=== PATIENT | male | born 1960 | race Caucasian/White ===

== ENCOUNTER 2018-01-26 10:46 | Inpatient (IN) | payer OTHER, SELFPAY ==
[2018-01-26] VITALS (12 sets, daily range): BP systolic 96–111; BP diastolic 59–86; PULSE 78–106; RESP 16–26; TEMP 36.1–37.1; O2SAT 91–97; BMI 34.4; BMI 34.7
[2018-01-26] MEDS: Albuterol 2.5 MG/3 ML VIAL.NEB. INHALATION ×3 (11:22)
[2018-01-26] MEDS: Ipratropium/Albuterol Sulfate 3 ML AMPUL.NEB INHALATION ×3 (11:22→23:00)
[2018-01-26] MEDS: 0.9% Normal Saline 1,000 ML 1000 ML IV (11:26)
[2018-01-26 11:28] LABS: Absolute Lymphocyte Count 1.81 X10^3/ul (0.83-4.51); Absolute Neutrophil Count 15.7 X10^3/uL (2.0-7.7); Basophil# 0.04 X10^3/uL; Basophil% 0.2 % (0-1); Eosinophil# 0.18 X10^3/uL; Hemoglobin 15.2 g/dl (13.0-16.5); Lymphocyte # 1.81 X10^3/ul (4.0); Lymphocyte % 9.8 % (19-41); Mean Corpuscular Hgb 27.2 pg (27.0-32.0); Mean Corpuscular Volume 87.8 fL (80-94); Mean Platelet Vol. 11.6 fl (6.2-12.0); Monocyte# 0.71 X10^3/uL; Monocyte% 3.8 % (0-10); Neutrophil # 15.66 X10^3/uL (2.7-7.7); Neutrophil % 84.8 % (47-70); Platelet Count 298 K/mm3 (150-450); RBC Distribution Width CV 15.1 % (11.6-14.6); RBC Distribution Width SD 48.4 fl (35.1-43.9); Red Blood Count 5.58 M/mm3 (4.6-6.2); White Blood Count 18.5 K/mm3 (4.4-11.0)
--- NOTE | 2018-01-26 11:31 | ED.RN ---
DANIELA FROST [employer]OCI[employer] PRIMARY NURSE WITH [employer].
[2018-01-26 11:33] LABS: POSITIVE COUNT NO; POSITIVE DIFFERENTIAL NO; POSITIVE MORPHOLOGY NO
[2018-01-26 11:49] LABS: ALB/GLOB Ratio 0.8 RATIO (0.9-2.4); AST(SGOT) 19 U/L (15-37); Alanine Aminotransfer ALT/SGPT 32 U/L (16-61); Albumin, Serum 3.5 g/dL (3.2-5.0); Alkaline Phosphatase 57 U/L (45-117); Anion Gap 4 (5-15); BUN 51 mg/dL (7-18); BUN/Creat Ratio 19.2 RATIO (10-20); Calcium,Total 9.1 mg/dL (8.5-10.1); Chloride 107 mmol/L (98-107); Creatinine, Serum 2.65 mg/dL (0.70-1.30); EST Glomerular Filtration Rate 27 mL/min (>60); Est Glom Filt Rate - Afr Amer 32 mL/min (>60); Estimated Creatinine Clearance 28.75 ml/min; Globulin 4.2 g/dL (2.2-4.2); Glucose 265 mg/dL (74-106); Potassium 6.2 mmol/L (3.5-5.1); Protein, Total 7.7 g/dL (6.4-8.2); Sodium Level 138 mmol/L (136-145)
--- NOTE | 2018-01-26 11:50 | RAD_ITS ---
STUDY: X-RAY CHEST REASON FOR EXAM: Male, 57 years old. Cough, shortness of breath. TECHNIQUE: 2 views, PA and lateral projections. COMPARISON: None available. FINDINGS: EKG wires overlie chest and upper abdomen. The lungs are appear fairly well expanded and show bihilar/bibasal diffuse heterogeneous increased interstitial markings with PA view. In addition, tiny rounded scattered densities are seen throughout the lungs concerning for nodules, nonspecific. With lateral view, soft tissues of the arms partially obstructed upper lungs. There is no demonstrated pleural abnormality. No large gross pneumothorax identified. Mildly enlarged heart. Normal mediastinum and guru. Mildly enlarged pulmonary arteries with ill-defined margins seen with PA view. Normal visualized aortic arch and descending thoracic aorta. Nonacute visualized thoracic spine, ribs, clavicles and shoulders. There is no demonstrated abnormality of the visualized soft tissue structures of the upper abdomen. No subdiaphragmatic free air seen grossly. RAD/Chest PA and Lateral IMPRESSION: Bihilar/bibasal increased groundglass and interstitial markings with numerous variable sized nodular densities identified as described above, nonspecific but concerning for congestion of CHF/fluid overload and/or lower probability neoplasm/metastasis. Infectious etiologies such as rare tuberculosis not excluded. If clinically indicated, CT chest with IV contrast may be more helpful. Electronically Signed: Poncho Campa, at 12:48 EDT Tel , Service support ,
--- NOTE | 2018-01-26 11:56 | ED.RN ---
potassium 6.2 called from [address] lab. dr terrazas aware
[2018-01-26] MEDS: levoFLOXacin IV 750 MG/150 ML BAG 100 MG IV (12:43)
[2018-01-26] MEDS: Dextrose 50%-Water 25 GM/50 ML DISP.SYRIN IV (12:43)
--- NOTE | 2018-01-26 12:54 | ED.VISSUMM ---
- ER Visit Summary Date of Service: 01/26/18 Chief Complaint: [cough] History of Present Illness: The patient is a 57 M [the presents with cough and shortness of breath that began yesterday. He does describe some sputum production. He describes shortness of breath worse with coughing. He denies any chest pain. He denies any symptoms orthopnea. He is a history of diabetes, hypertension, and hypercholesterolemia. No history of CHF. No recent travel. He is a longtime smoker. No DVT or PE history or risk factors. He has no other complaints. Initial blood pressure 98/67, respiratory rate 26, 93% on room air.] Physical Examination: [General: The patient appears well and in no apparent distress. Patient is resting comfortably on cart. Skin: Warm, dry, no pallor noted. No rash. Head: Normocephalic, atraumatic Neck: Supple, nontender. No JVD. No meningismus. Eye: PERRLA, EOMI ENT: Moist mucus membranes, pharynx within normal limits. Cardiovascular: Regular Rate and Rhythm, no gallups or rubs Respiratory: Patient is in no distress, no accessory muscle use, lungs are diminished with rhonchi bilaterally Musculoskeletal: normal ROM, no deformity, no tenderness, no swelling. 2+ radial and DP pulses symmetric. GI: No tenderness to palpation, no masses appreciated. No rebound, guarding, or rigidity noted. Neurological: A&O, normal strength and sensation. GCS 15. Psychiatric: Cooperative] Test Results: [Blood cell count is elevated at 18.5. Potassium is is elevated at 6.2. He has no hyper K changes on his EKG consistent with peaked T waves or widening of the QRS. BUN was elevated at 51, creatinine 2.65. Troponin was normal. Blood cultures and lactate are pending. BNP is pending. Chest x-ray shows infiltrate versus edema bilaterally] Emergency Department Course and Treatment: [She was placed on 2 L nasal cannula oxygen. He was given IV fluid boluses. Chest x-ray is concerning for infection with cough and sputum production. He was started on IV antibiotics. He was given insulin and calcium gluconate for hyperkalemia. He was given IV fluids also for acute kidney injury. Cardiac enzymes are negative. Lactate, BMP, and blood cultures are pending. Patient was discussed with hospitalist, Dr. Gage who also ordered ordered additional testing to be started here in the emergency department. At this time patient will be admitted for further evaluation and treatment.] Treatment Plan: [see above] Disposition: [admission] Impression: [Dyspnea, Community-acquired pneumonia bilateral, hyperkalemia, leukocytosis, sepsis, acute kidney injury] This note was generated with [employer] dictation software. It may contain incorrect words, spelling, and punctuation that were not noted in review of the chart prior to signing ED Disposition - Plan for ED Patient: Chief Complaint: Cough Referrals: Erasmo Stoner DO [Primary Care Provider] -
--- NOTE | 2018-01-26 12:58 | ED.DCSUM_ITS ---
- ER Visit Summary Date of Service: 01/26/18 Chief Complaint: [cough] History of Present Illness: The patient is a 57 M [the presents with cough and shortness of breath that began yesterday. He does describe some sputum production. He describes shortness of breath worse with coughing. He denies any chest pain. He denies any symptoms orthopnea. He is a history of diabetes , hypertension, and hypercholesterolemia. No history of CHF. No recent travel. He is a longtime smoker. No DVT or PE history or risk factors. He has no other complaints. Initial blood pressure 98/67, respiratory rate 26, 93 % on room air.] Physical Examination: [General: The patient appears well and in no apparent distress. Patient is resting comfortably on cart. Skin: Warm, dry, no pallor noted. No rash. Head: Normocephalic, atraumatic Neck: Supple, nontender. No JVD. No meningismus. Eye: PERRLA, EOMI ENT: Moist mucus membranes, pharynx within normal limits. Cardiovascular: Regular Rate and Rhythm, no gallups or rubs Respiratory: Patient is in no distress, no accessory muscle use, lungs are diminished with rhonchi bilaterally Musculoskeletal: normal ROM, no deformity, no tenderness, no swelling. 2+ radial and DP pulses symmetric. GI: No tenderness to palpation, no masses appreciated. No rebound, guarding, or rigidity noted. Neurological: A&O, normal strength and sensation. GCS 15. Psychiatric: Cooperative] Test Results: [Blood cell count is elevated at 18.5. Potassium is is elevated at 6.2. He has no hyper K changes on his EKG consistent with peaked T waves or widening of the QRS. BUN was elevated at 51, creatinine 2.65. Troponin was normal. Blood cultures and lactate are pending. BNP is pending. Chest x-ray shows infiltrate versus edema bilaterally] Emergency Department Course and Treatment: [She was placed on 2 L nasal cannula oxygen. He was given IV fluid boluses. Chest x-ray is concerning for infection with cough and sputum production. He was started on IV antibiotics. He was given insulin and calcium gluconate for hyperkalemia. He was given IV fluids also for acute kidney injury. Cardiac enzymes are negative. Lactate, BMP, and blood cultures are pending. Patient was discussed with hospitalist, Dr. Gage who also ordered ordered additional testing to be started here in the emergency department. At this time patient will be admitted for further evaluation and treatment.] Treatment Plan: [see above] Disposition: [admission] Impression: [Dyspnea, Community-acquired pneumonia bilateral, hyperkalemia, leukocytosis, sepsis, acute kidney injury] This note was generated with [employer] dictation software. It may contain incorrect words, spelling, and punctuation that were not noted in review of the chart prior to signing ED Disposition - Plan for ED Patient: Chief Complaint: Cough Referrals: Erasmo Stoner DO [Primary Care Provider] -
[2018-01-26 13:04] LABS: Lactic Acid 1.8 mmol/L (0.4-2.0)
[2018-01-26 13:15] LABS: Allen Test POS; Base Excess -9 mmol/L (-2 to +2); Bicarbonate 18.2 mmol/L (22-26); Blood Gas Specimen Type ART; O2 Delivery Device Nasal Can; PO2 81 mmHG (75-100); SITE L Radial; SO2 94 % (95-99); Time Given 1255; Total Carbon Dioxide 19 mmol/L; pCO2 42.2 mmHg (35-45); pH 7.24 (7.35-7.45)
[2018-01-26 13:42] LABS: BNP,B-Type NATRIURETIC PEPTIDE 567.3 pg/mL (0-100)
[2018-01-26 13:43] LABS: Salicylate 2.8 mg/dL (2.8-20.0)
[2018-01-26] MEDS: 0.9% Normal Saline 1,000 ML 999 ML IV (14:26)
[2018-01-26] MEDS: 0.9% Normal Saline 1,000 ML 150 ML IV (14:27)
[2018-01-26] MEDS: Insulin Lispro 100 UNIT/ML INSULN.PEN SC ×2 (15:40→20:53)
[2018-01-26] MEDS: Sodium Polystyrene Sulfonate 15 GM/60 ML UDC 30 GM PO (15:40)
[2018-01-26 15:46] LABS: Bedside Glucose 237 mg/dL (70-110)
--- NOTE | 2018-01-26 17:26 | PCM.HP.STD ---
Problem List (1) Sepsis Status: Acute (2) Pneumonia Status: Acute (3) Diabetes mellitus Status: Chronic Qualifiers: Diabetes mellitus type: type 2 (4) HTN (hypertension) Status: Chronic (5) Hyperkalemia Status: Acute (6) DILLON (acute kidney injury) Status: Acute History of Present Illness Date of Admission: 01/26/18 Chief Complaint: SOB The patient is a 57 year old M with a hx of DMt2 and HTN who presented to the ER with increased SOB for 2 days. He has had a cough productive of clear sputum. He has been in the hospital visiting his . He denies CP, and has no swelling of his LE. He does not have fevers or chills, but does report episodic sweats at home especially this AM. He denies a hx of COPD and CHF. In the ER he is satting well without o2, however his ABG does demonstrate acidosis with a pH of 7.25, however LA is only 1.8. He does have a significant leukocytosis however prior labs have all shown elevated white counts, for unclear reasons. He reports poorly controlled DMt2 - last A1C 8.9. He does smoke about 1/2 ppd and has done so most of his life. [] Past Medical History Past Medical History (Chronic Problems): Chronic Problems (Last Updated 09/27/17 @ 15:22 by Neva Chiang) Diabetes mellitus (Chronic) HTN (hypertension) (Chronic) Medical History: Medical History (Last Updated 09/27/17 @ 15:22 by Neva Chiang) Diabetes E11.9 Diarrhea R19.7 Shoulder pain M25.519 Hypertension I10 Allergies No Known Allergies Allergy (Verified 01/26/18 10:48) Home Medications: Ambulatory Orders Medication Instructions Recorded fenofibrate 50 mg capsule 50 mg PO QDAY 09/27/17 glimepiride 1 mg tablet 1 mg PO QAM 09/27/17 metformin 1,000 mg tablet 1,000 mg PO BID 09/27/17 metoprolol tartrate 75 mg tablet 75 mg PO BID 09/27/17 ramipril 1.25 mg capsule 1.25 mg PO QDAY 09/27/17 Surgical History: tonsillectomy Psychiatric History: No pertinent psych hx Lives: Alone Smoking Status: Current every day smoker Tobacco Use: Non-smoker, Cigarettes Alcohol: None Drugs: None - *Family History Maternal History Items: No pertinent history Paternal History Items: No pertinent history Review of Systems Constitutional: Denies: Chills, Fever, Weight Change HEENT: Denies: Head Aches, Sinus Congestion, Sinus Drainage Cardiovascular: Denies: Chest Pain, Palpitations Respiratory: Reports: Cough, Shortness of Breath, Shortness of breath at rest, Shortness of breath upon exertion. Denies: Sputum production Gastrointestinal: Denies: Abdominal Pain, Nausea, Vomiting Genitourinary: Denies: Dysuria Musculoskeletal: Denies: Joint Pain, Joint Tenderness Skin: Denies: Rash, Wounds Neurological: Denies: Numbness, Tingling, Focal weakness Psychiatric: Denies: Anxiety, Depression, Homicidal Ideations, Suicidal Ideations Hematologic/ Lymphatic: Denies: Easy Bruising, Easy Bleeding VTE Information - Inpt Only VTE Present on Admission: No VTE Mechan Device Prophylaxis: None VTE Pharm Prophylaxis ordered?: Yes Patient Problems: Active and Suspected Problems (Last Updated 09/27/17 @ 15:22 by Neva Chiang) Pneumonia (Acute) Sepsis (Acute) Hyperkalemia (Acute) DILLON (acute kidney injury) (Acute) - Physical Exam Vital Signs Temp Pulse Resp BP Pulse Ox 98.7 F 85 20 H 96/59 L 95 01/26/18 14:50 01/26/18 14:50 01/26/18 14:50 01/26/18 14:50 01/26/18 14:50 Oxygen Delivery Method Room Air Weight: 221 lb 9.033 oz Body Mass Index (BMI) 34.7 POC Glucose 01/26/18 15:39 POC Glucose 237 H Assessment/Plan All Active Problems (Last Updated 09/27/17 @ 15:22 by Neva Chiang) Pneumonia (Acute) Sepsis (Acute) Hyperkalemia (Acute) DILLON (acute kidney injury) (Acute) Sinusitis, acute (Acute) 1. sepsis/Pneumonia vs CHF - CXR indeterminate etiologies. CT chest ordered. Chronic leukocytosis. hold abx. Afebrile. Hold fluids. pH 7.25 in ER. Now satting 97 on room air. ID consulted. Influenza screen negative. Blood cultures pending. Urine antigens pending. Respiratory panel pending. Echo ordered. BNP 567. Troponin negative. LA negative. 2. HTN - running low. hold antihtn agents. 3. DMt2 - hold orals. SSI. Last A1C 8.9. 4. DILLON vs CKD - renal US in AM. True baseline unknown. Hold nephrotoxins. 5. Hyperkalemia - kayex x 1, repeat BMP ordered. 6. HLD - hold fenofibrate 7. Nicotine abuse - patch if desired. DVT ppx: heparin This patient was seen by Nick Junior PA-C under the supervision of Doctor Gage.
--- NOTE | 2018-01-26 17:28 | ECHOD_ITS ---
Reason For Study: CHF Procedure This was a 2D Doppler, Color Flow transthoracic echocardiogram. The study was technically difficult. Exam performed portable in patient room. Left Ventricle Severely dilated left ventricle. The estimated ejection fraction is 30 %. There are regional wall motion abnormalities as specified. Anterio-Basal: Akinetic. Mid-Anterior : Mildly hypokinetic. Mid- Lateral : Severely Hypokinetic. Right Ventricle Mildly dilated right ventricle. Normal systolic function. Atria The left atrium is moderately enlarged. Normal right atrium. Normal atrial septum. Mitral Valve Mild diffuse mitral valve thickening. Mild (1+) mitral valve insufficiency. Tricuspid Valve Normal tricuspid valve. Mild (1+) tricuspid valve insufficiency. Right ventricular systolic pressure estimated to be 54 mmHg. Moderate pulmonary hypertension. Aortic Valve Trisinus/trileaflet aortic valve. Mild focal aortic valve thickening. Pulmonic Valve The pulmonic valve is not well visualized. Great Vessels Normal aortic root. Normal arch. The inferior vena cava is dilated. Inferior vena cava collapse with sniff. Pericardium/Pleural No pericardial effusion. MMode/2D Measurements & Calculations LVIDd: 6.2 cm IVSd: 1.1 cm Ao root diam: 3.4 cm LVIDs: 5.0 cm LVPWd: 1.2 cm LA dimension: 4.4 cm RVDd: 3.7 cm FS: 20.5 % LAV(MOD-bp): 87.6 ml LA A4 area: 23.0 cm2 RA A4 area: 17.1 cm2 LAV(MOD-bp) Indexed: 41.5 ml/m2 LAV(MOD-sp2): 84.1 ml LAV(MOD-sp4): 81.2 ml Doppler Measurements & Calculations MV E max mickey: 82.9 cm/sec Lat Peak E' Mickey: 9.2 cm/sec Med Peak E' Mickey: 3.4 cm/sec MV A max mickey: 49.4 cm/sec E/E' lat: 9.0 E/E' med: 24.7 MV E/A: 1.7 Ao V2 max: 98.4 cm/sec LV V1 max: 70.5 cm/sec PA V2 max: 55.5 cm/sec Ao max P.9 mmHg LV V1 max P.0 mmHg TR max mickey: 347.5 cm/sec TR max P.5 mmHg Interpretation Summary Severely dilated left ventricle. The estimated ejection fraction is 30 %. There are regional wall motion abnormalities as specified. Mildly dilated right ventricle. The left atrium is moderately enlarged. Mild (1+) mitral valve insufficiency. Mild (1+) tricuspid valve insufficiency. Right ventricular systolic pressure estimated to be 54 mmHg. There is no comparison study available. Ordering Physician: Nick Junior Referring Physician: Erasmo Stoner Performed By: Jeanna Valenzuela RDCS, RVT
--- NOTE | 2018-01-26 17:31 | CT_ITS ---
STUDY: CT CHEST WITHOUT CONTRAST REASON FOR EXAM: Male, 57 years old. Pneumonia. RADIATION DOSAGE (If Supplied By Facility): CTDIvol = ( 19.91 ) mGy, DLP = ( 731.39 ) mGycm TECHNIQUE: Transaxial imaging was performed without the administration of intravenous contrast material. Individualized dose optimization techniques were used for this CT. COMPARISON: None. FINDINGS: There are bilateral moderate-sized pleural effusions. There is interlobular septal thickening most pronounced within the upper lobes. There are calcifications of the coronary arteries. There is a small pleural effusion. There are multiple enlarged mediastinal lymph nodes that are likely reactive. Normal hilar regions. Normal unenhanced pulmonary arteries. Normal aorta arch and descending thoracic aorta. There are multi-level degenerative changes of the thoracic spine. There is no demonstrated abnormality of the visualized upper abdomen. CT/Chest without Contrast IMPRESSION: Bilateral pleural effusions. Small pericardial effusion. Bilateral interlobular septal thickening, most pronounced within the upper lobes, a nonspecific finding likely secondary to underlying edema. Atherosclerosis. Enlarged mediastinal lymph nodes, likely reactive. Electronically Signed: Madhavi Morris MD at 18:12 EDT Tel , Service support ,
--- NOTE | 2018-01-26 17:44 | US_ITS ---
STUDY: RENAL ULTRASOUND - COMPLETE REASON FOR EXAM: Male, 57 years old. Acute renal failure TECHNIQUE: Ultrasound evaluation of the kidneys was performed with real-time and static tan-scale imaging. COMPARISON: None. FINDINGS: RIGHT KIDNEY: Normal location of the right kidney, which is normal in size. The right kidney measures 10.4 x 5.2 x 6.0 cm. There is a normal cortex of the right kidney. The renal cortex measures 1.8 cm. There is no right renal mass or cyst. There are no right renal calculi. There is no right hydronephrosis. DISTAL RIGHT URETER: There is non-visualization of the distal right ureter. LEFT KIDNEY: Normal location of the left kidney, which is normal in size. The left kidney measures 11.6 x 5.7 x 5.4 cm. There is a normal cortex of the left kidney. The renal cortex measures 1.4 cm. There is no left renal mass or cyst. There are no left renal calculi. There is no left hydronephrosis. DISTAL LEFT URETER: There is non-visualization of the distal left ureter. BLADDER: The partially distended urinary bladder is unremarkable. US/Kidney and Bladder IMPRESSION: Normal ultrasound of the kidneys and urinary bladder. Electronically Signed: Salas Dillon DO at 20:09 EDT Tel [phone], Service support ,
[2018-01-26 17:59] LABS: Anion Gap 5 (5-15); BUN 51 mg/dL (7-18); BUN/Creat Ratio 20.9 RATIO (10-20); Calcium,Total 8.6 mg/dL (8.5-10.1); Chloride 112 mmol/L (98-107); Creatinine, Serum 2.44 mg/dL (0.70-1.30); EST Glomerular Filtration Rate 29 mL/min (>60); Est Glom Filt Rate - Afr Amer 35 mL/min (>60); Estimated Creatinine Clearance 31.23 ml/min; Glucose 205 mg/dL (74-106); Potassium 5.4 mmol/L (3.5-5.1); Sodium Level 142 mmol/L (136-145)
[2018-01-26 23:41] LABS: Bedside Glucose 175 mg/dL (70-110)
[2018-01-27] VITALS (28 sets, daily range): BP systolic 110–158; BP diastolic 61–104; PULSE 79–113; RESP 16–107; TEMP 36.7–37.2; O2SAT 89–98
[2018-01-27 03:23] LABS: Absolute Lymphocyte Count 2.75 X10^3/ul (0.83-4.51); Absolute Neutrophil Count 13.6 X10^3/uL (2.0-7.7); Basophil# 0.04 X10^3/uL; Basophil% 0.2 % (0-1); Eosinophil# 0.13 X10^3/uL; Eosinophils% 0.7 % (0-5); Hematocrit 42.4 % (40-54); Hemoglobin 13.7 g/dl (13.0-16.5); Lymphocyte # 2.75 X10^3/ul (4.0); Lymphocyte % 15.6 % (19-41); Mean Corp Hgb Conc 32.3 g/gl (32-36); Mean Corpuscular Hgb 27.6 pg (27.0-32.0); Mean Corpuscular Volume 85.3 fL (80-94); Mean Platelet Vol. 11.7 fl (6.2-12.0); Monocyte# 1.03 X10^3/uL; Monocyte% 5.8 % (0-10); Neutrophil # 13.64 X10^3/uL (2.7-7.7); Neutrophil % 77.2 % (47-70); Platelet Count 253 K/mm3 (150-450); RBC Distribution Width CV 15.2 % (11.6-14.6); RBC Distribution Width SD 46.7 fl (35.1-43.9); Red Blood Count 4.97 M/mm3 (4.6-6.2); White Blood Count 17.7 K/mm3 (4.4-11.0)
[2018-01-27 03:29] LABS: POSITIVE COUNT NO; POSITIVE DIFFERENTIAL NO; POSITIVE MORPHOLOGY NO
[2018-01-27 03:40] LABS: ALB/GLOB Ratio 0.9 RATIO (0.9-2.4); AST(SGOT) 12 U/L (15-37); Alanine Aminotransfer ALT/SGPT 28 U/L (16-61); Albumin, Serum 3.1 g/dL (3.2-5.0); Alkaline Phosphatase 44 U/L (45-117); Anion Gap 11 (5-15); BUN 54 mg/dL (7-18); BUN/Creat Ratio 20.9 RATIO (10-20); Calcium,Total 8.3 mg/dL (8.5-10.1); Chloride 112 mmol/L (98-107); Creatinine, Serum 2.58 mg/dL (0.70-1.30); EST Glomerular Filtration Rate 27 mL/min (>60); Est Glom Filt Rate - Afr Amer 33 mL/min (>60); Estimated Creatinine Clearance 29.53 ml/min; Globulin 3.4 g/dL (2.2-4.2); Glucose 195 mg/dL (74-106); Protein, Total 6.5 g/dL (6.4-8.2); Sodium Level 143 mmol/L (136-145)
--- NOTE | 2018-01-27 05:59 | RAD_ITS ---
STUDY: X-RAY CHEST REASON FOR EXAM: Male, 57 years old. Shortness of breath. Bilateral pneumonia. TECHNIQUE: 2 views with PA and lateral projections. COMPARISON: Chest 01/26/2018. FINDINGS: EKG wires overlie chest. Lungs appear well expanded and clear of active focal pulmonary consolidation with air bronchograms, pneumothorax or bronchiectasis identified. Right greater than left bibasal mild diffuse increased interstitial and likely groundglass opacities are seen, appears slightly decreased. Minimal opacification and blunted right CP angle suggests minimal pleural fluid and/or atelectasis/scarring. With lateral view, previously seen rounded scattered densities appear decrease in size and number most likely due to pulmonary vessels. Heart appears mildly enlarged for PA/lateral projections. Stable appearing mediastinum and guru. Moderate enlarged visualized pulmonary arteries. Normal visualized aortic arch and descending thoracic aorta. Stable appearing visualized thoracic spine, ribs, clavicles and shoulders. There is no demonstrated abnormality of the visualized soft tissue structures of the upper abdomen. No subdiaphragmatic free air seen grossly. RAD/Chest PA and Lateral IMPRESSION: Mild decrease CHF/fluid overload. Mild cardiomegaly, stable appearance. Mild decrease bibasal diffuse increased interstitial and likely groundglass opacities are seen, may represent congestive changes of CHF/fluid overload, pleural fluid, atelectasis/scarring, pneumonia or combination. Electronically Signed: Poncho Campa, at 8:24 EDT Tel , Service support ,
[2018-01-27 07:06] LABS: Bedside Glucose 171 mg/dL (70-110)
[2018-01-27] MEDS: Ipratropium/Albuterol Sulfate 3 ML AMPUL.NEB INHALATION ×5 (07:08→22:49)
[2018-01-27 09:26] LABS: Magnesium 1.9 mg/dL (1.6-2.6); Thyroid Stim Hormone (TSH) 5.94 uIU/mL (0.358-3.74)
--- NOTE | 2018-01-27 10:03 | PCM.CONS.C ---
Problem List (1) LV dysfunction Status: Acute (2) Dyspnea on exertion Status: Acute (3) HTN (hypertension) Status: Chronic Reason for Consult Date of Consultation: 01/27/18 Reason for Consultation: Dyspnea on exertion, shortness of breath, chronic renal insufficiency, abnormal echo, LV dysfunction, pulmonary edema History of Present Illness: The patient is a 57 year old M with diabetes, obesity, positive tobacco abuse, chronic renal insufficiency, who apparently had a catheterization many years ago at [facility] from an unknown physician after having an abnormal stress test. He denies any stents or bypass surgery. He does not follow-up with a management associate. Patient been in normal health up until the last 3-4 days when he has developed progressively worsening shortness of breath, dyspnea on exertion, mild lower extremity edema but no chest pain or angina. He reports decreased exercise capacity, and increasing and worsening dyspnea on exertion. Patient was admitted to the ER and his EKG showed normal sinus rhythm with poor R-wave progression across the precordium low voltage, and anterolateral T-wave inversion. He was found to have an elevated BNP and given a diagnosis of both pneumonia and congestive heart failure. Patient underwent a 2D echo with Doppler this morning which showed severe LV dysfunction with an EF around 30%, moderate pulmonary hypertension with an RVSP of 54 mmHg, mild tricuspid regurgitation and mild mitral regurgitation. Chest x-ray reviewed which demonstrated mild pulmonary vascular redistribution and groundglass appearance to the left lower lobe. No pleural effusions noted. [] Past Medical History Allergies/Adverse Reactions: Allergies No Known Allergies Allergy (Verified 01/26/18 10:48) Home Medications: Ambulatory Orders Medication Instructions Recorded fenofibrate 50 mg capsule 50 mg PO QDAY 09/27/17 glimepiride 1 mg tablet 1 mg PO QAM 09/27/17 metformin 1,000 mg tablet 1,000 mg PO BID 09/27/17 metoprolol tartrate 75 mg tablet 75 mg PO BID 09/27/17 ramipril 1.25 mg capsule 1.25 mg PO QDAY 09/27/17 Past Medical History (Chronic Problems): Chronic Problems (Last Updated 09/27/17 @ 15:22 by Neva Chiang) Diabetes mellitus (Chronic) HTN (hypertension) (Chronic) Surgical History: tonsillectomy Psychiatric History: No pertinent psych hx - *Family History Maternal History Items: No pertinent history Paternal History Items: No pertinent history Lives: Alone Smoking Status: Current every day smoker Tobacco Use: Non-smoker, Cigarettes Alcohol: None Drugs: None Review of Systems - Review of Systems General: Denies: Fever, Night Sweats, Fatigue Cardiovascular: Reports: Shortness of Breath, Shortness of Breath with Exertion. Denies: Chest Discomfort, Orthopnea, PND, Peripheral Edema, Palpitations, Lightheadedness, Dizziness, Near Syncope, Syncope Respiratory: Denies: Cough, Sputum Production, Hemoptysis Gastrointestinal: Denies: Hematemesis, Hematochezia, Melena Genitourinary: Denies: Dysuria, Hematuria Skin: Denies: Rash Subjectve: Patient sitting in a chair, no acute distress. Objective: Vital Signs Temp Pulse Resp BP Pulse Ox 98.2 F 100 18 110/84 H 98 01/27/18 05:24 01/27/18 07:14 01/27/18 07:08 01/27/18 05:24 01/27/18 07:08 Oxygen Flow Rate (L/min) 2 Oxygen Delivery Method Room Air Weight: 221 lb 9.033 oz Body Mass Index (BMI) 34.7 Intake and Output for Last 24 Hours 01/25/18 01/26/18 01/27/18 23:59 23:59 23:59 Intake Total 920 / 920 Balance 920 / 920 General: Awake, Alert, Oriented x 3 HEENT: PERRL, EOMI, Sclera Non Icteric Neck: Supple, Good ROM, No Lymph Node Enlargement Lungs: Diminished Richie Bases Cardiovascular: Regular Rhythm, Normal S1, Normal S2, No Murmurs, No Rubs, No Gallops 01/26/18 17:10: Sodium 142, Potassium 5.4 H, Chloride 112 H, Carbon Dioxide 25.0, Anion Gap 5, BUN 51 H, Creatinine 2.44 H, Est GFR (MDRD) Af Amer 35 L, Est GFR (MDRD) Non-Af 29 L, BUN/Creatinine Ratio 20.9 H, Glucose 205 H, Calcium 8.6 01/26/18 20:30: Troponin I 0.027 01/26/18 23:02: Troponin I 0.023 01/27/18 03:10: WBC 17.7 H, RBC 4.97, Hgb 13.7, Hct 42.4, MCV 85.3, MCH 27.6, MCHC 32.3, RDW 15.2 H, RDW Differential 46.7 H, Plt Count 253, MPV 11.7, Immature Gran % (Auto) 0.500, Neut % (Auto) 77.2 H, Lymph % (Auto) 15.6 L, [place] % (Auto) 5.8, Eos % (Auto) 0.7, Baso % (Auto) 0.2, Absolute Neuts (auto) 13.6 H, Total Counted Not Reportable 01/27/18 03:10: Sodium 143, Potassium 5.0, Chloride 112 H, Carbon Dioxide 20.0 L, Anion Gap 11, BUN 54 H, Creatinine 2.58 H, Est GFR (MDRD) Af Amer 33 L, Est GFR (MDRD) Non-Af 27 L, BUN/Creatinine Ratio 20.9 H, Glucose 195 H, Calcium 8.3 L, Total Bilirubin 0.10 L 01/27/18 03:10: Troponin I 0.025 01/27/18 03:10: Magnesium 1.9 Rhythm: EKG: As above ECHO: As above Stress Test: Cardiac Cath: Pending PCI: CT Surgery: Holter monitor: EPS: PPM: CXR: Chest CT Scan: Assessment/Plan 1. Dyspnea on exertion: Patient's echocardiogram demonstrates severe LV dysfunction with evidence of akinetic anterior and severely hypokinetic lateral rodriguez, LV dilatation, and at least moderate pulmonary hypertension by echocardiogram. Patient symptoms appear to be cardiac related with congestive heart failure as the presenting symptom. I recommended the patient undergo a left heart catheterization later this afternoon after being loaded with Plavix 3 mg ?1 now. Continue baby aspirin. In addition I recommend the patient be started on Lasix 40 mg IV daily to assist with diuresis. He will also require renal consultation given his chronic renal insufficiency. I would not recommend JAZZY inhibitor or ARB given his chronic renal insufficiency, but would recommend starting him on hydralazine 10 mg p.o. twice daily as afterload reducing agents until he is out of heart failure. Once his heart failure has been optimized, would recommend starting him on Coreg 3.125 mg p.o. twice daily for both beta-alee, heart rate control, and afterload reducing agent. Recommend a 1500 cc fluid restriction as well. If the patient is found to have a critical lesion which would require urgent intervention we can do that today, but if she he would benefit from a staged procedure given his chronic renal insufficiency that may also be a viable plan. We will know more once we do his left her catheterization later today. 2. Hyperlipidemia: Given his diabetes and LV dysfunction he requires aggressive LDL reduction. Recommend obtaining a fasting lipid profile and treating his cholesterol with aggressive statin based therapy. 3. Thank you very much for the opportunity to participate in the cardiac care of your patient. Consultation time took place between 7 AM and 7:30 AM. Code Visit Inpatient E&M: 29888 Init Hosp L2
--- NOTE | 2018-01-27 10:07 | CON.PCM_ITS ---
Problem List (1) LV dysfunction Status: Acute (2) Dyspnea on exertion Status: Acute (3) HTN (hypertension) Status: Chronic Reason for Consult Date of Consultation: 01/27/18 Reason for Consultation: Dyspnea on exertion, shortness of breath, chronic renal insufficiency, abnormal echo, LV dysfunction, pulmonary edema History of Present Illness: The patient is a 57 year old M with diabetes, obesity, positive tobacco abuse, chronic renal insufficiency, who apparently had a catheterization many years ago at [facility] from an unknown physician after having an abnormal stress test. He denies any stents or bypass surgery. He does not follow-up with a product/industry consultant. Patient been in normal health up until the last 3-4 days when he has developed progressively worsening shortness of breath, dyspnea on exertion, mild lower extremity edema but no chest pain or angina. He reports decreased exercise capacity, and increasing and worsening dyspnea on exertion. Patient was admitted to the ER and his EKG showed normal sinus rhythm with poor R-wave progression across the precordium low voltage, and anterolateral T-wave inversion. He was found to have an elevated BNP and given a diagnosis of both pneumonia and congestive heart failure. Patient underwent a 2D echo with Doppler this morning which showed severe LV dysfunction with an EF around 30%, moderate pulmonary hypertension with an RVSP of 54 mmHg, mild tricuspid regurgitation and mild mitral regurgitation. Chest x-ray reviewed which demonstrated mild pulmonary vascular redistribution and groundglass appearance to the left lower lobe. No pleural effusions noted. [] Past Medical History Allergies/Adverse Reactions: Allergies No Known Allergies Allergy (Verified 01/26/18 10:48) Home Medications: Ambulatory Orders Medication Instructions Recorded fenofibrate 50 mg capsule 50 mg PO QDAY 09/27/17 glimepiride 1 mg tablet 1 mg PO QAM 09/27/17 metformin 1,000 mg tablet 1,000 mg PO BID 09/27/17 metoprolol tartrate 75 mg tablet 75 mg PO BID 09/27/17 ramipril 1.25 mg capsule 1.25 mg PO QDAY 09/27/17 Past Medical History (Chronic Problems): Chronic Problems (Last Updated 09/27/17 @ 15:22 by Neva Chiang) Diabetes mellitus (Chronic) HTN (hypertension) (Chronic) Surgical History: tonsillectomy Psychiatric History: No pertinent psych hx - *Family History Maternal History Items: No pertinent history Paternal History Items: No pertinent history Lives: Alone Smoking Status: Current every day smoker Tobacco Use: Non-smoker, Cigarettes Alcohol: None Drugs: None Review of Systems - Review of Systems General: Denies: Fever, Night Sweats, Fatigue Cardiovascular: Reports: Shortness of Breath, Shortness of Breath with Exertion. Denies: Chest Discomfort, Orthopnea, PND, Peripheral Edema, Palpitations, Lightheadedness, Dizziness, Near Syncope, Syncope Respiratory: Denies: Cough, Sputum Production, Hemoptysis Gastrointestinal: Denies: Hematemesis, Hematochezia, Melena Genitourinary: Denies: Dysuria, Hematuria Skin: Denies: Rash Subjectve: Patient sitting in a chair, no acute distress. Objective: Vital Signs Temp Pulse Resp BP Pulse Ox 98.2 F 100 18 110/84 H 98 01/27/18 05:24 01/27/18 07:14 01/27/18 07:08 01/27/18 05:24 01/27/18 07:08 Oxygen Flow Rate (L/min) 2 Oxygen Delivery Method Room Air Weight: 221 lb 9.033 oz Body Mass Index (BMI) 34.7 Intake and Output for Last 24 Hours 01/25/18 01/26/18 01/27/18 23:59 23:59 23:59 Intake Total 920 / 920 Balance 920 / 920 General: Awake, Alert, Oriented x 3 HEENT: PERRL, EOMI, Sclera Non Icteric Neck: Supple, Good ROM, No Lymph Node Enlargement Lungs: Diminished Richie Bases Cardiovascular: Regular Rhythm, Normal S1, Normal S2, No Murmurs, No Rubs, No Gallops 01/26/18 17:10: Sodium 142, Potassium 5.4 H, Chloride 112 H, Carbon Dioxide 25.0 , Anion Gap 5, BUN 51 H, Creatinine 2.44 H, Est GFR (MDRD) Af Amer 35 L, Est GFR (MDRD) Non-Af 29 L, BUN/Creatinine Ratio 20.9 H, Glucose 205 H, Calcium 8.6 01/26/18 20:30: Troponin I 0.027 01/26/18 23:02: Troponin I 0.023 01/27/18 03:10: WBC 17.7 H, RBC 4.97, Hgb 13.7, Hct 42.4, MCV 85.3, MCH 27.6, MCHC 32.3, RDW 15.2 H, RDW Differential 46.7 H, Plt Count 253, MPV 11.7, Immature Gran % (Auto) 0.500, Neut % (Auto) 77.2 H, Lymph % (Auto) 15.6 L, [place] % (Auto) 5.8, Eos % (Auto) 0.7, Baso % (Auto) 0.2, Absolute Neuts (auto) 13.6 H , Total Counted Not Reportable 01/27/18 03:10: Sodium 143, Potassium 5.0, Chloride 112 H, Carbon Dioxide 20.0 L , Anion Gap 11, BUN 54 H, Creatinine 2.58 H, Est GFR (MDRD) Af Amer 33 L, Est GFR (MDRD) Non-Af 27 L, BUN/Creatinine Ratio 20.9 H, Glucose 195 H, Calcium 8.3 L, Total Bilirubin 0.10 L 01/27/18 03:10: Troponin I 0.025 01/27/18 03:10: Magnesium 1.9 Rhythm: EKG: As above ECHO: As above Stress Test: Cardiac Cath: Pending PCI: CT Surgery: Holter monitor: EPS: PPM: CXR: Chest CT Scan: Assessment/Plan 1. Dyspnea on exertion: Patient's echocardiogram demonstrates severe LV dysfunction with evidence of akinetic anterior and severely hypokinetic lateral rodriguez, LV dilatation, and at least moderate pulmonary hypertension by echocardiogram. Patient symptoms appear to be cardiac related with congestive heart failure as the presenting symptom. I recommended the patient undergo a left heart catheterization later this afternoon after being loaded with Plavix 3 mg ?1 now. Continue baby aspirin. In addition I recommend the patient be started on Lasix 40 mg IV daily to assist with diuresis. He will also require renal consultation given his chronic renal insufficiency. I would not recommend JAZZY inhibitor or ARB given his chronic renal insufficiency, but would recommend starting him on hydralazine 10 mg p.o. twice daily as afterload reducing agents until he is out of heart failure. Once his heart failure has been optimized, would recommend starting him on Coreg 3.125 mg p.o. twice daily for both beta-alee, heart rate control, and afterload reducing agent. Recommend a 1500 cc fluid restriction as well. If the patient is found to have a critical lesion which would require urgent intervention we can do that today, but if she he would benefit from a staged procedure given his chronic renal insufficiency that may also be a viable plan. We will know more once we do his left her catheterization later today. 2. Hyperlipidemia: Given his diabetes and LV dysfunction he requires aggressive LDL reduction. Recommend obtaining a fasting lipid profile and treating his cholesterol with aggressive statin based therapy. 3. Thank you very much for the opportunity to participate in the cardiac care of your patient. Consultation time took place between 7 AM and 7:30 AM. Code Visit Inpatient E&M: 98236 Init Hosp L2
--- NOTE | 2018-01-27 11:00 | CASEMGMT ---
SEE RN FATOUMATA ASSESS LINK: D/C PLAN: Home Intro role to [facility]. Pt resting in bed. Pt states lives with and is independent @ home. Pt denies DME needs and no needs identified. Pt wishes to discharge home and denies needs at this time. Pt states has no further needs or concerns at this time. CM to follow for discharge planning needs that may arise. Tim HAN [facility]
[2018-01-27] MEDS: Aspirin 325 MG Tablet PO (11:12)
[2018-01-27] MEDS: Clopidogrel Bisulfate 300 MG Tablet PO (11:12)
[2018-01-27 11:15] LABS: Cholesterol 161 mg/dL (200); High Density Lipoprotein 39 mg/dL; Triglycerides 272 mg/dL; Very Low Density Lipoprotein 54 mg/dL (5-40)
[2018-01-27 11:41] LABS: Bedside Glucose 174 mg/dL (70-110)
[2018-01-27] MEDS: DiphenhydrAMINE 25 MG Capsule 50 MG PO (12:58)
[2018-01-27] MEDS: 0.9% Normal Saline 1,000 ML 15 ML IV (12:58)
--- NOTE | 2018-01-27 13:06 | CASEMGMT ---
According to [facility] website, the following are in-network tertiary facilities: [facility], [facility], [facility], [facility], [facility], [place], [facility], and . Robbie NEWMAN CM
--- NOTE | 2018-01-27 14:31 | PCM.PROGNOTE ---
Patient Problems: Active and Suspected Problems (Last Updated 09/27/17 @ 15:22 by Neva Chiang) Pneumonia (Acute) Sepsis (Acute) Hyperkalemia (Acute) DILLON (acute kidney injury) (Acute) LV dysfunction (Acute) Dyspnea on exertion (Acute) Subjective: Patient has had mild dyspnea but has remained stable off oxygen. No chest pain, no palpitations, no dizziness or lightheadedness. He does not complain of any swelling of his lower extremities . he is agreeable to heart catheterization. - Physical Exam General: Alert, Oriented x3, Cooperative HEENT: Atraumatic, PERRLA, EOMI, Normocephalic Neck: Supple, No JVD, Negative Carotid Bruits Lungs: Clear to auscultation, Normal air movement Cardiovascular: Regular rate, No murmurs Abdomen: Bowel Sounds Present, Soft, Non Tender Extremities: No edema, Capillary Refill Less than 3 Seconds Skin: No rashes, No breakdown Musculoskeletal: No Tenderness to Palpation of Joints or Extremities Neurological: Cranial nerves II-XII grossly intact Psych/Mental Status: Normal Affect, Appropriate, Alert and oriented to time, place, person, mood and affect Vital Signs Temp Pulse Resp BP Pulse Ox 98.9 F 104 H 20 H 118/61 97 01/27/18 11:20 01/27/18 11:50 01/27/18 11:20 01/27/18 11:20 01/27/18 11:20 Oxygen Flow Rate (L/min) 2 Oxygen Delivery Method Room Air Weight: 221 lb 9.033 oz Body Mass Index (BMI) 34.7 Intake and Output for Last 24 Hours 01/25/18 01/26/18 01/27/18 23:59 23:59 23:59 Intake Total 920 / 920 50 / 50 Balance 920 / 920 50 / 50 Microbiology Past 72 Hours 01/26/18 23:15 Gram Stain - Final Sputum, Expectorated/Coughed 01/26/18 14:35 Respiratory Panel (PCR) - Final Mucosa - Nasopharyngeal 01/26/18 17:00 Streptococcus pneumoniae Antigen (M - Final Urine, Clean Catch 01/26/18 17:00 Legionella Antigen - Final Urine, Clean Catch Laboratory Tests Past 24 Hrs 01/26/18 01/26/18 01/26/18 17:10 20:30 23:02 WBC RBC Hgb Hct MCV MCH MCHC RDW RDW Differential Plt Count MPV Immature Gran % (Auto) Neut % (Auto) Lymph % (Auto) [place] % (Auto) Eos % (Auto) Baso % (Auto) Absolute Neuts (auto) Absolute Lymphs (auto) Total Counted Sodium 142 Potassium 5.4 H Chloride 112 H Carbon Dioxide 25.0 Anion Gap 5 BUN 51 H Creatinine 2.44 H Estim Creat Clear Calc 31.23 Est GFR (MDRD) Af Amer 35 L Est GFR (MDRD) Non-Af 29 L BUN/Creatinine Ratio 20.9 H Glucose 205 H Calcium 8.6 Magnesium Total Bilirubin AST ALT Alkaline Phosphatase Troponin I 0.027 0.023 Total Protein Albumin Globulin Albumin/Globulin Ratio Triglycerides Cholesterol LDL Cholesterol VLDL Cholesterol HDL Cholesterol TSH 01/27/18 01/27/18 01/27/18 03:10 03:10 03:10 WBC 17.7 H RBC 4.97 Hgb 13.7 Hct 42.4 MCV 85.3 MCH 27.6 MCHC 32.3 RDW 15.2 H RDW Differential 46.7 H Plt Count 253 MPV 11.7 Immature Gran % (Auto) 0.500 Neut % (Auto) 77.2 H Lymph % (Auto) 15.6 L [place] % (Auto) 5.8 Eos % (Auto) 0.7 Baso % (Auto) 0.2 Absolute Neuts (auto) 13.6 H Absolute Lymphs (auto) 2.75 Total Counted Not Reportable Sodium 143 Potassium 5.0 Chloride 112 H Carbon Dioxide 20.0 L Anion Gap 11 BUN 54 H Creatinine 2.58 H Estim Creat Clear Calc 29.53 Est GFR (MDRD) Af Amer 33 L Est GFR (MDRD) Non-Af 27 L BUN/Creatinine Ratio 20.9 H Glucose 195 H Calcium 8.3 L Magnesium Total Bilirubin 0.10 L AST 12 L ALT 28 Alkaline Phosphatase 44 L Troponin I 0.025 Total Protein 6.5 Albumin 3.1 L Globulin 3.4 Albumin/Globulin Ratio 0.9 Triglycerides Cholesterol LDL Cholesterol VLDL Cholesterol HDL Cholesterol TSH 01/27/18 01/27/18 03:10 03:10 WBC RBC Hgb Hct MCV MCH MCHC RDW RDW Differential Plt Count MPV Immature Gran % (Auto) Neut % (Auto) Lymph % (Auto) [place] % (Auto) Eos % (Auto) Baso % (Auto) Absolute Neuts (auto) Absolute Lymphs (auto) Total Counted Sodium Potassium Chloride Carbon Dioxide Anion Gap BUN Creatinine Estim Creat Clear Calc Est GFR (MDRD) Af Amer Est GFR (MDRD) Non-Af BUN/Creatinine Ratio Glucose Calcium Magnesium 1.9 Total Bilirubin AST ALT Alkaline Phosphatase Troponin I Total Protein Albumin Globulin Albumin/Globulin Ratio Triglycerides 272 H Cholesterol 161 LDL Cholesterol 68 VLDL Cholesterol 54 H HDL Cholesterol 39 L TSH 5.94 H POC Glucose 01/27/18 01/27/18 01/26/18 11:14 07:02 20:48 POC Glucose 174 H 171 H 175 H 01/26/18 15:39 POC Glucose 237 H Medical Necessity - Tobacco Use Smoking Status: Current every day smoker Tobacco Use: Non-smoker, Cigarettes Assessment/Plan All Active Problems (Last Updated 09/27/17 @ 15:22 by Neva Chiang) Pneumonia (Acute) Sepsis (Acute) Hyperkalemia (Acute) DILLON (acute kidney injury) (Acute) LV dysfunction (Acute) Dyspnea on exertion (Acute) Sinusitis, acute (Acute) 1. Acute systolic CHF -pneumonia ruled out. Remains stable off oxygen. EF was 30% on echo today. Dr. Dennis was consulted and plans to take him for heart cath. Despite his SOB he is stable off O2, has no peripheral edema, and lungs sound clear this AM. -CT of the chest demonstrated bilateral pleural effusions, small pericardial effusion, CHF. -BNP 567 -Trops neg. 2. HTN -stable 3. DMt2 - hold orals. SSI. Last A1C 8.9. 4. DILLON vs CKD - renal US performed this morning and was normal. True baseline unknown. Hold nephrotoxins. Would likely benefit from diuresis 5. Hyperkalemia - kayex x 1, now within normal limits 6. HLD - hold fenofibrate 7. Nicotine abuse - patch if desired. DVT ppx: heparin This patient was seen by Nick Junior PA-C under the supervision of Doctor Gage.
--- NOTE | 2018-01-27 14:35 | CL.I_ITS ---
Patient Name: TARIQ VARGAS Study Date: 01/27/2018 Performing: Alvin Dennis MD Ht: 66.92 inches 170 cm : 1960 Wt: 222.67 lbs 101 kg Age: 57 Gender: male BSA: 2.11 PROCEDURE(S) PERFORMED [id number]/COR [id number], CORONARY OR GRAFT, INITIAL VESSEL CLINICAL PROFILE AND CO-MORBIDITIES Indications: Suspected CAD, Cardiomyopathy, LV Dysfunction Heart Failure: NYHA Class: 3 Stress/Imaging Stress/Image Study Performed: No Angina Classification Anginal Classification w/in 2 Weeks: CCS III CAD Presentations: Unstable angina. 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 RECOMMENDATIONS Staged for FFR Highly recommend quitting all tobacco products Follow up with primary barrel polisher Risk factor modification ASA Indefinitley Plavix for at least 12 months Routine post interventional care Refer for Outpatient Cardiac Rehab Manual sheath removal per protocol d/c plavix, coreg once out of heart failure, renal consult. D/w Dr Gage. DESCRIPTION OF PROCEDURE The patient arrived to the procedure lab. The risks and benefits of the procedure as well as a full d escription of our services here and lack of surgical backup were fully explained to the patient and/o r their significant other prior to the catheterization. The Timeout was completed, verifying the julia ect patient and procedure. The patient's procedural site was prepped and draped in the usual fashion. Local anesthetic was given subcutaneously to right groin region with Lidocaine 2%. Using a modified Seldinger technique, arterial access was obtained via the right femoral artery, a 4Fr sheath was inse rted. Left Coronary Artery selective angiography was performed in multiple views using a 4 Fr. JL5 c atheter. Right Coronary Artery selective angiography was then performed in multiple views using a 4 F r. 3DRC catheter. Left Ventriculography was performed in TERRELL projection using a 4 Fr. Pigtail cathete r. LV to AO pullback pressures were then recordedThe images were reviewed and options discussed. A de cision was then made to proceed with an Intervention, IVUS or other adjunct procedure. Arterial sheath was exchanged for a 6 Fr Sheath. HS II Guide catheter was inserted and engaged into t he RCA. The FFR/iFR wire was inserted. Adenosine was then given per protocol. Pressures and FFR/iFR w ere then recorded. FFR Ratio Baseline: 0.96 FFR Ratio post Adenosine: 0.91 The FFR/iFR wire was then removed. The arterial sheath was sutured in place with heparinized normal saline under pressure. Th e arterial sheath was pulled and manual compression applied until hemostasis is achieved. CORONARY ANGIOGRAPHY DOMINANCE: Right Dominant LEFT HEART ASSESSMENT Left Ventricular Ejection Fraction: Not assessed Elevated Left Ventricular End Diastolic Pressure LVEDP: 20 mmHg LEFT MAIN: Angiographically normal LEFT ANTERIOR DECENDING ARTERY: Angiographically normal CIRCUMFLEX ARTERY: Angiographically normal RIGHT CORONARY ARTERY: DISTAL RCA: 50 % Stenosis INTERVENTION INFORMATION LESION SITE: RCA (Distal) Lesion Complexity: High/C, lesion at bifurcation: No, thrombus present: No, lesion length: 30 mm, cul prit lesion: No Pre Stenosis: 50-60 % Pre intervention HUAN flow: 3 PROCEDURE: FFR Post Stenosis: 50-60 % Post intervention HUAN flow: 3 Lesion Devices: Cenoplex 6 Fr HSII 100cm Guide Catheter IGT Devices ( Formerly Allclasses) Coronary FFR Wire COMPLICATIONS No Complications PROCEDURE MEDICATIONS Versed 1 mg IV Oxygen: 2 L/min via nasal cannula Adenosine drip for FFR 28.6 ml IV @ 01/27/2018 14:16:44 Heparin 6000 unit(s) IV 01/27/2018 14:02:41 Nitro 200 mcg IC 01/27/2018 14:05:12 Metoprolol 5 mg 01/27/2018 14:13:59 IV Bolus: .9 NaCl 400 ml total 01/27/2018 14:31:48 SUMMARY OF HEMODYNAMIC DATA Time AIR REST ECG 13:41:48 AO 118/81 (96) SA 13:54:16 LV 116/-4, 27 14:00:02 LV 124/-3, 20 14:00:08 LVp 110/-5, 20 14:00:14 AOp 119/72 (90) 14:00:19 Signed By Alvin Dennis MD On 01/27/2018 14:35:35 Alvin Dennis MD
[2018-01-27 15:50] LABS: Bedside Glucose 165 mg/dL (70-110)
[2018-01-27] MEDS: Furosemide 40 MG/4 ML Vial IV (16:16)
[2018-01-27] MEDS: Insulin Lispro 100 UNIT/ML INSULN.PEN SC ×2 (16:16→21:38)
[2018-01-27 16:25] LABS: ACT Activated Clotting Time 169 sec (74-137)
--- NOTE | 2018-01-27 19:41 | CPS ---
patient not weaned at time of visit due to patient stating that he gets short of breath at times.
[2018-01-27] MEDS: hydrALAZINE 10 MG Tablet PO (21:38)
[2018-01-27 22:01] LABS: Bedside Glucose 209 mg/dL (70-110)
--- NOTE | 2018-01-27 22:51 | CPS ---
PATIENT HAD OXYGEN OFF AT TIME OF VISIT. PATIENT PLACED BACK ON 2 LPM DUE TO SP02 OF 89%.
[2018-01-28] VITALS (12 sets, daily range): BP systolic 115–123; BP diastolic 70–88; PULSE 84–115; RESP 16–18; TEMP 36.5–36.6; O2SAT 92–100
[2018-01-28] MEDS: Ipratropium/Albuterol Sulfate 3 ML AMPUL.NEB INHALATION ×3 (02:39→11:03)
[2018-01-28 06:55] LABS: Bedside Glucose 185 mg/dL (70-110)
[2018-01-28 08:50] LABS: Absolute Lymphocyte Count 1.67 X10^3/ul (0.83-4.51); Absolute Neutrophil Count 8.9 X10^3/uL (2.0-7.7); Basophil# 0.03 X10^3/uL; Basophil% 0.3 % (0-1); Eosinophil# 0.14 X10^3/uL; Eosinophils% 1.2 % (0-5); Hematocrit 41.1 % (40-54); Lymphocyte # 1.67 X10^3/ul (4.0); Lymphocyte % 14.6 % (19-41); Mean Corp Hgb Conc 31.6 g/gl (32-36); Mean Corpuscular Volume 85.4 fL (80-94); Mean Platelet Vol. 11.6 fl (6.2-12.0); Monocyte% 6.1 % (0-10); Neutrophil # 8.85 X10^3/uL (2.7-7.7); Neutrophil % 77.5 % (47-70); Platelet Count 217 K/mm3 (150-450); RBC Distribution Width CV 15.4 % (11.6-14.6); Red Blood Count 4.81 M/mm3 (4.6-6.2); White Blood Count 11.4 K/mm3 (4.4-11.0)
[2018-01-28 08:52] LABS: POSITIVE COUNT NO; POSITIVE DIFFERENTIAL NO; POSITIVE MORPHOLOGY NO
[2018-01-28] MEDS: hydrALAZINE 10 MG Tablet PO (08:54)
[2018-01-28] MEDS: Carvedilol 6.25 MG Tablet PO (08:54)
[2018-01-28] MEDS: Insulin Lispro 100 UNIT/ML INSULN.PEN SC ×2 (08:55→12:08)
[2018-01-28] MEDS: Furosemide 40 MG/4 ML Vial IV (08:56)
[2018-01-28 09:06] LABS: Anion Gap 12 (5-15); BUN 51 mg/dL (7-18); BUN/Creat Ratio 20.5 RATIO (10-20); Calcium,Total 8.6 mg/dL (8.5-10.1); Chloride 109 mmol/L (98-107); Creatinine, Serum 2.49 mg/dL (0.70-1.30); EST Glomerular Filtration Rate 29 mL/min (>60); Est Glom Filt Rate - Afr Amer 35 mL/min (>60); Glucose 168 mg/dL (74-106); Potassium 4.1 mmol/L (3.5-5.1); Sodium Level 142 mmol/L (136-145)
--- NOTE | 2018-01-28 10:58 | DCINST_ITS ---
- Discharge Diagnoses Current Active Problems: Current Active and Chronic Problems (Last Updated 09/27/17 @ 15:22 by Neva Chiang) Pneumonia (Acute) Diabetes mellitus (Chronic) HTN (hypertension) (Chronic) Sepsis (Acute) Hyperkalemia (Acute) DILLON (acute kidney injury) (Acute) LV dysfunction (Acute) Dyspnea on exertion (Acute) You will use the following diet at home:: Calorie/Carbohydrate Controlled ( specify 1200, 1400, etc) - 1800 paulette/day, Cardiac - <2 g sodium daily Your food should be the consistency of: Regular Your liquids should be the consistency of: Regular/Thin Discharge Activity: - - Do not return to work until cleared by your primary care doctor. Allergies/Adverse Reactions: Allergies No Known Allergies Allergy (Verified 01/26/18 10:48) Medications to take at Discharge glimepiride 1 mg tablet 1 mg PO QAM 09/27/17 Aspirin [Aspirin, Baby] 81 mg PO DAILY@0800 tab.chew 01/28/18 Atorvastatin Calcium [Lipitor] 20 mg PO QHS #30 tab 01/28/18 Carvedilol [Coreg (Beta Brittany)] 6.25 mg PO BID #60 tab 01/28/18 Furosemide [Lasix] 40 mg PO DAILY #30 tab 01/28/18 Isosorbide Mononitrate [Imdur] 30 mg PO DAILY #30 tab 01/28/18 Potassium Chloride [K-Dur] 20 meq PO DAILY #30 tab 01/28/18 hydrALAZINE [Apresoline] 10 mg PO BID #60 tab 01/28/18 The following prescriptions were given: Atorvastatin Calcium [Lipitor] 20 mg PO QHS #30 tab Carvedilol [Coreg (Beta Brittany)] 6.25 mg PO BID #60 tab Furosemide [Lasix] 40 mg PO DAILY #30 tab Isosorbide Mononitrate [Imdur] 30 mg PO DAILY #30 tab Potassium Chloride [K-Dur] 20 meq PO DAILY #30 tab hydrALAZINE [Apresoline] 10 mg PO BID #60 tab Primary Care Physician: Erasmo Stoner DO [Primary Care Provider] - Please follow up with your Primary Care Physician in: 1 week Test Results: Test results from this visit will be discussed in further detail at your follow- up appointment, if applicable. Please Follow Up With: Alvin Dennis MD When: 2 weeks Proposed Discharge Date: 01/28/18
[2018-01-28 12:16] LABS: Bedside Glucose 197 mg/dL (70-110)
--- NOTE | 2018-01-28 13:24 | DS.PCM_ITS ---
Discharge Date and Diagnosis - Problem List Patient Problems: Active and Suspected Problems (Last Updated 09/27/17 @ 15:22 by Neva Chiang) Pneumonia (Acute) Sepsis (Acute) Hyperkalemia (Acute) DILLON (acute kidney injury) (Acute) LV dysfunction (Acute) Dyspnea on exertion (Acute) Date of Admission: 01/26/18 Date of Discharge: 01/28/18 - Primary Discharge Diagnosis Active and Suspected Problems (Last Updated 09/27/17 @ 15:22 by Neva Chiang) Acute systolic CHF Nonischemic cardiomyopathy Poorly controlled DMt2 Leukocytosis unclear etiology Pneumonia ruled out CKD stage III HLD Nicotine abuse - Secondary Discharge Diagnosis Chronic Problems (Last Updated 09/27/17 @ 15:22 by Neva Chiang) Diabetes mellitus (Chronic) HTN (hypertension) (Chronic) Hospital Course and Treatment Imaging Results: RAD/Chest PA and Lateral IMPRESSION: Bihilar/bibasal increased groundglass and interstitial markings with numerous variable sized nodular densities identified as described above, nonspecific but concerning for congestion of CHF/fluid overload and/or lower probability neoplasm/metastasis. Infectious etiologies such as rare tuberculosis not excluded. If clinically indicated, CT chest with IV contrast may be more helpful. Echo: Interpretation Summary Severely dilated left ventricle. The estimated ejection fraction is 30 %. There are regional wall motion abnormalities as specified. Mildly dilated right ventricle. The left atrium is moderately enlarged. Mild (1+) mitral valve insufficiency. Mild (1+) tricuspid valve insufficiency. Right ventricular systolic pressure estimated to be 54 mmHg. There is no comparison study available. US/Kidney and Bladder IMPRESSION: Normal ultrasound of the kidneys and urinary bladder. CT/Chest without Contrast IMPRESSION: Bilateral pleural effusions. Small pericardial effusion. Bilateral interlobular septal thickening, most pronounced within the upper lobes, a nonspecific finding likely secondary to underlying edema. Atherosclerosis. Enlarged mediastinal lymph nodes, likely reactive. RAD/Chest PA and Lateral IMPRESSION: Mild decrease CHF/fluid overload. Mild cardiomegaly, stable appearance. Mild decrease bibasal diffuse increased interstitial and likely groundglass opacities are seen, may represent congestive changes of CHF/fluid overload, pleural fluid, atelectasis/scarring, pneumonia or combination. Consultation: Dennis - Cardiology Operations: None Procedures: 2-D Echocardiogram, Cardiac catheterization Summary of Care Provided: Physical exam on day of discharge: General: Resting comfortably NAD Psych: A/Ox3 normal affect HEENT: PEARR[place] AT NC Neck: Supple NT CV: RRR no m/t/r/g/h Resp: CTA Abd: [id number] Soft NT no guarding or rigidity Ext: DP2+= no edema Skin: W/D normal turgor Lymph/Heme: No active bleeding or adenopathy Neuro: CN2-12 intact Hospital course: The patient is a 57 year old M who presented to the emergency room with shortness of breath and cough with clear sputum production. He had history of diabetes mellitus, hypertension, nicotine abuse, hyperlipidemia. In the ER he had a negative EKG, he had what appeared to be bilateral infiltrates on chest x- ray. He had no fever, but he did have an elevated white count-comparing to previous records it appears that he frequently has had elevated white blood cell counts. He did have elevated BUN and creatinine however his baseline is unknown. He was admitted to the PCU and started on antibiotics with concern for bilateral pneumonia, he was placed on telemetry. A BNP was checked and was markedly elevated. An echocardiogram was obtained the following morning which demonstrated an EF of 30%. A CT of the chest was obtained which demonstrated congestive heart failure. Renal ultrasound was done which was negative. The patient was felt to not have pneumonia but to have congestive heart failure. Cardiology was consulted. With his reduced EF it was felt that cardiac catheterization was indicated. Patient underwent this procedure and tolerated it well. He did demonstrate 50% stenosis of the distal RCA, he had no occlusions and no stents were indicated. After the procedure he had increased wheezing and he was started on IV Lasix. Throughout his stay he did not require any supplemental oxygenation. He responded well to the Lasix. His JAZZY inhibitor was discontinued with his questionable renal function may need to be restarted at a later date. Is placed on baby aspirin. He had his fenofibrate discontinued and he was started on atorvastatin instead. His metoprolol was switched to Coreg. He was started on hydralazine and Imdur. He is also advised to discontinue his Metformin at least temporarily as he just underwent heart catheterization. His last A1c was 8.9 so he likely needs to be started on additional diabetic medications. He was advised to continue his glimepiride and follow-up with his PCP for further recommendations. He was also discharged on 40 mg of Lasix daily with 20 mg of potassium daily. He was advised to have a BMP in 5 days and to follow-up with his PCP within a week. He will also need to follow-up with cardiology as directed. He was discharged home in stable condition. I did advise him to start monitoring his daily weights and to call his physician if he goes up by 5 or more pounds in 1 day, and to watch for swelling, and to limit his sodium intake to less than 2 g daily. This patient was seen by Nick Junior PA-C under the supervision of Doctor Merari. [] Discharge Diet: Low fat/ Low Cholesterol, 1800 Calorie Control Diet, 2000 mg Sodium Diet Discharge Activity: Return to Normal Activity, - - Do not return to work until cleared by your primary care doctor. Home Medications: Medications to take at Discharge glimepiride 1 mg tablet 1 mg PO QAM 09/27/17 Aspirin [Aspirin, Baby] 81 mg PO DAILY@0800 tab.chew 01/28/18 Atorvastatin Calcium [Lipitor] 20 mg PO QHS #30 tab 01/28/18 Carvedilol [Coreg (Beta Brittany)] 6.25 mg PO BID #60 tab 01/28/18 Furosemide [Lasix] 40 mg PO DAILY #30 tab 01/28/18 Isosorbide Mononitrate [Imdur] 30 mg PO DAILY #30 tab 01/28/18 Potassium Chloride [K-Dur] 20 meq PO DAILY #30 tab 01/28/18 hydrALAZINE [Apresoline] 10 mg PO BID #60 tab 01/28/18 Following Prescrptions Were Given to Patient: Atorvastatin Calcium [Lipitor] 20 mg PO QHS #30 tab Carvedilol [Coreg (Beta Brittany)] 6.25 mg PO BID #60 tab Furosemide [Lasix] 40 mg PO DAILY #30 tab Isosorbide Mononitrate [Imdur] 30 mg PO DAILY #30 tab Potassium Chloride [K-Dur] 20 meq PO DAILY #30 tab hydrALAZINE [Apresoline] 10 mg PO BID #60 tab Primary Care Physician: Erasmo Stoner DO [Primary Care Provider] - Please follow up with your Primary Care Physician in: 1 week Please Follow Up With: Alvin Dennis MD When: 2 weeks Disposition: Home Minutes spent on discharge:: 35 Patient Condition:: Stable Medical Necessity - Tobacco Use Smoking Status: Current every day smoker Tobacco Use: Non-smoker, Cigarettes Meaningful Use Info Meaningful Use Diagnoses (Choose all that apply): CHF - CHF JAZZY/ARB ordered at discharge?: No Reason JAZZY/ARB not ordered?: Worsening renal disease Documented LVEF (%): 30
== END 2018-01-28 14:22 | disposition home or self-care (01) | DRG 286 ==
LOC: ED 13:11 → PCU 13:39
PROVIDERS: Internal Medicine Cardiovascular Disease; Physician Assistant; Admitting Provider Internal Medicine; Emergency Provider Emergency Medicine; Family Provider Family Medicine; PCP Family Medicine; Visit Provider Internal Medicine
DX: I13.0 Hypertensive heart and chronic kidney disease with heart failure and stage 1 through stage 4 chronic kidney disease, or unspecified chronic kidney disease (principal); I50.21 Acute systolic (congestive) heart failure; N17.9 Acute kidney failure, unspecified; I42.9 Cardiomyopathy, unspecified; E78.5 Hyperlipidemia, unspecified; E87.5 Hyperkalemia; E11.22 Type 2 diabetes mellitus with diabetic chronic kidney disease; N18.3 Chronic kidney disease, stage 3 (moderate); Z79.84 Long term (current) use of oral hypoglycemic drugs; F17.210 Nicotine dependence, cigarettes, uncomplicated; I25.10 Atherosclerotic heart disease of native coronary artery without angina pectoris
CPT/HCPCS: 36415; 36600; 71046; 71250; 76770; 80048; 80053; 80061; 80329; 82803; 82962; 83605; 83735; 83880; 84443; 84484; 85025; 85347; 87040; 87070; 87205; 87449; 87633; 87804; 93005; 93306; 93454; 93571; 94640; 99152; 99153; 99285; J0153; J7030; Q9957; A4216; C1769; C1887; C1894; G0480; J0610; J1940; Q9967

== ENCOUNTER → 2018-02-02 12:39 | Outpatient (CLI) | payer OTHER, SELFPAY ==
[2018-02-02 13:51] LABS: Anion Gap 7 (5-15); BUN 54 mg/dL (7-18); BUN/Creat Ratio 23.4 RATIO (10-20); Calcium,Total 9.2 mg/dL (8.5-10.1); Chloride 106 mmol/L (98-107); Creatinine, Serum 2.31 mg/dL (0.70-1.30); EST Glomerular Filtration Rate 31 mL/min (>60); Est Glom Filt Rate - Afr Amer 38 mL/min (>60); Glucose 129 mg/dL (74-106); Potassium 5.3 mmol/L (3.5-5.1); Sodium Level 140 mmol/L (136-145)
== END ==
PROVIDERS: Family Provider Family Medicine; PCP Family Medicine; Visit Provider Physician Assistant
DX: I50.9 Heart failure, unspecified (principal)
CPT/HCPCS: 36415; 80048

== ENCOUNTER → 2018-02-24 12:53 | Outpatient (CLI) | payer OTHER, SELFPAY ==
--- NOTE | 2018-02-24 13:03 | PCM.CR.HP2 ---
CR - History & Physical - General Arrival date:: 02/24/18 Arrival time:: 13:03 Date of Referral:: 02/14/18 Date of CR Evaluation:: 02/24/18 Referring Physician: Dr. Alvin Dennis Primary Diagnosis: Non-ischemic cardiomyopathy, HF w/LVEF <35% - History of Present Cardiac Event Onset Date: Enter Onset Date of cardiac illnesses in Comment field below Heart Failure EF <35%:: Yes - 01/26/2018 30% per ECHO 01/27/2018 Type of Symptoms:: severe shortness of breath, wake up in the morning very short of breath to where he felt he couldn't breathe. Interventions with present event:: Echocardiogram, heart cath 01/27/2018 cleared coronary arteries. Were there any complications?: none - Medications Home Medications: Ambulatory Orders Medication Instructions Recorded glimepiride 1 mg tablet 1 mg PO QAM 09/27/17 aspirin 81 mg chewable tablet 81 mg PO DAILY@0800 #90 tab 02/14/18 atorvastatin 20 mg tablet 20 mg PO QHS #90 tab 02/14/18 carvedilol 6.25 mg tablet 6.25 mg PO BID #180 tab 02/14/18 dulaglutide 0.75 mg/0.5 mL 0.75 mg SC QWEEK 02/14/18 subcutaneous pen injector furosemide 40 mg tablet 40 mg PO DAILY #90 tab 02/14/18 hydralazine 10 mg tablet 10 mg PO BID #180 tab 02/14/18 isosorbide mononitrate ER 30 mg 30 mg PO DAILY #90 tab 02/14/18 tablet,extended release 24 hr potassium chloride ER 20 mEq 20 meq PO DAILY #90 tab 02/14/18 tablet,extended release(part/cryst) - Allergies Allergies/Adverse Reactions: Allergies No Known Allergies Allergy (Verified 02/14/18 11:43) - Sleep Disorder Evaluation Hx of Sleep Apnea: Yes Do you snore loudly (louder than talking or can be heard through closed doors)?: Yes - had test in 2002 unsure of results. Do you often feel tired/ fatigued/ sleepy during daytime?: Yes Has anyone observed you stop breathing during sleep?: No History of Hypertension (for STOP score): No STOP Results: Positive Advanced Directives - Advanced Directives Power of Market Development Analyst: No Living Will: No Advance Directives Information Provided: No - not interested at this time Advance Directives on File: No DNR Order?:: No - MOLST See MOLST form: No Past Medical History - Past Medical Illness Medical History: Past Medical History (Last Reviewed 02/14/18 @ 11:40 by Rosette Reddy) Cardiomyopathy (Chronic) I42.9 EF 30% per echo 01/27/18 with severely hypokinetic areas of left venticle Secondary pulmonary hypertension (Chronic) RVSP 54mmhg per echo 01/27/18 Nonrheumatic tricuspid (valve) insufficiency (Chronic) I36.1 mild (1+) per echo 01/27/2010 Nonrheumatic mitral (valve) insufficiency (Chronic) I34.0 mild (1+) per echo 01/27/18 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 Dennis @ [facility]: 0.91 FFR (50% stenosis) of RCA, manage medically: all other coronaries normal. Pericardial effusion (Acute) Onset Date: 01/26/18 I31.[address] Bilateral pleural effusion (Acute) Onset Date: 02/05/18 J90 Pneumonia (Acute) J18.9 Diabetes mellitus (Chronic) E11.9 HTN (hypertension) (Chronic) I10 Sepsis (Acute) A41.9 Hyperkalemia (Acute) E87.5 DILLON (acute kidney injury) (Acute) N17.9 LV dysfunction (Acute) I51.9 Severely dilated left ventricle, EF 30% per echo 01/27/18 Dyspnea on exertion (Acute) R06.09 Diabetes E11.9 Diarrhea R19.7 Shoulder pain M25.519 Hypertension I10 - Past Surgical History Surgical History: Past Surgical History (Last Reviewed 02/14/18 @ 11:40 by Rosette Reddy) History of left heart catheterization (Chronic) Onset Date: 01/27/18 Z98.890 History of tonsillectomy Z90.89 Surgical History: tonsillectomy - Family History Summary Family History: Family History (Last Reviewed 02/14/18 @ 11:40 by Rosette Reddy) Unknown No problems noted. Social History - Smoking History Smoking Status: Former smoker Years Smokin Packs Smoked per Day: 1 Hx Smoking Cessation Date: 01/27/2018 Hx Tobacco Use: Yes Hx Smoking Exposure: Yes - Alcohol Use Alcohol Usage: No - Substance Abuse Hx Substance Use: No - Occupation Occupation (List type of work in comments):: Employed Hours worked per day:: 8 Returned to work on:: 02/27/18 - Hobbies, Recreation, Social Activities Hobbies: Other - model building, Recreational Activities: I am able to engage in most, but not all activities Social Environment - Status Marital Status: - Current Living Arrangements Living Environment:: Spouse - Children How many children do you have?: 0 Do any of your children live nearby?: No - Safety Do you feel safe in your surroundings?: Yes - Assistance Do you need any assistance at home?: none Review of Systems - Review of Systems Hints: Right click = Denies (Slash). Left click = Reports ([place]) Review of Present Symptoms: Reports: Shortness of Breath at Rest - rarely, but a couple of mornings he has awakened with some shortness of breath., Shortness of Breath with Exertion, Dizziness/Lightheadedness - some lightheadedness when blood sugars are down., Fatigue, Appetite - Normal, Appetite - Special Diet - Low sodium, diabetic diet.. Denies: Heart Arrhythmia/Irregularities - Pain Is Patient Pain Free?: Yes Pain Location: none Pain Level: 0/10 Risk Factor Assessment - Chief Complaint Chief Complaint: Patient is a 57 yr old male of Dr. Alvin Dennis who presentst o cardiac rehab today following recent diagnosis of cardiomyopathy and HF. During recent diagnostic studies the LVEF is measured at 30% per ECHO. - Vital Signs Temperature: 98.7 F Respiratory Rate: 16 Pulse Ox: 94 Blood Pressure: 120/80 - office on 02/14/2018 Nailbeds:: pink - Pulse Pulse Rate: 94 Pulse Rhythm: Regular - Hypertension Blood Pressure Sitting - Left Arm: 132/84 - at rest today - Diabetes Diabetic History: Type II, Medication Dependent - Glimepiride and trulicity Nutrition Referral for Diabetes: Yes - Obesity Height: 5 ft 7 in Weight:: 218 lb Weight in Pounds: 218.0 lbs Weight Source: Standing Scale Body Mass Index (BMI): 34.1 Nutritional Referral for Obesity: Yes - DM Type II, Overweight, and LV dysfunction, HF, acute kidney injury - Physical Inactivity Physical Inactivity: None - Risk Stratification Risk Guidelines: Lowest Risk: Risk Factor for Dyslipidemia, Risk Factor for Depression, Moderate Risk: Risk Factor for Diabetes, Risk Factor for Hypertension, Highest Risk: Risk Factor for Smoking, Risk Factor for Obesity, Risk Factor for Sedentary Lifestyle - For Smoking Smoking Risk Guidelines: Smoking Low Risk: None or quit greater than 6 months ago. Smoking Moderate Risk: Smoker or quit 6 months or less ago. Smoking High Risk: Smoker - For Dyslipidemia Dyslipidemia Risk Guidelines: Low Risk: Moderate Risk: High Risk: 15-25% fat 25.1-29% fat >/= 30% fat. <7% sat fat 7-9% sat fat >9% sat fat. <150 mg chol 150-299 mg chol >/= 300 mg chol. LDL <100 LDL 100-129 LDL >/= 130. Chol/HDL ratio <5.0 Chol/HDL ratio 5.0-6.0 Chol/HDL ratio >6.0. Triglycerides <100 Triglycerides 100-149 Triglycerides >/= 150 - For Diabetes Mellitus Diabetes Risk Guidelines: Diabetes Low Risk: HgA1c <6.5% and/or FBG <120. Diabetes Moderate Risk: HgA1c 6.6-7.9% and/or FBG 120-180. Diabetes High Risk: HgA1c >/= 8% and/or FBG >180 - For Obesity/Overweight Obesity/Overweight Risk Guidelines: Obesity Low Risk: BMI <25.0. Obesity Moderate Risk: BMI 25-29.9. Obesity High Risk: BMI >/= 30.0 - For Hypertension Hypertension Risk Guidelines: Hypertension Low Risk: Systolic <120 and Diastolic <80. Hypertension Moderate Risk: Systolic 120-139 and Diastolic 80-89. Hypertension High Risk: Systolic >/= 140 and Diastolic >/= 90 - For Sedentary Lifestyle Sedentary Lifestyle Risk Guidelines: Sedentary Lifestyle Low Risk: >/= 1,500 kcal/week. Sedentary Lifestyle Moderate Risk: 700-1,499 kcal/week. Sedentary Lifestyle High Risk: < 700 kcal/week - For Depression Depression Risk Guidelines: Depression Low Risk: Not clinically depressed. Depression Moderate Risk: Mildly depressed. Depression High Risk: Clinically depressed - Family History Family History: Family History (Last Reviewed 02/14/18 @ 11:40 by Rosette Reddy) Unknown No problems noted. Motivation - Motivation to Participate On a scale of 1 to 10, how prepared are you to commit to attending program?: 10 What do you see as barriers to successfully being able to complete the program?: work schedule and program, general weakness What do you see as the benefits of succesfully completing the program? In other words, what do you hope to get out of participating in the program?: get my heart strengthened up, back to normal EF Are there issues you are dealing with that will interfere with completing the program?: none Do you have a spouse or signficant other, family or friends who will help support you to complete the program?: yes
--- NOTE | 2018-02-24 13:07 | CR.HP_ITS ---
CR - History & Physical - General Arrival date:: 02/24/18 Arrival time:: 13:03 Date of Referral:: 02/14/18 Date of CR Evaluation:: 02/24/18 Referring Physician: Dr. Alvin Dennis Primary Diagnosis: Non-ischemic cardiomyopathy, HF w/LVEF <35% - History of Present Cardiac Event Onset Date: Enter Onset Date of cardiac illnesses in Comment field below Heart Failure EF <35%:: Yes - 01/26/2018 30% per ECHO 01/27/2018 Type of Symptoms:: severe shortness of breath, wake up in the morning very short of breath to where he felt he couldn't breathe. Interventions with present event:: Echocardiogram, heart cath 01/27/2018 cleared coronary arteries. Were there any complications?: none - Medications Home Medications: Ambulatory Orders Medication Instructions Recorded glimepiride 1 mg tablet 1 mg PO QAM 09/27/17 aspirin 81 mg chewable tablet 81 mg PO DAILY@0800 #90 tab 02/14/18 atorvastatin 20 mg tablet 20 mg PO QHS #90 tab 02/14/18 carvedilol 6.25 mg tablet 6.25 mg PO BID #180 tab 02/14/18 dulaglutide 0.75 mg/0.5 mL 0.75 mg SC QWEEK 02/14/18 subcutaneous pen injector furosemide 40 mg tablet 40 mg PO DAILY #90 tab 02/14/18 hydralazine 10 mg tablet 10 mg PO BID #180 tab 02/14/18 isosorbide mononitrate ER 30 mg 30 mg PO DAILY #90 tab 02/14/18 tablet,extended release 24 hr potassium chloride ER 20 mEq 20 meq PO DAILY #90 tab 02/14/18 tablet,extended release(part/cryst) - Allergies Allergies/Adverse Reactions: Allergies No Known Allergies Allergy (Verified 02/14/18 11:43) - Sleep Disorder Evaluation Hx of Sleep Apnea: Yes Do you snore loudly (louder than talking or can be heard through closed doors)? : Yes - had test in 2002 unsure of results. Do you often feel tired/ fatigued/ sleepy during daytime?: Yes Has anyone observed you stop breathing during sleep?: No History of Hypertension (for STOP score): No STOP Results: Positive Advanced Directives - Advanced Directives Power of Email Designer: No Living Will: No Advance Directives Information Provided: No - not interested at this time Advance Directives on File: No DNR Order?:: No - MOLST See MOLST form: No Past Medical History - Past Medical Illness Medical History: Past Medical History (Last Reviewed 02/14/18 @ 11:40 by Rosette Reddy) Cardiomyopathy (Chronic) I42.9 EF 30% per echo 01/27/18 with severely hypokinetic areas of left venticle Secondary pulmonary hypertension (Chronic) RVSP 54mmhg per echo 01/27/18 Nonrheumatic tricuspid (valve) insufficiency (Chronic) I36.1 mild (1+) per echo 01/27/2010 Nonrheumatic mitral (valve) insufficiency (Chronic) I34.0 mild (1+) per echo 01/27/18 Atherosclerotic heart disease of [place] coronary artery without angina pectoris (Chronic) Onset Date: 01/27/18 I25.10 Per [facility] 01/27/18, Dr. Dennis @ [facility]: 0.91 FFR (50% stenosis) of RCA, manage medically: all other coronaries normal. Pericardial effusion (Acute) Onset Date: 01/26/18 I31.[address] Bilateral pleural effusion (Acute) Onset Date: 02/05/18 J90 Pneumonia (Acute) J18.9 Diabetes mellitus (Chronic) E11.9 HTN (hypertension) (Chronic) I10 Sepsis (Acute) A41.9 Hyperkalemia (Acute) E87.5 DILLON (acute kidney injury) (Acute) N17.9 LV dysfunction (Acute) I51.9 Severely dilated left ventricle, EF 30% per echo 01/27/18 Dyspnea on exertion (Acute) R06.09 Diabetes E11.9 Diarrhea R19.7 Shoulder pain M25.519 Hypertension I10 - Past Surgical History Surgical History: Past Surgical History (Last Reviewed 02/14/18 @ 11:40 by Rosette Reddy) History of left heart catheterization (Chronic) Onset Date: 01/27/18 Z98.890 History of tonsillectomy Z90.89 Surgical History: tonsillectomy - Family History Summary Family History: Family History (Last Reviewed 02/14/18 @ 11:40 by Rosette Reddy) Unknown No problems noted. Social History - Smoking History Smoking Status: Former smoker Years Smokin Packs Smoked per Day: 1 Hx Smoking Cessation Date: 01/27/2018 Hx Tobacco Use: Yes Hx Smoking Exposure: Yes - Alcohol Use Alcohol Usage: No - Substance Abuse Hx Substance Use: No - Occupation Occupation (List type of work in comments):: Employed Hours worked per day:: 8 Returned to work on:: 02/27/18 - Hobbies, Recreation, Social Activities Hobbies: Other - model building, Recreational Activities: I am able to engage in most, but not all activities Social Environment - Status Marital Status: - Current Living Arrangements Living Environment:: Spouse - Children How many children do you have?: 0 Do any of your children live nearby?: No - Safety Do you feel safe in your surroundings?: Yes - Assistance Do you need any assistance at home?: none Review of Systems - Review of Systems Hints: Right click = Denies ([place]ash). Left click = Reports ([place]) Review of Present Symptoms: Reports: Shortness of Breath at Rest - rarely, but a couple of mornings he has awakened with some shortness of breath., Shortness of Breath with Exertion, Dizziness/Lightheadedness - some lightheadedness when blood sugars are down., Fatigue, Appetite - Normal, Appetite - Special Diet - Low sodium, diabetic diet.. Denies: Heart Arrhythmia/Irregularities - Pain Is Patient Pain Free?: Yes Pain Location: none Pain Level: 0/10 Risk Factor Assessment - Chief Complaint Chief Complaint: Patient is a 57 yr old male of Dr. Alvin Dennis who presentst o cardiac rehab today following recent diagnosis of cardiomyopathy and HF. During recent diagnostic studies the LVEF is measured at 30% per ECHO. - Vital Signs Temperature: 98.7 F Respiratory Rate: 16 Pulse Ox: 94 Blood Pressure: 120/80 - office on 02/14/2018 Nailbeds:: pink - Pulse Pulse Rate: 94 Pulse Rhythm: Regular - Hypertension Blood Pressure Sitting - Left Arm: 132/84 - at rest today - Diabetes Diabetic History: Type II, Medication Dependent - Glimepiride and trulicity Nutrition Referral for Diabetes: Yes - Obesity Height: 5 ft 7 in Weight:: 218 lb Weight in Pounds: 218.0 lbs Weight Source: Standing Scale Body Mass Index (BMI): 34.1 Nutritional Referral for Obesity: Yes - DM Type II, Overweight, and LV dysfunction, HF, acute kidney injury - Physical Inactivity Physical Inactivity: None - Risk Stratification Risk Guidelines: Lowest Risk: Risk Factor for Dyslipidemia, Risk Factor for Depression, Moderate Risk: Risk Factor for Diabetes, Risk Factor for Hypertension, Highest Risk: Risk Factor for Smoking, Risk Factor for Obesity, Risk Factor for Sedentary Lifestyle - For Smoking Smoking Risk Guidelines: Smoking Low Risk: None or quit greater than 6 months ago. Smoking Moderate Risk: Smoker or quit 6 months or less ago. Smoking High Risk: Smoker - For Dyslipidemia Dyslipidemia Risk Guidelines: Low Risk: Moderate Risk: High Risk: 15-25% fat 25.1-29% fat >/= 30% fat. <7% sat fat 7-9% sat fat >9% sat fat. <150 mg chol 150-299 mg chol >/= 300 mg chol. LDL <100 LDL 100-129 LDL >/= 130. Chol/HDL ratio <5.0 Chol/HDL ratio 5.0-6.0 Chol/HDL ratio >6.0. Triglycerides <100 Triglycerides 100-149 Triglycerides >/= 150 - For Diabetes Mellitus Diabetes Risk Guidelines: Diabetes Low Risk: HgA1c <6.5% and/or FBG <120. Diabetes Moderate Risk: HgA1c 6.6-7.9% and/or FBG 120-180. Diabetes High Risk: HgA1c >/= 8% and/or FBG >180 - For Obesity/Overweight Obesity/Overweight Risk Guidelines: Obesity Low Risk: BMI <25.0. Obesity Moderate Risk: BMI 25-29.9. Obesity High Risk: BMI >/= 30.0 - For Hypertension Hypertension Risk Guidelines: Hypertension Low Risk: Systolic <120 and Diastolic <80. Hypertension Moderate Risk: Systolic 120-139 and Diastolic 80-89. Hypertension High Risk: Systolic >/= 140 and Diastolic >/= 90 - For Sedentary Lifestyle Sedentary Lifestyle Risk Guidelines: Sedentary Lifestyle Low Risk: >/= 1 ,500 kcal/week. Sedentary Lifestyle Moderate Risk: 700-1,499 kcal/week. Sedentary Lifestyle High Risk: < 700 kcal/week - For Depression Depression Risk Guidelines: Depression Low Risk: Not clinically depressed. Depression Moderate Risk: Mildly depressed. Depression High Risk: Clinically depressed - Family History Family History: Family History (Last Reviewed 02/14/18 @ 11:40 by Rosette Reddy) Unknown No problems noted. Motivation - Motivation to Participate On a scale of 1 to 10, how prepared are you to commit to attending program?: 10 What do you see as barriers to successfully being able to complete the program? : work schedule and program, general weakness What do you see as the benefits of succesfully completing the program? In other words, what do you hope to get out of participating in the program?: get my heart strengthened up, back to normal EF Are there issues you are dealing with that will interfere with completing the program?: none Do you have a spouse or signficant other, family or friends who will help support you to complete the program?: yes
--- NOTE | 2018-02-24 13:13 | CR.ITP_ITS ---
General Information - General Information Admitting Diagnosis: NOn-ischemic cardiomyopathy with HF LVEF 30% - Education/Goals Barriers to Learning: None Individual Counseling: Initial Assessment: Nicotine/Smoking, Abnormal Cholesterol Levels, Overweight/Obesity, Sedentary Lifestyle Cardiac Rehabilitation Goals: 1. Maintain the individual as the primary focus of care. 2. To improve the patient's quality of life. 3. Identification of cardiac risk factors and provide cardiac risk factor management. 4. Enhance the psychosocial status of the patient. 5. Reconditioning enough to allow the patient to resume customary activities. 6. Control symptoms of cardiac disease Scale for measuring improvement of personal goals: Enter appropriate number in Comments. 2 = Unchanged. 3 = Slightly Better. 4 = Moderate Improvement. 5 = Met my Goal Personal Goals: Initial Assessment: Quit smoking (participate in smoking cessation, Improve energy level, Get back to work, or to resume activities faster, Improve knowledge of cardiac disease, Improve muscle strength and endurance, Improve diet and eating habits (eat healthier), Control risk factors (learn risk factor modification), Other goal: - Diabetes; Weight control Exercise - Initial Assessment - Visit Date of Eval: 02/24/18 - established baseline ITP start 02/27/18 - Stages of Change Stages of Change:: Action - Exercise Prescription Mode:: Treadmill, Rower, [place] Angina with exercise?: No Target Heart Rate:: 114-122 - Hypertension Do any of the following apply?: Yes, Medication Resting Blood Pressure:: 132/84 - Intervention Home Exercise/Activity Goal:: Moderate Exercise 30 min/day x 5 days/wk - Education Goals:: Warm-up, RPE TOVA Scale, S/S, Safe Exercise, Self-Monitoring - Exercise Program Goals Exercise Program Goals: Aerobic Activity >30 min Nutrition - Initial Assessment - Program Goals Nutrition Program Goals: LDL <70. Total Cholesterol <200. HDL >45. Triglycerides <150. HgbA1C <7%. BMI <25 - Visit Date of Assessment:: 02/24/18 - Stages of Change Stages of Change:: Action - Diabetes Diabetes:: Yes Insulin: No Non-Insulin Dependent?: Yes - Glimiperide and Trulicity Do you monitor your blood sugar at home?: Yes - Weight Management Height: 5 ft 7 in Weight:: 218 lb Body Fat %:: 34.1 - Intervention Referral to dietitian:: Yes Referral to Diabetic Clinic:: Yes Will attend diet classes:: Yes - Education Gave educational materials for:: Signs & symptoms of hypoglycemia, Signs & symptoms of hyperglycemia, Relate diabetes to coronary artery disease, Healthy eating Tobacco - Initial Assessment - Program Goals Tobacco Program Goals: Complete smoking cessation. Attend education classes. Improve Knowledge Test score - Stage of Change Stages of Change:: Action - Learning Barriers Learning Barriers: Ready to Learn - Family Support Do you have family support?: Yes - Tobacco Use Tobacco Use: Cigarettes - quit 01/26/2018; still has cravings. Lights up but reportedly does not inhale. How long ago did you quit using tobacco products?: Less than 6 months ago How many cigarettes do you smoke per day?: 20 - 1/2 pack Years Smokin - plus years Do you use smokeless tobacco?: No - Intervention Smoking Cessation Referral:: Yes - Patient is struggling [facility] smoking cessation since 01/26/2018 Individual Education/Counseling:: Yes - Smoking Cessation Counseling to see patient Education Schedule Given:: Yes - Education Gave educational material for:: Tobacco triggers, Coronary artery disease, Risk factors, Sexuality, Medical compliance, Cardiac A&P, Angina signs & symptoms Psychosocial - Initial Assess - Target Goals Target Goals: Assess presence or absence of depression. Using a valid screening tool, maximizes coping skills. Positive support system - Stages of Change Stages of Change:: Action - Psychosocial Test Tool Used:: HANDS Depression Questionnaire - Intervention PS - Interventions: Yes Attend Stress Management Classes, No Referral to Mental Health, No Referral to [facility] Case Management, No Referral to Physician, No Uses Stress Management Skills - Education Gave educational materials for:: Coping techniques, Signs & symptoms of depression, Stress management, Relaxation techniques - Patient/Program Goal Preventative Medication(s):: Aspirin, JAZZY inhibitor, Statin/lipid - Assistive Devices Assistive Devices:: None Fall Risk Assessed:: Yes Patient Health Questionnaire Initial Assessment 1. Little interest or pleasure in doing things: Several days 2. Feeling down, depressed, or hopeless: Not at all 3. Trouble falling or staying asleep, or sleeping too much: Several days 4. Feeling tired or having little energy: Several days 5. Poor appetite or overeating: Not at all 6. Feeling bad about yourself -- or that you are a failure or have let yourself or your family down: Not at all 7. Trouble concentrating on things, such as reading the newspaper or watching television: Several days 8. Moving or speaking so slowly that other people could have noticed. Or the opposite - being so fidgety or restless that you have been moving around a lot more than usual: Not at all 9. Thoughts that you would be better off , or of hurting yourself in some way: Not at all How difficult have these problems made it for you to do your work, take care of things at home, or get along with other people?: Not difficult at all Total Score: 4 SHRUTHI-Q SV Test - Statements CAD is a disease of the arteries in the heart: False Examples of risk factors for heart disease: True Angina is chest pain or discomfort: True The benefits of resistance training include: True Eating more meat and dairy products: False Anti-platelet medications such as aspirin are important: I Don't Know The only effective way to manage stress: False An exercise warm-up slowly increases heart rate: True Prepared, processed foods usually have high sodium: True Depression is common after a heart attack: True The statin medications lower cholesterol: True To control blood pressure, lower the amount of sodium: True If someone gets chest discomfort during walking: False Transfats are partially hydrogenated vegetable oils: True Sleep apnea that is not treated increases the risk: False To control cholesterol, one should become a vegetarian: False Someone knows if he/she is exercising at the right level: I Don't Know Diabetes cannot be prevented with exercise & health eating: False Stress is a large risk for heart attack: True A diet that can help lower blood pressure is rich in: True - Total Score Total Correct Responses: 18 Self-Efficacy Initial Assessment We would like to know how confident you are in doing certain activities. Please select your confidence level for:: Select your confidence level for the following using the scale 1-10 where 1 is not at all confident and 10 is totally confident. Your score is the average of all 6 responses. Fatigue: How confident are you that you can keep the fatigue caused by your disease from interfering with the things you want to do? Select Number: 8 Physical Discomfort or Pain: How confident are you that you can keep the physical discomfort or pain of your disease from interfering with the things you want to do? Select Number: 8 Emotional Distress: How confident are you that you can keep the emotional distress caused by your disease from interfering with the things you want to do? Select Number: 9 Other Symptoms or Health Problems: How confident are you that you can keep other symptoms or health problems from interfering with the things you want to do? Select Number: 9 Different Tasks and Activities: How confident are you that you can do the different tasks and activities needed to manage your health condition so as to reduce your need to see a doctor? Select Number: 10 Medication: How confident are you that you can do things other than just taking medication to reduce how much your illness affects your everyday life? Select Number: 10 Total Score:: 9 Nutrition Survey - Nutrition Survey Instructions Scoring Instructions: Scoring is as follows: Yes = 1 points. No = 0 point. Patient score that is >/=12 is considered to be at potential nutritional risk and could benefit from a referral to a registered dietitian. - Nutrition Survey Initial Have you lost >10 lbs over the past 2 months without trying?: No Are you following a special diet at home for diabetes, low fat, or low salt?: No Are you interested in meeting with a dietitian for help understanding your diet? : No Do you eat less than 3 meals a day?: Yes Do you eat fatty meats (collado, sausage, ribs, etc), fried foods, desserts, large amounts of salad dressings, margarine, butter, or cheese most days?: Yes Do you have food allergies? [Enter types in comment field]: No Do you eat in restaurants more than 3 times a week?: No Do you season food with salt, seasoning salt, or garlic salt?: Yes Do you used canned, boxed, frozen meals, or soups, seasoning packets?: Yes - Acute Kidney Injury, DM Type II, LV Dysfunction, HF EF<30%, BMI > 30.0-34.9%. Total Score:: 4
[2018-02-24 13:25] VITALS: BP 120/80; BP 132/84; PULSE 94; RESP 16; TEMP 37.1; O2SAT 94; BMI 34.1
[2018-02-24 14:16] VITALS: BP 132/84
== END ==
PROVIDERS: Family Provider Family Medicine; PCP Family Medicine; Visit Provider Internal Medicine Cardiovascular Disease
DX: I42.8 Other cardiomyopathies (principal); I36.1 Nonrheumatic tricuspid (valve) insufficiency; I34.0 Nonrheumatic mitral (valve) insufficiency; I31.3 Pericardial effusion (noninflammatory); E11.9 Type 2 diabetes mellitus without complications; I10 Essential (primary) hypertension; N17.9 Acute kidney failure, unspecified; I51.9 Heart disease, unspecified; Z87.01 Personal history of pneumonia (recurrent); Z86.19 Personal history of other infectious and parasitic diseases; Z79.82 Long term (current) use of aspirin; Z79.84 Long term (current) use of oral hypoglycemic drugs; Z79.899 Other long term (current) drug therapy; Z87.891 Personal history of nicotine dependence

== ENCOUNTER 2018-03-15 11:30 | Outpatient (RCR) | payer OTHER, SELFPAY | END 2018-03-19 23:59 | LOC: CR 11:30 | PROVIDERS: Family Provider Family Medicine; PCP Family Medicine; Visit Provider Internal Medicine Cardiovascular Disease | DX: I42.9 Cardiomyopathy, unspecified (principal) | CPT/HCPCS: 93798 ==

== ENCOUNTER 2018-03-16 08:56 | Outpatient (RCR) | payer OTHER, SELFPAY | END 2018-03-19 23:59 | LOC: DC 08:56 | PROVIDERS: Family Provider Family Medicine; PCP Family Medicine; Visit Provider Internal Medicine Cardiovascular Disease | DX: N17.9 Acute kidney failure, unspecified (principal); E11.9 Type 2 diabetes mellitus without complications; I27.9 Pulmonary heart disease, unspecified; I42.9 Cardiomyopathy, unspecified; I51.9 Heart disease, unspecified | CPT/HCPCS: G0108 ==

== ENCOUNTER → 2018-03-17 11:24 | Outpatient (CLI) | payer OTHER, SELFPAY ==
[2018-03-17 12:41] LABS: AST(SGOT) 15 U/L (15-37); Alanine Aminotransfer ALT/SGPT 20 U/L (16-61); Albumin, Serum 3.6 g/dL (3.2-5.0); Alkaline Phosphatase 62 U/L (45-117); Bilirubin, Direct 0.14 mg/dL (0.00-0.30); Cholesterol 97 mg/dL (200); Globulin 3.5 g/dL (2.2-4.2); High Density Lipoprotein 39 mg/dL; Protein, Total 7.1 g/dL (6.4-8.2); Triglycerides 138 mg/dL; Very Low Density Lipoprotein 28 mg/dL (5-40)
== END ==
PROVIDERS: Family Provider Family Medicine; PCP Family Medicine; Referring Provider Internal Medicine Cardiovascular Disease; Visit Provider Internal Medicine Cardiovascular Disease
DX: I25.10 Atherosclerotic heart disease of native coronary artery without angina pectoris (principal); E11.9 Type 2 diabetes mellitus without complications
CPT/HCPCS: 36415; 80061; 80076

== ENCOUNTER 2018-03-28 08:23 | Outpatient (RCR) | payer OTHER, SELFPAY | END 2018-04-19 23:59 | LOC: DC 08:23 | PROVIDERS: Family Provider Family Medicine; PCP Family Medicine; Visit Provider Internal Medicine Cardiovascular Disease | DX: E11.9 Type 2 diabetes mellitus without complications (principal); N17.9 Acute kidney failure, unspecified; I27.9 Pulmonary heart disease, unspecified; I42.9 Cardiomyopathy, unspecified; I50.1 Left ventricular failure, unspecified; E66.9 Obesity, unspecified; Z71.3 Dietary counseling and surveillance | CPT/HCPCS: 97802 ==

== ENCOUNTER 2018-04-19 11:30 | Outpatient (RCR) | payer OTHER, SELFPAY ==
--- NOTE | 2018-03-27 08:40 | CR.ITP_ITS ---
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 Maintain the individual as the primary focus of care. 2. To improve the patient's quality of life. 3. Identification of cardiac risk factors and provide cardiac risk factor management. 4. Enhance the psychosocial status of the patient. 5. Reconditioning enough to allow the patient to resume customary activities. 6. Control symptoms of cardiac disease Scale for measuring improvement of personal goals: Enter appropriate number in Comments. 2 = Unchanged. 3 = Slightly Better. 4 = Moderate Improvement. 5 = Met my Goal Exercise - 30-day Assessment - Visit Date of Eval: 03/27/18 Session #:: 11 - Stages of Change Stages of Change:: Action - Exercise Prescription Mode:: Treadmill, Rower, Airdyne Frequency (x/week): 3 Duration:: 30 METs - Progression: 0.5-1 MET as tolerated: 3.5 Target Heart Rate:: 114-122 Max HR 121 - Hypertension Resting Blood Pressure:: 108/72 Peak Exercise Blood Pressure:: 140/80 - Intervention Home Exercise/Activity Goal:: Sitting Time <3 hrs/day - Education Goals:: Warm-up, RPE TOVA Scale, S/S, Safe Exercise, Self-Monitoring - Exercise Program Goals Exercise Program Goals: Aerobic Activity >30 min, B/P <130/80 Nutrition - Initial Assessment - Program Goals Nutrition Program Goals: LDL <70. Total Cholesterol <200. HDL >45. Triglycerides <150. HgbA1C <7%. BMI <25 - Diabetes Do you monitor your blood sugar at home?: Yes Nutrition - 30-Day Assessment - Program Goals Nutrition Program Goals: LDL <70. Total Cholesterol <200. HDL >45. Triglycerides <150. HgbA1C <7%. BMI <25 - Visit Date of Eval: 03/27/18 - Stages of Change Stages of Change:: Action - Lipids Has the patient seen the dietitian?: No - pt has referral - Diabetes Diabetes:: Yes - Intervention Referral to dietitian:: Yes Referral to Diabetic Clinic:: Yes Will attend diet classes:: Yes - Education Attended class for:: Signs & symptoms of hypoglycemia, Signs & symptoms of hyperglycemia, Relate diabetes to coronary artery disease, Healthy eating Tobacco - Initial Assessment - Program Goals Tobacco Program Goals: Complete smoking cessation. Attend education classes. Improve Knowledge Test score - Learning Barriers Learning Barriers: Ready to Learn Tobacco - 30-Day Assessment - Program Goals Tobacco Program Goals: Complete smoking cessation. Attend education classes. Improve Knowledge Test score - Stage of Change Stages of Change:: Action - Learning Barriers Learning Barriers: Participates in education, Declined education, Change in behavior - Family Support Do you have family support?: Yes - Tobacco Use Tobacco Use: Non-smoker Do you use smokeless tobacco?: No - Intervention Smoking Cessation Referral:: No Individual Education/Counseling:: No Education Schedule Given:: Yes - Education Attended class for:: Tobacco triggers, Coronary artery disease, Risk factors, Sexuality, Medical compliance, Cardiac A&P, Angina signs & symptoms Psychosocial - Initial Assess - Target Goals Target Goals: Assess presence or absence of depression. Using a valid screening tool, maximizes coping skills. Positive support system - Psychosocial Test Tool Used:: HANDS Depression Questionnaire - Assistive Devices Fall Risk Assessed:: Yes Psychosocial - 30-Day Assess - Target Goals Target Goals: Assess presence or absence of depression. Using a valid screening tool, maximizes coping skills. Positive support system - Stages of Change Stages of Change:: Action - Psychosocial Test Tool Used:: HANDS Depression Questionnaire - Intervention PS - Interventions: Yes Attend Stress Management Classes, Yes Uses Stress Management Skills, No Referral to Mental Health, No Referral to [facility] Case Management, No Referral to Physician - Education Attended classes for:: Coping techniques, Signs & symptoms of depression, Stress management, Relaxation techniques - Assistive Devices Assistive Devices:: None Fall Risk Assessed:: Yes Patient Health Questionnaire 30-Day Re-eval Assessment 1. Little interest or pleasure in doing things: Several days 2. Feeling down, depressed, or hopeless: Not at all 3. Trouble falling or staying asleep, or sleeping too much: Several days 4. Feeling tired or having little energy: Several days 5. Poor appetite or overeating: Not at all 6. Feeling bad about yourself -- or that you are a failure or have let yourself or your family down: Not at all 7. Trouble concentrating on things, such as reading the newspaper or watching television: Several days 8. Moving or speaking so slowly that other people could have noticed. Or the opposite - being so fidgety or restless that you have been moving around a lot more than usual: Not at all 9. Thoughts that you would be better off , or of hurting yourself in some way: Not at all How difficult have these problems made it for you to do your work, take care of things at home, or get along with other people?: Not difficult at all Total Score: 4 Self-Efficacy 30-Day Re-eval Assessment We would like to know how confident you are in doing certain activities. Please select your confidence level for:: Select your confidence level for the following using the scale 1-10 where 1 is not at all confident and 10 is totally confident. Your score is the average of all 6 responses. Fatigue: How confident are you that you can keep the fatigue caused by your disease from interfering with the things you want to do? Select Number: 8 Physical Discomfort or Pain: How confident are you that you can keep the physical discomfort or pain of your disease from interfering with the things you want to do? Select Number: 8 Emotional Distress: How confident are you that you can keep the emotional distress caused by your disease from interfering with the things you want to do? Select Number: 9 Other Symptoms or Health Problems: How confident are you that you can keep other symptoms or health problems from interfering with the things you want to do? Select Number: 9 Different Tasks and Activities: How confident are you that you can do the different tasks and activities needed to manage your health condition so as to reduce your need to see a doctor? Select Number: 10 Medication: How confident are you that you can do things other than just taking medication to reduce how much your illness affects your everyday life? Select Number: 10 Total Score:: 9
[2018-03-27 08:41] VITALS: BP 108/72; BP 140/80
== END 2018-04-19 23:59 ==
LOC: CR 11:30
PROVIDERS: Family Provider Family Medicine; PCP Family Medicine; Referring Provider Internal Medicine Cardiovascular Disease; Visit Provider Internal Medicine Cardiovascular Disease
DX: I42.9 Cardiomyopathy, unspecified (principal)
CPT/HCPCS: 93798

== ENCOUNTER 2018-04-25 11:31 | Outpatient (RCR) | payer OTHER, SELFPAY | END 2018-05-19 23:59 | LOC: DC 11:31 | PROVIDERS: Family Provider Family Medicine; PCP Family Medicine; Visit Provider Internal Medicine Cardiovascular Disease | DX: E11.9 Type 2 diabetes mellitus without complications (principal); N17.9 Acute kidney failure, unspecified; I27.9 Pulmonary heart disease, unspecified; I42.9 Cardiomyopathy, unspecified; I50.1 Left ventricular failure, unspecified; E66.9 Obesity, unspecified; Z71.3 Dietary counseling and surveillance | CPT/HCPCS: 97803 ==

== ENCOUNTER 2018-05-19 11:30 | Outpatient (RCR) | payer OTHER, SELFPAY ==
[2018-04-20 01:31] VITALS: BP 108/72; BP 140/80
--- NOTE | 2018-04-24 08:15 | PCM.CR.ITP ---
Exercise - 60-Day Assessment - Visit Date of Eval: 04/24/18 Session #:: 24 - Stages of Change Stages of Change:: Action - Exercise Prescription Mode:: Treadmill, Rower, Airdyne, NuStep Frequency (x/week): 3 Duration:: 30-35 METs: 5 Target Heart Rate:: 114-122 - Hypertension Resting Blood Pressure:: 102/64 Peak Exercise Blood Pressure:: 136/80 Medication Changes:: No - Intervention Home Exercise/Activity Goal:: Moderate Exercise 30 min/day x 5 days/wk - Education Goals:: Warm-up, RPE TOVA Scale, S/S, Safe Exercise, Self-Monitoring - Exercise Program Goals Exercise Program Goals: Aerobic Activity >30 min Nutrition - Initial Assessment - Program Goals Nutrition Program Goals: LDL <70. Total Cholesterol <200. HDL >45. Triglycerides <150. HgbA1C <7%. BMI <25 - Diabetes Do you monitor your blood sugar at home?: Yes Nutrition - 60-Day Assessment - Program Goals Nutrition Program Goals: LDL <70. Total Cholesterol <200. HDL >45. Triglycerides <150. HgbA1C <7%. BMI <25 - Visit Date of Eval: 04/24/18 - Stages of Change Stages of Change:: Action - Lipids Has the patient seen the dietitian?: Yes - Diabetes Diabetes:: Yes Insulin: Yes Non-Insulin Dependent?: Yes Random Blood Glucose:: 91 - 50-219 - Weight Management Weight:: 214 lb 8 oz - Intervention Referral to dietitian:: No Referral to Diabetic Clinic:: No Will attend diet classes:: Yes - Education Attended class for:: Signs & symptoms of hypoglycemia, Signs & symptoms of hyperglycemia, Relate diabetes to coronary artery disease, Healthy eating Tobacco - Initial Assessment - Program Goals Tobacco Program Goals: Complete smoking cessation. Attend education classes. Improve Knowledge Test score - Learning Barriers Learning Barriers: Ready to Learn Tobacco - 60-Day Assessment - Program Goals Tobacco Program Goals: Complete smoking cessation. Attend education classes. Improve Knowledge Test score - Stage of Change Stages of Change:: Action - Learning Barriers Learning Barriers: Participates in education - Family Support Do you have family support?: Yes - Tobacco Use Tobacco Use: Non-smoker Do you use smokeless tobacco?: No - Intervention Smoking Cessation Referral:: No Individual Education/Counseling:: No Education Schedule Given:: Yes - Education Attended class for:: Coronary artery disease, Risk factors, Sexuality, Medical compliance, Cardiac A&P, Angina signs & symptoms Psychosocial - Initial Assess - Target Goals Target Goals: Assess presence or absence of depression. Using a valid screening tool, maximizes coping skills. Positive support system - Psychosocial Test Tool Used:: HANDS Depression Questionnaire - Assistive Devices Fall Risk Assessed:: Yes Psychosocial - 60-Day Assess - Target Goals Target Goals: Assess presence or absence of depression. Using a valid screening tool, maximizes coping skills. Positive support system - Stages of Change Stages of Change:: Action - Psychosocial Test Tool Used:: HANDS Depression Questionnaire - Intervention PS - Interventions: Yes Attend Stress Management Classes, Yes Uses Stress Management Skills, No Referral to Mental Health, No Referral to [facility] Case Management, No Referral to Physician - Education Attended classes for:: Coping techniques, Signs & symptoms of depression, Stress management, Relaxation techniques - Patient/Program Goal Preventative Medication(s):: Aspirin, Clopidogrel, Beta alee, Statin/lipid - Assistive Devices Assistive Devices:: None Fall Risk Assessed:: Yes Patient Health Questionnaire 60-Day Re-eval Assessment 1. Little interest or pleasure in doing things: Not at all 2. Feeling down, depressed, or hopeless: Not at all 3. Trouble falling or staying asleep, or sleeping too much: Several days 4. Feeling tired or having little energy: Several days 5. Poor appetite or overeating: Not at all 6. Feeling bad about yourself -- or that you are a failure or have let yourself or your family down: Not at all 7. Trouble concentrating on things, such as reading the newspaper or watching television: Several days 8. Moving or speaking so slowly that other people could have noticed. Or the opposite - being so fidgety or restless that you have been moving around a lot more than usual: Not at all 9. Thoughts that you would be better off , or of hurting yourself in some way: Not at all How difficult have these problems made it for you to do your work, take care of things at home, or get along with other people?: Not difficult at all Total Score: 3 Self-Efficacy 60-Day Re-eval Assessment We would like to know how confident you are in doing certain activities. Please select your confidence level for:: Select your confidence level for the following using the scale 1-10 where 1 is not at all confident and 10 is totally confident. Your score is the average of all 6 responses. Fatigue: How confident are you that you can keep the fatigue caused by your disease from interfering with the things you want to do? Select Number: 8 Physical Discomfort or Pain: How confident are you that you can keep the physical discomfort or pain of your disease from interfering with the things you want to do? Select Number: 8 Emotional Distress: How confident are you that you can keep the emotional distress caused by your disease from interfering with the things you want to do? Select Number: 9 Other Symptoms or Health Problems: How confident are you that you can keep other symptoms or health problems from interfering with the things you want to do? Select Number: 9 Different Tasks and Activities: How confident are you that you can do the different tasks and activities needed to manage your health condition so as to reduce your need to see a doctor? Select Number: 10 Medication: How confident are you that you can do things other than just taking medication to reduce how much your illness affects your everyday life? Select Number: 10 Total Score:: 9
[2018-04-24 08:20] VITALS: BP 102/64; BP 136/80
== END 2018-05-19 23:59 ==
LOC: CR 11:30
PROVIDERS: Family Provider Family Medicine; PCP Family Medicine; Referring Provider Internal Medicine Cardiovascular Disease; Visit Provider Internal Medicine Cardiovascular Disease
DX: I42.9 Cardiomyopathy, unspecified (principal)
CPT/HCPCS: 93798

== ENCOUNTER 2018-05-22 15:25 | Outpatient (RCR) | payer OTHER, SELFPAY ==
[2018-05-20 01:16] VITALS: BP 102/64; BP 136/80
== END 2018-06-19 23:59 | disposition home or self-care (01) ==
LOC: CR 15:25
PROVIDERS: Family Provider Family Medicine; PCP Family Medicine; Referring Provider Internal Medicine Cardiovascular Disease; Visit Provider Internal Medicine Cardiovascular Disease
DX: I42.9 Cardiomyopathy, unspecified (principal)
CPT/HCPCS: 93798

== ENCOUNTER → 2018-05-23 10:05 | Outpatient (CLI) | payer OTHER, SELFPAY ==
--- NOTE | 2018-05-23 10:07 | ECHOD_ITS ---
Reason For Study: CHF Procedure This was a 2D Doppler, Color Flow transthoracic echocardiogram. Exam performed in department. Left Ventricle Severely dilated left ventricle. The estimated ejection fraction is 25 %. There is severe global hypokinesis of the left ventricle. Right Ventricle Normal size and thickness. Normal systolic function. Atria The left atrium is mildly enlarged. Normal right atrium. Normal atrial septum. Mitral Valve Mild focal mitral valve thickening. Moderately severe (3+) posteriorly directed mitral valve insufficiency. Tricuspid Valve Normal tricuspid valve. Moderately severe (3+) eccentric tricuspid valve insufficiency. Right ventricular systolic pressure estimated to be 49 mmHg. Moderate pulmonary hypertension. Aortic Valve Normal aortic valve. Trisinus/trileaflet aortic valve. Pulmonic Valve Normal pulmonic valve. Trivial pulmonic valve insufficiency. Great Vessels Normal aortic root. Normal arch. Normal inferior vena cava. Inferior vena cava collapse with sniff. Pericardium/Pleural Trivial pericardial effusion. There are no echocardiographic indications of cardiac tamponade. MMode/2D Measurements & Calculations LVIDd: 5.8 cm IVSd: 1.2 cm Ao root diam: 3.6 cm LVIDs: 4.8 cm LVPWd: 1.3 cm RVDd: 3.5 cm FS: 17.3 % LAV(MOD-bp): 93.8 ml LA A4 area: 23.4 cm2 LA dimension(2D): 4.6 cm LAV(MOD-bp) Indexed: 44.5 ml/m2 LAV(MOD-sp2): 89.3 ml LAV(MOD-sp4): 86.1 ml Time Measurements MV dec time: 0.14 sec Doppler Measurements & Calculations MV E max mickey: 106.9 cm/sec Lat Peak E' Mickey: 8.4 cm/sec Med Peak E' Mickey: 3.7 cm/sec MV A max mickey: 38.9 cm/sec E/E' lat: 12.7 E/E' med: 29.1 MV E/A: 2.7 Ao V2 max: 111.7 cm/sec LV V1 max: 82.3 cm/sec PA V2 max: 79.6 cm/sec Ao max P.0 mmHg LV V1 max P.7 mmHg TR max mickey: 316.3 cm/sec TR max P.1 mmHg Interpretation Summary The estimated ejection fraction is 25 %. There is severe global hypokinesis of the left ventricle. The left atrium is mildly enlarged. Moderately severe (3+) posteriorly directed mitral valve insufficiency. Moderately severe (3+) eccentric tricuspid valve insufficiency. Trivial pericardial effusion. There are no echocardiographic indications of cardiac tamponade. Right ventricular systolic pressure estimated to be 49 mmHg. Moderate pulmonary hypertension. Compared to echo report dated 01/27/2018, LV function has remained the same, but pt now appears to have moderate to severe eccentric TR and MR. Consider ANGELITA to better evaluated for MV and TV repair vs AICD. Ordering Physician: Alvin Dennis Referring Physician: Erasmo Stoner Performed By: Jeanna Valenzuela, ELEANOR, RVT
== END ==
PROVIDERS: Family Provider Family Medicine; PCP Family Medicine; Referring Provider Internal Medicine Cardiovascular Disease; Visit Provider Internal Medicine Cardiovascular Disease
DX: I42.9 Cardiomyopathy, unspecified (principal); I36.1 Nonrheumatic tricuspid (valve) insufficiency; I34.0 Nonrheumatic mitral (valve) insufficiency; I31.3 Pericardial effusion (noninflammatory); J90 Pleural effusion, not elsewhere classified; J18.9 Pneumonia, unspecified organism; A41.9 Sepsis, unspecified organism; R06.09 Other forms of dyspnea; I10 Essential (primary) hypertension; I25.10 Atherosclerotic heart disease of native coronary artery without angina pectoris
CPT/HCPCS: 93306

== ENCOUNTER → 2018-05-25 11:31 | Outpatient (CLI) | payer OTHER, SELFPAY ==
[2018-05-25 16:00] LABS: Anion Gap 7 (5-15); BUN 58 mg/dL (7-18); BUN/Creat Ratio 23.3 RATIO (10-20); Calcium,Total 8.9 mg/dL (8.5-10.1); Chloride 107 mmol/L (98-107); Creatinine, Serum 2.49 mg/dL (0.70-1.30); EST Glomerular Filtration Rate 29 mL/min (>60); Est Glom Filt Rate - Afr Amer 35 mL/min (>60); Glucose 150 mg/dL (74-106); Phosphorus 5.4 mg/dL (2.5-4.9); Potassium 5.3 mmol/L (3.5-5.1); Sodium Level 143 mmol/L (136-145); T4 Free Direct 0.92 ng/dL (0.76-1.46)
[2018-05-25 16:01] LABS: PTHIN 131.9 pg/mL (18.4-80.1); Vitamin D,25 Hydroxy 22.6 ng/mL (29.95-100.01)
== END ==
PROVIDERS: Family Provider Family Medicine; PCP Family Medicine; Visit Provider Family Medicine
DX: E11.29 Type 2 diabetes mellitus with other diabetic kidney complication (principal); R80.9 Proteinuria, unspecified; I42.8 Other cardiomyopathies; N18.3 Chronic kidney disease, stage 3 (moderate); D72.829 Elevated white blood cell count, unspecified; R79.89 Other specified abnormal findings of blood chemistry; E66.01 Morbid (severe) obesity due to excess calories
CPT/HCPCS: 36415; 80048; 82043; 82306; 82570; 83970; 84100; 84439; 84443

== ENCOUNTER 2018-05-30 12:52 | Outpatient (RCR) | payer OTHER, SELFPAY | END 2018-06-19 23:59 | LOC: DC 12:52 | PROVIDERS: Family Provider Family Medicine; PCP Family Medicine; Visit Provider Internal Medicine Cardiovascular Disease | DX: E11.9 Type 2 diabetes mellitus without complications (principal); N17.9 Acute kidney failure, unspecified; I27.9 Pulmonary heart disease, unspecified; I42.9 Cardiomyopathy, unspecified; Z71.3 Dietary counseling and surveillance | CPT/HCPCS: 97803 ==

== ENCOUNTER → 2018-06-07 10:02 | Outpatient (CLI) | payer OTHER, SELFPAY ==
--- NOTE | 2018-06-07 10:06 | ECHOTEE_ITS ---
Reason For Study: VALVE REPL EVAL Medication ANGELITA probe passed without difficulty. No complications were noted. [id number] gargled and swallowed. Cetacaine [employer] given X2 orally. Versed 2 mg given slow IVP. Fentanyl 50 mcg given slow IVP. Performed a rapid injection of agitated mix of 9 cc saline and 1cc air to assess for atrial septal defect. Left Ventricle Severely dilated left ventricle. The estimated ejection fraction is 20-25 %. There is severe global hypokinesis of the left ventricle. Right Ventricle Moderately dilated right ventricle. Moderate global right ventricular systolic dysfunction. Atria Normal atrial septum. Bubble contrast study negative for right to left interatrial shunt. The left atrium is severely enlarged. There is mild sponatenous contrast in the left atrium. The right atrium is mildly enlarged. Mitral Valve The mitral valve is structurally normal. No prolapse or stenosis seen. Moderately severe (3+) eccentric mitral valve insufficiency. Tricuspid Valve Normal tricuspid valve. Mild to moderate (1-2+) tricuspid valve insufficiency. Right ventricular systolic pressure estimated to be 43 mmHg. Mild pulmonary hypertension. Aortic Valve Normal aortic valve. Trisinus/trileaflet aortic valve. Pulmonic Valve Normal pulmonic valve. Vessels Normal aortic root. Normal arch. The pulmonary artery is normal size. Pulmonary venous flow attenuated diastolic component. Doppler Measurements & Calculations TR max mike: 344.8 cm/sec Interpretation Summary Severely dilated left ventricle. The estimated ejection fraction is 20-25 %. There is severe global hypokinesis of the left ventricle. Moderately dilated right ventricle. Moderate global right ventricular systolic dysfunction. Bubble contrast study negative for right to left interatrial shunt. The left atrium is severely enlarged. The right atrium is mildly enlarged. Moderately severe (3+) eccentric mitral valve insufficiency. Mild to moderate (1-2+) tricuspid valve insufficiency. Right ventricular systolic pressure estimated to be 43 mmHg. Mild pulmonary hypertension. Pulmonary venous flow attenuated diastolic component. Ordering Physician: Alvin Dennis Referring Physician: ALVINO QUARLES Performed By: Callie Rocha, FRANSICOCS, RVT
--- OUTSIDE RECORDS SUMMARY | 2018-09-08 13:12 | XMS RPT_ITS ---
:1960 Author Organization [place] Support Name Relationship Address Phone [employer] Unavailable [address] + [address] [place] [address] LASHELL VARGAS Unavailable [address] + [place] [id number] [employer] Unavailable [address] + [address] [place] [address] LASHELL VARGAS Unavailable [address] + [place] [address] [employer] Unavailable [address] + [address] [place] [address] LASHELL VARGAS Unavailable [address] + [place] [address] [employer] Unavailable [address] + [address] [place] [address] LASHELL VARGAS Unavailable [address] + [place] [id number] [employer] Unavailable [address] + [address] [place] [address] LASHELL VARGAS Unavailable [address] + [place] [address] [employer] Unavailable [address] + [address] [place] [address] LASHELL VARGAS Unavailable [address] + [place] [id number] [employer] Unavailable [address] + [address] [place] [address] LASHELL VARGAS Unavailable [address] + [place] [address] [employer] Unavailable [address] + [address] [place] [address] LASHELL VARGAS Unavailable [address] + [place] [address] [employer] Unavailable [address] + [address] [place] [address] LASHELL VARGAS Unavailable [address] + [place] [id number] [employer] Unavailable [address] + [address] [place] [address] LASHELL VARGAS Unavailable [address] + [place] [id number] [employer] Unavailable [address] + [address] [place] [address] LASHELL VARGAS Unavailable [address] + [place] [id number] [employer] Unavailable [address] + [address] [place] [address] LASHELL VARGAS Unavailable [address] + [place] [id number] [employer] Unavailable [address] + [address] [place] [address] LASHELL VARGAS Unavailable [address] + [place] [id number] [employer] Unavailable [address] + [address] [place] [address] LASHELL VARGAS Unavailable [address] + [place] [id number] [employer] Unavailable [address] + [address] [place] [address] LASHELL VARGAS Unavailable [address] + [place] [id number] [employer] Unavailable [address] + [address] [place] [address] LASHELL VARGAS Unavailable [address] + [place] [address] [employer] Unavailable [address] + [address] [place] [address] LASHELL VARGAS Unavailable [address] + [place] [address] [employer] Unavailable [address] + [address] [place] [address] LASHELL VARGAS Unavailable [address] + [place] [address] [employer] Unavailable [address] + [address] [place] [address] LASHELL VARGAS Unavailable [address] + [place] [id number] [employer] Unavailable [address] + [address] [place] [address] LASHELL VARGAS Un[address] [address] + [place] [id number] [employer] Unavailable [address] + [address] [place] [address] LASHELL VARGAS Unavailable [address] + [place] [id number] [employer] Unavailable [address] + [address] [place] [address] LASHELL VARGAS Unavailable [address] [facility] [facility] [address] + [place] [id number] [employer] Unavailable [address] + [address] [place] [address] LASHELL VARGAS Unavailable [address] + [place] [id number] [employer] Unavailable [address] + [address] [place] [address] LASHELL VARGAS Unavailable [address] + [place] [phone] [employer] Unavailable [address] + [address] [place] [address] LASHELL VARGAS Un[address] [address] + [place] [id number] Care Team Providers Name Role Phone Alvin Aguirre Attending Unavailable Alvin Aguirre Referring Unavailable Herbie, Alvino Primary Care Unavailable Alvin Aguirre Attending Unavailable Alvin Aguirre Referring Unavailable Herbie, Alvino Primary Care Unavailable Alvin Aguirre Consulting Unavailable Alvin Aguirre Attending Unavailable Alvin Aguirre Referring Unavailable Herbie, Alvino Primary Care Unavailable Alvin Aguirre Attending Unavailable Herbie, Alvino Primary Care Unavailable Naga Rabago Attending Unavailable Herbie, Alvino Referring Unavailable Herbie, Alvino Primary Care Unavailable Herbie, Alvino Primary Care Unavailable Tereletsky, Alvino Admitting Unavailable Tereletsky, Alvino Attending Unavailable Alvin Aguirre Consulting Unavailable Tereletsky, Alvino Admitting Unavailable Herbie, Alvino Primary Care Unavailable Poncho Magaña Consulting Unavailable Tereletsky, Alvino Attending Unavailable Tereletsky, Alvino Consulting Unavailable Tereletsky, Alvino Admitting Unavailable Alvin Aguirre Attending Unavailable Herbie, Alvino Primary Care Unavailable Archana, Poncho Consulting Unavailable Tereletsky, Alvino Consulting Unavailable Tereletsky, Alvino Admitting Unavailable Nick Junior Attending Unavailable Herbie, Alvino Primary Care Unavailable Alvin Aguirre Consulting Unavailable Tereletsky, Alvino Consulting Unavailable Tereletsky, Alvino Admitting Unavailable Nick Junior Attending Unavailable Herbie, Alvino Primary Care Unavailable Alvin Aguirre Consulting Unavailable Tereletsky, Alvino Consulting Unavailable Nick Junior Attending Unavailable Nick Junior Referring Unavailable Herbie, Alvino Primary Care Unavailable Alvin Aguirre Attending Unavailable Herbie, Alvino Referring Unavailable Herbie, Alvino Primary Care Unavailable Alvin Aguirre Attending Unavailable Alvin Aguirre Referring Unavailable Herbie, Alvino Primary Care Unavailable Alvin Aguirre Attending Unavailable Alvin Aguirre Referring Unavailable Herbie, Alvino Primary Care Unavailable Alvin Aguirre Attending Unavailable Herbie, Alvino Primary Care Unavailable Alvin Aguirre Attending Unavailable Alvin Aguirre Referring Unavailable Herbie, Alvino Primary Care Unavailable Alvin Aguirre Attending Unavailable Alvin Aguirre Referring Unavailable Herbie, Alvino Primary Care Unavailable Alvin Aguirre Attending Unavailable Herbie, Alvino Primary Care Unavailable Alvin Aguirre Attending Unavailable Alvin Aguirre Referring Unavailable Herbie, Alvino Primary Care Unavailable Alvin Aguirre Attending Unavailable Herbie, Alvino Primary Care Unavailable Alvin Aguirre Attending Unavailable Alvin Aguirre Referring Unavailable Herbie, Alvino Primary Care Unavailable Alvin Aguirre Attending Unavailable Alvin Aguirre Referring Unavailable Herbie, Alvino Primary Care Unavailable Alvin Aguirre Attending Unavailable Alvino Stoner Primary Care Unavailable Alvin Aguirre Attending Unavailable Alvin Aguirre Referring Unavailable HerbieAlvino vickers Primary Care Unavailable Alvin Aguirre Consulting Unavailable Alvino Stoner Attending Unavailable HerbieAlvino vickers Primary Care Unavailable JERRY MARTIN Colette Attending Unavailable ALVINO STONER Referring Unavailable LAHOJERRY BROWN Colette Attending Unavailable [facility] Referring Unavailable [facility] Primary Care Unavailable PROBLEMS PROBLEMS DATE TYPE CONDITION / CODE ATTENDING STATUS SOURCE 07/05/2018 Active Obesity, unspecified [place], Active [place] / E66.9(ICD-10) [facility] Other [place] Repository 07/05/2018 Active Nicotine dependence, [place], Active [place] unspecified, [facility] Other uncomplicated / [place] F17.200(ICD-10) Repository 07/05/2018 Admitting Unknown / [place], Active [place] [facility] diagnosis UNK(Unknown) [facility] Repository 06/20/2018 Unknown E11.9 - Type 2 Alvin [facility]irre Active [facility] without complications Hospital / E11.9(ICD-10) Repository 06/07/2018 Unknown I10 - Essential Alvin Aguirre Active [facility] (primary) [facility] hypertension / Hospital I10(ICD-10) Repository 06/07/2018 Unknown I25.10 - Alvin Aguirre Active [place] Atherosclerotic heart Community disease of [facility] coronary artery Repository without angina pectoris / I25.10(ICD-10) 06/07/2018 Unknown I34.0 - Nonrheumatic Alvin Aguirre Active [facility] mitral (valve) Community insufficiency / Hospital I34.0(ICD-10) Repository 06/07/2018 Unknown I36.1 - Nonrheumatic Alvin Aguirre Active [facility] tricuspid (valve) Community insufficiency / Hospital I36.1(ICD-10) Repository 06/07/2018 Unknown I51.9 - Heart Alvin Aguirre Active [facility] disease, unspecified Community / I51.9(ICD-10) Hospital Repository 05/25/2018 Unknown E11.29 - Type 2 Alvino Stoner Active [facility] diabetes mellitus Community with other diabetic Hospital kidney complication / Repository E11.29(ICD-10) 05/25/2018 Unknown R80.9 - Proteinuria, Alvino Stoner Active [facility] unspecified / Community R80.9(ICD-10) Hospital Repository 05/25/2018 Unknown I42.8 - Other Alvino Stoner Active [facility] cardiomyopathies / Community I42.8(ICD-10) Hospital Repository 05/25/2018 Unknown N18.3 - Chronic Alvino Stoner Active [place] kidney disease, stage Community 3 (moderate) / Hospital N18.3(ICD-10) Repository 05/25/2018 Unknown D72.829 - Elevated Alvino Stoner Active [place] white blood cell Community count, unspecified / Hospital D72.829(ICD-10) Repository 05/25/2018 Unknown R79.89 - Other Alvino Stoner Active [facility] specified abnormal Community findings of blood Hospital chemistry / Repository R79.89(ICD-10) 05/25/2018 Unknown E66.01 - Morbid Alvino Stoner [place] (severe) obesity due Community to excess calories / Hospital E66.01(ICD-10) Repository 05/24/2018 Unknown I31.3 - Pericardial SonnyAlvin Active [facility] effusion Community (noninflammatory) / Hospital I31.3(ICD-10) Repository 05/24/2018 Unknown J90 - Pleural Aguirre Alvin Active [place] effusion, not Community elsewhere classified Hospital / J90(ICD-10) Repository 05/24/2018 Unknown J18.9 - Pneumonia, Alvin Aguirre Active [place] unspecified organism Community / J18.9(ICD-10) Hospital Repository 05/24/2018 Unknown A41.9 - Sepsis, Alvin Aguirre Active [place] unspecified organism Community / A41.9(ICD-10) Hospital Repository 05/24/2018 Unknown R06.09 - Other forms Alvin Aguirre Active [place] of dyspnea / Community R06.09(ICD-10) Hospital Repository 07/12/2018 Unknown I42.9 - [place] Aguirreel Active [facility] Cardiomyopathy, Community unspecified / Hospital I42.9(ICD-10) Repository PROCEDURES PROCEDURES No Procedure Records FoundRESULTS RESULTS HISTORY PHYSICAL Observed: 07/05/2018 Status: COMPLETED Source: [place] 4:13 PM CLINIC OTHER CAMPUS REPOSITORY HNO ID: [id number] Author: Jerry Martin Service: (none) Author Type: Physician Type: HANDP Filed: 07/05/2018 4:24 PM Note Text: Tariq Vargas is a 57-year-old man referred for evaluation of mitral regurgitation, tricuspid regurgitation, and chronic systolic heart failure. In January he is admitted with acute systolic heart failure. Echo at that time showed severe LV dysfunction with EF of 30%; moderate pulmonary hypertension with RVSP 54 mmHg; mild TR, and mild MR. Diagnostic left heart catheter revealed only mild disease in the distal RCA. A diagnosis of nonischemic cardiomyopathy with secondary pulmonary hypertension was made and medical therapy with aspirin, Coreg, Lasix, hydralazine, Imdur were and statin initiated. JAZZY or ARB were not added due to chronic renal insufficiency. He had significant improvement in symptoms on medical therapy. He was seen in follow-up by Dr. Royce Aguirre later in the month at which time he was well compensated. He was referred for cardiac rehabilitation. In May repeat 2-D echo and ANGELITA showed severely dilated left ventricle with ejection fraction of 20-25%; mobile left ventricular hypokinesia; moderately dilated right ventricle; moderate global right ventricular systolic dysfunction; structurally normal mitral valve with 3+ eccentric posteriorly directed mitral insufficiency; 2-3+ tricuspid insufficiency; RVSP 43 mmHg. He has no previous cardiac history. He denies previous infarction or heart failure. He's had no viral illnesses. He denies significant alcohol intake. Since beginning medical management of his heart failure, he is been able to return to work. He has no exertional dyspnea, orthopnea, chest pressure or pain, or edema. He has mild fatigue. This is a setting of diabetes mellitus; stage III or 4 chronic kidney insufficiency (followed by renal service, no dialysis plan at this time) and previous tobacco use. PAST MEDICAL HISTORY Diagnosis Date - DILLON (acute kidney injury) ([facility]) - CAD (coronary artery disease) - Cardiomyopathy (HCC) - CHF (congestive heart failure) (HCC) - Chronic renal insufficiency - Diabetes (HCC) - Diarrhea - Dyspnea on exertion - Edema - Ground glass opacity present on imaging of lung - HTN (hypertension) - Hyperkalemia - LV dysfunction - Mitral regurgitation - Mitral valve insufficiency - Obesity - Pleural effusion - Pneumonia - Pulmonary hypertension (HCC) - Sepsis (HCC) - Shoulder pain - SOB (shortness of breath) - Tobacco abuse - Tricuspid regurgitation PAST SURGICAL HISTORY Procedure Laterality Date - CARDIAC CATH 01/27/2018 [facility] - ANGELITA 06/07/2018 [facility] - TONSILLECTOMY HX Current Outpatient Prescriptions on File Prior to Visit: glimepiride (AMARYL) 1 mg tablet Take 4 mg by mouth daily with breakfast. atorvastatin (LIPITOR) 20 mg tablet Take 20 mg by mouth once daily. carvedilol (COREG) 6.25 mg tablet Take 6.25 mg by mouth twice daily with meals. dulaglutide (TRULICITY) 0.75 mg / 0.5 ml subcutaneous pen injector Inject 0.75 mg subcutaneously once each week. furosemide (LASIX) 40 mg tablet Take 40 mg by mouth twice daily. hydrALAZINE (APRESOLINE) 10 mg tablet Take 10 mg by mouth twice daily. isosorbide mononitrate ER (IMDUR) 30 mg 24 hr tablet Take 30 mg by mouth once daily. aspirin, enteric coated (ASPIRIN, ENTERIC COATED) 81 mg EC tablet Take 81 mg by mouth once daily. potassium chloride 20 mEq TbER Take 20 mEq by mouth. No current facility-administered medications on file prior to visit. REVIEW OF SYSTEMS: GENERAL: Fever - No Chills - No Night sweats - No Changes in weight - No NEUROLOGICAL: Headaches - No Seizures - No Passing out - No History of stroke or mini-stroke - No Head injury or trauma - No Numbness, tingling or sensation of pins and needles - No HEAD, EYES, EARS, NOSE, AND THROAT: Changes in hearing - No Changes in vision - No Nose bleeds - No CARDIOVASCULAR: Chest pain or pressure - No Palpitations - No Valvular heart disease - Yes High blood pressure - Yes Irregular heart rate - No Heart attack - No Heart failure - Yes High Cholesterol - No History of rheumatic fever - No History of Scarlet fever - No History of atrial fibrillation - No RESPIRATORY: Cough - No Wheezing - No Shortness of breath - No Shortness of breath with exertion - No Coughing up blood - No Asthma - No Bronchitis - No Blood clot in your lung - No GASTROINTESTINAL: Abdominal discomfort - No Nausea - No Vomiting - No Diarrhea - No Constipation - No Difficulty swallowing - No Pain with swallowing - No Stomach pain after eating - No Passing blood with bowel movement - No Black tarry stool - No History of stomach ulcers - No Acid reflux or heartburn - No GENITOURINARY: GENITOURINARY: EXTREMITY: Edema (swelling) - No Intermittent claudication (pain with walking) - No MUSCULOSKELETAL: Joint pain - No Joint swelling - No Back pain - No Muscle pain or ache - No Skin: Rash - No Lesions - No Sores - No Ulcers - No Tenderness - No Skin cancer - No HEMATOLOGY: Bleeding disorder - No Easy bruising - No Anemia - No Cancer - No Blood transfusions - No Blood clots - No ENDOCRINE: Diabetes - No Thyroid disorder - No PSYCHOLOGICAL: Depression - No Anxiety - No OTHER: On examination, he appears well and is breathing comfortably. Vitals signs are BP 120/80 (BP Site: Left Arm) Pulse 80 Resp 20 Ht 5' 7 (1.702 m) Wt 214 lb (97.1 kg) SpO2 97% BMI 33.52 kg/m? . There is no JVD. No cervical or supraclavicular adenopathy is palpated. The chest is symmetrical without deformity. Breath sounds are clear bilaterally. The cardiac rhythm is regular. There are no rubs, gallops, or murmurs. The carotid, subclavian, and radial pulses are 2+ and equal bilaterally. The abdomen is soft and non-tender. There are no abdominal masses. There is no hepatojugular reflux. There is no pretibial edema. There is no clubbing or cyanosis. In summary,Tariq Vargas is a 57-year-old man who recent suffered acute systolic heart failure who was found to have a nonischemic cardio myopathy with secondary moderately severe mitral regurgitation, secondary pulmonary hypertension, and secondary moderate tricuspid regurgitation with no significant coronary lesions. At this time, he does not have indications for mitral valve or tricuspid valve surgery. Parotid very well to medical management. I do think review by our valve committee and consideration for CRRT, which has been shown to reduce severity of MR in patients with nonischemic cardio myopathy should be done. 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 Review your case at our heart team at the next meeting ? 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 No open heart surgery at this time ? Continue medical therapy SMOKING CESSATION Stopping smoking is the most important thing you can do to protect your current and future health, as well as that of your family. It is the most potent risk factor for the future development of coronary artery disease and heart attacks. Smoking is both an addiction and a learned behavior. The nicotine withdrawal takes anywhere from 2-4 weeks and results in symptoms such as irritability, fatigue, insomnia, coughing, dizziness, poor concentration, hunger and cigarette cravings. After the nicotine withdrawal period, the learned linkage between certain acts or situations and cigarette use remain. Strategies to deal with these must be developed along with new behaviors to ensure successful smoking cessation. STRATEGIES TOWARD SMOKING CESSATION - Make a list of the reasons why you want to quit, plus the benefits to be gained, and compare them to the reasons why you should continue to smoke. - Pick a specific quit date. - If you are interested in using nicotine patches or gum to assist with the nicotine withdrawal, let the staff know. - Inform friends, family, and co-workers that you are quitting and when your quit date is. Ask for their understanding and support. - Prepare your environment by removing all cigarettes prior to your quit date. - Prior to your quit date, avoid smoking in places where you spend a lot of time (such as the house, work, car). - From previous quit attempts, identify what helped you to stop smoking. - From previous quit attempts, identify what triggered relapse. How can you avoid that again? - What things (situations, emotions) do you anticipate will be most challenging, especially in the first few weeks, to your quitting effort? - What can you do to address these challenges? - Avoid (or limit) alcohol consumption during the quitting process. - If your spouse or close coworker currently smoke, consider quitting together or at the very least, develop specific plans to maintain your cigarette abstinence while in the home or at work. - Take each day, each hour, each craving, one at a time. Every step or action you take toward smoking cessation is a success. The only failure is the failure to try. - The health of you and your family, is worth the effort. STOP SMOKING CHECK LIST Preparing to Quit: ___ Make a personal pact with yourself to quit. ___ Pick a date for quitting completely. (My date to quit is ____.) ___ Write down on a card the three most important reasons for quitting. Carry the card with you from now on. Look at it several times a day. ___ Prior to quitting, eliminate smoking completely in 2 or 3 of your high risk situations. ___ Reduce consumption to one pack per day or less. ___ Change to a less desirable brand of cigarettes. 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 Use matches. Carry your cigarettes in a different place. ___ Spend a little time each day picturing in your mind stressful events occurring in the future and you not smoking. Actual Quitting: The First Two Weeks ___ Get rid of all cigarettes. Put away all smoking related objects such as ashtrays. Ask the people you live with not to smoke in your presence for the first two weeks. ___ Spend as much time as possible with non-smoking people. ___ Keep busy, especially on evenings and weekends. ___ Avoid high risk situations (large parties, bars, etc.). ___ Spend lots of time in places that prohibit or discourage smoking (e.g., theaters, libraries.) ___ Drink plenty of fluids. ___ Don't substitute food or sugar based products for cigarettes. Use approved substitutions. (... ice water, high bulk/low calorie foods, sugarless gum, mouthwash, brushing teeth.) ___ Begin or increase regular exercise program. ___ When experiencing withdrawal effects: 1. Remind yourself why you are quitting (from your card). 2. Remind yourself that whatever discomfort you are experiencing is only a tiny fraction of the probable discomfort associated with continued smoking. 3. Practice deep breathing or other relaxation techniques - tapes. ___ Remind yourself that you can free yourself from this unhealthy, expensive, messy habit and become a non-smoker. Maintenance of Quitting: After two weeks ___ Remind yourself that the desire to smoke is linked to a great many situations, people and emotional stress. ___ When you do have a desire to smoke, remember that it only lasts a few seconds: distract yourself and leave the situation if necessary. ___ After each desire to smoke has passed, pat yourself on the back, you have just made progress in breaking the habit forever. ___ Save the money on wasted on cigarettes in a special fund and buy yourself something nice. Maintenance of Quitting: After Two Months ___ Be particularly vigilant when unusual life events occur. (.. weddings, holidays, vacations.) ___ Be particularly vigilant when stressful life events occur (e.g., relationship problems, financial or work problems.) ___ Remind yourself regularly that not smoking is completely within your personal control. ___ Never lull yourself into thinking you are out of danger and you can safely have a cigarette or two. -- you cannot!!!!! ___ If, by chance, you do slip and have one or more cigarettes, do not conclude that all is lost. Return to complete abstinence immediately and learn from your experience. ___ If you have gained significant weight since quitting, now is the time to do something about it. ___ Each time you see a cigarettes advertisement, remind yourself of why you quit. Also remember that a [employer] industry spends billions of dollars each year trying to get people like yourself re-hooked. Yesy Tripp LPN 07/05/2018 3:24 PM Signed CARDIAC REHAB 5 METER WALK TEST SERVICE DATE: 07/05/2018 SERVICE TIME: 1515 ASSESSMENT: SIGNATURE: Yesy Tripp LPN PATIENT NAME: Tariq Vargas DATE: July 05, 2018 TIME: 3:22 PM PAGER/CONTACT #: [id number] 1. 5.9 sec 2. 5.8 sec 3. 6.2 sec KARL Armas MD 07/05/2018 4:24 PM Signed Tariq Vargas is a 57-year-old man referred for evaluation of mitral regurgitation, tricuspid regurgitation, and chronic systolic heart failure. In January he is admitted with acute systolic heart failure. Echo at that time showed severe LV dysfunction with EF of 30%; moderate pulmonary hypertension with RVSP 54 mmHg; mild TR, and mild MR. Diagnostic left heart catheter revealed only mild disease in the distal RCA. A diagnosis of nonischemic cardiomyopathy with secondary pulmonary hypertension was made and medical therapy with aspirin, Coreg, Lasix, hydralazine, Imdur were and statin initiated. AJZZY or ARB were not added due to chronic renal insufficiency. He had significant improvement in symptoms on medical therapy. He was seen in follow-up by Dr. Royce Aguirre later in the month at which time he was well compensated. He was referred for cardiac rehabilitation. In May repeat 2-D echo and ANGELITA showed severely dilated left ventricle with ejection fraction of 20-25%; mobile left ventricular hypokinesia; moderately dilated right ventricle; moderate global right ventricular systolic dysfunction; structurally normal mitral valve with 3+ eccentric posteriorly directed mitral insufficiency; 2-3+ tricuspid insufficiency; RVSP 43 mmHg. He has no previous cardiac history. He denies previous infarction or heart failure. He's had no viral illnesses. He denies significant alcohol intake. Since beginning medical management of his heart failure, he is been able to return to work. He has no exertional dyspnea, orthopnea, chest pressure or pain, or edema. He has mild fatigue. This is a setting of diabetes mellitus; stage III or 4 chronic kidney insufficiency (followed by renal service, no dialysis plan at this time) and previous tobacco use. PAST MEDICAL HISTORY Diagnosis Date - DILLON (acute kidney injury) (HCC) - CAD (coronary artery disease) - Cardiomyopathy (HCC) - CHF (congestive heart failure) (HCC) - Chronic renal insufficiency - Diabetes (HCC) - Diarrhea - Dyspnea on exertion - Edema - Ground glass opacity present on imaging of lung - HTN (hypertension) - Hyperkalemia - LV dysfunction - Mitral regurgitation - Mitral valve insufficiency - Obesity - Pleural effusion - Pneumonia - Pulmonary hypertension (HCC) - Sepsis (HCC) - Shoulder pain - SOB (shortness of breath) - Tobacco abuse - Tricuspid regurgitation PAST SURGICAL HISTORY Procedure Laterality Date - CARDIAC CATH 01/27/2018 [facility] - ANGELITA 06/07/2018 [facility] - TONSILLECTOMY HX Current Outpatient Prescriptions on File Prior to Visit: glimepiride (AMARYL) 1 mg tablet Take 4 mg by mouth daily with breakfast. atorvastatin (LIPITOR) 20 mg tablet Take 20 mg by mouth once daily. carvedilol (COREG) 6.25 mg tablet Take 6.25 mg by mouth twice daily with meals. dulaglutide (TRULICITY) 0.75 mg / 0.5 ml subcutaneous pen injector Inject 0.75 mg subcutaneously once each week. furosemide (LASIX) 40 mg tablet Take 40 mg by mouth twice daily. hydrALAZINE (APRESOLINE) 10 mg tablet Take 10 mg by mouth twice daily. isosorbide mononitrate ER (IMDUR) 30 mg 24 hr tablet Take 30 mg by mouth once daily. aspirin, enteric coated (ASPIRIN, ENTERIC COATED) 81 mg EC tablet Take 81 mg by mouth once daily. potassium chloride 20 mEq TbER Take 20 mEq by mouth. No current facility-administered medications on file prior to visit. REVIEW OF SYSTEMS: GENERAL: Fever - No Chills - No Night sweats - No Changes in weight - No NEUROLOGICAL: Headaches - No Seizures - No Passing out - No History of stroke or mini-stroke - No Head injury or trauma - No Numbness, tingling or sensation of pins and needles - No HEAD, EYES, EARS, NOSE, AND THROAT: Changes in hearing - No Changes in vision - No Nose bleeds - No CARDIOVASCULAR: Chest pain or pressure - No Palpitations - No Valvular heart disease - Yes High blood pressure - Yes Irregular heart rate - No Heart attack - No Heart failure - Yes High Cholesterol - No History of rheumatic fever - No History of Scarlet fever - No History of atrial fibrillation - No RESPIRATORY: Cough - No Wheezing - No Shortness of breath - No Shortness of breath with exertion - No Coughing up blood - No Asthma - No Bronchitis - No Blood clot in your lung - No GASTROINTESTINAL: Abdominal discomfort - No Nausea - No Vomiting - No Diarrhea - No Constipation - No Difficulty swallowing - No Pain with swallowing - No Stomach pain after eating - No Passing blood with bowel movement - No Black tarry stool - No History of stomach ulcers - No Acid reflux or heartburn - No GENITOURINARY: GENITOURINARY: EXTREMITY: Edema (swelling) - No Intermittent claudication (pain with walking) - No MUSCULOSKELETAL: Joint pain - No Joint swelling - No Back pain - No Muscle pain or ache - No Skin: Rash - No Lesions - No Sores - No Ulcers - No Tenderness - No Skin cancer - No HEMATOLOGY: Bleeding disorder - No Easy bruising - No Anemia - No Cancer - No Blood transfusions - No Blood clots - No ENDOCRINE: Diabetes - No Thyroid disorder - No PSYCHOLOGICAL: Depression - No Anxiety - No OTHER: On examination, he appears well and is breathing comfortably. Vitals signs are BP 120/80 (BP Site: Left Arm) Pulse 80 Resp 20 Ht 5' 7 (1.702 m) Wt 214 lb (97.1 kg) SpO2 97% BMI 33.52 kg/m? . There is no JVD. No cervical or supraclavicular adenopathy is palpated. The chest is symmetrical without deformity. Breath sounds are clear bilaterally. The cardiac rhythm is regular. There are no rubs, gallops, or murmurs. The carotid, subclavian, and radial pulses are 2+ and equal bilaterally. The abdomen is soft and non-tender. There are no abdominal masses. There is no hepatojugular reflux. There is no pretibial edema. There is no clubbing or cyanosis. In summary,Tariq Vargas is a 57-year-old man who recent suffered acute systolic heart failure who was found to have a nonischemic cardio myopathy with secondary moderately severe mitral regurgitation, secondary pulmonary hypertension, and secondary moderate tricuspid regurgitation with no significant coronary lesions. At this time, he does not have indications for mitral valve or tricuspid valve surgery. Parotid very well to medical management. I do think review by our valve committee and consideration for CRRT, which has been shown to reduce severity of MR in patients with nonischemic cardio myopathy should be done. Jerry Martin MD Referring Provider: ALVINO STONER [[id number]] Allergies As of Date: 07/05/2018 (No Known Allergies) Date Reviewed: 07/05/2018 Reviewed by: Jerry Martin - Fully Assessed Reason for Visit: New Patient Evaluation [154] Cmt: CAD, cardiomyopothy, mitral valve insuff, ref by Dr. Aguirre Primary Visit Diagnosis:Tobacco use disorder [F17.200] Other Visit Diagnoses:Obesity, Class I, BMI 30-34.9 [E66.9] Cardiomyopathy, nonischemic (HCC) [I42.8] Non-rheumatic mitral regurgitation [I34.0] Non-rheumatic tricuspid valve insufficiency [I36.1] Chronic systolic CHF (congestive heart failure) (HCC) [I50.22] Prescriptions as of 07/05/2018 Sig: GLIMEPIRIDE 1 MG TABLET Take 4 mg by mouth daily with* ATORVASTATIN 20 MG TABLET Take 20 mg by mouth once yu* CARVEDILOL 6.25 MG TABLET Take 6.25 mg by mouth twice d* DULAGLUTIDE 0.75 MG/0.5 ML VILLA* Inject 0.75 mg subcutaneously* FUROSEMIDE 40 MG TABLET Take 40 mg by mouth twice elena* HYDRALAZINE 10 MG TABLET Take 10 mg by mouth twice elena* ISOSORBIDE MONONITRATE ER 30 * Take 30 mg by mouth once yu* ASPIRIN 81 MG TABLET,DELAYED * Take 81 mg by mouth once yu* POTASSIUM CHLORIDE ER 20 MEQ * Take 20 mEq by mouth. 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 Review your case at our heart team at the next meeting ? 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 No open heart surgery at this time ? Continue medical therapy SMOKING CESSATION Stopping smoking is the most important thing you can do to protect your current and future health, as well as that of your family. It is the most potent risk factor for the future development of coronary artery disease and heart attacks. Smoking is both an addiction and a learned behavior. The nicotine withdrawal takes anywhere from 2-4 weeks and results in symptoms such as irritability, fatigue, insomnia, coughing, dizziness, poor concentration, hunger and cigarette cravings. After the nicotine withdrawal period, the learned linkage between certain acts or situations and cigarette use remain. Strategies to deal with these must be developed along with new behaviors to ensure successful smoking cessation. STRATEGIES TOWARD SMOKING CESSATION - Make a list of the reasons why you want to quit, plus the benefits to be gained, and compare them to the reasons why you should continue to smoke. - Pick a specific quit date. - If you are interested in using nicotine patches or gum to assist with the nicotine withdrawal, let the staff know. - Inform friends, family, and co-workers that you are quitting and when your quit date is. Ask for their understanding and support. - Prepare your environment by removing all cigarettes prior to your quit date. - Prior to your quit date, avoid smoking in places where you spend a lot of time (such as the house, work, car). - From previous quit attempts, identify what helped you to stop smoking. - From previous quit attempts, identify what triggered relapse. How can you avoid that again? - What things (situations, emotions) do you anticipate will be most challenging, especially in the first few weeks, to your quitting effort? - What can you do to address these challenges? - Avoid (or limit) alcohol consumption during the quitting process. - If your spouse or close coworker currently smoke, consider quitting together or at the very least, develop specific plans to maintain your cigarette abstinence while in the home or at work. - Take each day, each hour, each craving, one at a time. Every step or action you take toward smoking cessation is a success. The only failure is the failure to try. - The health of you and your family, is worth the effort. STOP SMOKING CHECK LIST Preparing to Quit: ___ Make a personal pact with yourself to quit. ___ Pick a date for quitting completely. (My date to quit is ____.) ___ Write down on a card the three most important reasons for quitting. Carry the card with you from now on. Look at it several times a day. ___ Prior to quitting, eliminate smoking completely in 2 or 3 of your high risk situations. ___ Reduce consumption to one pack per day or less. ___ Change to a less desirable brand of cigarettes. 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 Use matches. Carry your cigarettes in a different place. ___ Spend a little time each day picturing in your mind stressful events occurring in the future and you not smoking. Actual Quitting: The First Two Weeks ___ Get rid of all cigarettes. Put away all smoking related objects such as ashtrays. Ask the people you live with not to smoke in your presence for the first two weeks. ___ Spend as much time as possible with non-smoking people. ___ Keep busy, especially on evenings and weekends. ___ Avoid high risk situations (large parties, bars, etc.). ___ Spend lots of time in places that prohibit or discourage smoking (e.g., theaters, libraries.) ___ Drink plenty of fluids. ___ Don't substitute food or sugar based products for cigarettes. Use approved substitutions. (... ice water, high bulk/low calorie foods, sugarless gum, mouthwash, brushing teeth.) ___ Begin or increase regular exercise program. ___ When experiencing withdrawal effects: 1. Remind yourself why you are quitting (from your card). 2. Remind yourself that whatever discomfort you are experiencing is only a tiny fraction of the probable discomfort associated with continued smoking. 3. Practice deep breathing or other relaxation techniques - tapes. ___ Remind yourself that you can free yourself from this unhealthy, expensive, messy habit and become a non-smoker. Maintenance of Quitting: After two weeks ___ Remind yourself that the desire to smoke is linked to a great many situations, people and emotional stress. ___ When you do have a desire to smoke, remember that it only lasts a few seconds: distract yourself and leave the situation if necessary. ___ After each desire to smoke has passed, pat yourself on the back, you have just made progress in breaking the habit forever. ___ Save the money on wasted on cigarettes in a special fund and buy yourself something nice. Maintenance of Quitting: After Two Months ___ Be particularly vigilant when unusual life events occur. (.. weddings, holidays, vacations.) ___ Be particularly vigilant when stressful life events occur (e.g., relationship problems, financial or work problems.) ___ Remind yourself regularly that not smoking is completely within your personal control. ___ Never lull yourself into thinking you are out of danger and you can safely have a cigarette or two. -- you cannot!!!!! ___ If, by chance, you do slip and have one or more cigarettes, do not conclude that all is lost. Return to complete abstinence immediately and learn from your experience. ___ If you have gained significant weight since quitting, now is the time to do something about it. ___ Each time you see a cigarettes advertisement, remind yourself of why you quit. Also remember that a powerful industry spends billions of dollars each year trying to get people like yourself re-hooked. Visit Notes: >> Yesy (Trudy Tripp Wed Jul 05, 2018 3:22 PM Status: Signed CARDIAC REHAB 5 METER WALK TEST SERVICE DATE: 07/05/2018 SERVICE TIME: 1515 ASSESSMENT: SIGNATURE: Yesy Tripp LPN PATIENT NAME: Tariq Vargas DATE: July 05, 2018 TIME: 3:22 PM PAGER/CONTACT #: [id number] 1. 5.9 sec 2. 5.8 sec 3. 6.2 sec Yesy Tripp LPN Level of Service: NEW PATIENT VISIT LEVEL 4 [85509] Letter Text Encounter Status:Closed by JERRY MARTIN MD on 07/05/18 ECHO TRANSESOPHAGEAL (ANGELITA) Observed: 06/07/2018 Status: F Source: [place] 1:06 PM [facility] REPOSITORY [facility] Cardiovascular Services [address] [place] [id number] Echo Transesophageal (ANGELITA) 06/07/18 1034 MR#: [id number] Acct: [id number] Name: TARIQ VARGAS Rep #: [id number] : 1960 57 From: Alvin Aguirre MD Attending Dr: Alvin Aguirre MD Status: REG CLI Ordering Dr: Alvin Aguirre MD Date: 06/07/18 Location: [facility] Sex: M C Admitted: Reason For Study: VALVE REPL EVAL Medication ANGELITA probe passed without difficulty. No complications were noted. [id number] gargled and swallowed. Cetacaine Topical Bryan given X2 orally. Versed 2 mg given slow IVP. Fentanyl 50 mcg given slow IVP. Performed a rapid injection of agitated mix of 9 cc saline and 1cc air to assess for atrial septal defect. Left Ventricle Severely dilated left ventricle. The estimated ejection fraction is 20-25 %. There is severe global hypokinesis of the left ventricle. Right Ventricle Moderately dilated right ventricle. Moderate global right ventricular systolic dysfunction. Atria Normal atrial septum. Bubble contrast study negative for right to left interatrial shunt. The left atrium is severely enlarged. There is mild sponatenous contrast in the left atrium. The right atrium is mildly enlarged. Mitral Valve The mitral valve is structurally normal. No prolapse or stenosis seen. Moderately severe (3+) eccentric mitral valve insufficiency. Tricuspid Valve Normal tricuspid valve. Mild to moderate (1-2+) tricuspid valve insufficiency. Right ventricular systolic pressure estimated to be 43 mmHg. Mild pulmonary hypertension. Aortic Valve Normal aortic valve. Trisinus/trileaflet aortic valve. Pulmonic Valve Normal pulmonic valve. Vessels Normal aortic root. Normal arch. The pulmonary artery is normal size. Pulmonary venous flow attenuated diastolic component. Doppler Measurements AND Calculations TR max mickey: 344.8 cm/sec Interpretation Summary Severely dilated left ventricle. The estimated ejection fraction is 20-25 %. There is severe global hypokinesis of the left ventricle. Moderately dilated right ventricle. Moderate global right ventricular systolic dysfunction. Bubble contrast study negative for right to left interatrial shunt. The left atrium is severely enlarged. The right atrium is mildly enlarged. Moderately severe (3+) eccentric mitral valve insufficiency. Mild to moderate (1-2+) tricuspid valve insufficiency. Right ventricular systolic pressure estimated to be 43 mmHg. Mild pulmonary hypertension. Pulmonary venous flow attenuated diastolic component. Ordering Physician: Alvin Aguirre Referring Physician: ALVINO STONER Performed By: Callie Rocha, ELEANOR, RVT 06/07/18 1305 Date Alvin Aguirre MD CC: Alvin Aguirre MD; Alvino Stoner DO Date Dictated: 06/07/18 1034 Date Transcribed: 06/07/18 1305 Programming Internship: Signed BASIC METABOLIC Collected: 05/25/2018 Status: F Source: [place] PROFILE (BMP) 11:33 AM [facility] REPOSITORY TYPE CODE TESTS RESULT OUT OF RANGE REFERENCE UNITS LAB L501.0100 74-106 mg/dL High GLU 150 Result Comment: Fasting Glucose result greater than or equal to 126 mg/dL suggests DIABETES MELLITUS per A.D.A. criteria. Please note revised GLUCOSE reference range effective 2017. LAB L501.1000 7-18 mg/dL High BUN 58 LAB L501.1100 0.70-1.30 mg/dL High CREAT,SERUM 2.49 Result Comment: The validity of the calculated GFR AND GFRAA in patients over 70 years has not been determined. Clinical correlation is essential. LAB L501.1110 >60 mL/min Low EST GFR 29 Result Comment: Non- GFR Calc LAB L501.1115 >60 mL/min Low EST GFR - AA 35 Result Comment: GFR Calc LAB L501.1300 10-20 RATIO High BUN/CRE 23.3 LAB L501.2200 8.5-10.1 mg/dL CA Normal 8.9 LAB L501.5300 136-145 mmol/L NA Normal 143 LAB L501.5600 3.5-5.1 mmol/L High K 5.3 LAB L501.5900 98-107 mmol/L CL Normal 107 LAB L501.6100 21.0-32.0 mmol/L Normal CO2 29.0 LAB L501.6200 5-15 Normal GAP 7 Performed By: #### L500.2500, L501.2300, L501.9520, L506.0400 #### [facility] [address] [place], [place], [address] PHOSPHORUS Collected: 05/25/2018 Status: F Source: [place] 11:33 AM [facility] REPOSITORY TYPE CODE TESTS RESULT OUT OF RANGE REFERENCE UNITS LAB L501.2300 2.5-4.9 mg/dL High PHOS 5.4 Performed By: #### L500.2500, L501.2300, L501.9520, L506.0400 #### [facility] [address] [place], [address] THYROID STIM HORMONE Collected: 05/25/2018 Status: F Source: [place] (TSH) 11:33 AM [facility] REPOSITORY TYPE CODE TESTS RESULT OUT OF RANGE REFERENCE UNITS LAB L501.9520 0.358-3.74 uIU/mL High TSH 4.20 Performed By: #### L500.2500, L501.2300, L501.9520, L506.0400 #### [facility] [address] [place], [address] T4 FREE DIRECT Collected: 05/25/2018 Status: F Source: [place] 11:33 AM [facility] REPOSITORY TYPE CODE TESTS RESULT OUT OF RANGE REFERENCE UNITS LAB L506.0400 0.76-1.46 ng/dL Normal T4 FREE 0.92 DIRECT Performed By: #### L500.2500, L501.2300, L501.9520, L506.0400 #### [facility] [address] [place], [address] PTHIN Collected: 05/25/2018 Status: F Source: [place] 11:33 AM [facility] REPOSITORY TYPE CODE TESTS RESULT OUT OF RANGE REFERENCE UNITS LAB L509.1000 18.4-80.1 pg/mL High PTHIN 131.9 Performed By: #### L509.1000 #### [facility] [address] [place], [address] VITAMIN D,25 HYDROXY Collected: 05/25/2018 Status: F Source: [place] 11:33 AM [facility] REPOSITORY TYPE CODE TESTS RESULT OUT OF REFERENCE UNITS RANGE LAB L506.1000 29.95-100.01 ng/mL Low Vitamin D 22.6 25-OH Result Comment: Vitamin D 25(OH) Status Range Deficiency <20 ng/mL (50nmol/L) Insuffciency 20 - 30 ng/mL (50 - 75 nmol/L) Sufficiency 30 - 100 ng/mL (75 - 250 nmol/L) Toxicity >100 ng/mL (>250 nmol/L) Performed By: #### L506.1000 #### [facility] [address] [place], [address] MICROALB:CREAT Collected: 05/25/2018 Status: F Source: [place] RATIO,RANDOM UR 11:33 AM [facility] REPOSITORY TYPE CODE TESTS RESULT OUT OF RANGE REFERENCE UNITS LAB L501.1200 NO RANGE EST. mg/dL Normal UR CREAT 67.10 LAB L502.0500 NO RANGE EST. mg/L Normal 2870.0 MICROALBUMIN ,UR LAB L502.0600 <30 mg/g CRE mg/g CRE High 4277.2 MALB:CREAT Performed By: #### L502.0250 #### [facility] [address] [place], [address] ECHOCARDIOGRAM COMPLETE Observed: 05/24/2018 Status: F Source: [place] 4:29 PM [facility] REPOSITORY [facility] Cardiovascular Services [address] [facility] [place] [address] Echo Complete 05/23/18 1016 MR#: [id number] Acct: [id number] Name: TARIQ VARGAS Rep #: [id number] : 1960 57 From: Alvin Aguirre MD Attending Dr: Alvin Aguirre MD Status: REG CLI Ordering Dr: Alvin Aguirre MD Date: 05/23/18 Location: [facility] Sex: M C Admitted: Reason For Study: CHF Procedure This was a 2D Doppler, Color Flow transthoracic echocardiogram. Exam performed in department. Left Ventricle Severely dilated left ventricle. The estimated ejection fraction is 25 %. There is severe global hypokinesis of the left ventricle. Right Ventricle Normal size and thickness. Normal systolic function. Atria The left atrium is mildly enlarged. Normal right atrium. Normal atrial septum. Mitral Valve Mild focal mitral valve thickening. Moderately severe (3+) posteriorly directed mitral valve insufficiency. Tricuspid Valve Normal tricuspid valve. Moderately severe (3+) eccentric tricuspid valve insufficiency. Right ventricular systolic pressure estimated to be 49 mmHg. Moderate pulmonary hypertension. Aortic Valve Normal aortic valve. Trisinus/trileaflet aortic valve. Pulmonic Valve Normal pulmonic valve. Trivial pulmonic valve insufficiency. Great Vessels Normal aortic root. Normal arch. Normal inferior vena cava. Inferior vena cava collapse with sniff. Pericardium/Pleural Trivial pericardial effusion. There are no echocardiographic indications of cardiac tamponade. MMode/2D Measurements AND Calculations LVIDd: 5.8 cm IVSd: 1.2 cm Ao root diam: 3.6 cm LVIDs: 4.8 cm LVPWd: 1.3 cm RVDd: 3.5 cm FS: 17.3 % LAV(MOD-bp): 93.8 ml LA A4 area: 23.4 cm2 LA dimension(2D): 4.6 cm LAV(MOD-bp) Indexed: 44.5 ml/m2 LAV(MOD-sp2): 89.3 ml LAV(MOD-sp4): 86.1 ml Time Measurements MV dec time: 0.14 sec Doppler Measurements AND Calculations MV E max mickey: 106.9 cm/sec Lat Peak E' Mickey: 8.4 cm/sec Med Peak E' Mickey: 3.7 cm/sec MV A max mickey: 38.9 cm/sec E/E' lat: 12.7 E/E' med: 29.1 MV E/A: 2.7 Ao V2 max: 111.7 cm/sec LV V1 max: 82.3 cm/sec PA V2 max: 79.6 cm/sec Ao max P.0 mmHg LV V1 max P.7 mmHg TR max mickey: 316.3 cm/sec TR max P.1 mmHg Interpretation Summary The estimated ejection fraction is 25 %. There is severe global hypokinesis of the left ventricle. The left atrium is mildly enlarged. Moderately severe (3+) posteriorly directed mitral valve insufficiency. Moderately severe (3+) eccentric tricuspid valve insufficiency. Trivial pericardial effusion. There are no echocardiographic indications of cardiac tamponade. Right ventricular systolic pressure estimated to be 49 mmHg. Moderate pulmonary hypertension. Compared to echo report dated 01/27/2018, LV function has remained the same, but pt now appears to have moderate to severe eccentric TR and MR. Consider ANGELITA to better evaluated for MV and TV repair vs AICD. Ordering Physician: Alvin Aguirre Referring Physician: Alvino Stoner Performed By: Jeanna Valenzuela RDCS, RVT 05/24/18 1629 Date Alvin Aguirre MD CC: Alvin Aguirre MD; Alvino Stoner DO Date Dictated: 05/23/18 1016 Date Transcribed: 05/24/181628 Programming Internship: Signed LIVER PROFILE Collected: 03/17/2018 Status: F Source: [place] 11:27 AM [facility] REPOSITORY TYPE CODE TESTS RESULT OUT OF RANGE REFERENCE UNITS LAB L501.1500 6.4-8.2 g/dL Normal T PROT 7.1 LAB L501.1800 3.2-5.0 g/dL Normal ALB 3.6 LAB L501.1950 2.2-4.2 g/dL Normal GLOB 3.5 LAB L501.4100 15-37 U/L Normal AST 15 LAB L501.4305 45-117 U/L Normal ALK P 62 LAB L501.4405 16-61 U/L Normal ALT 20 LAB L501.4600 0.20-1.00 mg/dL Normal T BILI 0.60 LAB L501.4700 0.00-0.30 mg/dL Normal D BILI 0.14 Performed By: #### L500.3400, L500.4100 #### [facility] [address], [address] LIPID PROFILE Collected: 03/17/2018 Status: F Source: [place] 11:27 AM [facility] REPOSITORY TYPE CODE TESTS RESULT OUT OF RANGE REFERENCE UNITS LAB L501.4900 200 mg/dL Normal CHOL 97 Result Comment: <200 mg/dL Desirable 200-240 mg/dL Borderline >240 mg/dL High Risk LAB L501.5000 mg/dL Normal TRIG 138 Result Comment: The drugs N-Acetylcysteine and Metamizole may falsely depress this assay. Serum Triglycerides Reference Interval Normal <150 mg/dL Borderline high 150 - 199 mg/dL High 200 - 499 mg/dL Very High > or = 500 mg/dL LAB L501.6400 mg/dL Low HDL 39 Result Comment: The drugs N-Acetylcysteine and Metamizole may falsely depress this assay. Reference Range HDL <40 mg/dL Low HDL Cholesterol HDL >or= 60 mg/dL High HDL Cholesterol LAB L501.6500 0-130 mg/dL Normal LDL 30 LAB L501.6600 5-40 mg/dL Normal VLDL 28 Performed By: #### L500.3400, L500.4100 #### [facility] [address] [place], [place], [address] CR - HISTORY AND Observed: 02/25/2018 Status: F Source: [place] PHYSICAL 7:27 AM [facility] REPOSITORY [facility] Cardiac Rehab [address] [place] [address] CR - History AND Physical MR#: [id number] Acct: [id number] Name: TARIQ VARGAS Rep #: [id number] : 1960 57 From: Elijah Oliveira LIBRARY CIRCULATION DEPARTMENT CHIEF, PENOLOGY PROFESSOR, BS PCP: Alvino Stoner DO DOS: 02/24/18 CR - History AND Physical - General Arrival date:: 02/24/18 Arrival time:: 13:03 Date of Referral:: 02/14/18 Date of CR Evaluation:: 02/24/18 Referring Physician: Dr. Alvin Aguirre Primary Diagnosis: Non-ischemic cardiomyopathy, HF w/LVEF <35% - History of Present Cardiac Event Onset Date: Enter Onset Date of cardiac illnesses in Comment field below Heart Failure EF <35%:: Yes - 01/26/2018 30% per ECHO 01/27/2018 Type of Symptoms:: severe shortness of breath, wake up in the morning very short of breath to where he felt he couldn't breathe. Interventions with present event:: Echocardiogram, heart cath 01/27/2018 cleared coronary arteries. Were there any complications?: none - Medications Home Medications: Ambulatory Orders Medication Instructions Recorded glimepiride 1 mg tablet 1 mg PO QAM 09/27/17 - Allergies Allergies/Adverse Reactions: Allergies No Known Allergies Allergy (Verified 02/14/18 11:43) - Sleep Disorder Evaluation Hx of Sleep Apnea: Yes Do you snore loudly (louder than talking or can be heard through closed doors)?: Yes - had test in 2002 unsure of results. Do you often feel tired/ fatigued/ sleepy during daytime?: Yes Has anyone observed you stop breathing during sleep?: No History of Hypertension (for STOP score): No STOP Results: Positive Advanced Directives - Advanced Directives Power of Associate Brand Manager: No Living Will: No Advance Directives Information Provided: No - not interested at this time Advance Directives on File: No DNR Order?:: No - MOLST See MOLST form: No Past Medical History - Past Medical Illness Medical History: Past Medical History (Last Reviewed 02/14/18 @ 11:40 by Rosette Reddy) Cardiomyopathy (Chronic) I42.9 EF 30% per echo 01/27/18 with severely hypokinetic areas of left venticle Secondary pulmonary hypertension (Chronic) RVSP 54mmhg per echo 01/27/18 Nonrheumatic tricuspid (valve) insufficiency (Chronic) I36.1 mild (1+) per echo 01/27/2010 Nonrheumatic mitral (valve) insufficiency (Chronic) I34.0 mild (1+) per echo 01/27/18 Atherosclerotic heart disease of [place] coronary artery without angina pectoris (Chronic) Onset Date: 01/27/18 I25.10 Per [facility] 01/27/18, Dr. Aguirre @ [facility]: 0.91 FFR (50% stenosis) of RCA, manage medically: all other coronaries normal. Pericardial effusion (Acute) Onset Date: 01/26/18 I31[address] Bilateral pleural effusion (Acute) Onset Date: 02/05/18 J90 Pneumonia (Acute) J18.9 Diabetes mellitus (Chronic) E11.9 HTN (hypertension) (Chronic) I10 Sepsis (Acute) A41.9 Hyperkalemia (Acute) E87.5 DILLON (acute kidney injury) (Acute) N17.9 LV dysfunction (Acute) I51.9 Severely dilated left ventricle, EF 30% per echo 01/27/18 Dyspnea on exertion (Acute) R06.09 Diabetes E11.9 Diarrhea R19.7 Shoulder pain M25.519 Hypertension I10 - Past Surgical History Surgical History: Past Surgical History (Last Reviewed 02/14/18 @ 11:40 by Rosette Reddy) History of left heart catheterization (Chronic) Onset Date: 01/27/18 Z98.890 History of tonsillectomy Z90.89 Surgical History: tonsillectomy - Family History Summary Family History: Family History (Last Reviewed 02/14/18 @ 11:40 by Rosette Reddy) Unknown No problems noted. Social History - Smoking History Smoking Status: Former smoker Years Smokin Packs Smoked per Day: 1 Hx Smoking Cessation Date: 01/27/2018 Hx Tobacco Use: Yes Hx Smoking Exposure: Yes - Alcohol Use Alcohol Usage: No - Substance Abuse Hx Substance Use: No - Occupation Occupation (List type of work in comments):: Employed Hours worked per day:: 8 Returned to work on:: 02/27/18 - Hobbies, Recreation, Social Activities Hobbies: Other - model building, Recreational Activities: I am able to engage in most, but not all activities Social Environment - Status Marital Status: - Current Living Arrangements Living Environment:: Spouse - Children How many children do you have?: 0 Do any of your children live nearby?: No - Safety Do you feel safe in your surroundings?: Yes - Assistance Do you need any assistance at home?: none Review of Systems - Review of Systems Hints: Right click = Denies (Slash). Left click = Reports (Mcintyre) Review of Present Symptoms: Reports: Shortness of Breath at Rest - rarely, but a couple of mornings he has awakened with some shortness of breath., Shortness of Breath with Exertion, Dizziness/Lightheadedness - some lightheadedness when blood sugars are down., Fatigue, Appetite - Normal, Appetite - Special Diet - Low sodium, diabetic diet.. Denies: Heart Arrhythmia/Irregularities - Pain Is Patient Pain Free?: Yes Pain Location: none Pain Level: 0/10 Risk Factor Assessment - Chief Complaint Chief Complaint: Patient is a 57 yr old male of Dr. Alvin Aguirre who presentst o cardiac rehab today following recent diagnosis of cardiomyopathy and HF. During recent diagnostic studies the LVEF is measured at 30% per ECHO. - Vital Signs Temperature: 98.7 F Respiratory Rate: 16 Pulse Ox: 94 Blood Pressure: 120/80 - office on 02/14/2018 Nailbeds:: pink - Pulse Pulse Rate: 94 Pulse Rhythm: Regular - Hypertension Blood Pressure Sitting - Left Arm: 132/84 - at rest today - Diabetes Diabetic History: Type II, Medication Dependent - Glimepiride and trulicity Nutrition Referral for Diabetes: Yes - Obesity Height: 5 ft 7 in Weight:: 218 lb Weight in Pounds: 218.0 lbs Weight Source: Standing Scale Body Mass Index (BMI): 34.1 Nutritional Referral for Obesity: Yes - DM Type II, Overweight, and LV dysfunction, HF, acute kidney injury - Physical Inactivity Physical Inactivity: None - Risk Stratification Risk Guidelines: Lowest Risk: Risk Factor for Dyslipidemia, Risk Factor for Depression, Moderate Risk: Risk Factor for Diabetes, Risk Factor for Hypertension, Highest Risk: Risk Factor for Smoking, Risk Factor for Obesity, Risk Factor for Sedentary Lifestyle - For Smoking Smoking Risk Guidelines: Smoking Low Risk: None or quit greater than 6 months ago. Smoking Moderate Risk: Smoker or quit 6 months or less ago. Smoking High Risk: Smoker - For Dyslipidemia Dyslipidemia Risk Guidelines: Low Risk: Moderate Risk: High Risk: 15-25% fat 25.1-29% fat >/= 30% fat. <7% sat fat 7-9% sat fat >9% sat fat. <150 mg chol 150-299 mg chol >/= 300 mg chol. LDL <100 LDL 100-129 LDL >/= 130. Chol/HDL ratio <5.0 Chol/HDL ratio 5.0-6.0 Chol/HDL ratio >6.0. Triglycerides <100 Triglycerides 100-149 Triglycerides >/= 150 - For Diabetes Mellitus Diabetes Risk Guidelines: Diabetes Low Risk: HgA1c <6.5% and/or FBG <120. Diabetes Moderate Risk: HgA1c 6.6-7.9% and/or FBG 120- 180. Diabetes High Risk: HgA1c >/= 8% and/or FBG >180 - For Obesity/Overweight Obesity/Overweight Risk Guidelines: Obesity Low Risk: BMI <25.0. Obesity Moderate Risk: BMI 25-29.9. Obesity High Risk: BMI >/= 30.0 - For Hypertension Hypertension Risk Guidelines: Hypertension Low Risk: Systolic <120 and Diastolic <80. Hypertension Moderate Risk: Systolic 120-139 and Diastolic 80-89. Hypertension High Risk: Systolic >/= 140 and Diastolic >/= 90 - For Sedentary Lifestyle Sedentary Lifestyle Risk Guidelines: Sedentary Lifestyle Low Risk: >/= 1,500 kcal/week. Sedentary Lifestyle Moderate Risk: 700-1,499 kcal/week. Sedentary Lifestyle High Risk: < 700 kcal/week - For Depression Depression Risk Guidelines: Depression Low Risk: Not clinically depressed. Depression Moderate Risk: Mildly depressed. Depression High Risk: Clinically depressed - Family History Family History: Family History (Last Reviewed 02/14/18 @ 11:40 by Rosette Reddy) Unknown No problems noted. Motivation - Motivation to Participate On a scale of 1 to 10, how prepared are you to commit to attending program?: 10 What do you see as barriers to successfully being able to complete the program?: work schedule and program, general weakness What do you see as the benefits of succesfully completing the program? In other words, what do you hope to get out of participating in the program?: get my heart strengthened up, back to normal EF Are there issues you are dealing with that will interfere with completing the program?: none Do you have a spouse or signficant other, family or friends who will help support you to complete the program?: yes 02/24/18 1326 <Electronically signed by Elijah Oliveira LIBRARY CIRCULATION DEPARTMENT CHIEF, PENOLOGY PROFESSOR, BS> Date Elijah Oliveira LIBRARY CIRCULATION DEPARTMENT CHIEF, PENOLOGY PROFESSOR, LELAND Outcome assessment reviewed. Exercise plan approved as documented. Treatment plan and goals support patient needs/abilities. Continue with current plan. I certify the patient demonstrates improvement and remains willing and capable of participation. the patient continues to benefit from cardiac rehab services/training. The patient may continue at current intensity, endurance and modality and progress per protocol. 02/25/18726 <Electronically signed by Alvin Aguirre MD> Cosigner Signature: Date Alvin Aguirre MD CC: Signed CARDIOLOGY VISIT Observed: 02/14/2018 Status: F Source: [place] REPORT 11:57 AM [facility] REPOSITORY [facility] [address] [place] [address] OFFICE VISIT Date of Service: 02/14/18 MR#: [id number] Acct: [id number] Name: TARIQ VARGAS Rep #: [id number] : 1960 Provider: Alvin Aguirre MD Age/Sex: 57/M Location: [facility] [place] Status: Signed HPI HPI Chief Complaint: Routine follow Details: The patient is a 57 year old M with diabetes, obesity, positive tobacco abuse, chronic renal insufficiency, who apparently had a catheterization many years ago at [facility] from an unknown physician after having an abnormal stress test. He denies any stents or bypass surgery. 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 Patient had been in normal health up until around mid January 2018 when he has developed progressively worsening shortness of breath, dyspnea on exertion, mild lower extremity edema but no chest pain or angina. He reports decreased exercise capacity, and increasing and worsening dyspnea on exertion. Patient was admitted to the ER and his EKG showed normal sinus rhythm with poor R-wave progression across the precordium low voltage, and anterolateral T-wave inversion. He was found to have an elevated BNP and given a diagnosis of both pneumonia and congestive heart failure. Patient underwent a 2D echo with Doppler this morning which showed severe LV dysfunction with an EF around 30%, moderate pulmonary hypertension with an RVSP of 54 mmHg, mild tricuspid regurgitation and mild mitral regurgitation. Chest x-ray reviewed which demonstrated mild pulmonary vascular redistribution and ground glass appearance to the left lower lobe. No pleural effusions noted. On 01/27/18 he underwent diagnostic coronary angiogram which demonstrated minimal nonobstructive disease of his LAD and left circumflex, and a questionable 50% stenosis of his distal RCA. Patient underwent FFR evaluation at the same setting, which was found to be 0.91. Any intervention was deferred. Patient was treated with baby aspirin, Coreg, Lasix, hydralazine and Imdur in place of JAZZY inhibitors or ARB's for his chronic renal insufficiency as well as Lipitor for his coronary artery disease. He is now here in follow-up. Since discharge, the patient is doing extremely well, has essentially quit smoking although occasionally lights up cigarettes just to have them in his hand. He is taking and tolerating his medicines well. He denies any chest pain, angina, fevers, chills, shortness of breath or dyspnea on exertion. In our office today's blood pressure is 120/80, pulse is 96 and regular. Physical exam is as below. Lipids as of 01/27/18 showed HDL 39 and LDL of 68. EKG dated 01/26/18 shows normal sinus rhythm, normal axis, poor R-wave progression across the precordium, and lateral T-wave inversion. [] Intake Vital Signs02/14/18 Height 5 ft 7 in 02/14/18 Weight: 218 lb 02/14/18 Body Mass Index (BMI) 34.1 02/14/18 Blood Pressure 120/80 Intake Visit Reasons: 2 WK S/P [facility] 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: No Is patient in pain?: No Allergies No Known Allergies Allergy (Verified 02/14/18 11:43) Medications glimepiride 1 mg tablet 1 mg PO QAM 09/27/17 [History Confirmed 02/13/18] aspirin 81 mg chewable tablet 81 mg PO DAILY@0800 #90 tab 02/14/18 [Rx Confirmed 02/14/18] atorvastatin 20 mg tablet 20 mg PO QHS #90 tab 02/14/18 [Rx Confirmed 02/14/18] carvedilol 6.25 mg tablet 6.25 mg PO BID #180 tab 02/14/18 [Rx Confirmed 02/14/18] dulaglutide 0.75 mg/0.5 mL subcutaneous pen injector 0.75 mg SC QWEEK 02/14/18 [History Confirmed 02/14/18] furosemide 40 mg tablet 40 mg PO DAILY #90 tab 02/14/18 [Rx Confirmed 02/14/18] hydralazine 10 mg tablet 10 mg PO BID #180 tab 02/14/18 [Rx Confirmed 02/14/18] isosorbide mononitrate ER 30 mg tablet,extended release 24 hr 30 mg PO DAILY #90 tab 02/14/18 [Rx Confirmed 02/14/18] potassium chloride ER 20 mEq tablet,extended release(part/cryst) 20 meq PO DAILY #90 tab 02/14/18 [Rx Confirmed 02/14/18] [facility] Medical History Cardiomyopathy (Chronic) Secondary pulmonary hypertension (Chronic) Nonrheumatic tricuspid (valve) insufficiency (Chronic) Nonrheumatic mitral (valve) insufficiency (Chronic) Atherosclerotic heart disease of [place] coronary artery without angina pectoris (Chronic 01/27/18) Pericardial effusion (Acute 01/26/18) Bilateral pleural effusion (Acute 02/05/18) Pneumonia (Acute) Diabetes mellitus (Chronic) HTN (hypertension) (Chronic) Sepsis (Acute) Hyperkalemia (Acute) DILLON (acute kidney injury) (Acute) LV dysfunction (Acute) Dyspnea on exertion (Acute) Diabetes (Acute) Diarrhea (Acute) Shoulder pain (Acute) Hypertension (Chronic) Surgical History History of left heart catheterization (Chronic 01/27/18) History of tonsillectomy (Chronic) Family History Unknown No problems noted. Social History Smoking Status: Former smoker quit date: 01/26/18 alcohol intake: never ROS Const Const: Positive for other (Was in PCU with pneumonia, sepsis, pleural and pericardial effusions); negative for weakness, body ache, fever(s), chills, frequent falls, night sweats, daytime sleepiness, difficulty sleeping, weight gain, weight loss, increased appetite, poor appetite, anorexia, fatigue, excessive sweating or headache(s) Eyes Eyes: Negative for blind spots, loss of peripheral vision, transient loss of vision, blurry vision, change in vision, double vision, floaters, tunnel vision or other ENT ENT: Negative for headache(s), dizziness, hearing loss, tinnitus, Nosebleed/epistaxis, post nasal drip, lip swelling, tongue swelling, bleeding gums, hoarseness, neck pain, dry mouth, other or balance problems Cardio Chest Pain: No Palpitations: Yes (occasional fluttering) Edema: None Muscle aches with walking: None Resp Respiratory: Positive for SOB with activity (It has improved greatly) and Cough (Occasional productive); negative for SOB at rest, SOB orthopnea\SOB lying down, Coughing up blood/hemoptysis, chest congestion, pain on inspiration, snoring, stridor, wheezing, crackles, paroxysmal nocturnal dyspnea or other GI GI: Negative nausea, vomiting, heartburn, constipation, belching, bloating, cramping, vomiting blood/hematemesis, bright, red blood in stools, black,tarry stools, loose stools, Difficulty Swallowing or other : Negative for hematuria, frequent nighttime urination/ nocturia, erectile dysfunction or abnormal vaginal bleeding Musc Musc: Negative for balance problems, muscle aches/ myalgia, muscle weakness or joint pain Skin Skin: Negative redness, non-healing lesions, rash, unusual bruising, skin ulcer, wounds, jaundice or other Neuro Neuro: Negative for lightheadedness, near syncope, syncope, orthostatic symptoms, confusion, memory loss, restless legs, vertigo, seizures, lack of coordination, other, weakness, frequent falls, blurry vision, double vision, headache(s) or dizziness [place] Hematologic/Lymphatic: Negative for easy bleeding, easy bruising, enlarged lymph nodes or other Endo Endo: Negative for fatigue, excessive sweating, cold intolerance, heat intolerance, flushing, increased thirst/drinking, increased hunger, hair loss, hair growth or other Psych Psych: Negative for anxiety, depression, thoughts of harming anyone, thoughts of harming yourself, visual hallucinations, panic attacks or audible hallucinations Allergy Allergy/Immunology: Negative for throat swelling, Negative for hives, Negative for lip swelling, Negative for tongue swelling, Negative for rash Cardiology Exam Const Appearance: cooperative, healthy appearing and no acute distress Nutritional Appearance: well nourished Orientation: alert, oriented x3 and oriented to person Head Head: normal to inspection, atraumatic and normocephalic Nose: external nose normal Face and Sinus: face symmetric Mouth: oral mucosae normal Eyes General: appearance normal, both eyes and all related structures Eyelids: eyelids normal Conjunctivae: conjunctivae normal Pupils: PERRL and normal by confrontation EOM: EOM intact bilaterally Neck Neck: normal visual inspection and full ROM Carotids: normal carotid upstroke Chest Chest inspection: normal inspection of the chest Auscultation: Bilateral: Clear to Auscultation Cardio Palpation: normal PMI Rate: regular rate Rhythm: regular rhythm Heart sounds: S1 normal and S2 normal GI GI: normal to inspection, no hepatosplenomegaly and bowel sounds present Neuro General: alert, oriented x3, awake, CN's II-XI intact bilaterally and moves all extremities Skin Skin: no rashes or lesions noted Extremities Pulses: Normal: Right Femoral Pulse, Left Femoral Pulse, Right Dorsalis Pedis Pulse, Left Dorsalis Pedis Pulse, Right Posterior Tibial Pulse, Left Posterior Tibial Pulse, Right Radial Pulse, Left Radial Pulse Lower Extremity Edema: None: Bilateral Psych Psychological: normal affect Assessment AND Plan 1. Cardiomyopathy I42.9 EF 30% per echo 01/27/18 with severely hypokinetic areas of left venticle Plan 1. Cardiomyopathy: The patient presented with acute sepsis picture, superimposed upon newly diagnosed cardiomyopathy, nonobstructive coronary disease as proven by FFR evaluation of his distal RCA. Patient has been treated medically with baby aspirin, Coreg, Lasix, hydralazine and Imdur with respect to his chronic renal insufficiency. The patient is feeling much better now with medical therapy. I recommended the patient initiate cardiac rehab for the next 12 weeks followed by repeat echocardiogram at the end of cardiac rehab to determine if his LV function is normalized with resolution of his original admitting picture. If his LV function has not improved, he may require prophylactic AICD therapy. Orders Orders: Referrals: 2. Secondary pulmonary hypertension RVSP 54mmhg per echo 01/27/18 Plan 2. Pulmonary hypertension: The patient has successfully quit smoking, and again we will repeat his echocardiogram at the conclusion to cardiac rehab to determine if his pulmonary pressures have improved. His PA pressures as of his echocardiogram as of 01/26/18 were 54, and his EF was 30%. Patient may require a sleep study to evaluate for obstructive sleep apnea if his PA pressures do not improve 3. Atherosclerotic heart disease of [place] coronary artery without angina pectoris I25.10 Per [facility] 01/27/18, Dr. Aguirre @ [facility]: 0.91 FFR (50% stenosis) of RCA, manage medically: all other coronaries normal. Plan 3. Coronary artery disease: No exertional anginal symptoms at this time. No indication for any additional interventions. Should the patient have recurrent anginal symptoms I have a low threshold for repeat catheterization and possible intervention of his distal RCA. Continue baby aspirin. 4. Return office in 6 months. This note was generated using a voice recognition system and there may be incorrect words, spelling or punctuation that were not noted when reviewing the office note prior to saving. Orders Orders: Plan Detail Other Orders Orders: Other Medications New: Refilled: Follow Up +6M (Sonny) Coding Level of Care Code Off vis,est,level 3 Diagnoses Cardiomyopathy I42.9 Secondary pulmonary hypertension Atherosclerotic heart disease of [place] coronary artery without angina pectoris I25.10 Coding Level of Care Code Off vis,est,level 3 Diagnoses Cardiomyopathy I42.9 Secondary pulmonary hypertension Atherosclerotic heart disease of [place] coronary artery without angina pectoris I25.10 02/14/18 1157 <Electronically signed by Alvin Aguirre MD> Date Alvin Aguirre MD Cosigner Signature: Date (if applicable) CC: Alvino Stoner DO BASIC METABOLIC Collected: 02/02/2018 Status: F Source: [place] PROFILE (BMP) 12:49 PM [facility] REPOSITORY Order Comment: Send Results To: PCP Reason for Laboratory Test CHF, lasix TYPE CODE TESTS RESULT OUT OF RANGE REFERENCE UNITS LAB L501.0100 74-106 mg/dL High GLU 129 Result Comment: Fasting Glucose result greater than or equal to 126 mg/dL suggests DIABETES MELLITUS per A.D.A. criteria. Please note revised GLUCOSE reference range effective 2017. LAB L501.1000 7-18 mg/dL High BUN 54 LAB L501.1100 0.70-1.30 mg/dL High CREAT,SERUM 2.31 Result Comment: The validity of the calculated GFR AND GFRAA in patients over 70 years has not been determined. Clinical correlation is essential. LAB L501.1110 >60 mL/min Low EST GFR 31 Result Comment: Non- GFR Calc LAB L501.1115 >60 mL/min Low EST GFR - AA 38 Result Comment: GFR Calc LAB L501.1300 10-20 RATIO High BUN/CRE 23.4 LAB L501.2200 8.5-10.1 mg/dL CA Normal 9.2 LAB L501.5300 136-145 mmol/L NA Normal 140 LAB L501.5600 3.5-5.1 mmol/L High K 5.3 LAB L501.5900 98-107 mmol/L CL Normal 106 LAB L501.6100 21.0-32.0 mmol/L Normal CO2 27.0 LAB L501.6200 5-15 Normal GAP 7 Performed By: #### L500.2500 #### [facility] [address] [place], [address] 12 LEAD ELECTROCARDIOGRAM Observed: 01/30/2018 Status: F Source: [place] 3:06 PM [facility] REPOSITORY [facility] Cardiovascular Services [address] [place] [address] 12 Lead EKG 01/26/18 1119 MR#: [id number] Acct: [id number] Name: TARIQ VARGAS Rep #: [id number] : 1960 57 From: William Hughes MD Attending Dr: Alvino Gage DO Status: DIS IN Ordering Dr: Talib Loving MD Date: 01/26/18 Location: [facility] Sex: M C Admitted: 01/26/18 Test Reason : COUGH Blood Pressure : / mmHG Vent. Rate : 080 BPM Atrial Rate : 080 BPM P-R Int : 150 ms QRS Dur : 094 ms QT Int : 406 ms P-R-T Axes : 023 025 126 degrees QTc Int : 468 ms Normal sinus rhythm T wave abnormality, consider lateral ischemia Prolonged QT Abnormal ECG Confirmed by WILLIAM HUGHES MD ([id number]), state editor NATALY VARGAS ([id number]) on 01/30/2018 3:05:57 PM Referred By: CF Confirmed By:WILLIAM HUGHES MD 01/30/18 1506 Date William Hughes MD CC: Stef Loving MD; Alvino Stoner DO; Alvino Gage DO Signed DISCHARGE SUMMARY Observed: 01/28/2018 Status: F Source: [place] 7:01 PM [facility] REPOSITORY [facility] Medical Records Department [address] [place] [address] Discharge Summary 01/28/18 1314 MR#: [id number] Acct: [id number] Name: TARIQ VARGAS Rep #: [id number] : 1960 57 From: Nick GREER PCP: Alvino Stoner DO Status: DIS IN Y [id number] ADDENDUM by Alvino Gage DO on 01/28/18 at 1901 Code Visit Inpatient E AND M: [id number] Disch Hosp 01/28/18 1901 <Electronically signed by Alvino Gage DO> Date Alvino Gage DO cc: PERCY Junior; Alvino Stoner DO; Alvino Gage DO * Signed Discharge Date and Diagnosis - Problem List Patient Problems: Active and Suspected Problems (Last Updated 09/27/17 @ 15:22 by Neva Chiang) Pneumonia (Acute) Sepsis (Acute) Hyperkalemia (Acute) DILLON (acute kidney injury) (Acute) LV dysfunction (Acute) Dyspnea on exertion (Acute) Date of Admission: 01/26/18 Date of Discharge: 01/28/18 - Primary Discharge Diagnosis Active and Suspected Problems (Last Updated 09/27/17 @ 15:22 by Neva Chiang) Acute systolic CHF Nonischemic cardiomyopathy Poorly controlled DMt2 Leukocytosis unclear etiology Pneumonia ruled out CKD stage III HLD Nicotine abuse - Secondary Discharge Diagnosis Chronic Problems (Last Updated 09/27/17 @ 15:22 by Neva Chiang) Diabetes mellitus (Chronic) HTN (hypertension) (Chronic) Hospital Course and Treatment Imaging Results: RAD/Chest PA and Lateral IMPRESSION: Bihilar/bibasal increased groundglass and interstitial markings with numerous variable sized nodular densities identified as described above, nonspecific but concerning for congestion of CHF/fluid overload and/or lower probability neoplasm/metastasis. Infectious etiologies such as rare tuberculosis not excluded. If clinically indicated, CT chest with IV contrast may be more helpful. Echo: Interpretation Summary Severely dilated left ventricle. The estimated ejection fraction is 30 %. There are regional wall motion abnormalities as specified. Mildly dilated right ventricle. The left atrium is moderately enlarged. Mild (1+) mitral valve insufficiency. Mild (1+) tricuspid valve insufficiency. Right ventricular systolic pressure estimated to be 54 mmHg. There is no comparison study available. US/Kidney and Bladder IMPRESSION: Normal ultrasound of the kidneys and urinary bladder. CT/Chest without Contrast IMPRESSION: Bilateral pleural effusions. Small pericardial effusion. Bilateral interlobular septal thickening, most pronounced within the upper lobes, a nonspecific finding likely secondary to underlying edema. Atherosclerosis. Enlarged mediastinal lymph nodes, likely reactive. RAD/Chest PA and Lateral IMPRESSION: Mild decrease CHF/fluid overload. Mild cardiomegaly, stable appearance. Mild decrease bibasal diffuse increased interstitial and likely groundglass opacities are seen, may represent congestive changes of CHF/fluid overload, pleural fluid, atelectasis/scarring, pneumonia or combination. Consultation: Aguirre - Cardiology Operations: None Procedures: 2-D Echocardiogram, Cardiac catheterization Summary of Care Provided: Physical exam on day of discharge: General: Resting comfortably NAD Psych: A/Ox3 normal affect HEENT: PEARRLA AT NC Neck: Supple NT CV: RRR no m/t/r/g/h Resp: CTA Abd: [id number] Soft NT no guarding or rigidity Ext: DP2+= no edema Skin: W/D normal turgor Lymph/Heme: No active bleeding or adenopathy Neuro: CN2-12 intact Hospital course: The patient is a 57 year old M who presented to the emergency room with shortness of breath and cough with clear sputum production. He had history of diabetes mellitus, hypertension, nicotine abuse, hyperlipidemia. In the ER he had a negative EKG, he had what appeared to be bilateral infiltrates on chest x-ray. He had no fever, but he did have an elevated white count-comparing to previous records it appears that he frequently has had elevated white blood cell counts. He did have elevated BUN and creatinine however his baseline is unknown. He was admitted to the PCU and started on antibiotics with concern for bilateral pneumonia, he was placed on telemetry. A BNP was checked and was markedly elevated. An echocardiogram was obtained the following morning which demonstrated an EF of 30%. A CT of the chest was obtained which demonstrated congestive heart failure. Renal ultrasound was done which was negative. The patient was felt to not have pneumonia but to have congestive heart failure. Cardiology was consulted. With his reduced EF it was felt that cardiac catheterization was indicated. Patient underwent this procedure and tolerated it well. He did demonstrate 50% stenosis of the distal RCA, he had no occlusions and no stents were indicated. After the procedure he had increased wheezing and he was started on IV Lasix. Throughout his stay he did not require any supplemental oxygenation. He responded well to the Lasix. His JAZZY inhibitor was discontinued with his questionable renal function may need to be restarted at a later date. Is placed on baby aspirin. He had his fenofibrate discontinued and he was started on atorvastatin instead. His metoprolol was switched to Coreg. He was started on hydralazine and Imdur. He is also advised to discontinue his Metformin at least temporarily as he just underwent heart catheterization. His last A1c was 8.9 so he likely needs to be started on additional diabetic medications. He was advised to continue his glimepiride and follow-up with his PCP for further recommendations. He was also discharged on 40 mg of Lasix daily with 20 mg of potassium daily. He was advised to have a BMP in 5 days and to follow-up with his PCP within a week. He will also need to follow-up with cardiology as directed. He was discharged home in stable condition. I did advise him to start monitoring his daily weights and to call his physician if he goes up by 5 or more pounds in 1 day, and to watch for swelling, and to limit his sodium intake to less than 2 g daily. This patient was seen by Nick Junior PA-C under the supervision of Doctor Merari. [] Discharge Diet: Low fat/ Low Cholesterol, 1800 Calorie Control Diet, 2000 mg Sodium Diet Discharge Activity: Return to Normal Activity, - - Do not return to work until cleared by your primary care doctor. Home Medications: Medications to take at Discharge glimepiride 1 mg tablet 1 mg PO QAM 09/27/17 Aspirin [Aspirin, Baby] 81 mg PO DAILY@0800 tab.chew 01/28/18 Atorvastatin Calcium [Lipitor] 20 mg PO QHS #30 tab 01/28/18 Carvedilol [Coreg (Beta Brittany)] 6.25 mg PO BID #60 tab 01/28/18 Furosemide [Lasix] 40 mg PO DAILY #30 tab 01/28/18 Isosorbide Mononitrate [Imdur] 30 mg PO DAILY #30 tab 01/28/18 Potassium Chloride [K-Dur] 20 meq PO DAILY #30 tab 01/28/18 hydrALAZINE [Apresoline] 10 mg PO BID #60 tab 01/28/18 Following Prescrptions Were Given to Patient: Atorvastatin Calcium [Lipitor] 20 mg PO QHS #30 tab Carvedilol [Coreg (Beta Brittany)] 6.25 mg PO BID #60 tab Furosemide [Lasix] 40 mg PO DAILY #30 tab Isosorbide Mononitrate [Imdur] 30 mg PO DAILY #30 tab Potassium Chloride [K-Dur] 20 meq PO DAILY #30 tab hydrALAZINE [Apresoline] 10 mg PO BID #60 tab Primary Care Physician: Alvino Stoner DO [Primary Care Provider] - Please follow up with your Primary Care Physician in: 1 week Please Follow Up With: Alvin Aguirre MD When: 2 weeks Disposition: Home Minutes spent on discharge:: 35 Patient Condition:: Stable Medical Necessity - Tobacco Use Smoking Status: Current every day smoker Tobacco Use: Non-smoker, Cigarettes Meaningful Use Info Meaningful Use Diagnoses (Choose all that apply): CHF - CHF JAZZY/ARB ordered at discharge?: No Reason JAZZY/ARB not ordered?: Worsening renal disease Documented LVEF (%): 01/28/18 1332 <Electronically signed by Nick GREER> Date Nick GREER 01/28/18 1617<Electronically signed by Alvino Gage DO> Cosigner Signature (if applicable): Date Alvino Gage DO CC: PERCY Junior; Alvino Stoner DO; Alvino Gage DO Signed BEDSIDE GLUCOSE Collected: 01/28/2018 Status: F Source: [place] 12:05 PM [facility] REPOSITORY TYPE CODE TESTS RESULT OUT OF REFERENCE UNITS RANGE LAB L501.080 70-110 mg/dL High BEDSIDE GLU 197 Result Comment: MANAGEMENT OF PATIENT CARE PER NURSING PROTOCOL Performed By: #### L501.080 #### [facility] Point of Care [address] [place] [address] DISCHARGE INSTRUCTION Observed: 01/28/2018 Status: F Source: [place] 10:58 AM [facility] REPOSITORY [facility] Medical Records Department [address] [place] [address] Instructions for Home/Discharge Instructions 01/28/18 1057 MR#: [id number] Acct: [id number] Name: TARIQ VARGAS Rep #: [id number] : 1960 57 From: Nick GREER PCP: Alvino Stoner DO Status: ADM IN - Discharge Diagnoses Current Active Problems: Current Active and Chronic Problems (Last Updated 09/27/17 @ 15:22 by Neva Chiang) Pneumonia (Acute) Diabetes mellitus (Chronic) HTN (hypertension) (Chronic) Sepsis (Acute) Hyperkalemia (Acute) DILLON (acute kidney injury) (Acute) LV dysfunction (Acute) Dyspnea on exertion (Acute) You will use the following diet at home:: Calorie/Carbohydrate Controlled (specify 1200, 1400, etc) - 1800 paulette/day, Cardiac - <2 g sodium daily Your food should be the consistency of: Regular Your liquids should be the consistency of: Regular/Thin Discharge Activity: - - Do not return to work until cleared by your primary care doctor. Allergies/Adverse Reactions: Allergies No Known Allergies Allergy (Verified 01/26/18 10:48) Medications to take at Discharge glimepiride 1 mg tablet 1 mg PO QAM 09/27/17 Aspirin [Aspirin, Baby] 81 mg PO DAILY@0800 tab.chew 01/28/18 Atorvastatin Calcium [Lipitor] 20 mg PO QHS #30 tab 01/28/18 Carvedilol [Coreg (Beta Brittany)] 6.25 mg PO BID #60 tab 01/28/18 Furosemide [Lasix] 40 mg PO DAILY #30 tab 01/28/18 Isosorbide Mononitrate [Imdur] 30 mg PO DAILY #30 tab 01/28/18 Potassium Chloride [K-Dur] 20 meq PO DAILY #30 tab 01/28/18 hydrALAZINE [Apresoline] 10 mg PO BID #60 tab 01/28/18 The following prescriptions were given: Atorvastatin Calcium [Lipitor] 20 mg PO QHS #30 tab Carvedilol [Coreg (Beta Brittany)] 6.25 mg PO BID #60 tab Furosemide [Lasix] 40 mg PO DAILY #30 tab Isosorbide Mononitrate [Imdur] 30 mg PO DAILY #30 tab Potassium Chloride [K-Dur] 20 meq PO DAILY #30 tab hydrALAZINE [Apresoline] 10 mg PO BID #60 tab Primary Care Physician: Alvino Stoner DO [Primary Care Provider] - Please follow up with your Primary Care Physician in: 1 week Test Results: Test results from this visit will be discussed in further detail at your follow-up appointment, if applicable. Please Follow Up With: Alvin Aguirre MD When: 2 weeks Proposed Discharge Date: 01/28/18 01/28/18 1058 <Electronically signed by Nick GREER> Date Nick GREER CC: Alvin Aguirre MD; Alvino Stoner DO CBC W/DIFF, AUTOMATED Collected: 01/28/2018 Status: F Source: [place] 8:05 AM [facility] REPOSITORY TYPE CODE TESTS RESULT OUT OF RANGE REFERENCE UNITS LAB L100.1000 4.4-11.0 K/mm3 High WBC 11.4 LAB L100.1200 4.6-6.2 M/mm3 Normal RBC 4.81 LAB L100.1300 13.0-16.5 g/dl Normal HGB 13.0 LAB L100.1400 40-54 % Normal HCT 41.1 LAB L100.1500 80-94 fL Normal MCV 85.4 LAB L100.1600 27.0-32.0 pg Normal MCH 27.0 LAB L100.1700 32-36 g/gl Low MCHC 31.6 LAB L100.1810 11.6-14.6 % High RDW CV 15.4 LAB L100.1820 35.1-43.9 fl High RDW SD 47.0 LAB L100.1900 150-450 K/mm3 Normal PLT 217 LAB L100.2000 6.2-12.0 fl Normal MPV 11.6 LAB L100.2100 47-70 % High NEUT% 77.5 LAB L100.2200 19-41 % Low LY% 14.6 LAB L100.2300 0-10 % Normal MONO% 6.1 LAB L100.2400 0-5 % Normal EO% 1.2 LAB L100.2500 0-1 % Normal BASO% 0.3 LAB L100.2550 0.0-0.9 % Normal IM GRAN % 0.300 Result Comment: IG% - Immature Granulocytes (promyelocytes, myelocytes and metamyelocytes) > 1% indicates that a LEFT SHIFT is Present. LAB L100.2620 2.0-7.7 X10 3/uL High Absolute Neut 8.9 LAB L100.2720 0.83-4.51 X10 3/ul Normal Absolute Lymph 1.67 Performed By: #### L100.0100 #### [facility] [address] [place], [place], [id number] BASIC METABOLIC Collected: 01/28/2018 Status: F Source: [place] PROFILE ([facility]) 8:05 AM [facility] REPOSITORY TYPE CODE TESTS RESULT OUT OF RANGE REFERENCE UNITS LAB L501.0100 74-106 mg/dL High GLU 168 Result Comment: Fasting Glucose result greater than or equal to 126 mg/dL suggests DIABETES MELLITUS per A.D.A. criteria. Please note revised GLUCOSE reference range effective 2017. LAB L501.1000 7-18 mg/dL High BUN 51 LAB L501.1100 0.70-1.30 mg/dL High CREAT,SERUM 2.49 Result Comment: The validity of the calculated GFR AND GFRAA in patients over 70 years has not been determined. Clinical correlation is essential. LAB L501.1110 >60 mL/min Low EST GFR 29 Result Comment: Non- GFR Calc LAB L501.1115 >60 mL/min Low EST GFR - AA 35 Result Comment: GFR Calc LAB L501.1255 ml/min Normal Estimated CRCL 30.60 LAB L501.1300 10-20 RATIO High BUN/CRE 20.5 LAB L501.2200 8.5-10 mg/dL Normal .1 CA 8.6 LAB L501.5300 136-14 mmol/L Normal 5 NA 142 LAB L501.5600 3.5-5. mmol/L Normal 1 K 4.1 LAB L501.5900 98-107 mmol/L High CL 109 LAB L501.6100 21.0-3 mmol/L Normal 2.0 CO2 21.0 LAB L501.6200 5-15 Normal GAP 12 Performed By: #### L500.2500 #### [facility] [address] [facility] [place], [address] BEDSIDE GLUCOSE Collected: 01/28/2018 Status: F Source: [place] 6:42 AM [facility] REPOSITORY TYPE CODE TESTS RESULT OUT OF REFERENCE UNITS RANGE LAB L501.080 70-110 mg/dL High BEDSIDE GLU 185 Result Comment: MANAGEMENT OF PATIENT CARE PER NURSING PROTOCOL Performed By: #### L501.080 #### [facility] Point of Care [address] [place] [address] BEDSIDE GLUCOSE Collected: 01/27/2018 Status: F Source: [place] 9:37 PM [facility] REPOSITORY TYPE CODE TESTS RESULT OUT OF REFERENCE UNITS RANGE LAB L501.080 70-110 mg/dL High BEDSIDE GLU 209 Result Comment: MANAGEMENT OF PATIENT CARE PER NURSING PROTOCOL Performed By: #### L501.080 #### [facility] Point of Care [address] [facility] [place] [address] BEDSIDE GLUCOSE Collected: 01/27/2018 Status: F Source: [place] 3:43 PM [facility] REPOSITORY TYPE CODE TESTS RESULT OUT OF REFERENCE UNITS RANGE LAB L501.080 70-110 mg/dL High BEDSIDE GLU 165 Result Comment: MANAGEMENT OF PATIENT CARE PER NURSING PROTOCOL Performed By: #### L501.080 #### [facility] Point of Care [address] [place] [address] ACT ACTIVATED CLOTTING Collected: 01/27/2018 Status: F Source: [place] TIME 2:19 PM [facility] REPOSITORY TYPE CODE TESTS RESULT OUT OF RANGE REFERENCE UNITS LAB L9100.0100 74-137 sec High ACTk CLOT 169 TIME Performed By: #### L9100.0100 #### [facility] Point of Care [address] [place] [address] BEDSIDE GLUCOSE Collected: 01/27/2018 Status: F Source: [place] 11:14 AM [facility] REPOSITORY TYPE CODE TESTS RESULT OUT OF REFERENCE UNITS RANGE LAB L501.080 70-110 mg/dL High BEDSIDE GLU 174 Result Comment: MANAGEMENT OF PATIENT CARE PER NURSING PROTOCOL Performed By: #### L501.080 #### [facility] Point of Care [address] [place] [address] CONSULTATION Observed: 01/27/2018 Status: F Source: [place] 10:13 AM [facility] REPOSITORY [facility] Medical Records Department [address] [place] [address] Consultation 01/27/18 1003 MR#: [id number] Acct: [id number] Name: TARIQ VARGAS Rep #: [id number] : 1960 57 From: Alvin Aguirre MD PCP: Alvino Stoner DO Status: ADM IN Location: [place] [id number] Problem List (1) LV dysfunction Status: Acute (2) Dyspnea on exertion Status: Acute (3) HTN (hypertension) Status: Chronic Reason for Consult Date of Consultation: 01/27/18 Reason for Consultation: Dyspnea on exertion, shortness of breath, chronic renal insufficiency, abnormal echo, LV dysfunction, pulmonary edema History of Present Illness: The patient is a 57 year old M with diabetes, obesity, positive tobacco abuse, chronic renal insufficiency, who apparently had a catheterization many years ago at [facility] from an unknown physician after having an abnormal stress test. He denies any stents or bypass surgery. 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 Patient been in normal health up until the last 3-4 days when he has developed progressively worsening shortness of breath, dyspnea on exertion, mild lower extremity edema but no chest pain or angina. He reports decreased exercise capacity, and increasing and worsening dyspnea on exertion. Patient was admitted to the ER and his EKG showed normal sinus rhythm with poor R-wave progression across the precordium low voltage, and anterolateral T-wave inversion. He was found to have an elevated BNP and given a diagnosis of both pneumonia and congestive heart failure. Patient underwent a 2D echo with Doppler this morning which showed severe LV dysfunction with an EF around 30%, moderate pulmonary hypertension with an RVSP of 54 mmHg, mild tricuspid regurgitation and mild mitral regurgitation. Chest x-ray reviewed which demonstrated mild pulmonary vascular redistribution and groundglass appearance to the left lower lobe. No pleural effusions noted. [] Past Medical History Allergies/Adverse Reactions: Allergies No Known Allergies Allergy (Verified 01/26/18 10:48) Home Medications: Ambulatory Orders Medication Instructions Recorded fenofibrate 50 mg capsule 50 mg PO QDAY 09/27/17 glimepiride 1 mg tablet 1 mg PO QAM 09/27/17 Past Medical History (Chronic Problems): Chronic Problems (Last Updated 09/27/17 @ 15:22 by Neva Chiang) Diabetes mellitus (Chronic) HTN (hypertension) (Chronic) Surgical History: tonsillectomy Psychiatric History: No pertinent psych hx - *Family History Maternal History Items: No pertinent history Paternal History Items: No pertinent history Lives: Alone Smoking Status: Current every day smoker Tobacco Use: Non-smoker, Cigarettes Alcohol: None Drugs: None Review of Systems - Review of Systems General: Denies: Fever, Night Sweats, Fatigue Cardiovascular: Reports: Shortness of Breath, Shortness of Breath with Exertion. Denies: Chest Discomfort, Orthopnea, PND, Peripheral Edema, Palpitations, Lightheadedness, Dizziness, Near Syncope, Syncope Respiratory: Denies: Cough, Sputum Production, Hemoptysis Gastrointestinal: Denies: Hematemesis, Hematochezia, Melena Genitourinary: Denies: Dysuria, Hematuria Skin: Denies: Rash Subjectve: Patient sitting in a chair, no acute distress. Objective: Vital Signs Temp Pulse Resp BP Pulse Ox 98.2 F 100 18 110/84 H 98 01/27/18 05:24 01/27/18 07:14 01/27/18 07:08 01/27/18 05:24 01/27/18 07:08 Oxygen Flow Rate (L/min) 2 Oxygen Delivery Method Room Air Weight: 221 lb 9.033 oz Body Mass Index (BMI) 34.7 Intake and Output for Last 24 Hours Intake Total 920 / 920 Balance 920 / 920 General: Awake, Alert, Oriented x 3 HEENT: PERRL, EOMI, Sclera Non Icteric Neck: Supple, Good ROM, No Lymph Node Enlargement Lungs: Diminished Richie Bases Cardiovascular: Regular Rhythm, Normal S1, Normal S2, No Murmurs, No Rubs, No Gallops 01/26/18 17:10: Sodium 142, Potassium 5.4 H, Chloride 112 H, Carbon Dioxide 25.0, Anion Gap 5, BUN 51 H, Creatinine 2.44 H, Est GFR (MDRD) Af Amer 35 L, Est GFR (MDRD) Non-Af 29 L, BUN/Creatinine Ratio 20.9 H, Glucose 205 H, Calcium 8.6 01/26/18 20:30: Troponin I 0.027 01/26/18 23:02: Troponin I 0.023 01/27/18 03:10: WBC 17.7 H, RBC 4.97, Hgb 13.7, Hct 42.4, MCV 85.3, MCH 27.6, MCHC 32.3, RDW 15.2 H, RDW Differential 46.7 H, Plt Count 253, MPV 11.7, Immature Gran % (Auto) 0.500, Neut % (Auto) 77.2 H, Lymph % (Auto) 15.6 L, [place] % (Auto) 5.8, Eos % (Auto) 0.7, Baso % (Auto) 0.2, Absolute Neuts (auto) 13.6 H, Total Counted Not Reportable 01/27/18 03:10: Sodium 143, Potassium 5.0, Chloride 112 H, Carbon Dioxide 20.0 L, Anion Gap 11, BUN 54 H, Creatinine 2.58 H, Est GFR (MDRD) Af Amer 33 L, Est GFR (MDRD) Non-Af 27 L, BUN/Creatinine Ratio 20.9 H, Glucose 195 H, Calcium 8.3 L, Total Bilirubin 0.10 L 01/27/18 03:10: Troponin I 0.025 01/27/18 03:10: Magnesium 1.9 Rhythm: EKG: As above ECHO: As above Stress Test: Cardiac Cath: Pending PCI: CT Surgery: Holter monitor: EPS: PPM: CXR: Chest CT Scan: Assessment/Plan 1. Dyspnea on exertion: Patient's echocardiogram demonstrates severe LV dysfunction with evidence of akinetic anterior and severely hypokinetic lateral rodriguez, LV dilatation, and at least moderate pulmonary hypertension by echocardiogram. Patient symptoms appear to be cardiac related with congestive heart failure as the presenting symptom. I recommended the patient undergo a left heart catheterization later this afternoon after being loaded with Plavix 3 mg 1 now. Continue baby aspirin. In addition I recommend the patient be started on Lasix 40 mg IV daily to assist with diuresis. He will also require renal consultation given his chronic renal insufficiency. I would not recommend JAZZY inhibitor or ARB given his chronic renal insufficiency, but would recommend starting him on hydralazine 10 mg p.o. twice daily as afterload reducing agents until he is out of heart failure. Once his heart failure has been optimized, would recommend starting him on Coreg 3.125 mg p.o. twice daily for both beta-brittany, heart rate control, and afterload reducing agent. Recommend a 1500 cc fluid restriction as well. If the patient is found to have a critical lesion which would require urgent intervention we can do that today, but if she he would benefit from a staged procedure given his chronic renal insufficiency that may also be a viable plan. We will know more once we do his left her catheterization later today. 2. Hyperlipidemia: Given his diabetes and LV dysfunction he requires aggressive LDL reduction. Recommend obtaining a fasting lipid profile and treating his cholesterol with aggressive statin based therapy. 3. Thank you very much for the opportunity to participate in the cardiac care of your patient. Consultation time took place between 7 AM and 7:30 AM. Code Visit Inpatient E AND M: [id number] Init Hosp L2 01/27/18 1013 <Electronically signed by Alvin Aguirre MD> Date [facility]if applicable[facility] Date CC: Alvino Stoner DO; Poncho Magaña MD Signed ECHOCARDIOGRAM COMPLETE Observed: 01/27/2018 Status: F Source: [place] 9:57 AM [facility] REPOSITORY [facility] Cardiovascular Services [address] [place] [address] Echo Complete 01/27/18 0810 MR#: [id number] Acct: [id number] Name: TARIQ VARGAS Rep #: [id number] : 1960 57 From: Alvin Aguirre MD Attending Dr: Alvino Gage DO Status: ADM IN Ordering Dr: Nick Junior Date: 01/26/18 Location: [facility] Sex: M C Admitted: 01/26/18 Reason For Study: CHF Procedure This was a 2D Doppler, Color Flow transthoracic echocardiogram. The study was technically difficult. Exam performed portable in patient room. Left Ventricle Severely dilated left ventricle. The estimated ejection fraction is 30 %. There are regional wall motion abnormalities as specified. Anterio-Basal: Akinetic. Mid-Anterior : Mildly hypokinetic. Mid- Lateral : Severely Hypokinetic. Right Ventricle Mildly dilated right ventricle. Normal systolic function. Atria The left atrium is moderately enlarged. Normal right atrium. Normal atrial septum. Mitral Valve Mild diffuse mitral valve thickening. Mild (1+) mitral valve insufficiency. Tricuspid Valve Normal tricuspid valve. Mild (1+) tricuspid valve insufficiency. Right ventricular systolic pressure estimated to be 54 mmHg. Moderate pulmonary hypertension. Aortic Valve Trisinus/trileaflet aortic valve. Mild focal aortic valve thickening. Pulmonic Valve The pulmonic valve is not well visualized. Great Vessels Normal aortic root. Normal arch. The inferior vena cava is dilated. Inferior vena cava collapse with sniff. Pericardium/Pleural No pericardial effusion. MMode/2D Measurements AND Calculations LVIDd: 6.2 cm IVSd: 1.1 cm Ao root diam: 3.4 cm LVIDs: 5.0 cm LVPWd: 1.2 cm LA dimension: 4.4 cm RVDd: 3.7 cm FS: 20.5 % LAV(MOD-bp): 87.6 ml LA A4 area: 23.0 cm2 RA A4 area: 17.1 cm2 LAV(MOD-bp) Indexed: 41.5 ml/m2 LAV(MOD-sp2): 84.1 ml LAV(MOD-sp4): 81.2 ml Doppler Measurements AND Calculations MV E max mickey: 82.9 cm/sec Lat Peak E' Mickey: 9.2 cm/sec Med Peak E' Mickey: 3.4 cm/sec MV A max mickey: 49.4 cm/sec E/E' lat: 9.0 E/E' med: 24.7 MV E/A: 1.7 Ao V2 max: 98.4 cm/sec LV V1 max: 70.5 cm/sec PA V2 max: 55.5 cm/sec Ao max P.9 mmHg LV V1 max P.0 mmHg TR max mickey: 347.5 cm/sec TR max P.5 mmHg Interpretation Summary Severely dilated left ventricle. The estimated ejection fraction is 30 %. There are regional wall motion abnormalities as specified. Mildly dilated right ventricle. The left atrium is moderately enlarged. Mild (1+) mitral valve insufficiency. Mild (1+) tricuspid valve insufficiency. Right ventricular systolic pressure estimated to be 54 mmHg. There is no comparison study available. Ordering Physician: Nick Junior Referring Physician: Alvino Stoner Performed By: Jeanna Valenzuela RDCS, RVT 01/27/1857 Date Alvin Aguirre MD CC: PERCY Junior; Alvino Stoner DO; Alvino Gage DO Date Dictated: 01/27/18809 Date Transcribed: 01/27/18956 Programming Internship: Signed BEDSIDE GLUCOSE Collected: 01/27/2018 Status: F Source: [place] 7:02 AM [facility] REPOSITORY TYPE CODE TESTS RESULT OUT OF REFERENCE UNITS RANGE LAB L501.080 70-110 mg/dL High BEDSIDE GLU 171 Result Comment: MANAGEMENT OF PATIENT CARE PER NURSING PROTOCOL Performed By: #### L501.080 #### [facility] Point of Care [address] [place], [place] [address] CBC W/DIFF, AUTOMATED Collected: 01/27/2018 Status: F Source: [place] 3:10 AM [facility] REPOSITORY TYPE CODE TESTS RESULT OUT OF RANGE REFERENCE UNITS LAB L100.1000 4.4-11.0 K/mm3 High WBC 17.7 LAB L100.1200 4.6-6.2 M/mm3 Normal RBC 4.97 LAB L100.1300 13.0-16.5 g/dl Normal HGB 13.7 LAB L100.1400 40-54 % Normal HCT 42.4 LAB L100.1500 80-94 fL Normal MCV 85.3 LAB L100.1600 27.0-32.0 pg Normal MCH 27.6 LAB L100.1700 32-36 g/gl Normal MCHC 32.3 LAB L100.1810 11.6-14.6 % High RDW CV 15.2 LAB L100.1820 35.1-43.9 fl High RDW SD 46.7 LAB L100.1900 150-450 K/mm3 Normal PLT 253 LAB L100.2000 6.2-12.0 fl Normal MPV 11.7 LAB L100.2100 47-70 % High NEUT% 77.2 LAB L100.2200 19-41 % Low LY% 15.6 LAB L100.2300 0-10 % Normal MONO% 5.8 LAB L100.2400 0-5 % Normal EO% 0.7 LAB L100.2500 0-1 % Normal BASO% 0.2 LAB L100.2550 0.0-0.9 % Normal IM GRAN % 0.500 Result Comment: IG% - Immature Granulocytes (promyelocytes, myelocytes and metamyelocytes) > 1% indicates that a LEFT SHIFT is Present. LAB L100.2620 2.0-7.7 X10 3/uL High Absolute Neut 13.6 LAB L100.2720 0.83-4.51 X10 3/ul Normal Absolute Lymph 2.75 Performed By: #### L100.0100 #### [facility] [address] [place], [address] COMPREHENSIVE METABOLIC Collected: 01/27/2018 Status: F Source: [facility] 3:10 AM [facility] REPOSITORY TYPE CODE TESTS RESULT OUT OF RANGE REFERENCE UNITS LAB L501.0100 74-106 mg/dL High GLU 195 Result Comment: Fasting Glucose result greater than or equal to 126 mg/dL suggests DIABETES MELLITUS per A.D.A. criteria. Please note revised GLUCOSE reference range effective 2017. LAB L501.1000 7-18 mg/dL High BUN 54 LAB L501.1100 0.70-1.30 mg/dL High CREAT,SERUM 2.58 Result Comment: The validity of the calculated GFR AND GFRAA in patients over 70 years has not been determined. Clinical correlation is essential. LAB L501.1110 >60 mL/min Low EST GFR 27 Result Comment: Non- GFR Calc LAB L501.1115 >60 mL/min Low EST GFR - AA 33 Result Comment: GFR Calc LAB L501.1255 ml/min Normal Estimated CRCL 29.53 LAB L501.1300 10-20 RATIO High BUN/CRE 20.9 LAB L501.1500 6.4-8. g/dL Normal 2 T PROT 6.5 LAB L501.1800 3.2-5. g/dL Low 0 ALB 3.1 LAB L501.1950 2.2-4. g/dL Normal 2 GLOB 3.4 LAB L501.2000 0.9-2. RATIO Normal 4 A/G 0.9 LAB L501.2200 8.5-10 mg/dL Low .1 CA 8.3 LAB L501.4100 15-37 U/L Low AST 12 LAB L501.4305 45-117 U/L Low ALK P 44 LAB L501.4405 16-61 U/L Normal ALT 28 LAB L501.4600 0.20-1 mg/dL Low .00 T BILI 0.10 LAB L501.5300 136-14 mmol/L Normal 5 NA 143 LAB L501.5600 3.5-5. mmol/L Normal 1 K 5.0 LAB L501.5900 98-107 mmol/L High CL 112 LAB L501.6100 21.0-3 mmol/L Low 2.0 CO2 20.0 LAB L501.6200 5-15 Normal GAP 11 Performed By: #### L500.4050 #### [facility] [address] [place], [place], [address] TROPONIN-I Collected: 01/27/2018 Status: F Source: [place] 3:10 AM [facility] REPOSITORY Order Comment: 'TROP' Serial specimen #1, #2 or #3: 3 TYPE CODE TESTS RESULT OUT OF RANGE REFERENCE UNITS LAB L501.4010 <0.045 ng/mL Normal 0.025 TROPONIN-I Result Comment: TROPONIN-I EXPECTED VALUES <0.045 Negative 0.045 - 0.590 Consistent with Cardiac Damage > OR = 0.600 Critical Value Not every elevated troponin is indicative of SD. These values should be used with clinical judgement in examining the patient's clinical picture for diagnosis. To establish a diagnosis of SD versus myocardial injury, there must be a demonstrated rise and/or fall in the troponin values, in addition to ischemic symptoms, EKG changes, new regional wall motion abnormality, and/or angiographical evidence. PLEASE NOTE: REFERENCE RANGES EDITED 17 Performed By: #### L501.4010 #### [facility] [address] [facility] [place], [address] MAGNESIUM Collected: 01/27/2018 Status: F Source: [place] 3:10 AM [facility] REPOSITORY Order Comment: Comments: ok to add on Comments: ok to add on TYPE CODE TESTS RESULT OUT OF RANGE REFERENCE UNITS LAB L501.5200 1.6-2.6 mg/dL Normal MG 1.9 Performed By: #### L501.5200, L501.9520 #### [facility] [address] [place], [address] THYROID STIM HORMONE Collected: 01/27/2018 Status: F Source: [place] ([facility]) 3:10 AM [facility] REPOSITORY Order Comment: Comments: ok to add on Comments: ok to add on TYPE CODE TESTS RESULT OUT OF RANGE REFERENCE UNITS LAB L501.9520 0.358-3.74 uIU/mL High TSH 5.94 Performed By: #### L501.5200, L501.9520 #### [facility] [address] [place], [address] LIPID PROFILE Collected: 01/27/2018 Status: F Source: [place] 3:10 AM [facility] REPOSITORY Order Comment: ADD ON TYPE CODE TESTS RESULT OUT OF RANGE REFERENCE UNITS LAB L501.4900 200 mg/dL Normal CHOL 161 Result Comment: <200 mg/dL Desirable 200-240 mg/dL Borderline >240 mg/dL High Risk LAB L501.5000 mg/dL High TRIG 272 Result Comment: The drugs N-Acetylcysteine and Metamizole may falsely depress this assay. Serum Triglycerides Reference Interval Normal <150 mg/dL Borderline high 150 - 199 mg/dL High 200 - 499 mg/dL Very High > or = 500 mg/dL LAB L501.6400 mg/dL Low HDL 39 Result Comment: The drugs N-Acetylcysteine and Metamizole may falsely depress this assay. Reference Range HDL <40 mg/dL Low HDL Cholesterol HDL >or= 60 mg/dL High HDL Cholesterol LAB L501.6500 0-130 mg/dL Normal LDL 68 LAB L501.6600 5-40 mg/dL High VLDL 54 Performed By: #### L500.4100 #### [facility] [address] [place], [address] CHEST PA AND LATERAL Observed: 01/27/2018 Status: F Source: [place] 12:00 AM [facility] REPOSITORY [facility] Imaging Services [address] [facility] [place] [address] Chest PA and Lateral MR#: [id number] Acct: [id number] Name: TARIQ VARGAS Rep #: [id number] : 1960 M 57 From: Poncho Campa MD PCP: Alvino Stoner DO Status: ADM IN Study: Chest PA and Lateral Date of Exam: 01/27/18 Exam# [id number] Ordering Dr: Alvino Gage DO STUDY: X-RAY CHEST REASON FOR EXAM: Male, 57 years old. Shortness of breath. Bilateral pneumonia. TECHNIQUE: 2 views with PA and lateral projections. COMPARISON: Chest 01/26/2018. FINDINGS: EKG wires overlie chest. Lungs appear well expanded and clear of active focal pulmonary consolidation with air bronchograms, pneumothorax or bronchiectasis identified. Right greater than left bibasal mild diffuse increased interstitial and likely groundglass opacities are seen, appears slightly decreased. Minimal opacification and blunted right CP angle suggests minimal pleural fluid and/or atelectasis/scarring. With lateral view, previously seen rounded scattered densities appear decrease in size and number most likely due to pulmonary vessels. Heart appears mildly enlarged for PA/lateral projections. Stable appearing mediastinum and guru. Moderate enlarged visualized pulmonary arteries. Normal visualized aortic arch and descending thoracic aorta. Stable appearing visualized thoracic spine, ribs, clavicles and shoulders. There is no demonstrated abnormality of the visualized soft tissue structures of the upper abdomen. No subdiaphragmatic free air seen grossly. RAD/Chest PA and Lateral IMPRESSION: Mild decrease CHF/fluid overload. Mild cardiomegaly, stable appearance. Mild decrease bibasal diffuse increased interstitial and likely groundglass opacities are seen, may represent congestive changes of CHF/fluid overload, pleural fluid, atelectasis/scarring, pneumonia or combination. Electronically Signed: Poncho Campa, at 8:24 EDT Tel , Service support , CC: Alvino Stoner DO; Alvino Gage DO Programming Internship: Signed Observed: 01/26/2018 Status: F Source: [place] CULTURE, SPUTUM 11:15 PM [facility] REPOSITORY Gram Stain Acceptable Specimen? Yes (<25 Epithelial cells per/lpf) Gram Stain 2+ Gram positive cocci 1+ Gram positive rods 1+ White Blood Cells Very Rare Epithelial cells Resp. Culture Mixed normal respiratory sadiq. No Haemophilus, Streptococcus pneumoniae, beta-hemolytic Streptococcus or Staphylococcus aureus isolated. Performed By: #### M100.0800 #### [facility] [place] [address], [address] TROPONIN-I Collected: 01/26/2018 Status: F Source: [place] 11:02 PM [facility] REPOSITORY Order Comment: 'TROP' Serial specimen #1, #2 or #3: 2 TYPE CODE TESTS RESULT OUT OF RANGE REFERENCE UNITS LAB L501.4010 <0.045 ng/mL Normal 0.023 TROPONIN-I Result Comment: TROPONIN-I EXPECTED VALUES <0.045 Negative 0.045 - 0.590 Consistent with Cardiac Damage > OR = 0.600 Critical Value Not every elevated troponin is indicative of SD. These values should be used with clinical judgement in examining the patient's clinical picture for diagnosis. To establish a diagnosis of SD versus myocardial injury, there must be a demonstrated rise and/or fall in the troponin values, in addition to ischemic symptoms, EKG changes, new regional wall motion abnormality, and/or angiographical evidence. PLEASE NOTE: REFERENCE RANGES EDITED 17 Performed By: #### L501.4010 #### [facility] [address] [place], [address] BEDSIDE GLUCOSE Collected: 01/26/2018 Status: F Source: [place] 8:48 PM [facility] REPOSITORY TYPE CODE TESTS RESULT OUT OF REFERENCE UNITS RANGE LAB L501.080 70-110 mg/dL High BEDSIDE GLU 175 Result Comment: MANAGEMENT OF PATIENT CARE PER NURSING PROTOCOL Performed By: #### L501.080 #### [facility] Point of Care [address] [place], [place] [address] TROPONIN-I Collected: 01/26/2018 Status: F Source: [place] 8:30 PM [facility] REPOSITORY Order Comment: 'TROP' Serial specimen #1, #2 or #3: 1 TYPE CODE TESTS RESULT OUT OF RANGE REFERENCE UNITS LAB L501.4010 <0.045 ng/mL Normal 0.027 TROPONIN-I Result Comment: TROPONIN-I EXPECTED VALUES <0.045 Negative 0.045 - 0.590 Consistent with Cardiac Damage > OR = 0.600 Critical Value Not every elevated troponin is indicative of SD. These values should be used with clinical judgement in examining the patient's clinical picture for diagnosis. To establish a diagnosis of SD versus myocardial injury, there must be a demonstrated rise and/or fall in the troponin values, in addition to ischemic symptoms, EKG changes, new regional wall motion abnormality, and/or angiographical evidence. PLEASE NOTE: REFERENCE RANGES EDITED 17 Performed By: #### L501.4010 #### [facility] [address] [place], [address] HISTORY AND PHYSICAL Observed: 01/26/2018 Status: F Source: [place] EXAM 8:11 PM [facility] REPOSITORY [facility] Medical Records Department [address] [place] [address] History and Physical 01/26/18 1726 MR#: [id number] Acct: [id number] Name: TARIQ VARGAS Rep #: [id number] : 1960 57 From: Nick GREER PCP: Alvino Stoner DO Status: ADM IN Y Location: [place] [id number] ADDENDUM by Alvino Merari PASTOR on 01/26/18 at 2011 Code Visit Patient was seen and examined in the emergency room at [facility] today with complaints of increased shortness of breath of the last 2 days. Patient denies any fevers or chills, he did state that he has been coughing up clear sputum over the past couple days. Patient denies any chest pain. He denies any swelling in his lower extremities or any redness of his lower extremities or pain. Workup in the emergency room showed his white count to be elevated, his BUN and creatinine were also elevated-patient's last creatinine last year in the medical record here was 1.69. Patient is a poorly controlled diabetic, he does smoke approximately 1/2-1 pack of cigarettes a day. Patient's chest x-ray showed bilateral infiltrates suggestive of either vascular congestion bilaterally or bilateral pneumonia. Patient's lactic acid was normal at 1.8, blood glucose was elevated at 265. Patient's EKG showed a normal sinus rhythm with Q waves in V1 and V2 and T wave inversions in V5 and V6. Limb leads show small complexes. On examination, patient's breath sounds were distant bilaterally, with occasional expiratory rhonchi noted. Heart rate and rhythm is regular without ectopy. Patient has no lower extremity edema. Patient was given IV Levaquin in the emergency room, he was admitted to PCU for community-acquired bilateral pneumonia, renal failure, hyperkalemia, and sepsis. After the patient was admitted to PCU, it was noted that the patient's beta natruretic peptide was elevated at 567.3, at that point, I decided to stop the patient's fluid administration and order a CT of the chest which showed evidence of bilateral pleural effusions, small pericardial effusion, enlarged mediastinal lymph nodes, and underlying edema in the lungs. Patient will have an echocardiogram performed tomorrow. I talked briefly with cardiology about this case because I am concerned the patient may have an underlying cardiomyopathy, it was recommended to me that the patient should be n.p.o. after midnight and based on the results of the patient's echocardiogram tomorrow, he may need to undergo a cardiac catheterization. I have reviewed Nick Junior's history and physical and with the above additions, I endorse his history and physical and plan of care. Inpatient E AND M: [id number] Init Hosp L3 01/26/182010 <Electronically signed by Alvino Gage DO> Date Alvino Gage DO cc: PERCY Junior; Alvino Stoner DO; Alvino Gage DO * Signed Problem List (1) Sepsis Status: Acute (2) Pneumonia Status: Acute (3) Diabetes mellitus Status: Chronic Qualifiers: Diabetes mellitus type: type 2 (4) HTN (hypertension) Status: Chronic (5) Hyperkalemia Status: Acute (6) DILLON (acute kidney injury) Status: Acute History of Present Illness Date of Admission: 01/26/18 Chief Complaint: SOB The patient is a 57 year old M with a hx of DMt2 and HTN who presented to the ER with increased SOB for 2 days. He has had a cough productive of clear sputum. He has been in the hospital visiting his . He denies CP, and has no swelling of his LE. He does not have fevers or chills, but does report episodic sweats at home especially this AM. He denies a hx of COPD and CHF. In the ER he is satting well without o2, however his ABG does demonstrate acidosis with a pH of 7.25, however LA is only 1.8. He does have a significant leukocytosis however prior labs have all shown elevated white counts, for unclear reasons. He reports poorly controlled DMt2 - last A1C 8.9. He does smoke about 1/2 ppd and has done so most of his life. [] Past Medical History Past Medical History (Chronic Problems): Chronic Problems (Last Updated 09/27/17 @ 15:22 by Neva Chiang) Diabetes mellitus (Chronic) HTN (hypertension) (Chronic) Medical History: Medical History (Last Updated 09/27/17 @ 15:22 by Neva Chiang) Diabetes E11.9 Diarrhea R19.7 Shoulder pain M25.519 Hypertension I10 Allergies No Known Allergies Allergy (Verified 01/26/18 10:48) Home Medications: Ambulatory Orders Medication Instructions Recorded fenofibrate 50 mg capsule 50 mg PO QDAY 09/27/17 glimepiride 1 mg tablet 1 mg PO QAM 09/27/17 Surgical History: tonsillectomy Psychiatric History: No pertinent psych hx Lives: Alone Smoking Status: Current every day smoker Tobacco Use: Non-smoker, Cigarettes Alcohol: None Drugs: None - *Family History Maternal History Items: No pertinent history Paternal History Items: No pertinent history Review of Systems Constitutional: Denies: Chills, Fever, Weight Change HEENT: Denies: Head Aches, Sinus Congestion, Sinus Drainage Cardiovascular: Denies: Chest Pain, Palpitations Respiratory: Reports: Cough, Shortness of Breath, Shortness of breath at rest, Shortness of breath upon exertion. Denies: Sputum production Gastrointestinal: Denies: Abdominal Pain, Nausea, Vomiting Genitourinary: Denies: Dysuria Musculoskeletal: Denies: Joint Pain, Joint Tenderness Skin: Denies: Rash, Wounds Neurological: Denies: Numbness, Tingling, Focal weakness Psychiatric: Denies: Anxiety, Depression, Homicidal Ideations, Suicidal Ideations Hematologic/ Lymphatic: Denies: Easy Bruising, Easy Bleeding VTE Information - Inpt Only VTE Present on Admission: No VTE Mechan Device Prophylaxis: None VTE Pharm Prophylaxis ordered?: Yes Patient Problems: Active and Suspected Problems (Last Updated 09/27/17 @ 15:22 by Neva Chiang) Pneumonia (Acute) Sepsis (Acute) Hyperkalemia (Acute) DILLON (acute kidney injury) (Acute) - Physical Exam Vital Signs Temp Pulse Resp BP Pulse Ox 98.7 F 85 20 H 96/59 L 95 01/26/18 14:50 01/26/18 14:50 01/26/18 14:50 01/26/18 14:50 01/26/18 14:50 Oxygen Delivery Method Room Air Weight: 221 lb 9.033 oz Body Mass Index (BMI) 34.7 POC Glucose POC Glucose 237 H Assessment/Plan All Active Problems (Last Updated 09/27/17 @ 15:22 by Neva Chiang) Pneumonia (Acute) Sepsis (Acute) Hyperkalemia (Acute) DILLON (acute kidney injury) (Acute) Sinusitis, acute (Acute) 1. sepsis/Pneumonia vs CHF - CXR indeterminate etiologies. CT chest ordered. Chronic leukocytosis. hold abx. Afebrile. Hold fluids. pH 7.25 in ER. Now satting 97 on room air. ID consulted. Influenza screen negative. Blood cultures pending. Urine antigens pending. Respiratory panel pending. Echo ordered. BNP 567. Troponin negative. LA negative. 2. HTN - running low. hold antihtn agents. 3. DMt2 - hold orals. SSI. Last A1C 8.9. 4. DILLON vs CKD - renal US in AM. True baseline unknown. Hold nephrotoxins. 5. Hyperkalemia - kayex x 1, repeat BMP ordered. 6. HLD - hold fenofibrate 7. Nicotine abuse - patch if desired. DVT ppx: heparin This patient was seen by Nick Junior PA-C under the supervision of Doctor Merari. 01/26/181752 <Electronically signed by Nick GREER> Date Nick GREER 01/26/181955<Electronically signed by Alvino Gage DO> Cosigner Signature: Date (if applicable) Alvino Gage DO CC: PERCY Junior; Alvino Stoner DO; Alvino Gage DO Signed KIDNEY AND BLADDER Observed: 01/26/2018 Status: F Source: [place] 5:44 PM [facility] REPOSITORY [facility] Imaging Services [address] [place] [address] Kidney and Bladder MR#: [id number] Acct: [id number] Name: TARIQ VARGAS Rep #: [id number] : 1960 M 57 From: Salas Dillon DO PCP: Alvino Stoner DO Status: ADM IN Study: Kidney and Bladder Date of Exam: 01/26/18 Exam# [id number] Ordering Dr: Nick Junior STUDY: RENAL ULTRASOUND - COMPLETE REASON FOR EXAM: Male, 57 years old. Acute renal failure TECHNIQUE: Ultrasound evaluation of the kidneys was performed with real-time and static atn-scale imaging. COMPARISON: None. FINDINGS: RIGHT KIDNEY: Normal location of the right kidney, which is normal in size. The right kidney measures 10.4 x 5.2 x 6.0 cm. There is a normal cortex of the right kidney. The renal cortex measures 1.8 cm. There is no right renal mass or cyst. There are no right renal calculi. There is no right hydronephrosis. DISTAL RIGHT URETER: There is non-visualization of the distal right ureter. LEFT KIDNEY: Normal location of the left kidney, which is normal in size. The left kidney measures 11.6 x 5.7 x 5.4 cm. There is a normal cortex of the left kidney. The renal cortex measures 1.4 cm. There is no left renal mass or cyst. There are no left renal calculi. There is no left hydronephrosis. DISTAL LEFT URETER: There is non-visualization of the distal left ureter. BLADDER: The partially distended urinary bladder is unremarkable. US/Kidney and Bladder IMPRESSION: Normal ultrasound of the kidneys and urinary bladder. Electronically Signed: Salas Dillon DO at 20:09 EDT Tel [phone], Service support , CC: PERCY Junior; Alvino Stoner DO Programming Internship: Signed CHEST WITHOUT Observed: 01/26/2018 Status: F Source: [place] CONTRAST 5:31 PM [facility] REPOSITORY [facility] Imaging Services [address] [place] [address] Chest without Contrast MR#: [id number] Acct: [id number] Name: TARIQ VARGAS Rep #: [id number] : 1960 M 57 From: Madhavi Morris MD PCP: Alvino Stoner DO Status: ADM IN Study: Chest without Contrast Date of Exam: 01/26/18 Exam# [id number] Ordering Dr: Nick Juniro STUDY: CT CHEST WITHOUT CONTRAST REASON FOR EXAM: Male, 57 years old. Pneumonia. RADIATION DOSAGE (If Supplied By Facility): CTDIvol = ( 19.91 ) mGy, DLP = ( 731.39 ) mGycm TECHNIQUE: Transaxial imaging was performed without the administration of intravenous contrast material. Individualized dose optimization techniques were used for this CT. COMPARISON: None. FINDINGS: There are bilateral moderate-sized pleural effusions. There is interlobular septal thickening most pronounced within the upper lobes. There are calcifications of the coronary arteries. There is a small pleural effusion. There are multiple enlarged mediastinal lymph nodes that are likely reactive. Normal hilar regions. Normal unenhanced pulmonary arteries. Normal aorta arch and descending thoracic aorta. There are multi-level degenerative changes of the thoracic spine. There is no demonstrated abnormality of the visualized upper abdomen. CT/Chest without Contrast IMPRESSION: Bilateral pleural effusions. Small pericardial effusion. Bilateral interlobular septal thickening, most pronounced within the upper lobes, a nonspecific finding likely secondary to underlying edema. Atherosclerosis. Enlarged mediastinal lymph nodes, likely reactive. Electronically Signed: Madhavi Morris MD at 18:12 EDT Tel , Service support , CC: PERCY Junior; Alvino Stoner DO Programming Internship: Signed BASIC METABOLIC Collected: 01/26/2018 Status: F Source: [place] PROFILE (BMP) 5:10 PM [facility] REPOSITORY TYPE CODE TESTS RESULT OUT OF RANGE REFERENCE UNITS LAB L501.0100 74-106 mg/dL High GLU 205 Result Comment: Glucose result greater than or equal to 200 mg/dL suggests DIABETES MELLITUS per A.D.A. criteria. Please note revised GLUCOSE reference range effective 2017. LAB L501.1000 7-18 mg/dL High BUN 51 LAB L501.1100 0.70-1.30 mg/dL High CREAT,SERUM 2.44 Result Comment: The validity of the calculated GFR AND GFRAA in patients over 70 years has not been determined. Clinical correlation is essential. LAB L501.1110 >60 mL/min Low EST GFR 29 Result Comment: Non- GFR Calc LAB L501.1115 >60 mL/min Low EST GFR - AA 35 Result Comment: GFR Calc LAB L501.1255 ml/min Normal Estimated CRCL 31.23 LAB L501.1300 10-20 RATIO High BUN/CRE 20.9 LAB L501.2200 8.5-10 mg/dL Normal .1 CA 8.6 LAB L501.5300 136-14 mmol/L Normal 5 NA 142 LAB L501.5600 3.5-5. mmol/L High 1 K 5.4 LAB L501.5900 98-107 mmol/L High CL 112 LAB L501.6100 21.0-3 mmol/L Normal 2.0 CO2 25.0 LAB L501.6200 5-15 Normal GAP 5 Performed By: #### L500.2500 #### [facility] [address] [place], [place], [address] Observed: 01/26/2018 Status: F Source: [place] LEGIONELLA ANTIGEN 5:00 PM [facility] URINE REPOSITORY Legionella, UR Legionella Antigen result interpretation: Negative Presumptive negative for Legionella pneumophila serogroup 1 antigen in urine, suggesting no recent or current infection. Legionella Ag, Urine Negative (See interpretation below) Performed By: #### M300.4500 #### [facility] [address] [place], [address] STREP Observed: 01/26/2018 Status: F Source: [place] PNEUMONIAE ANTIG(UR,CSF) 5:00 PM [facility] REPOSITORY S pneumo Ag [] Negative Urine Presumptive negative for pneumococcal pneumonia, suggesting no current or recent pneumococcal infection. Infection due to S pneumoniae cannot be ruled out since the antigen present in the sample may be below the detection limit of the test. Strep pneumo Test Negative URINE (See interpretation below) Performed By: #### M300.4600 #### [facility] [address] [place], [address] BEDSIDE GLUCOSE Collected: 01/26/2018 Status: F Source: [place] 3:39 PM [facility] REPOSITORY TYPE CODE TESTS RESULT OUT OF REFERENCE UNITS RANGE LAB L501.080 70-110 mg/dL High BEDSIDE GLU 237 Result Comment: MANAGEMENT OF PATIENT CARE PER NURSING PROTOCOL Performed By: #### L501.080 #### [facility] Point of Care [address] [place] [address] Observed: 01/26/2018 Status: F Source: [place] RESPIRATORY PANEL 2:35 PM [facility] MOLECULAR REPOSITORY RP PANEL ADENOVIRUS Not Detected HUMAN METAPHNEUMO Not Detected INFLUENZA A Not Detected INFLUENZA A (SUBTYPE H1) Not Detected INFLUENZA A (SUBTYPE H3) Not Detected INFLUENZA B Not Detected PARAINFLUENZA 1 Not Detected PARAINFLUENZA 2 Not Detected PARAINFLUENZA 3 Not Detected PARAINFLUENZA 4 Not Detected RHINOVIRUS Not Detected RSV A Not Detected RSV B Not Detected NAAT METHOD Testing was performed using nucleic acid amplification Performed By: #### M100.638 #### [facility] [address] [place], [address] BLOOD GASES BY CPS Collected: 01/26/2018 Status: F Source: [place] 1:10 PM [facility] REPOSITORY TYPE CODE TESTS RESULT OUT OF RANGE REFERENCE UNITS LAB L9000.9990 Normal BLD GAS TYPE ART LAB L9001.1000 Normal SITE L Radial LAB L9001.1010 Normal NURIS TEST POS LAB L9001.1050 O2 Normal Delivery Dev Nasal Can LAB L9001.1055 /min Normal LPM 2.0 LAB L9001.1104 Normal Results To ED LAB L9001.1105 Normal Time Given 1255 LAB L9001.1110 7.35-7.45 Low pH - I-STAT 7.24 LAB L9001.1210 35-45 mmHg Normal pCO2 - ISTAT 42.2 LAB L9001.1310 75-100 mmHG Normal PO2 I-STAT 81 LAB L9001.2300 22-26 mmol/L Low HCO3 ISTAT 18.2 LAB L9001.2400 -2 to +2 mmol/L Low BE ISTAT -9 LAB L9001.2415 mmol/L Normal TOTAL CO2 19 ISTAT LAB L9001.2425 95-99 % Low SO2 ISTAT 94 Performed By: #### L9000.0800 #### [facility] Point of Care [address] [place] [address] EMERGENCY DEPARTMENT Observed: 01/26/2018 Status: F Source: [place] SUMMARY 12:58 PM [facility] REPOSITORY [facility] Medical Records Department [address] [place] [address] Emergency Department Summary 01/26/18 1254 MR#: [id number] Acct: [id number] Name: TARIQ VARGAS Rep #: [id number] : 1960 57 From: Talib Loving MD PCP: Alvino Stoner DO Status: REG ER - ER Visit Summary Date of Service: 01/26/18 Chief Complaint: [cough] History of Present Illness: The patient is a 57 M [the presents with cough and shortness of breath that began yesterday. He does describe some sputum production. He describes shortness of breath worse with coughing. He denies any chest pain. He denies any symptoms orthopnea. He is a history of diabetes, hypertension, and hypercholesterolemia. No history of CHF. No recent travel. He is a longtime smoker. No DVT or PE history or risk factors. He has no other complaints. Initial blood pressure 98/67, respiratory rate 26, 93% on room air.] Physical Examination: [General: The patient appears well and in no apparent distress. Patient is resting comfortably on cart. Skin: Warm, dry, no pallor noted. No rash. Head: Normocephalic, atraumatic Neck: Supple, nontender. No JVD. No meningismus. Eye: PERRLA, EOMI ENT: Moist mucus membranes, pharynx within normal limits. Cardiovascular: Regular Rate and Rhythm, no gallups or rubs Respiratory: Patient is in no distress, no accessory muscle use, lungs are diminished with rhonchi bilaterally Musculoskeletal: normal ROM, no deformity, no tenderness, no swelling. 2+ radial and DP pulses symmetric. GI: No tenderness to palpation, no masses appreciated. No rebound, guarding, or rigidity noted. Neurological: A AND O, normal strength and sensation. GCS 15. Psychiatric: Cooperative] Test Results: [Blood cell count is elevated at 18.5. Potassium is is elevated at 6.2. He has no hyper K changes on his EKG consistent with peaked T waves or widening of the QRS. BUN was elevated at 51, creatinine 2.65. Troponin was normal. Blood cultures and lactate are pending. BNP is pending. Chest x-ray shows infiltrate versus edema bilaterally] Emergency Department Course and Treatment: [She was placed on 2 L nasal cannula oxygen. He was given IV fluid boluses. Chest x-ray is concerning for infection with cough and sputum production. He was started on IV antibiotics. He was given insulin and calcium gluconate for hyperkalemia. He was given IV fluids also for acute kidney injury. Cardiac enzymes are negative. Lactate, BMP, and blood cultures are pending. Patient was discussed with hospitalist, Dr. Gage who also ordered ordered additional testing to be started here in the emergency department. At this time patient will be admitted for further evaluation and treatment.] Treatment Plan: [see above] Disposition: [admission] Impression: [Dyspnea, Community-acquired pneumonia bilateral, hyperkalemia, leukocytosis, sepsis, acute kidney injury] This note was generated with [employer]oparts[employer] dictation software. It may contain incorrect words, spelling, and punctuation that were not noted in review of the chart prior to signing ED Disposition - Plan for ED Patient: Chief Complaint: Cough Referrals: Alvino Stoner, DO [Primary Care Provider] - What to do if you have Problems For any increased pain, shortness of breath, bleeding, nausea or vomiting, chest pain, or any unexpected problems, contact your Primary Care Provider. Call [employer] [facility] ([phone]) or report to the closest Emergency Room. Call 911 if necessary. 01/26/18 1258 <Electronically signed by Talib Loving MD> Date Talib Loving MD Cosigner Signature (If Indicated): Date CC: Alvino Stoner DO Observed: 01/26/2018 Status: F Source: [place] INFLUENZA A+B (RAPID 12:52 PM [facility] SAMUEL) REPOSITORY Order Date: 01/26/18 FLU A/B Rapid Negative test results should be confirmed by culture. Order Rapid Viral Culture for Influenzae A+B (250065) if clinically indicated. Influenza Ag, Direct Presumptive NEGATIVE for Influenza A/B Antigen (See Note) Performed By: #### M101.0101 #### [facility] [address] [place], [address] LACTIC ACID Collected: 01/26/2018 Status: F Source: [place] 12:30 PM [facility] REPOSITORY Order Comment: Yes/No query for Sepsis Lactate Rule Y TYPE CODE TESTS RESULT OUT OF RANGE REFERENCE UNITS LAB L503.6005 0.4-2.0 mmol/L Normal LACTIC ACID 1.8 Performed By: #### L503.6005 #### [facility] [place], [address] Observed: 01/26/2018 Status: F Source: [place] CULTURE, BLOOD (WB) 12:30 PM [facility] REPOSITORY BC No growth in 5 days. Performed By: #### M200.1000 #### [facility] [address] [place], [address] Observed: 01/26/2018 Status: F Source: [place] CULTURE, BLOOD (WB) 12:30 PM [facility] REPOSITORY BC No growth in 5 days. Performed By: #### M200.1000 #### [facility] [address] [place], [address] CBC W/DIFF, AUTOMATED Collected: 01/26/2018 Status: F Source: [place] 11:15 AM [facility] REPOSITORY TYPE CODE TESTS RESULT OUT OF RANGE REFERENCE UNITS LAB L100.1000 4.4-11.0 K/mm3 High WBC 18.5 LAB L100.1200 4.6-6.2 M/mm3 Normal RBC 5.58 LAB L100.1300 13.0-16.5 g/dl Normal HGB 15.2 LAB L100.1400 40-54 % Normal HCT 49.0 LAB L100.1500 80-94 fL Normal MCV 87.8 LAB L100.1600 27.0-32.0 pg Normal MCH 27.2 LAB L100.1700 32-36 g/gl Low MCHC 31.0 LAB L100.1810 11.6-14.6 % High RDW CV 15.1 LAB L100.1820 35.1-43.9 fl High RDW SD 48.4 LAB L100.1900 150-450 K/mm3 Normal PLT 298 LAB L100.2000 6.2-12.0 fl Normal MPV 11.6 LAB L100.2100 47-70 % High NEUT% 84.8 LAB L100.2200 19-41 % Low LY% 9.8 LAB L100.2300 0-10 % Normal MONO% 3.8 LAB L100.2400 0-5 % Normal EO% 1.0 LAB L100.2500 0-1 % Normal BASO% 0.2 LAB L100.2550 0.0-0.9 % Normal IM GRAN % 0.400 Result Comment: IG% - Immature Granulocytes (promyelocytes, myelocytes and metamyelocytes) > 1% indicates that a LEFT SHIFT is Present. LAB L100.2620 2.0-7.7 X10 3/uL High Absolute Neut 15.7 LAB L100.2720 0.83-4.51 X10 3/ul Normal Absolute Lymph 1.81 Performed By: #### L100.0100 #### [facility] [address] [place] [address]. [place], [address] COMPREHENSIVE METABOLIC Collected: 01/26/2018 Status: F Source: [facility] 11:15 AM [facility] REPOSITORY TYPE CODE TESTS RESULT OUT OF RANGE REFERENCE UNITS LAB L501.0100 74-106 mg/dL High GLU 265 Result Comment: Glucose result greater than or equal to 200 mg/dL suggests DIABETES MELLITUS per A.D.A. criteria. Please note revised GLUCOSE reference range effective 2017. LAB L501.1000 7-18 mg/dL High BUN 51 LAB L501.1100 0.70-1.30 mg/dL High CREAT,SERUM 2.65 Result Comment: The validity of the calculated GFR AND GFRAA in patients over 70 years has not been determined. Clinical correlation is essential. LAB L501.1110 >60 mL/min Low EST GFR 27 Result Comment: Non- GFR Calc LAB L501.1115 >60 mL/min Low EST GFR - AA 32 Result Comment: GFR Calc LAB L501.1255 ml/min Normal Estimated CRCL 28.75 LAB L501.1300 10-20 RATIO Normal BUN/CRE 19.2 LAB L501.1500 6.4-8. g/dL Normal 2 T PROT 7.7 LAB L501.1800 3.2-5. g/dL Normal 0 ALB 3.5 LAB L501.1950 2.2-4. g/dL Normal 2 GLOB 4.2 LAB L501.2000 0.9-2. RATIO Low 4 A/G 0.8 LAB L501.2200 8.5-10 mg/dL Normal .1 CA 9.1 LAB L501.4100 15-37 U/L Normal AST 19 LAB L501.4305 45-117 U/L Normal ALK P 57 LAB L501.4405 16-61 U/L Normal ALT 32 LAB L501.4600 0.20-1 mg/dL Normal .00 T BILI 0.40 LAB L501.5300 136-14 mmol/L Normal 5 NA 138 LAB L501.5600 3.5-5. mmol/L High 1 K alert 6.2 Result Comment: Critical Result(s) Called at: 11:48:04 01/26/2018 by: Taya Meneses LAB L501.5900 98-107 mmol/L Normal CL 107 LAB L501.6100 21.0-32.0 mmol/L Normal CO2 27.0 LAB L501.6200 5-15 Low 4 GAP Performed By: #### L500.4050, L501.4010 #### [facility] [address] [place], [place], [address] TROPONIN-I Collected: 01/26/2018 Status: F Source: [place] 11:15 AM [facility] REPOSITORY TYPE CODE TESTS RESULT OUT OF RANGE REFERENCE UNITS LAB L501.4010 <0.045 ng/mL Normal 0.033 TROPONIN-I Result Comment: TROPONIN-I EXPECTED VALUES <0.045 Negative 0.045 - 0.590 Consistent with Cardiac Damage > OR = 0.600 Critical Value Not every elevated troponin is indicative of SD. These values should be used with clinical judgement in examining the patient's clinical picture for diagnosis. To establish a diagnosis of SD versus myocardial injury, there must be a demonstrated rise and/or fall in the troponin values, in addition to ischemic symptoms, EKG changes, new regional wall motion abnormality, and/or angiographical evidence. PLEASE NOTE: REFERENCE RANGES EDITED 17 Performed By: #### L500.4050, L501.4010 #### [facility] [address] [place], [address] BNP,B-TYPE NATRIURETIC Collected: 01/26/2018 Status: F Source: [place] PEPTIDE 11:15 AM [facility] REPOSITORY TYPE CODE TESTS RESULT OUT OF RANGE REFERENCE UNITS LAB L503.6620 0-100 pg/mL High B-TYPE 567.3 HARRISON PEP Performed By: #### L503.6620 #### [facility] [address] [place], [address] SALICYLATE Collected: 01/26/2018 Status: F Source: [place] 11:15 AM [facility] REPOSITORY TYPE CODE TESTS RESULT OUT OF RANGE REFERENCE UNITS LAB L501.8300 2.8-20.0 mg/dL Normal SALICYLATE 2.8 Performed By: #### L501.8300 #### [facility] [address] [place], [address] CHEST PA AND LATERAL Observed: 01/26/2018 Status: F Source: [place] 11:08 AM [facility] REPOSITORY [facility] Imaging Services [address] [place] [address] Chest PA and Lateral MR#: [id number] Acct: [id number] Name: TARIQ VARGAS Rep #: [id number] : 1960 M 57 From: Poncho Campa MD PCP: Alvino Stonre DO Status: REG ER Study: Chest PA and Lateral Date of Exam: 01/26/18 Exam# [id number] Ordering Dr: Talib Loving MD STUDY: X-RAY CHEST REASON FOR EXAM: Male, 57 years old. Cough, shortness of breath. TECHNIQUE: 2 views, PA and lateral projections. COMPARISON: None available. FINDINGS: EKG wires overlie chest and upper abdomen. The lungs are appear fairly well expanded and show bihilar/bibasal diffuse heterogeneous increased interstitial markings with PA view. In addition, tiny rounded scattered densities are seen throughout the lungs concerning for nodules, nonspecific. With lateral view, soft tissues of the arms partially obstructed upper lungs. There is no demonstrated pleural abnormality. No large gross pneumothorax identified. Mildly enlarged heart. Normal mediastinum and guru. Mildly enlarged pulmonary arteries with ill-defined margins seen with PA view. Normal visualized aortic arch and descending thoracic aorta. Nonacute visualized thoracic spine, ribs, clavicles and shoulders. There is no demonstrated abnormality of the visualized soft tissue structures of the upper abdomen. No subdiaphragmatic free air seen grossly. RAD/Chest PA and Lateral IMPRESSION: Bihilar/bibasal increased groundglass and interstitial markings with numerous variable sized nodular densities identified as described above, nonspecific but concerning for congestion of CHF/fluid overload and/or lower probability neoplasm/metastasis. Infectious etiologies such as rare tuberculosis not excluded. If clinically indicated, CT chest with IV contrast may be more helpful. Electronically Signed: Poncho Campa, at 12:48 EDT Tel , Service support , CC: Stef Loving MD; Alvino Stoner DO Programming Internship: Signed URGENT CARE VISIT Observed: 09/30/2017 Status: F Source: [place] REPORT 5:47 PM [facility] REPOSITORY Now [address] [place] [address] OFFICE VISIT Date of Service: 09/27/17 MR#: [id number] Acct: [id number] Name: TARIQ VARGAS Rep #: [id number] : 1960 Provider: Naga GREER Age/Sex: 56/M Location: [facility] Status: Signed Intake Vital Signs09/27/17 Height 5 ft 10 in 09/27/17 Weight: 210 lb 09/27/17 Body Mass Index (BMI) 30.1 09/27/17 Blood Pressure 124/80 Intake Visit Reasons: BRONCHITIS 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: No Is patient in pain?: No Allergies No Known Allergies Allergy (Unverified 09/27/17 15:18) Medications amoxicillin 875 mg-potassium clavulanate 125 mg tablet 1 tab PO Q12H 10 Days #20 tab 09/27/17 [Rx Confirmed 09/27/17] fenofibrate 50 mg capsule 50 mg PO QDAY 09/27/17 [History Confirmed 09/27/17] glimepiride 1 mg tablet 1 mg PO QAM 09/27/17 [History Confirmed 09/27/17] metformin 1,000 mg tablet 1,000 mg PO BID 09/27/17 [History Confirmed 09/27/17] metoprolol tartrate 75 mg tablet 75 mg PO BID 09/27/17 [History Confirmed 09/27/17] ramipril 1.25 mg capsule 1.25 mg PO QDAY 09/27/17 [History Confirmed 09/27/17] PFSH Medical History Diabetes (Acute) Diarrhea (Acute) Shoulder pain (Acute) Hypertension (Chronic) Social History Smoking Status: Current every day smoker alcohol intake: never HPI HPI Details: TARIQ VARGAS, is a 56 M who presents to the office today for sinus pressure and pain as well as cough and congestion for the past 10 days. Patient states that he has had sinus pressure and pain with drainage for the past 10 days which then has led to cough and chest congestion with a slightly sore throat. He describes his cough is dry nonproductive and denies hemoptysis, shortness of breath or difficulty breathing. He has had no fever, chills, sweats. No nausea, vomiting, diarrhea. No other associated symptoms or alleviating/aggravating factors. ROS Const Constitutional: Positive for headache(s); no fever(s), chills, night sweats or abnormal sleep pattern ENT ENT: Positive for headache(s), nasal congestion, sinus pressure, sinus pain and nasal discharge; no ear pain Resp Respiratory: No cough or shortness of breath Cardio Cardiology: No shortness of breath, irregular heart rhythm or fast heart rate Neuro Neurology: Positive for headache(s); no confusion Psych Psychiatric: No abnormal sleep pattern, No confusion Exam Const General: cooperative, healthy appearing HENAK Head: normal to inspection Ears: hearing grossly normal bilaterally, TM's normal bilaterally, EAC's normal Nose: nasal discharge purulent Face and sinus: sinus tenderness frontal and maxillary Mouth: oral mucosae normal Throat: abnormal tonsil bilaterally, postnasal drainage Resp Effort AND Inspection: normal respiratory effort Auscultation: Bilateral: Clear to Auscultation Cardio Palpation: normal PMI Rate: regular rate Rhythm: regular rhythm Neuro General: alert, CN's II-XI intact bilaterally Psych Appearance: grossly normal Mental Status: mental status grossly normal Assessment AND Plan Problems 1. Acute non-recurrent maxillary sinusitis J01.00 Status Acute Plan Augmentin as prescribed today. Encouraged to get plenty of rest, drink lots of clear liquids, and use Tylenol or Ibuprofen (unless contraindicated) for fever and comfort. Patient also educated on other symptomatic management techniques. To be seen in 7-10 days if no improvement; sooner if worsening of symptoms. Patient advised of potential red flags and appropriate report to the ED. Patient verbalized understanding of all the above. This note was generated with Autoparts24 dictation software. It may contain incorrect words, spelling, and punctuation that were not noted in checking the note before signing. Medications New: Coding Level of Care Code Off vis,new,level 3 Diagnoses Acute non-recurrent maxillary sinusitis J01.00 Recurrence: non-recurrent Sinusitis location: maxillary 09/30/17 9495 <Electronically signed by Naga GREER> Date Naga GREER Cosigner Signature: Date (if applicable) CC: ALLERGIES ALLERGIES DATE TYPE / CODE NAME / CODE REACTION SEVERITY SOURCE 02/14/2018 Drug No Known Unknown [place] [facility] Allergy/416 Allergies/B42949 Hospital 427805(SNOM 0388(RXNORM) Repository ED CT) Drug NO KNOWN [facility] Class/23319 ALLERGIES Other [place] 1003(SNOMED Repository CT) NG/[id number] NO KNOWN [facility] 6(SNOMED [facility] CT) Repository ENCOUNTERS ENCOUNTERS ADMIT/DISCHARGE ACCOUNT NUMBER ADMITTING ENCOUNTER LOCATION SOURCE CLASS 07/05/2018/07/05/19 [id number] Ambulatory [place] [facility] Other [place] Repository 07/05/2018/07/05/19 [id number] Ambulatory [place] [facility] 19 [facility] MEDICAL Repository CENTERBuildi ng:AGVASACC 06/30/2018 [id number] Ambulatory [facility] ding:DC Repository 06/30/2018 [id number] Ambulatory [facility] ding:CR Repository 06/07/2018 [id number] Ambulatory BMSBuilding: [place] BMS.CF.[facility] Repository 06/07/2018 [id number] Ambulatory [facility] ding:[facility] Repository 05/30/2018/06/19/20 [id number] Ambulatory [place] J[place] [address] ding:DC Repository 05/25/2018 [id number] Ambulatory [facility] ding:BFHLAB Repository 05/23/2018 [id number] Ambulatory BMSBuilding: [place] BMS.CF.[facility] Repository 05/23/2018 [id number] Ambulatory [facility] ding:[facility]S Repository 05/22/2018/06/19/20 [id number] Ambulatory [place] [address] [place] [address] ding:CR Repository 05/19/2018/05/19/20 [id number] Ambulatory [place] Javier [address] ding:CR Repository 04/25/2018/05/19/20 [id number] Ambulatory [place] [address] ding:DC Repository 04/19/2018/04/19/20 [id number] Ambulatory [place] ding:CR Repository 03/28/2018/04/19/20 [id number] Ambulatory [place] Javier Francisco Javier 18 [facility] ding:DC Repository 03/17/2018 [id number] Ambulatory [facility] ding:LAB Repository 03/16/2018/03/19/20 [id number] Ambulatory [place] [address] [place] [address] ding:DC Repository 03/15/2018/03/19/20 [id number] Ambulatory [place] [address] ding:CR Repository 02/24/2018 [id number] Ambulatory [facility] ding:CR Repository 02/14/2018/02/15/20 [id number] Ambulatory BMSBuilding: [place] Javier 18 BMS.[facility] Repository 02/02/2018 [id number] Ambulatory [facility] ding:LAB Repository 01/26/2018/01/29/20 [id number] [place], Inpatient [place] Javier Francisco Javier 18 [place] ding:PCURoom Repository : [id number]: 1 01/26/2018 [id number] [place], Ambulatory BMSBuilding: [place] Alvino BMS.[facility] Repository 01/26/2018 [id number] [place], Ambulatory BMSBuilding: [place] Javier [place] BMS.CF.[facility] Repository 01/26/2018 [id number] [place], Ambulatory BMSBuilding: [place] Alvino BMS.[facility] Repository 01/26/2018 [id number] [place]oe[place]sky, Ambulatory BMSBuilding: [place] Alvino BMS.[facility] Repository 09/27/2017/09/28/19 [id number] Ambulatory BMSBuilding: [place] Javier 18 BMS.[facility] Repository PAYERS PAYERS ENCOUNTER GUARANTOR PAYER SUBSCRIBER SOURCE 07/05/2018 TARIQ Christine Primary Insurance:URBANO CARLSON: LINDAellis hospitaly Number: BRUNYANSKYDOB: [facility] [id number] Repository TR Date: [address] [place] [id number]: () 06/30/2018 TARIQ S Primary Insurance:[facility] LASHELL [id number] [facility] CENTER: [facility] [id number], Number: [place]ository [place] [address]Apt: [id number] Date:1619-57-66VL BOX () [address]IEVMGWAPF, [place] [address]PK: CHECK WEBSITE 06/30/2018 Secondary NOT GIVENUNK [place] Insurance:SELF PAY [facility] Number: Effective Repository Date:2018-06-20 06/30/2018 TARIQ S Primary Insurance:[facility] Mcintyre [id number] [facility]: [facility] [id number], Number: [place]ository [place] [address]Uje: [id number] Date:3231-03-30CC [address]OX () [address]JDJLUDBEA, [place] [address]GB: CHECK WEBSITE 06/30/2018 Secondary NOT GIVENUNK Francisco Javier Insurance:SELF PAY [facility] Number: Effective Repository Date:2018-06-20 06/07/2018 TARIQ S Primary Insurance:[facility] Mcintyre [id number] [facility]: [facility] [id number], Number: [place]ository [place] [id number]: [id number] Date:6483-11-20GC [address]OX () [address]SQXLBXXWG, [place] [address]XQ: CHECK WEBSITE 06/07/2018 Secondary NOT GIVENUNK [place] Insurance:SELF PAY [facility] Number: Effective Repository Date:2018-06-07 06/07/2018 TARIQ S Primary Insurance:[facility] [id number] [facility]: [facility] [id number], Number: [place]ository [place] [address]Smw: [id number] Date:9284-39-78EV BOX () [address]QISNEOICJ, [place] [address]QW: CHECK WEBSITE 06/07/2018 Secondary NOT GIVENUNK [place] Insurance:SELF PAY [facility] Number: Effective Repository Date:2018-05-25 05/30/2018 TARIQ S Primary Insurance:[facility] Mcintyre [id number] [facility] [id number], Number: [place]ository [place] [id number]: [id number] Date:6526-17-25HY BOX () [address]FHCIYQHJX, [place] [address]IH: CHECK WEBSITE 05/30/2018 Secondary NOT GIVENUNK Francisco Javier Insurance:SELF PAY [facility] Number: Effective Repository Date:2018-05-20 05/25/2018 TARIQ S Primary Insurance:[facility] Persaud Francisco Javier [id number] [facility]: [facility] [id number], Number: [place]ository [place] [id number]: [id number] Date:7008-37-75RO [address]OX () [address]OFCXZPUPR, [place] [address]CU: CHECK WEBSITE 05/25/2018 Secondary NOT GIVENUNK Francisco Javier Insurance:SELF PAY [facility] Number: Effective Repository Date:2018-05-25 05/23/2018 TARIQ S Primary Insurance:[facility] Persaud Francisco Javier [id number] [facility]: [facility] [id number], Number: [place]ository [place] [id number]: [id number] Date:2207-50-16DD BOX () 288[address]GXOHSDDJL, [place] [address]EJ: CHECK WEBSITE 05/23/2018 Secondary NOT GIVENUNK [place] Insurance:SELF PAY [facility] Number: Effective Repository Date:2018-05-23 05/23/2018 TARIQ S Primary Insurance:[facility] Persaud Francisco Javier [id number] [facility]: [facility] [id number], Number: Repository [place] [id number]: [id number] Date:6365-95-75MK BOX () 74843WKXSYDHLT, [place] [address]KK: CHECK WEBSITE 05/23/2018 Secondary NOT GIVENUNK [place] Insurance:SELF PAY [facility] Number: Effective Repository Date:2018-02-14 05/22/2018 TARIQ S Primary Insurance:[facility] Mcintyre [id number] [facility] [id number], Number: [place]ository [place] [address]Izb: [id number] Date:2475-16-46FD BOX () 38157JMXLIWWKV, [place] [address]PY: CHECK WEBSITE 05/22/2018 Secondary NOT GIVENUNK [place] Insurance:SELF PAY [facility] Number: Effective Repository Date:2018-05-20 05/19/2018 TARIQ S [facility] [id number] [facility] [id number], Number: [place]ository [place] [id number]: [id number] Date:0710-22-37ZD BOX () [address]HSHDSLRJY, [place] [address]AZ: CHECK WEBSITE 05/19/2018 Secondary NOT GIVENUNK [place] Insurance:SELF PAY [facility] Number: Effective Repository Date:2018-04-20 04/25/2018 TARIQ S Primary [facility] [id number] [facility] [id number], Number: [place]ository [place] [id number]: [id number] Date:7710-06-39HN BOX () [address]ESCKPVNMF, [place] [address]BN: CHECK WEBSITE 04/25/2018 Secondary NOT GIVENUNK [place] Insurance:SELF PAY [facility] Number: Effective Repository Date:2018-04-20 04/19/2018 TARIQ S Primary Insurance:[facility] Mcintyre [id number] [facility]: [facility] [id number], Number: [place]ository [place] [address]Ztw: [id number] Date:2808-71-33DI BOX () 41867JJGXFEZZV, [place] [address]AV: CHECK WEBSITE 04/19/2018 Secondary NOT GIVENUNK [place] Javier Insurance:SELF PAY [facility] Number: Effective Repository Date:2018-03-20 03/28/2018 TARIQ S Primary Insurance:[facility] Mcintyre [id number] [facility]: [facility] [id number], Number: [place]ository [place] [id number]: [id number] Date:4792-82-28ZF BOX () 03174UHFCSZCIR, [place] [address]OZ: CHECK WEBSITE 03/28/2018 Secondary NOT GIVENUNK [place] Javier Insurance:SELF PAY [facility] Number: Effective Repository Date:2018-03-20 03/17/2018 TARIQ S Primary Insurance:[facility] Mcintyre [id number] [facility]: [facility] [id number], Number: [place]ository [place] [id number]: [id number] Date:4836-56-37PR BOX () 99917WGARAFZOI, [place] [address]WZ: CHECK WEBSITE 03/17/2018 Secondary NOT GIVENUNK [place] Javier Insurance:SELF PAY [facility] Number: Effective Repository Date:2018-03-17 03/16/2018 TARIQ S Primary Insurance:[facility] Mcintyre [id number] [facility]: [facility] [id number], Number: [place]ository [place] [address]Ufv: [id number] Date:3974-99-36FJ [address]OX () 26600ZAHSWOOSH, [place] [address]PA: CHECK WEBSITE 03/16/2018 Secondary NOT GIVENUNK Francisco Javier Insurance:SELF PAY [facility] Number: Effective Repository Date:2018-03-15 03/15/2018 TARIQ S Primary Insurance:[facility] Cori [id number] [facility]: [facility] [id number], Number: Repository [place] [id number]: [id number] Date:5890-08-37KC BOX () 02842RCNFFJHNZ, [place] [address]HD: CHECK WEBSITE 03/15/2018 Secondary NOT GIVENUNK [place] Insurance:SELF PAY [facility] Number: Effective Repository Date:2018-02-24 02/24/2018 TARIQ S Primary Insurance:[facility] [id number] [facility]: [facility] [id number], Number: Repository [place] [id number]: [id number] Date:3154-47-61DU BOX () 52535LRIVFEWCG, [place] [address]YJ: CHECK WEBSITE 02/24/2018 Secondary NOT GIVENUNK Francisco Javier Insurance:SELF PAY [facility] Number: Effective Repository Date:2018-02-15 02/14/2018 TARIQ S Primary Insurance:[facility] Cori [id number] [facility]: [facility] [id number], Number: Repository [place] [address]Lbf: [id number] Date:4741-59-54JD BOX () 32907ULRZWUFIG, [place] [address]UZ: CHECK WEBSITE 02/14/2018 Secondary NOT GIVENUNK Francisco Javier Insurance:SELF PAY [facility] Number: Effective Repository Date:2018-02-14 02/02/2018 TARIQ S Primary Insurance:[facility] Cori [id number] [facility] [id number], Number: [place]ository [place] [id number]: [id number] Date:9598-64-38ET BOX () 40311WJTKGSZYD, [place] [address]GA: CHECK WEBSITE 02/02/2018 Secondary NOT GIVENUNK [place] Javier Insurance:SELF PAY [facility] Number: Effective Repository Date:2018-02-02 01/26/2018 TARIQ S Primary Insurance:[facility] Mcintyre [id number] [facility] [id number], Number: [place]ository [place] [address]Cjx: [id number] Date:5894-37-80IY BOX () 66684SEYWREINZ, [place] [address]KG: CHECK WEBSITE 01/26/2018 Secondary NOT GIVENUNK Francisco Javier Insurance:SELF PAY [facility] Number: Effective Repository Date:2018-01-26 01/26/2018 TARIQ S Primary Insurance:[facility] Mcintyre [id number] [facility]: [facility] [id number], Number: Repository [place] [address]Wcq: [id number] Date:1884-92-18NT BOX () 73939KZXTUYYGO, [place] [address]XH: CHECK WEBSITE 01/26/2018 Secondary NOT GIVENUNK Francisco Javier Insurance:SELF PAY [facility] Number: Effective Repository Date:2018-01-26 01/26/2018 TARIQ S Primary Insurance:[facility] Mcintyre [id number] [facility]: [facility] [id number], Number: [place]ository [place] [address]Zgq: [id number] Date:1940-40-53PD [address]OX () 114[address]IHFSGETBK, [place] [address]CT: CHECK WEBSITE 01/26/2018 Secondary NOT GIVENUNK Francisco Javier Insurance:SELF PAY [facility] Number: Effective Repository Date:2018-01-26 01/26/2018 TARIQ S Primary Insurance:[facility] Mcintyre [id number] [facility]: [facility] [id number], Number: [place]ository [place] [address]Hes: [id number] Date:5194-82-01OX BOX () 63761LRKSWHOXC, [place] [address]KK: CHECK WEBSITE 01/26/2018 Secondary NOT GIVENUNK Francisco Javier Insurance:SELF PAY [facility] Number: Effective Repository Date:2018-01-26 01/26/2018 TARIQ S Primary Insurance:[facility] Mcintyre [id number] [facility]: [facility] [id number], Number: Repository [place] [address]Kcb: [id number] Date:3787-91-22IO BOX () 569[address]JSCLANUAP, [place] [address]XL: CHECK WEBSITE 01/26/2018 Secondary NOT GIVENUNK [place] Insurance:SELF PAY [facility] Number: Effective Repository Date:2018-01-26 09/27/2017 TARIQ Primary Insurance:[facility]LL Mcintyre [id number] [facility]: [facility] [id number], Number: [place]ository [place] [address]Aqp: [id number] Date:8964-55-33DK BOX () 62521VCLVAGFSG, [place] [address]ZR: CHECK WEBSITE 09/27/2017 Secondary NOT GIVENUNK Francisco Javier Insurance:SELF PAY [facility] Number: Effective Repository Date:2017-09-27
== END ==
PROVIDERS: Family Provider Family Medicine; PCP Family Medicine; Referring Provider Internal Medicine Cardiovascular Disease; Visit Provider Internal Medicine Cardiovascular Disease
DX: I11.9 Hypertensive heart disease without heart failure (principal); I25.10 Atherosclerotic heart disease of native coronary artery without angina pectoris; I34.0 Nonrheumatic mitral (valve) insufficiency; I36.1 Nonrheumatic tricuspid (valve) insufficiency; I42.9 Cardiomyopathy, unspecified
CPT/HCPCS: 93312; 93320; 93325; J7040; A4216

== ENCOUNTER → 2018-08-18 11:48 | Outpatient (CLI) | payer OTHER, SELFPAY ==
[2018-08-18 11:13] VITALS: BMI 33.0
[2018-08-18 12:31] LABS: Anion Gap 4 (5-15); BUN 59 mg/dL (7-18); BUN/Creat Ratio 27.1 RATIO (10-20); Calcium,Total 8.6 mg/dL (8.5-10.1); Chloride 111 mmol/L (98-107); Creatinine, Serum 2.18 mg/dL (0.70-1.30); EST Glomerular Filtration Rate 33 mL/min (>60); Est Glom Filt Rate - Afr Amer 40 mL/min (>60); Glucose 141 mg/dL (74-106); Potassium 4.9 mmol/L (3.5-5.1); Sodium Level 141 mmol/L (136-145)
[2018-08-18 12:34] LABS: AST(SGOT) 10 U/L (15-37); Alanine Aminotransfer ALT/SGPT 20 U/L (16-61); Albumin, Serum 3.2 g/dL (3.2-5.0); Alkaline Phosphatase 66 U/L (45-117); Bilirubin, Direct 0.11 mg/dL (0.00-0.30); Cholesterol 120 mg/dL (200); Globulin 3.5 g/dL (2.2-4.2); High Density Lipoprotein 48 mg/dL; Protein, Total 6.7 g/dL (6.4-8.2); Triglycerides 129 mg/dL; Very Low Density Lipoprotein 26 mg/dL (5-40)
[2018-08-18 13:54] LABS: Protein, Urine (Random) 243.1 mg/dL (<11.9); Protein:Creat Ratio 5830 mg/g CRE (0-200)
[2018-08-21 17:10] LABS: PROEL- A/G Ratio 1.2 (0.7-1.7); PROEL- Albumin 3.3 g/dL (2.9-4.4); PROEL- Alpha-1 Globulin 0.3 g/dL (0.0-0.4); PROEL- Alpha-2 Globulin 0.8 g/dL (0.4-1.0); PROEL- Beta Globulin 0.9 g/dL (0.7-1.3); PROEL- Gamma Globulin 0.8 g/dL (0.4-1.8); PROEL- Globulin, Total 2.7 g/dL (2.2-3.9)
== END ==
PROVIDERS: Internal Medicine Cardiovascular Disease; Family Provider Family Medicine; PCP Family Medicine; Referring Provider Internal Medicine Nephrology; Visit Provider Internal Medicine Nephrology
DX: N18.4 Chronic kidney disease, stage 4 (severe) (principal); I25.10 Atherosclerotic heart disease of native coronary artery without angina pectoris; E11.9 Type 2 diabetes mellitus without complications
CPT/HCPCS: 36415; 80048; 80061; 80076; 82570; 84156; 84165

== ENCOUNTER → 2018-10-18 10:56 | Outpatient (CLI) | payer OTHER, SELFPAY ==
[2018-08-18 11:13] VITALS: BMI 33.0
--- NOTE | 2018-10-18 10:57 | ECHOD_ITS ---
Reason For Study: JOHNNY MICKEY REPLACEMENT EVAL Procedure This was a 2D Doppler, Color Flow transthoracic echocardiogram. Exam performed in department. Left Ventricle Moderately dilated left ventricle. The estimated ejection fraction is 25 %. Stage 2 diastolic dysfunction. There is severe global hypokinesis of the left ventricle. Right Ventricle Moderately dilated right ventricle. Normal systolic function. Atria The left atrium is moderately enlarged. The right atrium is mildly enlarged. Normal atrial septum. Mitral Valve The mitral valve is structurally normal. No prolapse or stenosis seen. Moderate (2+) posteriorly directed mitral valve insufficiency. Tricuspid Valve Normal tricuspid valve. Mild (1+) tricuspid valve insufficiency. Right ventricular systolic pressure estimated to be 52 mmHg. Moderate pulmonary hypertension. Aortic Valve Normal aortic valve. Trisinus/trileaflet aortic valve. Pulmonic Valve Normal pulmonic valve. Great Vessels Normal aortic root. Normal arch. Normal inferior vena cava. Inferior vena cava collapse with sniff. Pericardium/Pleural Trivial pericardial effusion. There are no echocardiographic indications of cardiac tamponade. MMode/2D Measurements & Calculations LVIDd: 5.6 cm IVSd: 1.1 cm Ao root diam: 3.3 cm LVIDs: 5.0 cm LVPWd: 1.1 cm RVDd: 4.1 cm FS: 10.7 % LAV(MOD-bp): 87.6 ml LVAd ap4: 51.0 cm2 SV(MOD-sp4): 60.1 ml LAV(MOD-bp) Indexed: 42.4 ml/m2 EDV(MOD-sp4): 220.6 ml LAV(MOD-sp2): 88.9 ml EDV(sp4-el): 225.2 ml LAV(MOD-sp4): 82.9 ml LVAs ap4: 42.2 cm2 ESV(MOD-sp4): 160.6 ml ESV(sp4-el): 163.9 ml EF(MOD-sp4): 27.2 % EF(sp4-el): 27.2 % SV(sp4-el): 61.3 ml LA A4 area: 24.8 cm2 LA dimension(2D): 4.4 cm RA A4 area: 21.9 cm2 Time Measurements MV dec time: 0.16 sec Doppler Measurements & Calculations MV E max mickey: 114.0 cm/sec Lat Peak E' Mickey: 7.8 cm/sec Med Peak E' Mickey: 4.2 cm/sec MV A max mickey: 46.2 cm/sec E/E' lat: 14.7 E/E' med: 27.1 MV E/A: 2.5 Ao V2 max: 127.9 cm/sec LV V1 max: 73.7 cm/sec PA V2 max: 91.1 cm/sec Ao max P.5 mmHg LV V1 max P.2 mmHg PI end-d mickey: 127.6 cm/sec TR max mickey: 344.1 cm/sec TR max P.4 mmHg Interpretation Summary Moderately dilated left ventricle. The estimated ejection fraction is 25 %. Stage 2 diastolic dysfunction. There is severe global hypokinesis of the left ventricle. Moderately dilated right ventricle. The left atrium is moderately enlarged. The right atrium is mildly enlarged. Moderate (2+) posteriorly directed mitral valve insufficiency. Mild (1+) tricuspid valve insufficiency. Right ventricular systolic pressure estimated to be 52 mmHg. Moderate pulmonary hypertension. Trivial pericardial effusion. There are no echocardiographic indications of cardiac tamponade. Compared to echo report dated 05/23/2018 no appreciable changes noted. Ordering Physician: Alvin Dennis Referring Physician: ALVINO QUARLES Performed By: Erin Kaur RDCS
== END ==
PROVIDERS: Family Provider Family Medicine; PCP Family Medicine; Referring Provider Internal Medicine Cardiovascular Disease; Visit Provider Internal Medicine Cardiovascular Disease
DX: I25.10 Atherosclerotic heart disease of native coronary artery without angina pectoris (principal); I34.0 Nonrheumatic mitral (valve) insufficiency; I42.9 Cardiomyopathy, unspecified
CPT/HCPCS: 93306

== ENCOUNTER → 2018-11-20 | Outpatient (CLI) | payer OTHER, SELFPAY ==
[2018-08-18 11:13] VITALS: BMI 33.0
[2018-11-20 12:32] LABS: Hematocrit 45.5 % (40-54); Hemoglobin 14.6 g/dl (13.0-16.5); Mean Corp Hgb Conc 32.1 g/gl (32-36); Mean Corpuscular Hgb 26.7 pg (27.0-32.0); Mean Corpuscular Volume 83.2 fL (80-94); Mean Platelet Vol. 11.9 fl (6.2-12.0); Platelet Count 186 K/mm3 (150-450); RBC Distribution Width CV 15.6 % (11.6-14.6); RBC Distribution Width SD 47.2 fl (35.1-43.9); Red Blood Count 5.47 M/mm3 (4.6-6.2); White Blood Count 13.7 K/mm3 (4.4-11.0)
[2018-11-20 12:47] LABS: Scan Indicated on CBC? Y/N NO
[2018-11-20 12:55] LABS: Albumin, Serum 3.2 g/dL (3.2-5.0); BUN 53 mg/dL (7-18); BUN/Creat Ratio 18.9 RATIO (10-20); Calcium,Total 8.8 mg/dL (8.5-10.1); Chloride 106 mmol/L (98-107); Creatinine, Serum 2.81 mg/dL (0.70-1.30); EST Glomerular Filtration Rate 25 mL/min (>60); Est Glom Filt Rate - Afr Amer 30 mL/min (>60); Glucose 160 mg/dL (74-106); Phosphorus 3.6 mg/dL (2.5-4.9); Potassium 5.1 mmol/L (3.5-5.1); Sodium Level 139 mmol/L (136-145)
[2018-11-20 12:58] LABS: PTHIN 138.3 pg/mL (18.4-80.1); Vitamin D,25 Hydroxy 26.9 ng/mL (29.95-100.01)
[2018-11-20 14:43] LABS: Protein:Creat Ratio 6604 mg/g CRE (0-200)
== END | disposition home or self-care (01) ==
LOC: LAB.FUTURE 11:42
PROVIDERS: Family Provider Family Medicine; PCP Family Medicine; Referring Provider Internal Medicine Nephrology; Visit Provider Internal Medicine Nephrology
DX: N18.3 Chronic kidney disease, stage 3 (moderate) (principal); E55.9 Vitamin D deficiency, unspecified
CPT/HCPCS: 36415; 80069; 82306; 82570; 83970; 84156; 85027

== ENCOUNTER → 2018-12-22 12:35 | Outpatient (CLI) | payer OTHER, SELFPAY ==
[2018-12-22 11:51] VITALS: BMI 32.5
[2018-12-22 12:49] LABS: Bacteria 0 SEEN /hpf (None Seen); Mucous, Urine 0 SEEN /hpf (<or=2+); Red Blood Cells-Urine 0 SEEN /hpf (0-5); Squamous Epithelial Cells - UA 0 SEEN /hpf (0-5); White Blood Cells 0 SEEN /hpf (0-5)
[2018-12-22 14:18] LABS: International Normalized Ratio 1.1; Prothrombin Time (Protime)PT. 13.7 SECONDS (11.7-14.9)
[2018-12-22 14:25] LABS: Hematocrit 46.5 % (40-54); Hemoglobin 14.5 g/dl (13.0-16.5); Mean Corp Hgb Conc 31.2 g/gl (32-36); Mean Corpuscular Hgb 26.7 pg (27.0-32.0); Mean Corpuscular Volume 85.6 fL (80-94); Mean Platelet Vol. 12.1 fl (6.2-12.0); Platelet Count 163 K/mm3 (150-450); RBC Distribution Width CV 15.7 % (11.6-14.6); RBC Distribution Width SD 49.4 fl (35.1-43.9); Red Blood Count 5.43 M/mm3 (4.6-6.2); White Blood Count 11.1 K/mm3 (4.4-11.0)
[2018-12-22 14:28] LABS: Color, Urine Yellow (Yellow); Glucose, Dipstick 50 mg/dl (Normal); Ketone-Dipstick Negative (Negative); Leukocyte Esterase-Dipstick Negative /ul (Negative); Nitrite-Dipstick Negative (Negative); Occult Blood-Urine 25 /ul (Negative); Protein-Dipstick 500 mg/dl (Negative); Specific Gravity, Urine 1.015 (1.002-1.030); Urine Bilirubin Dipstick Negative (Negative); Urine Clarity Clear (Clear); Urine Urobilinogen Normal (Normal)
[2018-12-22 14:29] LABS: Scan Indicated on CBC? Y/N NO
[2018-12-22 14:33] LABS: Anion Gap 7 (5-15); BUN 62 mg/dL (7-18); BUN/Creat Ratio 22.1 RATIO (10-20); Calcium,Total 8.6 mg/dL (8.5-10.1); Chloride 110 mmol/L (98-107); Creatinine, Serum 2.81 mg/dL (0.70-1.30); EST Glomerular Filtration Rate 25 mL/min (>60); Est Glom Filt Rate - Afr Amer 30 mL/min (>60); Glucose 135 mg/dL (74-106); Potassium 4.9 mmol/L (3.5-5.1); Sodium Level 144 mmol/L (136-145)
== END ==
PROVIDERS: Family Provider Family Medicine; PCP Family Medicine; Referring Provider Internal Medicine Cardiovascular Disease; Visit Provider Internal Medicine Cardiovascular Disease
DX: I42.9 Cardiomyopathy, unspecified (principal); I25.10 Atherosclerotic heart disease of native coronary artery without angina pectoris
CPT/HCPCS: 36415; 80048; 81001; 85027; 85610

== ENCOUNTER 2018-12-28 08:22 | Day surgery (SDC) | payer OTHER, SELFPAY ==
[2018-11-24 11:11] VITALS: BMI 32.5
[2018-12-22 11:51] VITALS: BMI 32.5
--- NOTE | 2018-12-22 12:30 | RAD_ITS ---
STUDY: X-RAY CHEST REASON FOR EXAM: Male, 58 years old. Pre-op ICD. TECHNIQUE: Frontal and lateral views of the chest. COMPARISON: 01/27/2018 FINDINGS: There is hyperinflation of the lungs consistent with chronic obstructive lung disease (COPD). No infiltrates or effusions. There is no demonstrated pleural abnormality. Normal size heart. Normal mediastinum and guru. Normal visualized pulmonary arteries. Normal visualized aortic arch and descending thoracic aorta. Normal visualized thoracic spine. Normal visualized ribs, clavicles, and shoulders. There is no demonstrated abnormality of the visualized soft tissue structures of the upper abdomen. RAD/Chest PA and Lateral IMPRESSION: There are findings consistent with COPD. There is no evidence of acute chest disease. Electronically Signed: Chris Noland MD at 17:58 EDT , Service support ,
[2018-12-26 10:44] VITALS: BMI 33.2
[2018-12-28] VITALS (14 sets, daily range): BP systolic 100–133; BP diastolic 64–89; PULSE 84–97; RESP 18; TEMP 36.3–36.9; O2SAT 92–97; BMI 33.2
--- NOTE | 2018-12-28 08:45 | PCM.HP.BLA ---
Problem List (1) Cardiomyopathy Status: Chronic Qualifiers: Comment: EF 30% per echo 01/27/18 with severely hypokinetic areas of left venticle History and Physical Date of Admission: 12/28/18 History of Present Illness Details: This is a 58-year-old gentleman that presents here today for an updated history and physical to have an ICD implant done. He does have a history of coronary artery disease, cardiomyopathy with an ejection fraction of 30%, hypertension. He does occasionally have palpitations. These do not last long. He does not have any chest discomfort/heaviness/tightness. He does not have any worsening symptoms of shortness of breath. He denies any PND. He does not have any orthopnea. He does not have any symptoms of congestive heart failure. He does not have any lightheadedness or dizziness. He does not have any near-syncope or syncope. He does not have any lower extremity edema. He does not have any symptoms of claudication. 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 Intake Vital Signs see chart Intake Visit Reasons: UPDATE H&P ICD / ASIM 11:00 Finance Administrator Required: No Is patient in pain?: No Allergies No Known Allergies Allergy (Verified 12/22/18 11:50) Medications glimepiride 1 mg tablet 1 mg PO QAM 09/27/17 [History Confirmed 12/22/18] aspirin 81 mg chewable tablet 81 mg PO DAILY@0800 #90 tab 02/14/18 [Rx Confirmed 12/22/18] atorvastatin 20 mg tablet 20 mg PO QHS #90 tab 02/14/18 [Rx Confirmed 12/22/18] carvedilol 6.25 mg tablet 6.25 mg PO BID #180 tab 02/14/18 [Rx Confirmed 12/22/18] furosemide 40 mg tablet 40 mg PO DAILY #90 tab 02/14/18 [Rx Confirmed 12/22/18] hydralazine 10 mg tablet 10 mg PO BID #180 tab 02/14/18 [Rx Confirmed 12/22/18] isosorbide mononitrate ER 30 mg tablet,extended release 24 hr 30 mg PO DAILY #90 tab 02/14/18 [Rx Confirmed 12/22/18] dulaglutide 1.5 mg/0.5 mL subcutaneous pen injector 1.5 mg SC QWEEK 11/24/18 [History Confirmed 12/22/18] PFS Medical History Cardiomyopathy (Chronic) Secondary pulmonary hypertension (Chronic) Nonrheumatic tricuspid (valve) insufficiency (Chronic) Nonrheumatic mitral (valve) insufficiency (Chronic) Atherosclerotic heart disease of [place] coronary artery without angina pectoris (Chronic 01/27/18) Pericardial effusion (Acute 01/26/18) Bilateral pleural effusion (Acute 02/05/18) Pneumonia (Acute) Diabetes mellitus (Chronic) HTN (hypertension) (Chronic) Sepsis (Acute) Hyperkalemia (Acute) DILLON (acute kidney injury) (Acute) LV dysfunction (Acute) Dyspnea on exertion (Acute) Diabetes (Acute) Diarrhea (Acute) Shoulder pain (Acute) Hypertension (Chronic) Surgical History History of left heart catheterization (Chronic 01/27/18) History of tonsillectomy (Chronic) Family History Unknown No problems noted. Social History (Updated 12/22/18 @ 13:05 by PERCY Cunha) Smoking Status: Former smoker quit date: 01/26/18 alcohol intake: never ROS Const Const: Negative for fatigue, weakness, fever(s) or headache(s) Eyes Eyes: Negative for blind spots, loss of peripheral vision or transient loss of vision ENT ENT: Negative for headache(s), dizziness, tinnitus or Nosebleed/epistaxis Cardio Chest Pain: No Palpitations: Yes Edema: None Muscle aches with walking: None Resp Respiratory: Negative for SOB with activity, SOB at rest, SOB orthopnea\SOB lying down or Cough GI GI: Negative nausea, vomiting, heartburn or vomiting blood/hematemesis : Negative for hematuria Musc Musc: Positive for muscle aches/ myalgia and joint pain Neuro Neuro: Negative for dizziness, lightheadedness, near syncope, syncope, orthostatic symptoms, headache(s) or weakness Duane Hematologic/Lymphatic: Negative for easy bleeding Endo Endo: Negative for fatigue Cardiology Exam Const Appearance: cooperative, no acute distress and well developed Orientation: alert, awake and oriented x3 Head Head: normocephalic and atraumatic Mouth: moist mucous membranes Eyes General: appearance normal, both eyes and all related structures Conjunctivae: conjunctivae normal Pupils: PERRL EOM: EOM intact bilaterally Neck Neck: normal visual inspection, no lymphadenopathy and no JVD Carotids: Negative bruit Neck Mass: Negative Neck mass Chest Chest inspection: normal inspection of the chest and symmetric chest movement Auscultation: Bilateral: Clear to Auscultation, Left: Inspiratory Wheezes (does not clear with cough), Expiratory Wheezes Cardio Palpation: normal PMI Rate: regular rate Rhythm: regular rhythm Heart sounds: S1 normal and S2 normal; negative rub, gallop or murmur GI GI: normal to inspection, soft, no hepatosplenomegaly and bowel sounds present; negative tender Neuro General: alert, awake, oriented x3, CN's II-XI intact bilaterally and moves all extremities Extremities Pulses: Normal: Right Posterior Tibial Pulse, Left Posterior Tibial Pulse, Right Radial Pulse, Left Radial Pulse Lower Extremity Edema: None: Bilateral Psych Psychological: normal affect Assessment & Plan 1. Atherosclerosis of [place] coronary artery of [place] heart without angina pectoris I25.10 Per [facility] 01/27/18, Dr. Dennis @ [facility]: 0.91 FFR (50% stenosis) of RCA, manage medically: all other coronaries normal. Plan Stable, from a cardiac standpoint patient does not have any symptoms of angina. We recommend that they continue with current aggressive medical management and risk factor modification. 2. Dilated cardiomyopathy I42.0 EF 30% per echo 01/27/18 with severely hypokinetic areas of left venticle Plan Patient does not have any symptoms of congestive heart failure. He will continue with current medical management. He is agreeable to proceed with an ICD placement for prophylactic purposes. A SDM interaction occurred at this visit using an SDM tool prior to initial implant of ICD. 3. Essential hypertension I10 Plan Blood pressure is well controlled on current medications, we do not recommend any changes at this time.
--- NOTE | 2018-12-28 11:06 | PCM.OPRPT ---
Report of Operation Date of Procedure: 12/28/18 Description of Procedure: Preoperative diagnosis implantation of PRIMARY PREVENTION ICD FOR IRREVERSIBLE ISCHEMIC CM; NYHA CLASS II; EF 30% Postoperative diagnosis same as above After informed consent and IV antibiotics the patient was brought to the [facility] catheterization laboratory. The LEFT side of the chest was prepped and draped in the usual sterile manner. The patient was sedated with intermittent boluses of IV Versed fentanyl and propofol as well as subcutaneous 1% lidocaine. An incision was made inferior to the clavicle to accommodate the size of the hardware device. The pocket was created using blunt and Bovie dissection. Hemostasis was obtained. Using the Seldinger technique the axillary vein was cannulated once and a guidewire was advanced under fluoroscopic guidance. Over the guidewire a sheath was advanced. Through this sheath, the electrode was positioned under fluoroscopic guidance into the right ventricle and was actively fixated. Once actively fixated, the lead was tested to check for proper sensing, capture threshold, impedance and to exclude diaphragmatic stimulation. Once the lead was implanted and all electrical parameters were confirmed to be functioning normally with appropriate values, the lead was then sutured to the pectoralis muscle with 2-0 silk on the Silastic collar ?2. The sponge and needle count were correct. Hemostasis was obtained. Antibiotic solution was used to flush the pocket. The new device was brought to the field. The lead was placed in the appropriate position of the header of the device and were secured by the setscrews and confirmed by the tug test. The device and the leads were then placed in the pocket. Pocket was closed with a deep layer of running 2-0 Vicryl, superficial layer of running 4-0 Vicryl and skin with Steri-Strips that were covered with a rolled 4 x 4's and Tegaderm. The patient left the lab with the device programmed to chronic parameters. There were no complications. Lead and device serial and model numbers are available in the chart documents provided by the device company manufacturers service representative procedure summary.
--- NOTE | 2018-12-28 12:03 | RAD_ITS ---
STUDY: X-RAY CHEST REASON FOR EXAM: Male, 58 years old. ICD placement. TECHNIQUE: Single AP portable view of the chest. COMPARISON: Comparison is made with prior study dated December 22, 2018. FINDINGS: EKG electrodes are seen. The lungs are clear and expanded. There is no demonstrated pleural abnormality. There is mild cardiac enlargement. A left-sided ICD is seen. Normal mediastinum and guru. Normal visualized pulmonary arteries. Normal visualized aortic arch and descending thoracic aorta. Normal visualized thoracic spine. Normal visualized ribs, clavicles, and shoulders. There is no demonstrated abnormality of the visualized soft tissue structures of the upper abdomen. RAD/Chest 1 View (Portable) IMPRESSION: Status post left ICD placement. There's good position. Electronically Signed: Gabino Crenshaw, at 14:10 EDT , Service support ,
[2018-12-28] MEDS: Acetaminophen 325 MG Tablet PO (13:53)
[2018-12-28] MEDS: hydrALAZINE 10 MG Tablet PO (21:22)
[2018-12-28] MEDS: Atorvastatin Calcium 20 MG Tablet PO (21:22)
[2018-12-28] MEDS: Carvedilol 6.25 MG Tablet PO (21:22)
[2018-12-29 03:00] VITALS: PULSE 97
[2018-12-29 03:10] VITALS: BP 130/87; PULSE 98; RESP 18; TEMP 36.9; O2SAT 93
[2018-12-29] MEDS: Acetaminophen 325 MG Tablet PO (03:17)
--- NOTE | 2018-12-29 05:55 | RAD_ITS ---
STUDY: X-RAY CHEST REASON FOR EXAM: Male, 58 years old. Pacemaker placement. TECHNIQUE: Frontal and lateral views of the chest. COMPARISON: December 28, 2018. FINDINGS: Pacemaker device on the left is stable. The lungs are clear and expanded. There is no demonstrated pleural abnormality. There is mild cardiac enlargement. Normal mediastinum and guru. Normal visualized pulmonary arteries. Normal visualized aortic arch and descending thoracic aorta. Normal visualized thoracic spine. Normal visualized ribs, clavicles, and shoulders. There is no demonstrated abnormality of the visualized soft tissue structures of the upper abdomen. RAD/Chest PA and Lateral IMPRESSION: Cardiac enlargement. Pacemaker on the left. No pneumothorax. Electronically Signed: Shaun Mccullough MD at 7:42 EDT , Service support ,
[2018-12-29 06:25] LABS: Anion Gap 3 (5-15); BUN 55 mg/dL (7-18); BUN/Creat Ratio 19.9 RATIO (10-20); Calcium,Total 8.4 mg/dL (8.5-10.1); Chloride 107 mmol/L (98-107); Creatinine, Serum 2.76 mg/dL (0.70-1.30); EST Glomerular Filtration Rate 25 mL/min (>60); Est Glom Filt Rate - Afr Amer 31 mL/min (>60); Estimated Creatinine Clearance 27.28 ml/min; Glucose 215 mg/dL (74-106); Potassium 6.1 mmol/L (3.5-5.1); Sodium Level 139 mmol/L (136-145)
[2018-12-29 08:20] VITALS: PULSE 70
[2018-12-29] MEDS: Aspirin 81 MG TAB.CHEW PO (08:20)
[2018-12-29] MEDS: hydrALAZINE 10 MG Tablet PO (08:20)
[2018-12-29] MEDS: Glimepiride 1 MG Tablet PO (08:20)
[2018-12-29] MEDS: Sodium Polystyrene Sulfonate 15 GM/60 ML UDC 30 GM PO (08:20)
[2018-12-29] MEDS: Carvedilol 6.25 MG Tablet PO (08:23)
[2018-12-29] MEDS: Furosemide 40 MG Tablet PO (08:23)
[2018-12-29] MEDS: Isosorbide Mononitrate 30 MG Tablet PO (08:23)
[2018-12-29 09:10] VITALS: BP 122/61; PULSE 70; RESP 18; TEMP 36.7; O2SAT 96
--- NOTE | 2018-12-29 09:45 | EKG12_ITS ---
Test Reason : Blood Pressure : / mmHG Vent. Rate : 091 BPM Atrial Rate : 091 BPM P-R Int : 190 ms QRS Dur : 100 ms QT Int : 384 ms P-R-T Axes : 071 036 146 degrees QTc Int : 472 ms Normal sinus rhythm Possible Left atrial enlargement Left ventricular hypertrophy Nonspecific ST and T wave abnormality Prolonged QT Abnormal ECG When compared with ECG of 26-JAN-2018 11:19, Nonspecific T wave abnormality no longer evident in Anterior leads Confirmed by KALEB ALMEIDA, EDILMA ([id number]), assignment editor TENA YU ([id number]) on 01/05/2019 2:07:20 PM Referred By: Usman Hernandez Confirmed By:NANETTE MANUEL MD
--- NOTE | 2018-12-29 09:48 | PCM.PN.CARD ---
Subjectve: Patient seen and examined this morning. No 24-hour events. Telemetry showed normal sinus rhythm with rare PVCs. EKG pending. Chest x-ray shows no evidence of pneumothorax. Wound is clean/dry/intact without evidence of hematoma, tenderness, or crepitance. Interrogation completed this morning without any changes needed. BMP this morning showed a potassium of 6.1, the patient was given Kayexalate by Dr. Moreno. We are awaiting a repeat BMP. Objective: Vital Signs Temp Pulse Resp BP Pulse Ox 98.4 F 70 18 130/87 H 93 12/29/18 03:10 12/29/18 08:20 12/29/18 03:10 12/29/18 03:10 12/29/18 03:10 Oxygen Delivery Method Room Air Weight: 211 lb 14.533 oz Body Mass Index (BMI) 33.2 Intake and Output for Last 24 Hours 12/27/18 12/28/18 12/29/18 23:59 23:59 23:59 Intake Total 640 / 640 220 / 220 Output Total 350 / 350 200 / 200 Balance 290 / 290 20 / 20 General: Awake, Alert, Oriented x 3 HEENT: PERRL, EOMI, Sclera Non Icteric Neck: Supple, Good ROM, No Lymph Node Enlargement Lungs: Clear to auscultation Cardiovascular: Regular Rhythm, Normal S1, Normal S2, No Murmurs, No Rubs, No Gallops Vascular: No Carotid Bruits, Normal Femoral Pulses, Normal Radial Pulses, Normal Dorsalis Pedal Pulse, Normal Posterior Tibial Pulses Abdomen: Bowel Sounds Present, Soft, Non Tender, No HSM, No Organomegaly Extremities: No Cyanosis, No Clubbing, No edema Neurological: No Focal Motor or Sensory Deficit 12/29/18 05:30: Sodium 139, Potassium 6.1 H*, Chloride 107, Carbon Dioxide 29.0, Anion Gap 3 L, BUN 55 H, Creatinine 2.76 H, Est GFR (MDRD) Af Amer 31 L, Est GFR (MDRD) Non-Af 25 L, BUN/Creatinine Ratio 19.9, Glucose 215 H, Calcium 8.4 L Rhythm: EKG: ECHO: Stress Test: Cardiac Cath: PCI: CT Surgery: Holter monitor: EPS: PPM: CXR: Chest CT Scan: Medical Necessity - Tobacco Use Smoking Status: Former smoker Assessment/Plan 1. Ischemic cardiomyopathy: The patient is status post AICD placement with single lead in his right ventricular chamber. Chest x-ray shows no evidence of pneumothorax, or pleural effusion. Wound is clean/dry/intact without evidence of crepitance, tenderness, or hematoma. We are waiting for patient to go to the bathroom for his Kayexalate to work, then we will repeat his BMP. In addition we will obtain a twelve-lead EKG to determine his QT corrected interval, as well as his QRS duration. If this is okay, and his potassium has decreased, I would recommend discharge home. He will follow-up in our pacemaker clinic going forward. 2. DC home after BMP is completed.
[2018-12-29 11:09] LABS: Anion Gap 6 (5-15); BUN 52 mg/dL (7-18); Calcium,Total 8.5 mg/dL (8.5-10.1); Chloride 108 mmol/L (98-107); Creatinine, Serum 2.73 mg/dL (0.70-1.30); EST Glomerular Filtration Rate 26 mL/min (>60); Est Glom Filt Rate - Afr Amer 31 mL/min (>60); Estimated Creatinine Clearance 27.58 ml/min; Glucose 288 mg/dL (74-106); Potassium 4.3 mmol/L (3.5-5.1); Sodium Level 140 mmol/L (136-145)
--- NOTE | 2018-12-29 13:40 | PN.CARD_ITS ---
Subjectve: Patient seen and examined. Interrogation of pacemaker results conveyed to me after I written my previous progress note. It seems that the patient's potassium was 6.1, and he had failure to capture from a pacemaker standpoint. Patient was given Kayexalate, and repeat potassium showed it to be 4.1. Reinterrogation of his defibrillator/pacemaker demonstrated that it was able to pace at a higher voltage threshold of approximately 6.5 to 7.5 V, but then lost capture below that number. His impedances actually had improved from yesterday, and I was assured by the defibrillator wrap that his defibrillator would work should he require it over the weekend. Attempts to get a hold of Dr. Hernandez were unsuccessful. Objective: Vital Signs Temp Pulse Resp BP Pulse Ox 98.1 F 70 18 122/61 H 96 12/29/18 09:10 12/29/18 09:10 12/29/18 09:10 12/29/18 09:10 12/29/18 09:10 Oxygen Delivery Method Room Air Weight: 211 lb 14.533 oz Body Mass Index (BMI) 33.2 Intake and Output for Last 24 Hours 12/27/18 12/28/18 12/29/18 23:59 23:59 23:59 Intake Total 640 / 640 580 / 580 Output Total 350 / 350 200 / 200 Balance 290 / 290 380 / 380 General: Awake, Alert, Oriented x 3 HEENT: PERRL, EOMI, Sclera Non Icteric Neck: Supple, Good ROM, No Lymph Node Enlargement Lungs: Clear to auscultation Cardiovascular: Regular Rhythm, Normal S1, Normal S2, No Murmurs, No Rubs, No Gallops Vascular: No Carotid Bruits, Normal Femoral Pulses, Normal Radial Pulses, Normal Dorsalis Pedal Pulse, Normal Posterior Tibial Pulses Abdomen: Bowel Sounds Present, Soft, Non Tender, No HSM, No Organomegaly Extremities: No Cyanosis, No Clubbing, No edema Neurological: No Focal Motor or Sensory Deficit 12/29/18 05:30: Sodium 139, Potassium 6.1 H*, Chloride 107, Carbon Dioxide 29.0, Anion Gap 3 L, BUN 55 H, Creatinine 2.76 H, Est GFR (MDRD) Af Amer 31 L, Est GFR (MDRD) Non-Af 25 L, BUN/Creatinine Ratio 19.9, Glucose 215 H, Calcium 8.4 L 12/29/18 10:18: Sodium 140, Potassium 4.3, Chloride 108 H, Carbon Dioxide 26.0, Anion Gap 6, BUN 52 H, Creatinine 2.73 H, Est GFR (MDRD) Af Amer 31 L, Est GFR (MDRD) Non-Af 26 L, BUN/Creatinine Ratio 19.0, Glucose 288 H, Calcium 8.5 Rhythm: EKG: ECHO: Stress Test: Cardiac Cath: PCI: CT Surgery: Holter monitor: EPS: PPM: CXR: Chest CT Scan: Medical Necessity - Tobacco Use Smoking Status: Former smoker Assessment/Plan 1.Non ischemic cardiomyopathy: The patient is status post AICD placement with single lead in his right ventricular chamber. Chest x-ray shows no evidence of pneumothorax, or pleural effusion. Wound is clean/dry/intact without evidence of crepitance, tenderness, or hematoma. EKG obtained demonstrated normal sinus rhythm, narrow complex QRS, normal QT corrected interval. Repeat interrogation after Kayexalate demonstrated improved capture, but still at high voltage thresholds as compared to his implantation the day before. I was assured by the pacemaker airline security representative that the defibrillator is active, and would take care of any ventricular arrhythmias until his lead can be addressed more thoroughly by Dr. Suggs or 1 of his colleagues. Multiple attempts to get a hold of Dr. Suggs this afternoon for guidance as to whether to discharge the patient, or transfer to [facility] were unsuccessful. It appears it is reasonable to discharge the patient home knowing that he may have incomplete pacer capture but he is not pacer dependent anyhow. The defibrillator appears to be intact and working and should abort any ventricular arrhythmias that he may encounter over the next 2 days. He will return in 3 days time to be re-interrogated by Starr in the pacer clinic. If he continues to have elevated voltages, he may require admission to [facility] with Dr. Suggs for lead revision or adjustment. If this is found to be the case after interrogation on Tuesday, the patient may require admission through the emergency room at [facility]. Should the patient have any issues during the weekend, I have a low threshold for the patient to be transported to [facility] for admission and to be addressed by [address] Suggs's electrophysiology colleagues. He will follow-up in our pacemaker clinic going forward. 2. Patient may be discharged home and follow-up with Dr. Dennis going forward.
== END 2018-12-29 13:39 | disposition home or self-care (01) ==
LOC: CLSP 08:24 → PCU 11:21
PROVIDERS: Internal Medicine Cardiovascular Disease; Family Provider Family Medicine; PCP Family Medicine; Referring Provider Internal Medicine Cardiovascular Disease; Visit Provider Internal Medicine Cardiovascular Disease
DX: I25.5 Ischemic cardiomyopathy (principal); I25.10 Atherosclerotic heart disease of native coronary artery without angina pectoris; I10 Essential (primary) hypertension; I27.20 Pulmonary hypertension, unspecified; E11.9 Type 2 diabetes mellitus without complications; Z87.891 Personal history of nicotine dependence; I42.0 Dilated cardiomyopathy
CPT/HCPCS: 33249; 36415; 71045; 71046; 80048; 93005; 93641; 99152; 99153; 99406; J7040; J7050; C1894

== ENCOUNTER → 2019-01-09 12:00 | Outpatient (CLI) | payer OTHER, SELFPAY ==
[2018-12-29 10:26] VITALS: BMI 32.5
[2019-01-09 13:33] LABS: Hematocrit 46.6 % (40-54); Hemoglobin 14.7 g/dL (13.0-16.5); Mean Corp Hgb Conc 31.5 g/dL (32-36); Mean Corpuscular Hgb 27.1 pg (27.0-32.0); Mean Platelet Vol. 11.3 fl (6.2-12.0); Platelet Count 161 K/mm3 (150-450); RBC Distribution Width CV 15.5 % (11.6-14.6); RBC Distribution Width SD 47.8 fl (35.1-43.9); Red Blood Count 5.42 M/mm3 (4.6-6.2); White Blood Count 11.7 K/mm3 (4.4-11.0)
[2019-01-09 13:46] LABS: Protein, Urine (Random) 578.8 mg/dL (<11.9); Protein:Creat Ratio 7226 mg/g CRE (0-200)
[2019-01-09 13:58] LABS: Albumin, Serum 3.3 g/dL (3.2-5.0); BUN 67 mg/dL (7-18); BUN/Creat Ratio 23.8 RATIO (10-20); Chloride 107 mmol/L (98-107); Creatinine, Serum 2.82 mg/dL (0.70-1.30); EST Glomerular Filtration Rate 25 mL/min (>60); Est Glom Filt Rate - Afr Amer 30 mL/min (>60); Glucose 131 mg/dL (74-106); Phosphorus 4.8 mg/dL (2.5-4.9); Potassium 5.8 mmol/L (3.5-5.1); Sodium Level 141 mmol/L (136-145)
[2019-01-09 14:07] LABS: PTHIN 130.1 pg/mL (18.4-80.1); Vitamin D,25 Hydroxy 21.3 ng/mL (29.95-100.01)
== END ==
PROVIDERS: Family Provider Family Medicine; PCP Family Medicine; Referring Provider Internal Medicine Nephrology; Visit Provider Internal Medicine Nephrology
DX: N18.3 Chronic kidney disease, stage 3 (moderate) (principal); E55.9 Vitamin D deficiency, unspecified
CPT/HCPCS: 36415; 80069; 82306; 82570; 83970; 84156; 85027

== ENCOUNTER → 2019-01-25 15:20 | Outpatient (CLI) | payer OTHER, SELFPAY ==
[2018-12-29 10:26] VITALS: BMI 32.5
[2019-01-25 15:49] LABS: Bacteria 0 SEEN /hpf (None Seen); Mucous, Urine 0 SEEN /hpf (<or=2+); Squamous Epithelial Cells - UA 0 SEEN /hpf (0-5); White Blood Cells 0 SEEN /hpf (0-5)
[2019-01-25 16:14] LABS: Color, Urine Yellow (Yellow); Glucose, Dipstick 50 mg/dl (Normal); Ketone-Dipstick Negative (Negative); Leukocyte Esterase-Dipstick Negative /ul (Negative); Nitrite-Dipstick Negative (Negative); Occult Blood-Urine 25 /ul (Negative); Protein-Dipstick 500 mg/dl (Negative); Specific Gravity, Urine 1.015 (1.002-1.030); Urine Bilirubin Dipstick Negative (Negative); Urine Clarity Clear (Clear); Urine Urobilinogen Normal (Normal)
[2019-01-25 16:19] LABS: International Normalized Ratio 1.1; Prothrombin Time (Protime)PT. 13.8 SECONDS (11.7-14.9)
[2019-01-25 16:21] LABS: Hematocrit 43.7 % (40-54); Mean Corpuscular Hgb 27.2 pg (27.0-32.0); Mean Corpuscular Volume 84.9 fL (80-94); Mean Platelet Vol. 12.1 fl (6.2-12.0); Platelet Count 176 K/mm3 (150-450); RBC Distribution Width CV 15.7 % (11.6-14.6); RBC Distribution Width SD 47.7 fl (35.1-43.9); Red Blood Count 5.15 M/mm3 (4.6-6.2); White Blood Count 10.7 K/mm3 (4.4-11.0)
[2019-01-25 16:24] LABS: Red Blood Cells-Urine 0-5 SEEN /hpf (0-5)
[2019-01-25 16:30] LABS: Anion Gap 7 (5-15); BUN 56 mg/dL (7-18); BUN/Creat Ratio 19.8 RATIO (10-20); Calcium,Total 9.1 mg/dL (8.5-10.1); Chloride 109 mmol/L (98-107); Creatinine, Serum 2.83 mg/dL (0.70-1.30); EST Glomerular Filtration Rate 25 mL/min (>60); Est Glom Filt Rate - Afr Amer 30 mL/min (>60); Glucose 105 mg/dL (74-106); Potassium 4.3 mmol/L (3.5-5.1); Sodium Level 142 mmol/L (136-145)
== END ==
PROVIDERS: Family Provider Family Medicine; PCP Family Medicine; Referring Provider Internal Medicine Cardiovascular Disease; Visit Provider Internal Medicine Cardiovascular Disease
DX: I42.9 Cardiomyopathy, unspecified (principal); Z95.810 Presence of automatic (implantable) cardiac defibrillator
CPT/HCPCS: 36415; 80048; 81001; 85027; 85610

== ENCOUNTER 2019-02-08 11:16 | Day surgery (SDC) | payer OTHER, SELFPAY ==
[2018-12-29 10:26] VITALS: BMI 32.5
[2019-02-01 13:17] VITALS: BMI 33.6
--- NOTE | 2019-02-06 08:54 | PCM.HP.BLA ---
<Tariq Granda - Last Filed: 02/08/19 11:26> History and Physical Date of Admission: 02/08/19 [facility] [address] [place] [address] OFFICE VISIT Date of Service: 02/01/19 MR#:[id number] Name: TARIQ VARGAS [facility] #:[id number] : 1960 Provider:Alvin Dennis MD Age/Sex: 58/M Location:[facility] Status:Signed HPI HPI History of Present Illness Details: Details: HPI Chief Complaint: Routine follow Details: Details: The patient is a 58 year old M with diabetes, obesity, positive tobacco abuse, chronic renal insufficiency, who apparently had a catheterization many years ago at [facility] from an unknown physician after having an abnormal stress test. He denies any stents or bypass surgery. He does not follow-up with a flying teacher. Patient had been in normal health up until around mid January 2018 when he has developed progressively worsening shortness of breath, dyspnea on exertion, mild lower extremity edema but no chest pain or angina. He reports decreased exercise capacity, and increasing and worsening dyspnea on exertion. Patient was admitted to the ER and his EKG showed normal sinus rhythm with poor R-wave progression across the precordium low voltage, and anterolateral T-wave inversion. He was found to have an elevated BNP and given a diagnosis of both pneumonia and congestive heart failure. Patient underwent a 2D echo with Doppler this morning which showed severe LV dysfunction with an EF around 30%, moderate pulmonary hypertension with an RVSP of 54 mmHg, mild tricuspid regurgitation and mild mitral regurgitation. Chest x-ray reviewed which demonstrated mild pulmonary vascular redistribution and ground glass appearance to the left lower lobe. No pleural effusions noted. On 01/27/18 he underwent diagnostic coronary angiogram which demonstrated minimal nonobstructive disease of his LAD and left circumflex, and a questionable 50% stenosis of his distal RCA. Patient underwent FFR evaluation at the same setting, which was found to be 0.91. Any intervention was deferred. Patient was treated with baby aspirin, Coreg, Lasix, hydralazine and Imdur in place of JAZZY inhibitors or ARB's for his chronic renal insufficiency as well as Lipitor for his coronary artery disease. He is now here in follow-up. Patient was referred to Dr. Robby Cartagena at [facility] to evaluate him for possible mitral valve repair surgery. At this point patient has nonischemic idiopathic cardiomyopathy with biventricular dysfunction and moderately severe secondary mitral regurgitation and moderate secondary pulmonary hypertension. At that point Dr. Cartagena did not believe he would benefit from mitral valve and/or tricuspid valve repair and recommended a repeat echocardiogram in several months to reassess. He recommended that if his LV function worsens or continues to be depressed he would consider an AICD implant. Repeat echocardiogram for surveillance on 10/18/2018 showed the following: Moderately dilated left ventricle. The estimated ejection fraction is 25 %. Stage 2 diastolic dysfunction. There is severe global hypokinesis of the left ventricle. Moderately dilated right ventricle. The left atrium is moderately enlarged. The right atrium is mildly enlarged. Moderate (2+) posteriorly directed mitral valve insufficiency. Mild (1+) tricuspid valve insufficiency. Right ventricular systolic pressure estimated to be 52 mmHg. Moderate pulmonary hypertension. Trivial pericardial effusion. There are no echocardiographic indications of cardiac tamponade. Compared to echo report dated 05/23/2018 no appreciable changes note Since discharge, the patient is doing extremely well, has essentially quit smoking. He is taking and tolerating his medicines well. He denies any chest pain, angina, fevers, chills, shortness of breath or dyspnea on exertion. Patient underwent successful internal AICD placement by Dr. Hernandez at [facility] on 12/28/2018. Postprocedure interrogation demonstrated higher voltage requirements for pacing, possibly due to hyperkalemia. The patient was treated with hyperkalemia with minimal improvement of his thresholds. Patient is here for an updated H&P for possible revision of his RV lead this upcoming week. Patient recently saw his material control specialist, who put him on a new medication to assist with hyperkalemia rather than having to constantly take Kayexalate. He has had no AICD discharges or palpitations. Patient is also here for [employer] sticker certification. In our office today's blood pressure is 110/70, pulse is 80 and regular. Physical exam is as below. Lipids as of 01/27/18 showed HDL 39 and LDL of 68. EKG dated 01/26/18 shows normal sinus rhythm, normal axis, poor R-wave progression across the precordium, and lateral T-wave inversion. EKG dated 08/18/18 shows normal sinus rhythm, normal axis, normal intervals, nonspecific ST and T wave changes anterior laterally. EKG dated 11/24/2018 shows normal sinus rhythm with left atrial enlargement, intraventricular conduction delay but a QRS duration of 101 ms, poor R wave progression across the precordium, nonspecific ST and T wave changes along the anterolateral leads. Patient's lipids as of 08/18/2018 show an LDL of 46 and HDL of 48. [] Intake Vital Signs 02/01/19 Height 5 ft 7 in 02/01/19 Weight: 215 lb 02/01/19 Body Mass Index (BMI) 33.6 02/01/19 Blood Pressure 110/70 02/01/19 Blood Pressure Location Lt brachial 02/01/19 Respiratory Rate 20 H 02/01/19 Pulse Rate 80 02/01/19 Pulse Source Monitor Intake Visit Reasons: H&P for lead revision w/David 02-08 Marketing Proposal Specialist Required: No Is patient in pain?: No Allergies No Known Allergies Allergy (Verified 02/01/19 13:31) Medications glimepiride 1 mg tablet 1 mg PO QAM 09/27/17 [History Confirmed 02/01/19] aspirin 81 mg chewable tablet 81 mg PO DAILY@0800 #90 tab 02/14/18 [Rx Confirmed 02/01/19] atorvastatin 20 mg tablet 20 mg PO QHS #90 tab 02/14/18 [Rx Confirmed 02/01/19] carvedilol 6.25 mg tablet 6.25 mg PO BID #180 tab 02/14/18 [Rx Confirmed 02/01/19] furosemide 40 mg tablet 40 mg PO DAILY #90 tab 02/14/18 [Rx Confirmed 02/01/19] hydralazine 10 mg tablet 10 mg PO BID #180 tab 02/14/18 [Rx Confirmed 02/01/19] isosorbide mononitrate ER 30 mg tablet,extended release 24 hr 30 mg PO DAILY #90 tab 02/14/18 [Rx Confirmed 02/01/19] dulaglutide 1.5 mg/0.5 mL subcutaneous pen injector 1.5 mg SC QWEEK 11/24/18 [History Confirmed 02/01/19] Handicap parking placard #1 ea 01/29/19 [Rx Confirmed 02/01/19] patiromer calcium sorbitex 8.4 gram oral powder packet 8.4 g PO DAILY 02/01/19 [History Confirmed 02/01/19] [facility] Medical History (Updated 01/01/19 @ 16:06 by Nikki Gaitan) Implantable cardioverter-defibrillator (ICD) in situ (Chronic) Cardiomyopathy (Chronic) Secondary pulmonary hypertension (Chronic) Nonrheumatic tricuspid (valve) insufficiency (Chronic) Nonrheumatic mitral (valve) insufficiency (Chronic) Atherosclerotic heart disease of [place] coronary artery without angina pectoris (Chronic 01/27/18) Pericardial effusion (Acute 01/26/18) Bilateral pleural effusion (Acute 02/05/18) Pneumonia (Acute) Diabetes mellitus (Chronic) HTN (hypertension) (Chronic) Sepsis (Acute) Hyperkalemia (Acute) DILLON (acute kidney injury) (Acute) LV dysfunction (Acute) Dyspnea on exertion (Acute) Diabetes (Acute) Diarrhea (Acute) Shoulder pain (Acute) Hypertension (Chronic) Surgical History (Updated 02/13/18 @ 12:09 by Rosette Reddy) History of left heart catheterization (Chronic 01/27/18) History of tonsillectomy (Chronic) Family History Unknown No problems noted. Social History (Updated 02/01/19 @ 13:53 by Alvin Dennis MD) Smoking Status: Former smoker quit date: 01/26/18 alcohol intake: never ROS Const Const: Positive for other (Is on new med from Dr. Irving to keep K+ down H&P for lead revision.); negative for fatigue, weakness, body ache, fever(s), headache(s), chills, frequent falls, night sweats, daytime sleepiness, difficulty sleeping, excessive sweating, weight gain, weight loss, increased appetite, poor appetite or anorexia Eyes Eyes: Negative for blind spots, loss of peripheral vision, transient loss of vision, blurry vision, change in vision, double vision, floaters, tunnel vision or other ENT ENT: Negative for headache(s), dizziness, hearing loss, tinnitus, Nosebleed/epistaxis, balance problems, post nasal drip, lip swelling, tongue swelling, bleeding gums, hoarseness, neck pain, dry mouth or other Cardio Chest Pain: No Palpitations: No Edema: Bilateral (Mild) Muscle aches with walking: None Resp Respiratory: Positive for SOB with activity; negative for SOB at rest, SOB orthopnea\SOB lying down, Cough, Coughing up blood/hemoptysis, chest congestion, pain on inspiration, snoring, stridor, wheezing, crackles, paroxysmal nocturnal dyspnea or other GI GI: Negative nausea, vomiting, heartburn, constipation, belching, bloating, cramping, vomiting blood/hematemesis, bright, red blood in stools, black,tarry stools, loose stools, Difficulty Swallowing or other : Negative for hematuria, frequent nighttime urination/ nocturia, erectile dysfunction or abnormal vaginal bleeding Musc Musc: Negative for muscle aches/ myalgia, muscle weakness, joint pain or balance problems Skin Skin: Negative redness, non-healing lesions, rash, unusual bruising, skin ulcer, wounds, jaundice or other Neuro Neuro: Negative for dizziness, lightheadedness, near syncope, syncope, orthostatic symptoms, frequent falls, headache(s), weakness, confusion, memory loss, restless legs, blurry vision, double vision, vertigo, seizures, lack of coordination or other [place] Hematologic/Lymphatic: Negative for easy bleeding, easy bruising, enlarged lymph nodes or other Endo Endo: Negative for fatigue, cold intolerance, heat intolerance, excessive sweating, flushing, increased thirst/drinking, increased hunger, hair loss, hair growth or other Psych Psych: Negative for anxiety, depression, thoughts of harming anyone, thoughts of harming yourself, visual hallucinations, panic attacks or audible hallucinations Allergy Allergy/Immunology: Negative for throat swelling, Negative for tongue swelling, Negative for hives, Negative for rash, Negative for lip swelling Cardiology Exam Const Appearance: cooperative, healthy appearing and no acute distress Nutritional Appearance: well nourished Orientation: alert, oriented x3 and oriented to person Head Head: normal to inspection, normocephalic and atraumatic Nose: external nose normal Face and Sinus: face symmetric Mouth: oral mucosae normal Eyes General: appearance normal, both eyes and all related structures Eyelids: eyelids normal Conjunctivae: conjunctivae normal Pupils: PERRL and normal by confrontation EOM: EOM intact bilaterally Neck Neck: normal visual inspection and full ROM Carotids: normal carotid upstroke Chest Chest inspection: normal inspection of the chest Auscultation: Bilateral: Clear to Auscultation Cardio Palpation: normal PMI Rate: regular rate Rhythm: regular rhythm Heart sounds: S1 normal and S2 normal GI GI: normal to inspection, no hepatosplenomegaly and bowel sounds present Neuro General: alert, awake, oriented x3, CN's II-XI intact bilaterally and moves all extremities Skin Skin: no rashes or lesions noted Extremities Pulses: Normal: Right Femoral Pulse, Left Femoral Pulse, Right Dorsalis Pedis Pulse, Left Dorsalis Pedis Pulse, Right Posterior Tibial Pulse, Left Posterior Tibial Pulse, Right Radial Pulse, Left Radial Pulse Lower Extremity Edema: None: Bilateral Psych Psychological: normal affect Assessment & Plan 1. Atherosclerosis of [place] coronary artery of [place] heart without angina pectoris I25.10 Per [facility] 01/27/18, Dr. Dennis @ [facility]: 0.91 FFR (50% stenosis) of RCA, manage medically: all other coronaries normal. Plan 1. Coronary artery disease: No exertional anginal symptoms at this time. No indication for any additional testing. His most recent FFR of his distal RCA was negative. He is essentially chest pain-free. He has quit smoking successfully. He is tolerating his medicines well. His fatigue is most likely a result of his chronic renal insufficiency. Recommend he continue his baby aspirin, Coreg, Lasix, Imdur and hydralazine peer 2. Implantable cardioverter-defibrillator (ICD) in situ Z95.810 Plan 2. AICD: The patient underwent a traditional AICD placement with poor capturing thresholds of his RV lead. He is supposed to undergo revision of the RV lead in January [address] Suggs at [facility]. He is currently on Veltassa which will improve his hyperkalemia hopefully increasing his capture capability of his RV lead. 3. Hyperlipidemia: His LDL and HDL cholesterol under excellent control. Continue Lipitor. 4. Return office in 6 months. This note was generated using a voice recognition system and there may be incorrect words, spelling or punctuation that were not noted when reviewing the office note prior to saving. Orders Orders: 12 Lead EKG performed by [facility] Today Plan Detail Other Orders Orders: 12 Lead EKG performed by [facility] Today I42.9 Follow Up +6M (Sonny) Coding Level of Care Code Off vis,est,level 3 Diagnoses Atherosclerosis of [place] coronary artery of [place] heart without angina pectoris I25.10 [place] vs. transplanted heart: [place] heart Implantable cardioverter-defibrillator (ICD) in situ Z95.810 Coding Level of Care Code Off vis,est,level 3 Diagnoses Atherosclerosis of [place] coronary artery of [place] heart without angina pectoris I25.10 [place] vs. transplanted heart: [place] heart Implantable cardioverter-defibrillator (ICD) in situ Z95.810 Supplemental Info Supplemental Information Labs LDL Cholesterol 46 mg/dL (0-130) 08/18/18 HDL Cholesterol 48 mg/dL (40-) 08/18/18 Triglycerides 129 mg/dL (-199) 08/18/18 VLDL Cholesterol 26 mg/dL (5-40) 08/18/18 Diagnostics Electrocardiogram 02/01/19 Echocardiogram 10/18/18 Transesophageal Echocardiogram 06/07/18 Pacemaker Check 01/25/19 Chest X-Ray 12/29/18 02/01/19 1353<Electronically signed by Alvin Dennis MD> Date Alvin Dennis MD <Lashay Orr - Last Filed: 02/08/19 12:40> History and Physical Pt seen and examined. No changes since he was last seen in the office on 02/01/2019.
[2019-02-08] VITALS (17 sets, daily range): BP systolic 116–133; BP diastolic 76–91; PULSE 85–98; RESP 15–27; TEMP 36.6–37.1; O2SAT 95–98
--- NOTE | 2019-02-08 13:37 | OP.PCM_ITS ---
Report of Operation Date of Procedure: 02/08/19 Description of Surgical Findings:: Preoperative diagnosis malfunctioning RV lead; Lead replacecment Postoperative diagnosis same as above. After informed consent and IV antibiotics the patient was brought to the [place] catheterization laboratory and the skin over the device was prepped and draped in the usual sterile manner. Intermittent boluses of Versed, and fentanyl were used for sedation and analgesia as well as 1% subcutaneous lidocaine. An incision was made over the pre-existing device. Using blunt and Bovie dissection the pocket was opened and the device was removed. Careful attention was paid not to injure the pre-existing leads. The lead was removed from the device header and they were interrogated. There was poor R wave and high capture threshold. Under fluoroscopic guidance and after retracting the screw, the RV lead was successfully explanted without complications. Using nubia Seldinger technique under fluoroscopic guidance, the left axillary vein was cannulated and over the guidewire a 9Fr safe sheath was advanced and flushed. Through this sheath a new RV single coil defibrillator lead was advanced under fluoroscopic guidance into the RV apex and actively fixated. In this position the lead was tested and found to have excellent parameters and repeated testing confirmed the same for >10 minutes after implant. There is normal lead function. The lead was secured by 2.0 silk over the siliastic collar x 2. Hemostasis was obtained. The pocket was flushed with antibiotic solution. The sponge and needle count were correct. The previously explanted device was brought to the field. The leads were placed in the appropriate position in the header and secured by the set screw. The leads and the device were then placed in the pocket as well as a tyrex antibiotic pouch. The pocket was closed with a deep layer of running 2-0 Vicryl, a superficial layer of running 4-0 Vicryl, skin with Steri-Strips which were covered with a rolled 4 x 4 and Tegaderm. Patient left the room with the device programmed to proper parameters and there were no complications. The device is a single chamber ICD. All lead parameters were tested and found to be functionally normal via the device at the end of the procedure and programmed ON Lead and device serial and model numbers are available in the chart documents provided by the device company guest services representative procedure summary.
[2019-02-08] MEDS: Acetaminophen 325 MG Tablet PO (15:04)
--- NOTE | 2019-02-08 17:39 | EKG12_ITS ---
Test Reason : ARRYHTHMIA Blood Pressure : / mmHG Vent. Rate : 085 BPM Atrial Rate : 085 BPM P-R Int : 170 ms QRS Dur : 098 ms QT Int : 394 ms P-R-T Axes : 063 034 177 degrees QTc Int : 468 ms Sinus rhythm with Fusion complexes Possible Left atrial enlargement T wave abnormality, consider lateral ischemia Prolonged QT Abnormal ECG When compared with ECG of 29-DEC-2018 09:58, Fusion complexes are now Present Confirmed by SRI ALMEIDA, KRYSTIAN ([id number]), electronic news gathering editor TENA YU ([id number]) on 02/12/2019 1:33:17 PM Referred By: Usman Hernandez Confirmed By:KRYSTIAN FIERRO MD
[2019-02-08 18:56] LABS: Anion Gap 4 (5-15); BUN 71 mg/dL (7-18); BUN/Creat Ratio 23.2 RATIO (10-20); Calcium,Total 8.1 mg/dL (8.5-10.1); Chloride 112 mmol/L (98-107); Creatinine, Serum 3.06 mg/dL (0.70-1.30); EST Glomerular Filtration Rate 22 mL/min (>60); Est Glom Filt Rate - Afr Amer 27 mL/min (>60); Estimated Creatinine Clearance 23.75 ml/min; Glucose 190 mg/dL (74-106); Magnesium 1.9 mg/dL (1.6-2.6); Potassium 4.6 mmol/L (3.5-5.1); Sodium Level 141 mmol/L (136-145)
[2019-02-08] MEDS: hydrALAZINE 10 MG Tablet PO (21:09)
[2019-02-08] MEDS: Carvedilol 6.25 MG Tablet PO (21:10)
[2019-02-08] MEDS: Atorvastatin Calcium 20 MG Tablet PO (21:10)
[2019-02-09] MEDS: Acetaminophen 325 MG Tablet PO (02:59)
[2019-02-09 03:04] VITALS: PULSE 97
[2019-02-09 04:32] VITALS: BP 133/91; PULSE 94; RESP 26; TEMP 37; O2SAT 94
--- NOTE | 2019-02-09 05:00 | RAD_ITS ---
STUDY: X-RAY CHEST REASON FOR EXAM: Male, 58 years old. Status post pacer lead changed to exclude pneumothorax. TECHNIQUE: AP and lateral views of the chest. Inspiratory and expiratory level. COMPARISON: 12/29/2018 FINDINGS: There is a a stable left subclavian approached anterior chest wall single chamber permanent pacemaker. There is no demonstrated pneumothorax. The lungs are clear and expanded. There is no demonstrated pleural abnormality. There is stable cardiac enlargement. Normal mediastinum and guru. Normal visualized pulmonary arteries. Normal visualized aortic arch and descending thoracic aorta. Normal visualized thoracic spine. Normal visualized ribs, clavicles, and shoulders. There is no demonstrated abnormality of the visualized soft tissue structures of the upper abdomen. RAD/Chest 1 View IMPRESSION: Stable cardiomegaly. There is no demonstrated pneumothorax. No pulmonary edema, congestive heart failure or confluent pneumonia. Electronically Signed: Liana Valverde MD at 6:04 EDT , Service support ,
--- NOTE | 2019-02-09 05:55 | RAD_ITS ---
STUDY: X-RAY CHEST REASON FOR EXAM: Male, 58 years old. Status post pacer lead changed to exclude pneumothorax. TECHNIQUE: AP and lateral views of the chest. Inspiratory and expiratory level. COMPARISON: 12/29/2018 FINDINGS: There is a a stable left subclavian approached anterior chest wall single chamber permanent pacemaker. There is no demonstrated pneumothorax. The lungs are clear and expanded. There is no demonstrated pleural abnormality. There is stable cardiac enlargement. Normal mediastinum and guru. Normal visualized pulmonary arteries. Normal visualized aortic arch and descending thoracic aorta. Normal visualized thoracic spine. Normal visualized ribs, clavicles, and shoulders. There is no demonstrated abnormality of the visualized soft tissue structures of the upper abdomen. RAD/Chest PA and Lateral IMPRESSION: Stable cardiomegaly. There is no demonstrated pneumothorax. No pulmonary edema, congestive heart failure or confluent pneumonia. Electronically Signed: Liana Valverde MD at 6:04 EDT , Service support ,
[2019-02-09 06:10] VITALS: BP 122/93; PULSE 90; RESP 25; TEMP 36.9; O2SAT 97
[2019-02-09 06:51] LABS: Anion Gap 7 (5-15); BUN 71 mg/dL (7-18); BUN/Creat Ratio 24.7 RATIO (10-20); Calcium,Total 8.4 mg/dL (8.5-10.1); Chloride 111 mmol/L (98-107); Creatinine, Serum 2.87 mg/dL (0.70-1.30); EST Glomerular Filtration Rate 24 mL/min (>60); Est Glom Filt Rate - Afr Amer 29 mL/min (>60); Estimated Creatinine Clearance 25.32 ml/min; Glucose 154 mg/dL (74-106); Sodium Level 142 mmol/L (136-145)
[2019-02-09 08:10] VITALS: BP 133/89; PULSE 80; RESP 22; TEMP 36.6; O2SAT 97
[2019-02-09] MEDS: Aspirin 81 MG TAB.CHEW PO (09:24)
[2019-02-09 09:25] VITALS: PULSE 80
[2019-02-09] MEDS: Carvedilol 6.25 MG Tablet PO (09:25)
[2019-02-09] MEDS: hydrALAZINE 10 MG Tablet PO (09:25)
[2019-02-09] MEDS: Isosorbide Mononitrate 30 MG Tablet PO (09:25)
[2019-02-09] MEDS: Furosemide 40 MG Tablet PO (09:25)
[2019-02-09] MEDS: Glimepiride 1 MG Tablet PO (09:25)
[2019-02-09] MEDS: PATIROMER CALCIUM SORBITEX 8.4 GM POWD.PACK PO (09:29)
[2019-02-09 10:00] VITALS: PULSE 102
--- NOTE | 2019-02-09 10:00 | PCM.PN.CARD ---
Subjectve: Patient doing well this morning. Chest x-ray was negative for pneumothorax. Patient does have some slight tenderness over the wound site. Wound pocket is clean/dry/intact without evidence of significant hematoma. Cardiac exam is unremarkable. Objective: Vital Signs Temp Pulse Resp BP Pulse Ox 98.4 F 80 25 H 122/93 H 97 02/09/19 06:10 02/09/19 09:25 02/09/19 06:10 02/09/19 06:10 02/09/19 06:10 Oxygen Delivery Method Room Air Weight: 212 lb Body Mass Index (BMI) 33.6 Intake and Output for Last 24 Hours 02/07/19 02/08/19 02/09/19 23:59 23:59 23:59 Intake Total 975 / 975 200 / 200 Output Total 300 / 300 250 / 250 Balance 675 / 675 -50 / -50 General: Awake, Alert, Oriented x 3 HEENT: PERRL, EOMI, Sclera Non Icteric Neck: Supple, Good ROM, No Lymph Node Enlargement Lungs: Clear to auscultation Cardiovascular: Regular Rhythm, Normal S1, Normal S2, No Murmurs, No Rubs, No Gallops Vascular: No Carotid Bruits, Normal Femoral Pulses, Normal Radial Pulses, Normal Dorsalis Pedal Pulse, Normal Posterior Tibial Pulses Abdomen: Bowel Sounds Present, Soft, Non Tender, No HSM, No Organomegaly Extremities: No Cyanosis, No Clubbing, No edema Neurological: No Focal Motor or Sensory Deficit 02/08/19 18:34: Sodium 141, Potassium 4.6, Chloride 112 H, Carbon Dioxide 25.0, Anion Gap 4 L, BUN 71 H, Creatinine 3.06 H, Est GFR (MDRD) Af Amer 27 L, Est GFR (MDRD) Non-Af 22 L, BUN/Creatinine Ratio 23.2 H, Glucose 190 H, Calcium 8.1 L, Magnesium 1.9 02/09/19 05:50: Sodium 142, Potassium 5.0, Chloride 111 H, Carbon Dioxide 24.0, Anion Gap 7, BUN 71 H, Creatinine 2.87 H, Est GFR (MDRD) Af Amer 29 L, Est GFR (MDRD) Non-Af 24 L, BUN/Creatinine Ratio 24.7 H, Glucose 154 H, Calcium 8.4 L Rhythm: EKG: Normal sinus rhythm with incomplete left bundle branch block and nonspecific ST and T wave changes. Rare PVC. No acute changes. ECHO: Stress Test: Cardiac Cath: PCI: CT Surgery: Holter monitor: EPS: PPM: CXR: Chest CT Scan: Medical Necessity - Tobacco Use Smoking Status: Former smoker Assessment/Plan 1. Cardiomyopathy: The patient is status post single lead defibrillator conduction wire change out, with new Medtronic lead placed. Initial post implant parameters appear to be adequate with good capture despite his renal insufficiency. Wound pocket is somewhat tender, but without crepitance, or hematoma. Chest x-ray is negative for pneumothorax. Patient will be discharged home on current medical therapy as outlined in the [facility]. No changes needed at this time. No indication for any additional changes. He will follow-up in our device clinic per protocol. The traditional post implant instructions have been given, and patient has voiced understanding. He will follow-up with Dr. Dennis going forward. 2. Patient will be discharged home. Code Visit Inpatient E&M: 78490 Subs Hosp L2
== END 2019-02-09 10:03 | disposition home or self-care (01) ==
LOC: CLSP 11:17 → PCU 14:04
PROVIDERS: Internal Medicine Cardiovascular Disease; Family Provider Family Medicine; PCP Family Medicine; Referring Provider Internal Medicine Cardiovascular Disease; Visit Provider Internal Medicine Cardiovascular Disease
DX: I25.10 Atherosclerotic heart disease of native coronary artery without angina pectoris (principal); I42.9 Cardiomyopathy, unspecified; E11.9 Type 2 diabetes mellitus without complications; I34.0 Nonrheumatic mitral (valve) insufficiency; I27.29 Other secondary pulmonary hypertension; E87.5 Hyperkalemia; I07.1 Rheumatic tricuspid insufficiency; I10 Essential (primary) hypertension; Z79.82 Long term (current) use of aspirin; Z87.891 Personal history of nicotine dependence; Z95.810 Presence of automatic (implantable) cardiac defibrillator; E78.5 Hyperlipidemia, unspecified
CPT/HCPCS: 33216; 33244; 36415; 71045; 71046; 80048; 83735; 93005; 99152; 99153; J7040; J7050; C1769; C1894

== ENCOUNTER → 2019-04-13 12:46 | Outpatient (CLI) | payer OTHER, SELFPAY ==
[2019-02-01 13:17] VITALS: BMI 33.6
[2019-04-13 13:53] LABS: Hematocrit 47.8 % (40-54); Hemoglobin 14.2 g/dL (13.0-16.5); Mean Corp Hgb Conc 29.7 g/dL (32-36); Mean Corpuscular Volume 90.9 fL (80-94); Mean Platelet Vol. 11.5 fl (6.2-12.0); Platelet Count 170 K/mm3 (150-450); RBC Distribution Width CV 15.9 % (11.6-14.6); RBC Distribution Width SD 53.3 fl (35.1-43.9); Red Blood Count 5.26 M/mm3 (4.6-6.2); White Blood Count 10.7 K/mm3 (4.4-11.0)
[2019-04-13 14:01] LABS: Protein, Urine (Random) 892.2 mg/dL (<11.9); Protein:Creat Ratio 11322 mg/g CRE (0-200)
[2019-04-13 14:06] LABS: BUN 70 mg/dL (7-18); BUN/Creat Ratio 21.3 RATIO (10-20); Calcium,Total 8.6 mg/dL (8.5-10.1); Chloride 107 mmol/L (98-107); Creatinine, Serum 3.29 mg/dL (0.70-1.30); EST Glomerular Filtration Rate 21 mL/min (>60); Est Glom Filt Rate - Afr Amer 25 mL/min (>60); Glucose 220 mg/dL (74-106); Phosphorus 5.8 mg/dL (2.5-4.9); Potassium 5.5 mmol/L (3.5-5.1); Sodium Level 140 mmol/L (136-145)
[2019-04-13 14:16] LABS: Vitamin D,25 Hydroxy 31.6 ng/mL (29.95-100.01)
[2019-04-13 14:29] LABS: PTHIN 213.4 pg/mL (18.4-80.1)
== END ==
PROVIDERS: Family Provider Family Medicine; PCP Family Medicine; Referring Provider Internal Medicine Nephrology; Visit Provider Internal Medicine Nephrology
DX: N18.4 Chronic kidney disease, stage 4 (severe) (principal); E55.9 Vitamin D deficiency, unspecified; Z13.0 Encounter for screening for diseases of the blood and blood-forming organs and certain disorders involving the immune mechanism
CPT/HCPCS: 36415; 80069; 82306; 82570; 83970; 84156; 85027

== ENCOUNTER → 2019-05-14 12:16 | Outpatient (CLI) | payer OTHER, SELFPAY ==
[2019-02-01 13:17] VITALS: BMI 33.6
[2019-05-14 13:30] LABS: Hematocrit 47.6 % (40-54); Hemoglobin 14.3 g/dL (13.0-16.5); Mean Corpuscular Hgb 27.3 pg (27.0-32.0); Mean Corpuscular Volume 90.8 fL (80-94); Mean Platelet Vol. 11.4 fl (6.2-12.0); Platelet Count 161 K/mm3 (150-450); RBC Distribution Width CV 15.6 % (11.6-14.6); RBC Distribution Width SD 52.1 fl (35.1-43.9); Red Blood Count 5.24 M/mm3 (4.6-6.2); White Blood Count 10.2 K/mm3 (4.4-11.0)
[2019-05-14 14:02] LABS: Anion Gap 6 (5-15); BUN 67 mg/dL (7-18); BUN/Creat Ratio 20.6 RATIO (10-20); Calcium,Total 8.8 mg/dL (8.5-10.1); Chloride 106 mmol/L (98-107); Creatinine, Serum 3.25 mg/dL (0.70-1.30); EST Glomerular Filtration Rate 21 mL/min (>60); Est Glom Filt Rate - Afr Amer 25 mL/min (>60); Glucose 167 mg/dL (74-106); Sodium Level 143 mmol/L (136-145)
[2019-05-14 14:02] LABS: Protein, Urine (Random) 501.1 mg/dL (<11.9); Protein:Creat Ratio 9297 mg/g CRE (0-200)
[2019-05-14 14:09] LABS: PTHIN 157.7 pg/mL (18.4-80.1); Vitamin D,25 Hydroxy 24.8 ng/mL (29.95-100.01)
[2019-05-14 14:26] LABS: BUN 67 mg/dL (7-18); BUN/Creat Ratio 21.3 RATIO (10-20); Calcium,Total 8.8 mg/dL (8.5-10.1); Chloride 109 mmol/L (98-107); Creatinine, Serum 3.15 mg/dL (0.70-1.30); EST Glomerular Filtration Rate 22 mL/min (>60); Est Glom Filt Rate - Afr Amer 26 mL/min (>60); Glucose 166 mg/dL (74-106); Phosphorus 4.4 mg/dL (2.5-4.9); Potassium 5.2 mmol/L (3.5-5.1); Sodium Level 145 mmol/L (136-145)
== END ==
PROVIDERS: Nurse Practitioner Family; Family Provider Family Medicine; PCP Family Medicine; Referring Provider Internal Medicine Nephrology; Visit Provider Internal Medicine Nephrology
DX: N18.4 Chronic kidney disease, stage 4 (severe) (principal); E55.9 Vitamin D deficiency, unspecified; Z13.0 Encounter for screening for diseases of the blood and blood-forming organs and certain disorders involving the immune mechanism; I42.9 Cardiomyopathy, unspecified; I50.22 Chronic systolic (congestive) heart failure
CPT/HCPCS: 36415; 80048; 80069; 80201; 82306; 82570; 83970; 84156; 85027

== ENCOUNTER → 2019-06-04 08:55 | Outpatient (CLI) | payer OTHER, SELFPAY ==
[2019-02-01 13:17] VITALS: BMI 33.6
--- NOTE | 2019-06-04 08:59 | VDUE_ITS ---
Reason For Study: CKD stage 4 Right Arm Left Arm Rt Brachial A: 0.49cm x 0.48cm, 74cm/s Lt Brachial A: 0.46cm x 0.45cm, 71cm/s Rt Radial A: 0.23cm x 0.24cm, 57cm/s. Lt Radial A: 0.25cm x 0.24cm, 58cm/s. Right Cephalic Vein at the wrist measures Left Cephalic Vein at the wrist measures 0.37cm x 0.38 cm. 0.40cm x 0.43 cm. Right Cephalic Vein in the forearm measures Left Cephalic Vein in the forearm measures 0.41cm x 0.43 cm. 0.36cm x 0.34 cm. Right Cephalic Vein below antecub measures Left Cephalic Vein below antecub measures 0.44cm x 0.43 cm. 0.47cm x 0.53 cm. Right Cephalic Vein above antecub measures Left Cephalic Vein above antecub measures 0.39cm x 0.44 cm. 0.48cm x 0.46 cm. Right Cephalic Vein mid bicep measures Left Cephalic Vein at mid bicep measures 0.37cm x 0.36 cm. 0.42cm x 0.42 cm. Right Cephalic Vein at the shoulder measures Left Cephalic Vein at the shoulder measures 0.40cm x 0.47 cm. 0.33cm x 0.33 cm. Right Basilic Vein at the origin measures Basilic vein at origin measures 0.60cm x 0.70cm x 0.67 cm. 0.60 cm. Right Basilic Vein mid bicep measures 0.64cm Basilic vein at bicep measures 0.64cm x 0.66 x 0.65 cm. cm. Right Basilic Vein above antecub measures Basilic vein above antecub measures 0.61cm x 0.58cm x 0.59 cm. 0.60 cm. Interpretation Summary Patent and compressible bilateral upper extremity cephalic and basilic veins with dimensions as noted. Bilateral brachial and radial arteries are of normal diameter with normal flow rates. Ordering Physician: Sheela Irving Referring Physician: Erasmo Stoner Performed By: Theresa Granda, ELEANOR, RVT ?
== END ==
PROVIDERS: Family Provider Family Medicine; PCP Family Medicine; Referring Provider Internal Medicine Nephrology; Visit Provider Internal Medicine Nephrology
DX: N18.4 Chronic kidney disease, stage 4 (severe) (principal)
CPT/HCPCS: 93970

== ENCOUNTER 2019-07-17 13:00 | Inpatient (IN) | payer OTHER, SELFPAY ==
[2019-06-22 08:57] VITALS: BMI 33.6
--- NOTE | 2019-06-22 09:22 | HP_ITS ---
Intake Vital Signs 06/22/19 Height 5 ft 7 in 06/22/19 Weight: 215 lb 06/22/19 BMI 33.6 06/22/19 BP 123/84 H 06/22/19 Blood Pressure Location Rt brachial 06/22/19 Position Sitting 06/22/19 Respiration 18 06/22/19 BMI 33.6 Intake Visit Reasons: FISTULA PLACEMENT, VEIN MAPPING @ [facility] 06/04/19 Chief Complaint: Routine follow Automotive Service Assistant Required: No Is patient in pain?: No Allergies No Known Allergies Allergy (Verified 06/22/19 08:57) Medications glimepiride 1 mg tablet 1 mg PO QAM 09/27/17 [History Confirmed 06/22/19] dulaglutide 1.5 mg/0.5 mL subcutaneous pen injector 1.5 mg SC QWEEK 11/24/18 [History Confirmed 06/22/19] Handicap parking placard #1 ea 01/29/19 [Rx Confirmed 06/22/19] patiromer calcium sorbitex 8.4 gram oral powder packet 8.4 g PO DAILY 02/01/19 [History Confirmed 06/22/19] aspirin 81 mg chewable tablet 81 mg PO DAILY@0800 #90 tab 02/26/19 [Rx Confirmed 06/22/19] atorvastatin 20 mg tablet 20 mg PO QHS #90 tab 02/26/19 [Rx Confirmed 06/22/19] carvedilol 6.25 mg tablet 6.25 mg PO BID #180 tab 02/26/19 [Rx Confirmed 06/22/19] hydralazine 10 mg tablet 10 mg PO BID #180 tab 02/26/19 [Rx Confirmed 06/22/19] isosorbide mononitrate 30 mg tablet,extended release 24 hr 30 mg PO DAILY #90 tab 02/26/19 [Rx Confirmed 06/22/19] [facility] Medical History Implantable cardioverter-defibrillator (ICD) in situ (Chronic) Cardiomyopathy (Chronic) Secondary pulmonary hypertension (Chronic) Nonrheumatic tricuspid (valve) insufficiency (Chronic) Nonrheumatic mitral (valve) insufficiency (Chronic) 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) Pericardial effusion (Acute 01/26/18) Bilateral pleural effusion (Acute 02/05/18) Pneumonia (Acute) Diabetes mellitus (Chronic) HTN (hypertension) (Chronic) Sepsis (Acute) Hyperkalemia (Acute) DILLON (acute kidney injury) (Acute) LV dysfunction (Acute) Dyspnea on exertion (Acute) Diabetes (Acute) Diarrhea (Acute) Shoulder pain (Acute) Hypertension (Chronic) Surgical History History of left heart catheterization (Chronic 01/27/18) History of tonsillectomy (Chronic) Family History Father Cancer Diabetes Social History (Updated 06/22/19 @ 09:22 by Poncho Galan MD) Smoking Status: Former smoker quit date: 01/26/18 alcohol intake: never HPI HPI HPI: TARIQ VARGAS, is a 58 M who presents to the office today for HPI HPI Surgical H&P: Yes HPI: 58-year-old gentleman with stage IV chronic renal insufficiency is referred for placement of a arteriovenous hemodialysis fistula. He has been a long-term cigarette smoker. He has type 2 diabetes. Said previous history of pneumonia. He now presents in referral from Dr. Irving for placement of an arteriovenous fistula for hemodialysis. A written copy of my surgical consult recommendations will be returned to Dr. Irving. As of May 14, 2019 BUN of 67 creatinine 3.15 with an estimated GFR of 22 He has an indwelling left subclavian defibrillator [facility] [address] [place] [id number] Saphenous Vein Mapping, Bilat 06/04/19 0909 MR#: [id number] Name:TARIQ VARGAS [facility] #:[id number] : 1960 58From:Poncho Galan MD Attending Dr: Nelsy Irving M.D.Status: REG CLI Ordering Dr: Sheela Irving MDDate: 06/04/19 [facility]: Reason For Study: CKD stage 4 Right Arm Left Arm Rt Brachial A: 0.49cm x 0.48cm, 74cm/s Lt Brachial A: 0.46cm x 0.45cm, 71cm/s Rt Radial A: 0.23cm x 0.24cm, 57cm/s. Lt Radial A: 0.25cm x 0.24cm, 58cm/s. Right Cephalic Vein at the wrist measures Left Cephalic Vein at the wrist measures 0.37cm x 0.38 cm. 0.40cm x 0.43 cm. Right Cephalic Vein in the forearm measures Left Cephalic Vein in the forearm measures 0.41cm x 0.43 cm. 0.36cm x 0.34 cm. Right Cephalic Vein below antecub measures Left Cephalic Vein below antecub measures 0.44cm x 0.43 cm. 0.47cm x 0.53 cm. Right Cephalic Vein above antecub measures Left Cephalic Vein above antecub measures 0.39cm x 0.44 cm. 0.48cm x 0.46 cm. Right Cephalic Vein mid bicep measures Left Cephalic Vein at mid bicep measures 0.37cm x 0.36 cm. 0.42cm x 0.42 cm. Right Cephalic Vein at the shoulder measures Left Cephalic Vein at the shoulder measures 0.40cm x 0.47 cm. 0.33cm x 0.33 cm. Right Basilic Vein at the origin measures Basilic vein at origin measures 0.60cm x 0.70cm x 0.67 cm. 0.60 cm. Right Basilic Vein mid bicep measures 0.64cm Basilic vein at bicep measures 0.64cm x 0.66 x 0.65 cm. cm. Right Basilic Vein above antecub measures Basilic vein above antecub measures 0.61cm x 0.58cm x 0.59 cm. 0.60 cm. Interpretation Summary Patent and compressible bilateral upper extremity cephalic and basilic veins with dimensions as noted. Bilateral brachial and radial arteries are of normal diameter with normal flow rates. Ordering Physician: Sheela Irving Referring Physician: Erasmo Stoner Performed By: Theresa Granda, RDCS, RVT ? 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, is a 58 M who presents to the office today for ROS General General: Yes weight change and fatigue; no appetite, colon cancer, breast cancer or weakness HEENT HEENT: No difficulty swallowing, eye injury, eye surgery, swollen glands or hoarseness Endo Endocrine: Yes diabetes mellitus; no thyroid disease, thyroid cancer, Hair loss, heat intolerance or cold intolerance Skin Skin: Yes rash; no changing moles Breast Breast: No left breast lump, right breast lump, nipple discharge, breast pain, abnormal mammogram, abnormal US or breast enlargement Musc Musculoskeletal: Yes back problems, arthritis and rheumatoid arthritis; no gout or joint pain Cardio Cardiovascular: Yes pacemaker, heart disease and high blood pressure; no murmur, atrial fibrillation, heart attack, heart stent, palpitations, shortness of breat with exertion or chest pain Psych Psychiatric: No depression, anxiety or hearing voices Resp Respiratory: Yes shortness of breath, No sleep apnea, Yes cough, No COPD, No asthma, No emphysema, No wheezing Gastro Gastrointestinal: No abdominal pain, No nausea or vomiting, Yes diarrhea, No constipation, No blood in stool, No acid reflux, Yes hemorrhoids, No ulcers, No gallbladder problem, No black,tarry stools [place] Hematologic: Yes blood thinners, No blood disorders, No bleeding, No anemia, No blood clots Neuro Neurologic: No system reviewed and no additional complaints, except as docu, No as per HPI, No abnormal walking, No abnormal hearing, No abnormal movements, No abnormal speech, No behavioral changes, No burning sensations, No confusion, No seizure-like activity, No unsteadiness, No dizziness, No localized weakness, No frequent falls, No headache(s), No lack of coordination, No loss of vision, No memory loss, Yes numbness, No other visual disturbances, No radiating pain, No restless legs, No sensory deficit, No fainting, Yes tingling, No tremor(s), No weakness, No other Exam Const General: cooperative Nutritional Appearance: overweight Orientation: awake HENVT Teeth and gingiva: other (Missing dentition) Chest Breast Palpation: No nipple discharge Other: Increased anterior posterior diameter Left upper chest defibrillator with slight fluctuance no erythema or tenderness Resp Other: Slightly diminished respiratory excursion, bilateral expiratory wheeze, no rales Cardio Rate: regular rate Rhythm: regular rhythm Heart Sounds: no murmurs GI Palpation: soft, no hepatosplenomegaly Auscultation: normal bowel sounds Skin Other: Few scattered minimal abrasions bilateral upper extremities Extrem Other: Right greater than left lower extremity taunt nonpitting edema Psych Affect: normal affect Assessment & Plan Problems 1. Chronic renal failure, stage 4 (severe) N18.4 Plan 58-year-old gentleman with stage IV chronic renal insufficiency. Defibrillator placed left subclavian providing contraindication to left upper remedy AV fistula. Vein mapping demonstrates adequate right radial and cephalic diameter and flow. I propose for the patient a right forearm radiocephalic arteriovenous fistula creation. I discussed the technique, benefit, risk of alternatives. No guarantees of success have been offered. He has had an opportunity to ask and have questions answered. We will schedule and proceed as noted. I very much appreciate the kind opportunity of assisting with his surgical care. CC: Dr. Irving and Dr. Herbie Galan M.D., F.A.C.S. Coding Level of Care Code 84484 Diagnoses Chronic renal failure, stage 4 (severe) N18.4 06/22/19 0922 <Electronically signed by Poncho marie MD> Date _ Poncho Galan MD I have re-examined the patient. There are no clinical changes since date of exam.
--- NOTE | 2019-07-16 13:37 | EKG12_ITS ---
Test Reason : PRE OP Blood Pressure : / mmHG Vent. Rate : 086 BPM Atrial Rate : 086 BPM P-R Int : 160 ms QRS Dur : 094 ms QT Int : 408 ms P-R-T Axes : 074 058 141 degrees QTc Int : 488 ms Normal sinus rhythm Possible Left atrial enlargement T wave abnormality, consider lateral ischemia Prolonged QT Abnormal ECG Confirmed by SRI ALMEIDA, KRYSTIAN ([id number]), video effects editor TENA YU ([id number]) on 07/17/2019 12:11:57 PM Referred By: Poncho Galan Confirmed By:KRYSTIAN FIERRO MD
[2019-07-16 14:17] LABS: Hemoglobin 14.4 g/dL (13.0-16.5); Mean Corpuscular Hgb 27.4 pg (27.0-32.0); Mean Corpuscular Volume 91.4 fL (80-94); Mean Platelet Vol. 12.3 fl (6.2-12.0); Platelet Count 150 K/mm3 (150-450); RBC Distribution Width CV 16.1 % (11.6-14.6); RBC Distribution Width SD 54.4 fl (35.1-43.9); Red Blood Count 5.25 M/mm3 (4.6-6.2)
[2019-07-16 14:43] LABS: Anion Gap 3 (5-15); BUN 66 mg/dL (7-18); BUN/Creat Ratio 18.7 RATIO (10-20); Calcium,Total 8.3 mg/dL (8.5-10.1); Chloride 105 mmol/L (98-107); Creatinine, Serum 3.53 mg/dL (0.70-1.30); EST Glomerular Filtration Rate 19 mL/min (>60); Est Glom Filt Rate - Afr Amer 23 mL/min (>60); Glucose 306 mg/dL (74-106); Potassium 4.5 mmol/L (3.5-5.1); Sodium Level 141 mmol/L (136-145)
[2019-07-17] VITALS (23 sets, daily range): BP systolic 89–181; BP diastolic 53–119; PULSE 79–102; RESP 11–20; TEMP 35.7–37.4; O2SAT 92–100; BMI 35.2; BMI 35.3
[2019-07-17] MEDS: 0.45% Normal Saline 1,000 ML 30 ML IV ×2 (09:29→22:09)
--- NOTE | 2019-07-17 10:28 | SUR.PREOP ---
anesthesia advised of glucose level, no action needed per Dr. De Leon
--- NOTE | 2019-07-17 11:32 | DCINST_ITS ---
Discharge Diet: Renal Diet Discharge Activity: May Not Drive - for 2-3 days or while taking narcotic pain medications., May Shower, May Take a Tub Bath - in 5 days. Lifting Restrictions: 5 pounds Keep extremity elevated above heart level: - - Keep arm elevated above the heart level for 3 days. Additional Activity Instructions:: Exercise hand vigorously with a stress ball. Call your doctor if your incision/area has: Continuous Slow Oozing, Sudden Increased Bleeding - apply pressure and call your doctor., Increased Pain/ Swelling, Increased Redness, Foul Smelling Discharge Call your doctor if you observe: Fever of 101 or Higher Suture Line Care: Avoid Pulling/Pushing, Avoid Pinching/Bending Cleanse incision/area with: Keep Dressing Clean & Dry Additional Dressing/Incision Instructions:: Change or remove dressing in one day. May protect with a gauze bandaid. Allergies/Adverse Reactions: Allergies No Known Allergies Allergy (Verified 07/11/19 11:34) Medications to take at Discharge glimepiride 1 mg tablet 1 mg PO QAM 09/27/17 dulaglutide 1.5 mg/0.5 mL subcutaneous pen injector 1.5 mg SC QWEEK 11/24/18 Handicap parking placard #1 ea 01/29/19 aspirin 81 mg chewable tablet 81 mg PO DAILY@0800 #90 tab 02/26/19 atorvastatin 20 mg tablet 20 mg PO QHS #90 tab 02/26/19 carvedilol 6.25 mg tablet 6.25 mg PO BID #180 tab 02/26/19 isosorbide mononitrate 30 mg tablet,extended release 24 hr 30 mg PO DAILY #90 tab 02/26/19 Cholecalciferol (VIT D3) [Vitamin D] 1,000 unit PO DAILY 07/11/19 Furosemide [Lasix] 40 mg PO BIDLX 07/11/19 Patiromer Calcium Sorbitex [Veltassa] 8.4 gm PO DAILY 07/11/19 Primary Care Physician: Erasmo Stoner DO [Primary Care Provider] - Test Results: Test results from this visit will be discussed in further detail at your follow- up appointment, if applicable. Please Follow Up With: Poncho Galan MD - [phone] When: Call to make an appointment for suture removal and follow up in 1 week.
[2019-07-17] MEDS: Bupivacaine Mpf 0.5% 30 ML VIAL (11:53)
[2019-07-17] MEDS: Heparin Injection (Vial) 5,000 UNIT/ML VIAL 5000 UNIT (11:54)
--- NOTE | 2019-07-17 12:52 | OP.PCM_ITS ---
Problem List (1) Chronic renal failure, stage 4 (severe) Status: Chronic Report of Operation Date of Procedure: 07/17/19 Pre-Operative Diagnosis: Stage IV chronic renal insufficiency Post-Operative Diagnosis: Stage IV chronic renal insufficiency. Cardiopulmonary arrest Surgery/Procedure Performed:: Attempted right forearm radial to cephalic arteriovenous fistula creation Description of Surgical Findings:: Timeout and informed consent was obtained. 58 old gent was taken to the operating room placed upon the table. He underwent monitored anesthesia care. Ultrasound mapping was performed of the cephalic vein of the right forearm. The right upper extremity was sterilely prepped and draped. 1% lidocaine mixed 50- 50 with 0.5% Marcaine was used as a local anesthetic. Local was instilled and oblique incision was made in the right wrist sharp and blunt dissection was used to identify the cephalic vein it was dissected circumferentially free. The radial artery was identified. At this point pulse in the radial artery seem to be low. I requested confirmation of the blood pressure. I was instructed at that time that the blood pressure was approximately 36/28. Anesthesiologist was immediately called into the room. Patient was converted from bag mask to endotracheal intubation. Patient received atropine for bradycardia. This did not resolve the issue compressions were initiated. The patient received 2 ampoules of epinephrine per Dr. Josef De Leon. Ongoing resuscitation was managed by Dr. De Leon. The right wrist fistula was abandoned and the wound was closed with a running septic of 4-0 Monocryl. Steri-Strip Telfa OpSite dressings applied. I now converted my attention to the left wrist which was gently extended prepped I used ultrasound and I used a 20-gauge Angiocath gain access to the left radial artery followed by Seldinger wire I then placed a 20-gauge Arrow kit Angiocath. That was secured in place with an OpSite dressing and Sami wrap. It was prior to that initiation of the procedure that spontaneous blood pressure of an adequate amount to allow for perfusion had been regained. Heart rate had been regained. The patient was intubated. Timeline per Dr. De Leon and nursing documentation. Operation was aborted. The right radial artery and cephalic vein remained intact. The patient had received heparin as I was just about to make the a nastomosis. That was 10,000 units of heparin IV. Specimens none. Drains none. Blood loss minimal. Complication: Cardiopulmonary arrest. Etiology not clear at this time. The patient is transferred to the intensive care unit under the care of Dr. Jeovanny Galan M.D., F.A.C.S. Type of Anesthesia:: Local MAC Anesthesiologist: Don Coker
[2019-07-17 13:01] LABS: Base Excess -2 mmol/L (-2 to +2); Bicarbonate 25.5 mmol/L (22-26); Blood Gas Specimen Type ALINE; O2 Delivery Device Vent; PO2 492 mmHG (75-100); SO2 100 % (95-99); Total Carbon Dioxide 27 mmol/L; pCO2 59.7 mmHg (35-45); pH 7.24 (7.35-7.45)
--- NOTE | 2019-07-17 13:03 | RAD_ITS ---
STUDY: X-RAY CHEST REASON FOR EXAM: Male, 58 years old. ET AND OG PLACEMENT TECHNIQUE: Single AP portable view of the chest. COMPARISON: Comparison is made with prior study dated February 09, 2019. FINDINGS: An endotracheal tube is in situ. The tip is at 4.6 cm proximal to the barbie. An orogastric tube is seen with the tip in the fundal portion of the stomach. EKG electrodes are seen. The lungs are clear and expanded. There is no demonstrated pleural abnormality. Normal size heart. A left-sided ICD is seen. Normal mediastinum and guru. Normal visualized pulmonary arteries. Normal visualized aortic arch and descending thoracic aorta. Normal visualized thoracic spine. Normal visualized ribs, clavicles, and shoulders. There is no demonstrated abnormality of the visualized soft tissue structures of the upper abdomen. RAD/Chest 1 View IMPRESSION: The tip of the endotracheal tube is at 4.6 cm proximal to the barbie. The tip of the orogastric tube is seen within the fundal portion of the stomach. Electronically Signed: Gabino Crenshaw, at 13:36 EST , Service support ,
[2019-07-17 13:48] LABS: Absolute Lymphocyte Count 0.65 X10^3/uL (0.83-4.51); Absolute Neutrophil Count 7.3 X10^3/uL (2.0-7.7); Basophil# 0.04 X10^3/uL; Basophil% 0.5 % (0-1); Eosinophil# 0.07 X10^3/uL; Eosinophils% 0.8 % (0-5); Hematocrit 44.9 % (40-54); Hemoglobin 13.6 g/dL (13.0-16.5); Lymphocyte # 0.65 X10^3/ul (4.0); Lymphocyte % 7.8 % (19-41); Mean Corp Hgb Conc 30.3 g/dL (32-36); Mean Corpuscular Hgb 27.8 pg (27.0-32.0); Mean Corpuscular Volume 91.6 fL (80-94); Mean Platelet Vol. 12.5 fl (6.2-12.0); Monocyte# 0.25 X10^3/uL; NRBC Flagged by Analyzer 0 % (0-5); Neutrophil # 7.29 X10^3/uL (2.7-7.7); Neutrophil % 87.2 % (47-70); Platelet Count 133 K/mm3 (150-450); RBC Distribution Width CV 16.2 % (11.6-14.6); RBC Distribution Width SD 54.4 fl (35.1-43.9); White Blood Count 8.4 K/mm3 (4.4-11.0)
--- NOTE | 2019-07-17 13:55 | CON.PCM_ITS ---
Capacity - Capacity Assessment Tool Can the patient make a choice & communicate that choice?: No Can the patient understand benefits, risks and alternatives?: No Can the patient make a logical, rational choice?: No Is there a Surrogate Available?: Yes Reason for Consult Date of Consultation: 07/17/19 Reason for Consultation: Acute Respiratory Failure s/p Cardiac Arrest History of Present Illness: The patient is a 58-year-old male, with a history as outlined below, who initially presented to the hospital for an elective outpatient right forearm radiocephalic AV fistula creation. The patient has an extensive medical history including diabetes, obesity, tobacco dependency, chronic renal insufficiency, nonischemic cardiomyopathy, pulmonary hypertension and valvular heart disease. His last surface echocardiogram revealed evidence of a moderately dilated LV with an ejection fraction of 25% and stage II diastolic dysfunction. The RV was moderately dilated with a right ventricular systolic pressure estimated to be 52 mmHg. The patient has been followed by Dr. Dennis of cardiology in the past. In addition to the aforementioned, he currently has a single lead ICD in place. The patient was subsequently taken to the OR on July 17 where he underwent monitored anesthesia care. At some point, the patient apparently became hypotensive with a nonpalpable radial pulse. The patient was noted to be significantly hypotensive with some form of a bradyarrhythmia. Anesthesia provided supportive measures in the form of endotracheal intubation. The patient did receive ACLS and CPR for what I assume to be pulseless electrical activity. The surgical procedure was aborted accordingly. On arrival to the ICU, the patient's ventilator parameters were augmented, as his initial arterial blood gas revealed evidence of a primary respiratory acidosis. The patient was not on any form of sedation and unfortunately did not respond to noxious or verbal stimulation. The patient did demonstrate disproportionate pupillary reflexes and had what appeared to be focal myoclonic jerking of the upper extremities. Past Medical History Past Medical History (Chronic Problems): Chronic Problems (Last Reviewed 06/22/19 @ 08:56 by Yessi Boucher) Chronic renal failure, stage 4 (severe) (Chronic) Implantable cardioverter-defibrillator (ICD) in situ (Chronic) Cardiomyopathy (Chronic) EF 30% per echo 01/27/18 with severely hypokinetic areas of left venticle Secondary pulmonary hypertension (Chronic) RVSP 54mmhg per echo 01/27/18 Nonrheumatic tricuspid (valve) insufficiency (Chronic) mild (1+) per echo 01/27/2010 Nonrheumatic mitral (valve) insufficiency (Chronic) mild (1+) per echo 01/27/18 History of left heart catheterization (Chronic 01/27/18) 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 Dennis @ [facility]: 0.91 FFR (50% stenosis) of RCA, manage medically: all other coronaries normal. Diabetes mellitus (Chronic) HTN (hypertension) (Chronic) Medical History: Medical History (Last Reviewed 06/22/19 @ 08:56 by Yessi Boucher) Chronic renal failure, stage 4 (severe) (Chronic) N18.4 Implantable cardioverter-defibrillator (ICD) in situ (Chronic) Z95.810 Cardiomyopathy (Chronic) I42.9 EF 30% per echo 01/27/18 with severely hypokinetic areas of left venticle Secondary pulmonary hypertension (Chronic) RVSP 54mmhg per echo 01/27/18 Nonrheumatic tricuspid (valve) insufficiency (Chronic) I36.1 mild (1+) per echo 01/27/2010 Nonrheumatic mitral (valve) insufficiency (Chronic) I34.0 mild (1+) per echo 01/27/18 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 Dennsi @ [facility]: 0.91 FFR (50% stenosis) of RCA, manage medically: all other coronaries normal. Pericardial effusion (Acute) Onset Date: 01/26/18 I31.[address] Bilateral pleural effusion (Acute) Onset Date: 02/05/18 J90 Pneumonia (Acute) J18.9 Diabetes mellitus (Chronic) E11.9 HTN (hypertension) (Chronic) I10 Sepsis (Acute) A41.9 Hyperkalemia (Acute) E87.5 DILLON (acute kidney injury) (Acute) N17.9 LV dysfunction (Acute) I51.9 Severely dilated left ventricle, EF 30% per echo 01/27/18 Dyspnea on exertion (Acute) R06.09 Diabetes E11.9 Diarrhea R19.7 Shoulder pain M25.519 Hypertension I10 Allergies No Known Allergies Allergy (Verified 07/11/19 11:34) Home Medications: Ambulatory Orders Medication Instructions Recorded glimepiride 1 mg tablet 1 mg PO QAM 09/27/17 dulaglutide 1.5 mg/0.5 mL 1.5 mg SC QWEEK 11/24/18 subcutaneous pen injector Handicap araceli roth #1 ea 01/29/19 aspirin 81 mg chewable tablet 81 mg PO DAILY@0800 #90 tab 02/26/19 atorvastatin 20 mg tablet 20 mg PO QHS #90 tab 02/26/19 carvedilol 6.25 mg tablet 6.25 mg PO BID #180 tab 02/26/19 isosorbide mononitrate 30 mg 30 mg PO DAILY #90 tab 02/26/19 tablet,extended release 24 hr Cholecalciferol (VIT D3) [Vitamin 1,000 unit PO DAILY 07/11/19 D3] Furosemide [Lasix] 40 mg PO BIDLX 07/11/19 Patiromer Calcium Sorbitex 8.4 gm PO DAILY 07/11/19 [Veltassa] Hydrocodone Bitart/Apap 5-325 1 tab PO Q6H PRN PRN 2 Days #5 tab 07/17/19 [Saucier 5MG-325MG] Surgical History: Surgical History (Last Reviewed 06/22/19 @ 08:56 by Yessi Boucher) History of left heart catheterization (Chronic) Onset Date: 01/27/18 Z98.890 History of tonsillectomy Z90.89 Surgical History: tonsillectomy Psychiatric History: No pertinent psych hx Smoking Status: Former smoker Tobacco Use: Non-smoker - *Family History Maternal Family History: Family History (Last Reviewed 06/22/19 @ 08:57 by Yessi Boucher) Father Cancer Diabetes History Items: No pertinent history Paternal Family History: Family History (Last Reviewed 06/22/19 @ 08:57 by Yessi Boucher) Father Cancer Diabetes History Items: No pertinent history Review of Systems Unable to obtain accurate/complete ROS d/t: Due to current intubation and mechanical ventilation status Objective: The patient's most recent lab work, culture data and imaging studies have all been personally reviewed. - Physical Exam Vitals/I&O's: Vital Signs Temp Pulse Resp BP Pulse Ox 98.3 F 81 16 137/89 H 94 07/17/19 09:22 07/17/19 09:22 07/17/19 09:22 07/17/19 09:22 07/17/19 09:22 Oxygen Delivery Method Room Air Weight: 224 lb 13.944 oz Body Mass Index (BMI) 35.2 General: - - Currently intubated and mechanically ventilated. No sedation currently infusing. HEENT: Atraumatic, Normocephalic Oral: No Gingival or Mucosal Lesions/ Ulcerations, - - Endotracheal and OG tubes currently in place Neck: Supple, No Nodes, Trachea Midline Lungs: No rhonchi, No wheeze, No rales, Diminished Cardiovascular: Regular rate, Regular Rhythm, Normal S1, Normal S2 Abdomen: Bowel Sounds Present, Soft, Non Tender, Obese Extremities: No clubbing, No cyanosis, Edema Skin: No breakdown Musculoskeletal: No Muscle Wasting Lymphatic: No Cervical, Supraclavicular, or Inguinal Adenopathy Neurological: - - The patient is currently nonresponsive to both verbal and noxious stimulation. There is intermittent myoclonic jerking of the upper extremities, right greater than left. Labs (Last 48 Hours) 07/16/19 07/16/19 07/17/19 13:29 13:29 12:51 WBC 11.0 RBC 5.25 Hgb 14.4 Hct 48.0 MCV 91.4 MCH 27.4 MCHC 30.0 L RDW Std Deviation 54.4 H RDW Coeff of Nora 16.1 H Plt Count 150 MPV 12.3 H Immature Gran % (Auto) Neut % (Auto) Lymph % (Auto) [place] % (Auto) Eos % (Auto) Baso % (Auto) Absolute Neuts (auto) Absolute Lymphs (auto) Nucleated RBC % Specimen Type ROBERTO pH 7.24 L Bicarbonate Actual 25.5 POC Total CO2 27 Base Excess -2 O2 Saturation 100 H ABG pCO2 59.7 H ABG pO2 492 H* O2 Delivery Device Vent Blood Gas Notified Whom OTHER Sodium 141 Potassium 4.5 Chloride 105 Carbon Dioxide 33.0 H Anion Gap 3 L BUN 66 H Creatinine 3.53 H Est GFR (MDRD) Af Amer 23 L Est GFR (MDRD) Non-Af 19 L BUN/Creatinine Ratio 18.7 Glucose 306 H Lactic Acid Calcium 8.3 L Total Bilirubin AST ALT Alkaline Phosphatase Troponin I Total Protein Albumin 0107/17/19 07/17/19 13:30 13:30 13:30 WBC 8.4 RBC 4.90 Hgb 13.6 Hct 44.9 MCV 91.6 MCH 27.8 MCHC 30.3 L RDW Std Deviation 54.4 H RDW Coeff of Nora 16.2 H Plt Count 133 L MPV 12.5 H Immature Gran % (Auto) 0.700 Neut % (Auto) 87.2 H Lymph % (Auto) 7.8 L [place] % (Auto) 3.0 Eos % (Auto) 0.8 Baso % (Auto) 0.5 Absolute Neuts (auto) 7.3 Absolute Lymphs (auto) 0.65 L Nucleated RBC % 0 Specimen Type pH Bicarbonate Actual POC Total CO2 Base Excess O2 Saturation ABG pCO2 ABG pO2 O2 Delivery Device Blood Gas Notified Whom Sodium Pending Potassium Pending Chloride Pending Carbon Dioxide Pending Anion Gap Pending BUN Pending Creatinine Pending Est GFR (MDRD) Af Amer Pending Est GFR (MDRD) Non-Af Pending BUN/Creatinine Ratio Pending Glucose Pending Lactic Acid Pending Calcium Pending Total Bilirubin Pending AST Pending ALT Pending Alkaline Phosphatase Pending Troponin I Pending Total Protein Pending Albumin Pending Clinical Impression(s) from Imaging Studies Chest X-Ray 07/17/19 13:03 IMPRESSION: The tip of the endotracheal tube is at 4.6 cm proximal to the barbie. The tip of the orogastric tube is seen within the fundal portion of the stomach. Electronically Signed: Gabino Crenshaw, at 13:36 EST , Service support , Current Medications Acetaminophen (Tylenol) 650 mg PO Q6H PRN PRN PRN Reason: Pain Score 1-10/10 Hydrocodone Bitart/Acetaminophen (Saucier 5mg-325mg) 1 - 2 tablet PO Q4H PRN PRN PRN Reason: Pain Score 1-10/10 Sodium Chloride () 1,000 mls @ 30 mls/hr IV .[id number] JUAN Last Admin: 07/17/19 09:29 Dose: 30 mls/hr Documented by: Assessment/Plan RECOMMENDATIONS: 1. Obtain arterial blood gas 1 hour post ventilator parameter changes. 2. Obtain plain film chest x-ray. 3. Check CBC with differential, comprehensive metabolic profile, lactic acid and troponin. 4. Obtain CT head. 5. Continue to withhold all sedating medications. 6. Start as needed Ativan for seizures along with seizure precautions. 7. Obtain EEG. 8. Will likely require neurology consultation tomorrow. IMPRESSIONS: 1. Acute combined respiratory failure/cardiac arrest The patient has a known history of a nonischemic cardiomyopathy with valvular heart disease and combined systolic/diastolic heart failure with a last known ejection fraction of 25%. He underwent monitored anesthesia care for placement of an AV fistula. Unfortunately, the patient experienced an intraoperative cardiac arrest. The patient was notably hypotensive during the procedure. He required emergent intubation and ACLS. Return of spontaneous circulation was achieved. Following this, the patient was transferred to the medical intensive care unit. His ventilator parameters will be augmented to optimize his acid- base status. All sedating medications will be withheld. Obtain arterial blood gas in 1 hour along with plain film chest x-ray to confirm endotracheal and OG tube placement. 2. Encephalopathy Clinical concern for anoxic brain injury. Recommend continuing to withhold all sedating medications. We will plan to recheck arterial blood gas in 1 hour. If the ABG reveals normalization of acid-base status, will obtain CT head. Given that there is evidence of myoclonic jerking of the upper extremities, PRN Ativan will be ordered. The patient will likely require an EEG and formal neurology consultation. 3. History of nonischemic cardiomyopathy/chronic combined systolic and diastolic heart failure/valvular heart disease/secondary pulmonary hypertension At this time, continue to hold all baseline cardiac medications. Check troponin. 4. Chronic kidney disease Creatinine is stable at this time. Segal catheter is in place. Will monitor urine output accordingly. 5. Obesity/diabetes mellitus/hyperlipidemia/CODE STATUS Complicates care, management, recovery and prognosis. Start sliding scale insulin and Accu-Cheks. I spoke to the patient's at the bedside who indicated that she wished for the patient to remain a full code for the present time. Orders have been placed accordingly. TIME: 42 minutes of critical care time, independent of procedures, was spent addressing the patient's acute combined respiratory failure, cardiac arrest, encephalopathy, chronic combined systolic and diastolic heart failure, valvular heart disease, secondary pulmonary hypertension, chronic kidney disease, review of all data and collaboration with the care team. ([id number]) Code Visit 9xxxx: [id number] Critical care first hour
[2019-07-17 14:11] LABS: Base Excess 3 mmol/L (-2 to +2); Bicarbonate 28.1 mmol/L (22-26); Blood Gas Specimen Type ART; FI02 30; Mode A-C; O2 Delivery Device Vent; PEEP 5; PO2 65 mmHG (75-100); RR 14; SITE L Radial; SO2 92 % (95-99); Time Given 1400; Total Carbon Dioxide 30 mmol/L; Vt 500; pCO2 47.9 mmHg (35-45); pH 7.38 (7.35-7.45)
[2019-07-17 14:12] LABS: ALB/GLOB Ratio 0.8 RATIO (0.9-2.4); AST(SGOT) 25 U/L (15-37); Alanine Aminotransfer ALT/SGPT 23 U/L (16-61); Albumin, Serum 1.9 g/dL (3.2-5.0); Alkaline Phosphatase 57 U/L (45-117); Anion Gap 4 (5-15); BUN 56 mg/dL (7-18); BUN/Creat Ratio 19.7 RATIO (10-20); Calcium,Total 6.7 mg/dL (8.5-10.1); Chloride 111 mmol/L (98-107); Creatinine, Serum 2.84 mg/dL (0.70-1.30); EST Glomerular Filtration Rate 24 mL/min (>60); Est Glom Filt Rate - Afr Amer 30 mL/min (>60); Estimated Creatinine Clearance 26.51 ml/min; Globulin 2.5 g/dL (2.2-4.2); Glucose 228 mg/dL (74-106); Lactic Acid 1.6 mmol/L (0.4-1.9); Protein, Total 4.4 g/dL (6.4-8.2); Sodium Level 144 mmol/L (136-145)
--- NOTE | 2019-07-17 14:16 | CT_ITS ---
STUDY: CT BRAIN WITHOUT CONTRAST REASON FOR EXAM: Male, 58 years old. CONCERN FOR ANOXIC BRAIN INJURY RADIATION DOSAGE (If Supplied By Facility): CTDIvol = ( 44.99 ) mGy, DLP = ( 812.98 ) mGycm TECHNIQUE: Transaxial CT imaging of the brain was performed without administration of intravenous contrast material. Individualized dose optimization techniques were used for this CT. COMPARISON: No relevant priors. FINDINGS: Normal soft tissue structures. Normal calvarium. There is mild cerebral atrophy with widening of the extra-axial spaces and ventricular dilatation. Normal white matter tracts of the cerebral hemispheres. Normal basal ganglia and thalami. Normal brainstem. Normal cerebellum. There is no intracranial hemorrhage. There are no findings of an acute ischemic infarction. Mild mucosal thickening of the maxillary sinuses bilaterally as well as partial opacification of the ethmoid sinuses. CT/Brain/Head without Contrast IMPRESSION: Chronic involutional changes of the brain. Electronically Signed: Gabino Crenshaw, at 15:03 EST , Service support ,
[2019-07-17 15:05] LABS: Bedside Glucose 222 mg/dL (70-110)
--- NOTE | 2019-07-17 15:30 | RAD_ITS ---
STUDY: X-RAY CHEST REASON FOR EXAM: Male, 58 years old. central line placement TECHNIQUE: Single AP portable view of the chest. COMPARISON: Earlier the same day FINDINGS: Endotracheal tube now 4 cm above the barbie. Feeding tube extends to the stomach in the left upper quadrant. Central catheter on the right extends to the lower superior vena cava. Pacemaker device on the left is stable. Left lower lung increased opacities. There is blunting of the left costophrenic recess with pleural thickening or small effusion. There is moderate cardiac enlargement. Normal mediastinum and guru. Normal visualized pulmonary arteries. Normal visualized aortic arch and descending thoracic aorta. Normal visualized thoracic spine. Normal visualized ribs, clavicles, and shoulders. There is no demonstrated abnormality of the visualized soft tissue structures of the upper abdomen. RAD/CXR for Line Placement IMPRESSION: Central catheter on the right. No pneumothorax. Stable endotracheal tube and feeding tube and pacemaker. Left lower lung atelectasis or infiltrate and small effusion. Electronically Signed: Shaun Mccullough MD at 16:50 EST , Service support ,
--- NOTE | 2019-07-17 15:30 | CPS ---
Critical blood gas results gave to at 1258pm L[facility]pez MENDOZA
--- NOTE | 2019-07-17 15:39 | PCM.OPRPT ---
Report of Operation Date of Procedure: 07/17/19 Surgery/Procedure Performed:: Triple lumen catheter insertion Description of Surgical Findings:: Central line placement procedure note Indication: IV access/hemodynamic instability/vasoactive medications Procedure: A time-out was completed to verify correct patient, indication, medication allergies, procedure, coagulation studies, informed consent signed, and equipment needed. The patient was placed in the supine position for a central line placement to the rt IJ vein. The patients rt neck was prepped using chlorhexidine and a full body sterile drape was applied. 1% lidocaine was used to anesthetize the surrounding skin. A 7fr 16 cm blue guard triple lumen catheter introduced into the internal jugular vein using the modified Seldinger technique with the assistance of ultrasound. The catheter was threaded smoothly over the guidewire, the guidewire was removed easily, nonpulsatile blood returned. All ports were aspirated of air and flushed with sterile saline. The catheter was sutured in place and covered with an occlusive dressing impregnated with chlorhexidine. Post-procedure: The patient tolerated the procedure well. Vital signs remained stable. EBL 5 cc. No complications. Chest X Ray ordered to confirm tip placement and the absence of pneumothorax. Code Visit Procedures: 99802 Insert Non-tunnel CV Cath
--- NOTE | 2019-07-17 16:00 | NURSING ---
Tequila ambrose placed for temp 96.2
--- NOTE | 2019-07-17 16:59 | CON.PCM_ITS ---
Problem List (1) Chronic renal failure, stage 4 (severe) Status: Chronic (2) Implantable cardioverter-defibrillator (ICD) in situ Status: Chronic (3) Cardiomyopathy Status: Chronic Qualifiers: Comment: EF 30% per echo 01/27/18 with severely hypokinetic areas of left venticle (4) Secondary pulmonary hypertension Status: Chronic Comment: RVSP 54mmhg per echo 01/27/18 (5) Nonrheumatic tricuspid (valve) insufficiency Status: Chronic Comment: mild (1+) per echo 01/27/2010 (6) Nonrheumatic mitral (valve) insufficiency Status: Chronic Comment: mild (1+) per echo 01/27/18 (7) History of left heart catheterization Status: Chronic (8) Atherosclerotic heart disease of [place] coronary artery without angina pectoris Status: Chronic Qualifiers: [place] vs. transplanted heart: [place] heart Qualified Code(s): I25.10 - Atherosclerotic heart disease of [place] coronary artery without angina pectoris Comment: Per [facility] 01/27/18, Dr. Dennis @ [facility]: 0.91 FFR (50% stenosis) of RCA, manage medically: all other coronaries normal. (9) Pericardial effusion Status: Acute Comment: small per chest CT (10) Bilateral pleural effusion Status: Acute (11) Pneumonia Status: Acute (12) Diabetes mellitus Status: Chronic Qualifiers: Diabetes mellitus type: type 2 (13) HTN (hypertension) Status: Chronic Qualifiers: Hypertension type: essential hypertension Qualified Code(s): I10 - Essential (primary) hypertension (14) Sepsis Status: Acute (15) Hyperkalemia Status: Acute (16) DILLON (acute kidney injury) Status: Acute (17) LV dysfunction Status: Acute Comment: Severely dilated left ventricle, EF 30% per echo 01/27/18 (18) Dyspnea on exertion Status: Acute (19) Sinusitis, acute Status: Acute Qualifiers: Sinusitis location: maxillary Recurrence: non-recurrent Qualified Code( s): J01.00 - Acute maxillary sinusitis, unspecified Reason for Consult Date of Consultation: 07/17/19 Reason for Consultation: Status post CODE BLUE, intubated in ICU History of Present Illness: The patient is a 58 year old M with multiple comorbidities including CKD stage IV, diabetes mellitus, nonischemic cardiomyopathy with EF 25% pulmonary hypertension was in OR for elective outpatient right forearm radiocephalic AV fistula creation. During the initial part of surgery, during dissection of right wrist patient blood pressure dropped and was found 36/28 and had atropine for bradycardia. Anesthesiologist intubated the patient. CODE BLUE was called and patient had 2 ampoules of epinephrine by anesthesiologist and CPR which lasted for about 7 minutes. Heart rate recovered and patient subsequently transferred to ICU. Patient also had 10,000 units of IV heparin during operative procedure but procedure was abandoned and right wrist incision was closed. [] Review of system taken from near the bedside: Patient completed antibiotic about 1 or 2 weeks ago probably bronchitis or pneumonia. Past Medical History Past Medical History (Chronic Problems): Chronic Problems (Last Reviewed 06/22/19 @ 08:56 by Yessi Boucher) Chronic renal failure, stage 4 (severe) (Chronic) Implantable cardioverter-defibrillator (ICD) in situ (Chronic) Cardiomyopathy (Chronic) EF 30% per echo 01/27/18 with severely hypokinetic areas of left venticle Secondary pulmonary hypertension (Chronic) RVSP 54mmhg per echo 01/27/18 Nonrheumatic tricuspid (valve) insufficiency (Chronic) mild (1+) per echo 01/27/2010 Nonrheumatic mitral (valve) insufficiency (Chronic) mild (1+) per echo 01/27/18 History of left heart catheterization (Chronic 01/27/18) Atherosclerotic heart disease of [place] coronary artery without angina pectoris (Chronic 01/27/18) Per [facility] 01/27/18, Dr. Dennis @ [facility]: 0.91 FFR (50% stenosis) of RCA, manage medically: all other coronaries normal. Diabetes mellitus (Chronic) HTN (hypertension) (Chronic) Medical History: Medical History (Last Reviewed 06/22/19 @ 08:56 by Yessi Boucher) Chronic renal failure, stage 4 (severe) (Chronic) N18.4 Implantable cardioverter-defibrillator (ICD) in situ (Chronic) Z95.810 Cardiomyopathy (Chronic) I42.9 EF 30% per echo 01/27/18 with severely hypokinetic areas of left venticle Secondary pulmonary hypertension (Chronic) RVSP 54mmhg per echo 01/27/18 Nonrheumatic tricuspid (valve) insufficiency (Chronic) I36.1 mild (1+) per echo 01/27/2010 Nonrheumatic mitral (valve) insufficiency (Chronic) I34.0 mild (1+) per echo 01/27/18 Atherosclerotic heart disease of [place] coronary artery without angina pectoris (Chronic) Onset Date: 01/27/18 I25.10 Per [facility] 01/27/18, Dr. Dennis @ [facility]: 0.91 FFR (50% stenosis) of RCA, manage me dically: all other coronaries normal. Pericardial effusion (Acute) Onset Date: 01/26/18 I31.[address] Bilateral pleural effusion (Acute) Onset Date: 02/05/18 J90 Pneumonia (Acute) J18.9 Diabetes mellitus (Chronic) E11.9 HTN (hypertension) (Chronic) I10 Sepsis (Acute) A41.9 Hyperkalemia (Acute) E87.5 DILLON (acute kidney injury) (Acute) N17.9 LV dysfunction (Acute) I51.9 Severely dilated left ventricle, EF 30% per echo 01/27/18 Dyspnea on exertion (Acute) R06.09 Diabetes E11.9 Diarrhea R19.7 Shoulder pain M25.519 Hypertension I10 Allergies No Known Allergies Allergy (Verified 07/11/19 11:34) Home Medications: Ambulatory Orders Medication Instructions Recorded glimepiride 1 mg tablet 1 mg PO QAM 09/27/17 dulaglutide 1.5 mg/0.5 mL 1.5 mg SC QWEEK 11/24/18 subcutaneous pen injector Handicap parking placard #1 ea 01/29/19 aspirin 81 mg chewable tablet 81 mg PO DAILY@0800 #90 tab 02/26/19 atorvastatin 20 mg tablet 20 mg PO QHS #90 tab 02/26/19 carvedilol 6.25 mg tablet 6.25 mg PO BID #180 tab 02/26/19 isosorbide mononitrate 30 mg 30 mg PO DAILY #90 tab 02/26/19 tablet,extended release 24 hr Cholecalciferol (VIT D3) [Vitamin 1,000 unit PO DAILY 07/11/19 D3] Furosemide [Lasix] 40 mg PO BIDLX 07/11/19 Patiromer Calcium Sorbitex 8.4 gm PO DAILY 07/11/19 [Veltassa] Hydrocodone Bitart/Apap 5-325 1 tab PO Q6H PRN PRN 2 Days #5 tab 07/17/19 [Bomoseen 5MG-325MG] Surgical History: Surgical History (Last Reviewed 06/22/19 @ 08:56 by Yessi Boucher) History of left heart catheterization (Chronic) Onset Date: 01/27/18 Z98.890 History of tonsillectomy Z90.89 Surgical History: tonsillectomy Psychiatric History: No pertinent psych hx Smoking Status: Current every day smoker Tobacco Use: Non-smoker - *Family History Maternal Family History: Family History (Last Reviewed 06/22/19 @ 08:57 by Yessi Boucher) Father Cancer Diabetes History Items: No pertinent history Paternal Family History: Family History (Last Reviewed 06/22/19 @ 08:57 by Yessi Boucher) Father Cancer Diabetes History Items: No pertinent history Review of Systems Unable to obtain accurate/complete ROS d/t: Patient is intubated on ventilator - Physical Exam Vitals/I&O's: Vital Signs Temp Pulse Resp BP Pulse Ox 96.2 F L 87 14 163/99 H 97 07/17/19 16:00 07/17/19 16:00 07/17/19 16:00 07/17/19 16:00 07/17/19 16:00 Oxygen Delivery Method Mechanical Ventilator Weight: 224 lb 13.944 oz Body Mass Index (BMI) 35.2 General: - - Intubated and sedated on ventilator. HEENT: - - Eye movement present. Oral: - - ET and OG tube tube. Abdomen: Bowel Sounds Present, Soft, Non Tender, Non-Distended, - - Segal catheter present. Clear urine in Segal catheter. Extremities: Capillary Refill Less than 3 Seconds, Edema Skin: No rashes, No breakdown Musculoskeletal: Arthritic Changes Neurological: - - Patient is intubated and sedated therefore neuro exam is unobtainable. Laboratory Results 07/17/19 09:21: POC Glucose 222 H 07/17/19 12:51: Specimen Type ROBERTO, pH 7.24 L, Bicarbonate Actual 25.5, POC Total CO2 27, Base Excess -2, O2 Saturation 100 H, ABG pCO2 59.7 H, ABG pO2 492 H*, O2 Delivery Device Vent, Blood Gas Notified Whom OTHER 07/17/19 13:30: Sodium 144, Potassium 4.0, Chloride 111 H, Carbon Dioxide 29.0, Anion Gap 4 L, BUN 56 H, Creatinine 2.84 H, Estim Creat Clear Calc 26.51, Est GFR (MDRD) Af Amer 30 L, Est GFR (MDRD) Non-Af 24 L, BUN/Creatinine Ratio 19.7, Glucose 228 H, Calcium 6.7 L, Total Bilirubin 0.70, AST 25, ALT 23, Alkaline Phosphatase 57, Troponin I 0.054 H, Total Protein 4.4 L, Albumin 1.9 L, Globulin 2.5, Albumin/Globulin Ratio 0.8 L 07/17/19 13:30: WBC 8.4, RBC 4.90, Hgb 13.6, Hct 44.9, MCV 91.6, MCH 27.8, MCHC 30.3 L, RDW Std Deviation 54.4 H, RDW Coeff of Nora 16.2 H, Plt Count 133 L, MPV 12.5 H, Immature Gran % (Auto) 0.700, Neut % (Auto) 87.2 H, Lymph % (Auto) 7.8 L , [place] % (Auto) 3.0, Eos % (Auto) 0.8, Baso % (Auto) 0.5, Absolute Neuts (auto) 7.3, Absolute Lymphs (auto) 0.65 L, Nucleated RBC % 0 07/17/19 13:30: Lactic Acid 1.6 07/17/19 14:05: Specimen Type ART, Sample Site L Radial, pH 7.38, Bicarbonate Actual 28.1 H, POC Total CO2 30, Base Excess 3 H, O2 Saturation 92 L, O2 % 30, ABG pCO2 47.9 H, ABG pO2 65 L, Ikko Test NA, Respiration Rate 14, O2 Delivery Device Vent, Minute Volume 9.00, Vent Mode A-C, Tidal Volume 500, POC PEEP 5, Blood Gas Notified Whom ICU MD, Blood Gas Notified Time 1400 Current Medications Acetaminophen (Tylenol) 650 mg PO Q6H PRN PRN PRN Reason: Pain Score 1-10/10 Hydrocodone Bitart/Acetaminophen (Bomoseen 5mg-325mg) 1 - 2 tablet PO Q4H PRN PRN PRN Reason: Pain Score 1-10/10 Chlorhexidine Gluconate () 15 ml PO BID JUAN Famotidine (Pepcid) 20 mg GT DAILY [facility] Sodium Chloride () 1,000 mls @ 30 mls/hr IV .[id number] [facility] Last Admin: 07/17/19 09:29 Dose: 30 mls/hr Documented by: Labetalol HCl (Trandate) 20 mg IV Q4H PRN PRN PRN Reason: SBP GREATER THAN 170 Sodium Chloride () 10 - 40 ml IV UD PRN PRN Reason: Multilumen/Ledbetter Flush Sodium Chloride (0.9% Nacl (Sterile) Posiflush) 10 - 40 ml IV UD PRN PRN Reason: Port access or dressing change Sodium Chloride () 10 - 40 ml IV UD PRN PRN Reason: SALINE FLUSH Assessment/Plan All Active Problems (Last Reviewed 06/22/19 @ 08:56 by Yessi Boucher) Pericardial effusion (Acute 01/26/18) Bilateral pleural effusion (Acute 02/05/18) Pneumonia (Acute) Sepsis (Acute) Hyperkalemia (Acute) DILLON (acute kidney injury) (Acute) LV dysfunction (Acute) Dyspnea on exertion (Acute) Sinusitis, acute (Acute) There is a 58-year-old gentleman who was admitted after CODE BLUE in OR during right forearm radiocephalic AV fistula creation. 1. Acute cardiopulmonary arrest status post intubation and CODE BLUE: Patient is currently in ICU intubated on ventilator. Partition Making Machine Operator has been consulted and consult note reviewed. ABG 7.38/40 8/65 on 30% FiO2/500/14/5. Initial ABG was 7.2 4/60/192 on vent. Exact etiology of hypotension and cardiac arrest unclear. Chest x-ray independently reviewed and shows left lung base atelectasis. Patient has AICD and ET and OG tube in a stable position. 2. Cardiac arrest after bradycardia with history of chronic combined systolic and diastolic heart failure status post AICD, valvular heart disease, secondary pulmonary hypertension: Patient had PEA rhythm during cardiac arrest. No EKG after CODE BLUE. Opponens and EKG ordered. First troponin mildly elevated. Lactic acid normal. Patient had echo which showed moderately dilated LV with EF 25% with stage II diastolic dysfunction. Patient also has moderate MR, TR, RVSP 52 mmHg/2 of moderately pulmonary hypertension. Patient had cardiac cath, [facility] in January 2018. RCA 50% stenosis with FFR 0.9. On medical management. All other coronaries were normal. Patient follows Dr. Dennis. As patient had heparin IV during AV fistula creation, will hold aspirin or other antiplatelet/antithrombotic agent. Hold beta-alee. Once patient is hemodynamically stable, can resume furosemide. 3. Diabetes mellitus type 2: Accu-Cheks every 6 hourly and cover with blood sliding scale. 4. Acute encephalopathy: Patient is not on sedative medications but is still unresponsive intubated. CT head shows chronic changes. Patient had propofol, fentanyl, bupivacaine during surgical procedure. 5. CKD stage IV: Patient follows vessel ordinary seaman, . BUN/creatinine 56/2.84, K4.0, sodium 144. Overall, renal function looks better as compared to yesterday, BUN 66/3.53. Monitor intake and output. Consult vessel ordinary seaman. 6. Other chronic comorbidities include hypertension, dyslipidemia: Multiple comorbidities complicates the present care and expect difficult and delay recovery DVT prophylaxis: Bilateral SCDs Laboratory Results 07/17/19 09:21: POC Glucose 222 H 07/17/19 12:51: Specimen Type ROBERTO, pH 7.24 L, Bicarbonate Actual 25.5, POC Total CO2 27, Base Excess -2, O2 Saturation 100 H, ABG pCO2 59.7 H, ABG pO2 492 H*, O2 Delivery Device Vent, Blood Gas Notified Whom OTHER 07/17/19 13:30: Sodium 144, Potassium 4.0, Chloride 111 H, Carbon Dioxide 29.0, Anion Gap 4 L, BUN 56 H, Creatinine 2.84 H, Estim Creat Clear Calc 26.51, Est GFR (MDRD) Af Amer 30 L, Est GFR (MDRD) Non-Af 24 L, BUN/Creatinine Ratio 19.7, Glucose 228 H, Calcium 6.7 L, Total Bilirubin 0.70, AST 25, ALT 23, Alkaline Phosphatase 57, Troponin I 0.054 H, Total Protein 4.4 L, Albumin 1.9 L, Globulin 2.5, Albumin/Globulin Ratio 0.8 L 07/17/19 13:30: WBC 8.4, RBC 4.90, Hgb 13.6, Hct 44.9, MCV 91.6, MCH 27.8, MCHC 30.3 L, RDW Std Deviation 54.4 H, RDW Coeff of Nora 16.2 H, Plt Count 133 L, MPV 12.5 H, Immature Gran % (Auto) 0.700, Neut % (Auto) 87.2 H, Lymph % (Auto) 7.8 L , [place] % (Auto) 3.0, Eos % (Auto) 0.8, Baso % (Auto) 0.5, Absolute Neuts (auto) 7.3, Absolute Lymphs (auto) 0.65 L, Nucleated RBC % 0 07/17/19 13:30: Lactic Acid 1.6 07/17/19 14:05: Specimen Type ART, Sample Site L Radial, pH 7.38, Bicarbonate Actual 28.1 H, POC Total CO2 30, Base Excess 3 H, O2 Saturation 92 L, O2 % 30, ABG pCO2 47.9 H, ABG pO2 65 L, Kiko Test NA, Respiration Rate 14, O2 Delivery Device Vent, Minute Volume 9.00, Vent Mode A-C, Tidal Volume 500, POC PEEP 5, Blood Gas Notified Whom ICU MD, Blood Gas Notified Time 1400 Code Visit Inpatient E&M: 23856 Init Hosp L3
--- NOTE | 2019-07-17 17:23 | EKG12_ITS ---
Test Reason : POSTARREST Blood Pressure : / mmHG Vent. Rate : 081 BPM Atrial Rate : 081 BPM P-R Int : 154 ms QRS Dur : 096 ms QT Int : 430 ms P-R-T Axes : 060 022 117 degrees QTc Int : 499 ms Normal sinus rhythm T wave abnormality, consider lateral ischemia Prolonged QT Abnormal ECG No previous ECGs available Confirmed by SRI ALMEIDA, KRYSTIAN ([id number]), editorial cartoonist BRIGETTE WANG ([id number]) on 07/24/2019 8:49:28 AM Referred By: Poncho Galan Confirmed By:KRYSTIAN FIERRO MD
--- NOTE | 2019-07-17 17:23 | NURSING ---
Temp 97.1, yrn waller
[2019-07-17 17:45] LABS: Bedside Glucose 272 mg/dL (70-110)
[2019-07-17 18:05] LABS: Phosphorus 4.5 mg/dL (2.5-4.9)
[2019-07-17 18:08] LABS: Magnesium 2.2 mg/dL (1.6-2.6)
[2019-07-17] MEDS: Insulin Lispro 100 UNIT/ML INSULN.PEN SC ×2 (18:41→22:05)
--- NOTE | 2019-07-17 20:35 | NURSING ---
Pt's , Britney, at bedside; careplan reviewed, emotional support provided.
--- NOTE | 2019-07-17 21:15 | NURSING ---
Pt noted to have rhythmic motion to jaw, unable to cause increase or decrease in finding. called and notified of finding focal seizure activity; ordered received for Ativan 2mg IV PRN Q4h for seizure activity.
[2019-07-17] MEDS: LORazepam 2 MG/ML Syringe IV (21:53)
[2019-07-17] MEDS: 0.9% Saline Lock 10 ML Syringe IV (21:53)
[2019-07-17] MEDS: Chlorhexidine 15 ML PO (21:53)
[2019-07-17 22:10] LABS: Bedside Glucose 203 mg/dL (70-110)
[2019-07-18] VITALS (23 sets, daily range): BP systolic 117–176; BP diastolic 65–106; PULSE 92–118; RESP 14–26; TEMP 37.2–37.6; O2SAT 91–98
--- NOTE | 2019-07-18 02:16 | NURSING ---
While performing assessment of gag reflex, yankeur caused pt to produce a strong gag and then pt began to have tonic seizure immediately post. Richie arms and legs were rigid, pt was tightly clamped down on yankeur and spastic motion of diaphragm and abdomen noted; no vent volumes were able to be delivered and vent was alarming high peak pressures. Pt's HR was as high as 150 and ABP reading 184/114. Pt was given 2mg Ativan IV as per PRN order received from , pt slowly relaxed. Pt's remains at bedside and updated on pt condition.
[2019-07-18] MEDS: 0.9% Saline Lock 10 ML Syringe IV ×2 (02:20→04:28)
[2019-07-18] MEDS: LORazepam 2 MG/ML Syringe IV (02:20)
[2019-07-18] MEDS: Insulin Lispro 100 UNIT/ML INSULN.PEN SC ×4 (02:40→13:14)
[2019-07-18 03:20] LABS: Bedside Glucose 185 mg/dL (70-110)
[2019-07-18 04:55] LABS: Absolute Lymphocyte Count 0.74 X10^3/uL (0.83-4.51); Absolute Neutrophil Count 15.3 X10^3/uL (2.0-7.7); Basophil# 0.03 X10^3/uL; Basophil% 0.2 % (0-1); Hematocrit 45.2 % (40-54); Hemoglobin 14.2 g/dL (13.0-16.5); Lymphocyte # 0.74 X10^3/ul (4.0); Lymphocyte % 4.4 % (19-41); Mean Corp Hgb Conc 31.4 g/dL (32-36); Mean Corpuscular Hgb 27.6 pg (27.0-32.0); Mean Corpuscular Volume 87.9 fL (80-94); Mean Platelet Vol. 11.8 fl (6.2-12.0); Monocyte# 0.63 X10^3/uL; Monocyte% 3.7 % (0-10); NRBC Flagged by Analyzer 0 % (0-5); Neutrophil # 15.26 X10^3/uL (2.7-7.7); Neutrophil % 90.8 % (47-70); Platelet Count 141 K/mm3 (150-450); RBC Distribution Width CV 16.1 % (11.6-14.6); RBC Distribution Width SD 51.9 fl (35.1-43.9); Red Blood Count 5.14 M/mm3 (4.6-6.2); White Blood Count 16.8 K/mm3 (4.4-11.0)
--- NOTE | 2019-07-18 05:15 | NURSING ---
RT called to room, pt noted to be pulling less tidal volumes on vent and an audible leak was heard around ETT. RT attempted to replace air to ETT cuff, unsuccessful after multiple attempts, decided that cuff balloon was insufficient; pt not receiving any oxygenation volumes at this time. ETT pulled, OGT maintained, and pt ventilated at 100% w/ambubag. Rapid response team initiated.
[2019-07-18 05:24] LABS: ALB/GLOB Ratio 0.7 RATIO (0.9-2.4); AST(SGOT) 25 U/L (15-37); Alanine Aminotransfer ALT/SGPT 29 U/L (16-61); Albumin, Serum 2.3 g/dL (3.2-5.0); Alkaline Phosphatase 70 U/L (45-117); Anion Gap 5 (5-15); BUN 66 mg/dL (7-18); BUN/Creat Ratio 18.7 RATIO (10-20); Calcium,Total 8.6 mg/dL (8.5-10.1); Chloride 107 mmol/L (98-107); Creatinine, Serum 3.53 mg/dL (0.70-1.30); EST Glomerular Filtration Rate 19 mL/min (>60); Est Glom Filt Rate - Afr Amer 23 mL/min (>60); Estimated Creatinine Clearance 20.58 ml/min; Globulin 3.2 g/dL (2.2-4.2); Glucose 174 mg/dL (74-106); Potassium 3.9 mmol/L (3.5-5.1); Protein, Total 5.5 g/dL (6.4-8.2); Sodium Level 143 mmol/L (136-145)
--- NOTE | 2019-07-18 05:45 | NURSING ---
at bedside, assessments and events of the night reviewed.
[2019-07-18 05:51] LABS: Base Excess 3 mmol/L (-2 to +2); Bicarbonate 28.2 mmol/L (22-26); Blood Gas Specimen Type ALINE; O2 Delivery Device Nasal Can; PO2 125 mmHG (75-100); SITE L Radial; SO2 99 % (95-99); Total Carbon Dioxide 30 mmol/L; pCO2 49.6 mmHg (35-45); pH 7.36 (7.35-7.45)
--- NOTE | 2019-07-18 05:53 | CPS ---
RT staff called to bedside by staff occupational therapist because patient was gurgling around the ET tube and RN observed low tidal volumes. Upon arrival to beside, patient displayed no tidal volumes and was gurgling around the ET tube. RT tried reinflating the ET tube cuff with no prevail. Rapid response was called. ET tube was pulled by RT and ventilation was started via ambu bag and mask. Patient was extubated because he is a suspected anoxic brain injury; oxygenation and ventilation was needed to be resumed immediately. Dr. Mccoy arrived and assessed the patient. Dr. Duffy wanted the patient placed on 4L NC. ABG was obtained via arterial line. Results were shown to Dr. Duffy at bedside. Dr. Adams phoned and was 15 minutes out with the plan to reintubate upon arrival. Patient reintubated successfully with no complications. Bilateral breathe sounds heard and Ez cap color change.
--- NOTE | 2019-07-18 06:03 | PN_ITS ---
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
--- NOTE | 2019-07-18 06:06 | NURSING ---
0605: Dr. Adams in the room to assess patient BP: 158/86 HR 113 0609: versed 4mg IV given by Lakeisha Tolbert RN BP 165/94 HR 113 0610: succinylcholine 100mg IV given by Lakeisha Tolbert RN BP 170/101 HR 119 0611: BP 171/101 HR 112 [address] Adams with glidescope, color change notedon Co2 monitor and bilateral breath sounds noted
[2019-07-18] MEDS: Midazolam 5 MG/ML Syringe IV (06:09)
[2019-07-18] MEDS: Succinylcholine Chloride 200 MG/10 ML Vial 100 MG IV (06:10)
--- NOTE | 2019-07-18 06:13 | RAD_ITS ---
STUDY: X-RAY CHEST REASON FOR EXAM: Male, 58 years old. ET AND OG TUBE PLACEMENTS TECHNIQUE: 2 AP portable views the chest were obtained. . COMPARISON: 07/17/2019. FINDINGS: Endotracheal tube tip is 4.2 cm above the barbie. Nasogastric tube tip and sidehole are in the gastric fundus. Right internal jugular central venous catheter tip overlies the distal superior vena cava. There is no demonstrated pneumothorax. There is mild bilateral basilar atelectasis, left greater than right.. There is no demonstrated acute pulmonary infiltrate. There is no demonstrated pleural abnormality. The heart is enlarged. There is a ventricular pacemaker. Normal mediastinum and guru. Normal visualized pulmonary arteries. Normal visualized aortic arch and descending thoracic aorta. There are no visualized acute osseous abnormalities. . There is no demonstrated abnormality of the visualized soft tissue structures of the upper abdomen. RAD/Chest 1 View (Portable) IMPRESSION: Tubes are in adequate position. Cardiomegaly. Persistent bilateral basilar atelectasis, left greater than right. No evidence for acute cardiopulmonary pathology. Electronically Signed: Mick Anders MD at 7:15 EST , Service support ,
--- NOTE | 2019-07-18 06:26 | PN_ITS ---
Subjective: The patient was seen and examined at the bedside this morning. Events from the last 24 hours have been reviewed. Last evening, the patient developed some focal seizure activity, mostly in the form of myoclonic jerking of the upper extremities. 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 He was treated with IV Ativan. During that episode, the patient bit down on the endotracheal tube and ruptured the pilot control operator helper balloon. The endotracheal tube had to be removed. I was contacted by nursing staff regarding the aforementioned and arrived to the patient's bedside. He remained unresponsive and was therefore emergently reintubated with a #7.5 endotracheal tube. EEG is currently being set up. Bedside Intubation Indication: Encephalopathy/acute respiratory failure The patient was placed in the appropriate sniffing position. Preoxygenated sedation via bag valve mask was provided for a minimum of 3 minutes. The patient had continuous cardiac as well as pulse oximetry monitoring during the procedure. Procedure sedation was provided by the administration of 4 mg of Versed. Direct laryngoscopy was then performed using a number 4 blade, which revealed a grade 1 view. Unfortunately, the patient bit down on the laryngosc ope and had to be administered 100 mg of succinylcholine. Following this, a 7.5 mm endotracheal tube was visualized advancing between the cords to the level of 22 cm at the lip. The stylette was then removed and discarded. Tube placement was confirmed by fogging in the tube along with equal and bilateral breath sounds. Colorimetric change was visualized on the CO2 meter. The cuff was then inflated and the tube secured using a commercially available device. A good pulse oximetry waveform was seen on the monitor throughout the procedure. A portable chest x-ray has been ordered to confirm appropriate placement. The patient tolerated the procedure well. Objective: The patient's most recent lab work, culture data and imaging studies have all been personally reviewed. CT head revealed chronic involutional changes of the brain. General: - - The patient is now reintubated and mechanically ventilated. HEENT: Atraumatic, Normocephalic Oral: No Gingival or Mucosal Lesions/ Ulcerations, - - Endotracheal and OG tubes remain in place Neck: Supple, No Nodes, Trachea Midline, - - Right IJ central venous catheter Lungs: - - Mechanical breath sounds across anterior lung woodward. Cardiovascular: Regular rate, Regular Rhythm, Normal S1, Normal S2, No murmurs Abdomen: Bowel Sounds Present, Soft, Non Tender, Obese Extremities: No clubbing, No cyanosis, Edema Skin: No breakdown Musculoskeletal: No Muscle Wasting Lymphatic: No Cervical, Supraclavicular, or Inguinal Adenopathy Neurological: - - The patient will withdrawal to painful stimuli. However, his essentially comatose and will not follow any commands. Brainstem reflexes appear intact. Vital Signs Temp Pulse Resp BP Pulse Ox 99.4 F H 111 H 16 157/102 H 97 07/18/19 05:00 07/18/19 05:10 07/18/19 05:10 07/18/19 05:00 07/18/19 05:10 Oxygen Delivery Method Mechanical Ventilator Weight: 224 lb 13.944 oz Body Mass Index (BMI) 35.2 Intake and Output for Last 24 Hours 07/16/19 07/17/19 07/18/19 23:59 23:59 23:59 Intake Total 380 / 380 Output Total 225 / 475 250 / 250 Balance 155 / -95 -250 / -250 Labs (Last 48 Hours) 07/16/19 07/16/19 07/17/19 13:29 13:29 09:21 WBC 11.0 RBC 5.25 Hgb 14.4 Hct 48.0 MCV 91.4 MCH 27.4 MCHC 30.0 L RDW Std Deviation 54.4 H RDW Coeff of Nora 16.1 H Plt Count 150 MPV 12.3 H Immature Gran % (Auto) Neut % (Auto) Lymph % (Auto) [place] % (Auto) Eos % (Auto) Baso % (Auto) Absolute Neuts (auto) Absolute Lymphs (auto) Nucleated RBC % Specimen Type Sample Site pH Bicarbonate Actual POC Total CO2 Base Excess O2 Saturation O2 % ABG pCO2 ABG pO2 Kiko Test Respiration Rate O2 Delivery Device Liter Flow Minute Volume Vent Mode Tidal Volume POC PEEP Blood Gas Notified Whom Blood Gas Notified Time Sodium 141 Potassium 4.5 Chloride 105 Carbon Dioxide 33.0 H Anion Gap 3 L BUN 66 H Creatinine 3.53 H Estim Creat Clear Calc Est GFR (MDRD) Af Amer 23 L Est GFR (MDRD) Non-Af 19 L BUN/Creatinine Ratio 18.7 Glucose 306 H Lactic Acid Calcium 8.3 L Phosphorus Magnesium Total Bilirubin AST ALT Alkaline Phosphatase Troponin I Total Protein Albumin Globulin Albumin/Globulin Ratio POC Glucose 222 H 07/17/19 07/17/19 07/17/19 12:51 13:30 13:30 WBC 8.4 RBC 4.90 Hgb 13.6 Hct 44.9 MCV 91.6 MCH 27.8 MCHC 30.3 L RDW Std Deviation 54.4 H RDW Coeff of Nora 16.2 H Plt Count 133 L MPV 12.5 H Immature Gran % (Auto) 0.700 Neut % (Auto) 87.2 H Lymph % (Auto) 7.8 L Wall[place] % (Auto) 3.0 Eos % (Auto) 0.8 Baso % (Auto) 0.5 Absolute Neuts (auto) 7.3 Absolute Lymphs (auto) 0.65 L Nucleated RBC % 0 Specimen Type ROBERTO Sample Site pH 7.24 L Bicarbonate Actual 25.5 POC Total CO2 27 Base Excess -2 O2 Saturation 100 H O2 % ABG pCO2 59.7 H ABG pO2 492 H* Kiko Test Respiration Rate O2 Delivery Device Vent Liter Flow Minute Volume Vent Mode Tidal Volume POC PEEP Blood Gas Notified Whom OTHER Blood Gas Notified Time Sodium 144 Potassium 4.0 Chloride 111 H Carbon Dioxide 29.0 Anion Gap 4 L BUN 56 H Creatinine 2.84 H Estim Creat Clear Calc 26.51 Est GFR (MDRD) Af Amer 30 L Est GFR (MDRD) Non-Af 24 L BUN/Creatinine Ratio 19.7 Glucose 228 H Lactic Acid Calcium 6.7 L Phosphorus Magnesium Total Bilirubin 0.70 AST 25 ALT 23 Alkaline Phosphatase 57 Troponin I 0.054 H Total Protein 4.4 L Albumin 1.9 L Globulin 2.5 Albumin/Globulin Ratio 0.8 L POC Glucose 07/17/19 07/17/19 07/17/19 13:30 14:05 17:36 WBC RBC Hgb Hct MCV MCH MCHC RDW Std Deviation RDW Coeff of Nora Plt Count MPV Immature Gran % (Auto) Neut % (Auto) Lymph % (Auto) [place] % (Auto) Eos % (Auto) Baso % (Auto) Absolute Neuts (auto) Absolute Lymphs (auto) Nucleated RBC % Specimen Type ART Sample Site L Radial pH 7.38 Bicarbonate Actual 28.1 H POC Total CO2 30 Base Excess 3 H O2 Saturation 92 L O2 % 30 ABG pCO2 47.9 H ABG pO2 65 L Kiko Test NA Respiration Rate 14 O2 Delivery Device Vent Liter Flow Minute Volume 9.00 Vent Mode A-C Tidal Volume 500 POC PEEP 5 Blood Gas Notified Whom ICU MD Blood Gas Notified Time 1400 Sodium Potassium Chloride Carbon Dioxide Anion Gap BUN Creatinine Estim Creat Clear Calc Est GFR (MDRD) Af Amer Est GFR (MDRD) Non-Af BUN/Creatinine Ratio Glucose Lactic Acid 1.6 Calcium Phosphorus Magnesium Total Bilirubin AST ALT Alkaline Phosphatase Troponin I Total Protein Albumin Globulin Albumin/Globulin Ratio POC Glucose 272 H 07/17/19 07/17/19 07/17/19 17:40 17:40 22:02 WBC RBC Hgb Hct MCV MCH MCHC RDW Std Deviation RDW Coeff of Nora Plt Count MPV Immature Gran % (Auto) Neut % (Auto) Lymph % (Auto) [place] % (Auto) Eos % (Auto) Baso % (Auto) Absolute Neuts (auto) Absolute Lymphs (auto) Nucleated RBC % Specimen Type Sample Site pH Bicarbonate Actual POC Total CO2 Base Excess O2 Saturation O2 % ABG pCO2 ABG pO2 Kiko Test Respiration Rate O2 Delivery Device Liter Flow Minute Volume Vent Mode Tidal Volume POC PEEP Blood Gas Notified Whom Blood Gas Notified Time Sodium Potassium Chloride Carbon Dioxide Anion Gap BUN Creatinine Estim Creat Clear Calc Est GFR (MDRD) Af Amer Est GFR (MDRD) Non-Af BUN/Creatinine Ratio Glucose Lactic Acid Calcium Phosphorus 4.5 Magnesium 2.2 Total Bilirubin AST ALT Alkaline Phosphatase Troponin I 0.134 H Total Protein Albumin Globulin Albumin/Globulin Ratio POC Glucose 203 H 07/18/19 07/18/19 07/18/19 02:11 04:40 04:40 WBC 16.8 H RBC 5.14 Hgb 14.2 Hct 45.2 MCV 87.9 MCH 27.6 MCHC 31.4 L RDW Std Deviation 51.9 H RDW Coeff of Nora 16.1 H Plt Count 141 L MPV 11.8 Immature Gran % (Auto) 0.900 Neut % (Auto) 90.8 H Lymph % (Auto) 4.4 L Waller % (Auto) 3.7 Eos % (Auto) 0.0 Baso % (Auto) 0.2 Absolute Neuts (auto) 15.3 H Absolute Lymphs (auto) 0.74 L Nucleated RBC % 0 Specimen Type Sample Site pH Bicarbonate Actual POC Total CO2 Base Excess O2 Saturation O2 % ABG pCO2 ABG pO2 Kiko Test Respiration Rate O2 Delivery Device Liter Flow Minute Volume Vent Mode Tidal Volume POC PEEP Blood Gas Notified Whom Blood Gas Notified Time Sodium 143 Potassium 3.9 Chloride 107 Carbon Dioxide 31.0 Anion Gap 5 BUN 66 H Creatinine 3.53 H Estim Creat Clear Calc 20.58 Est GFR (MDRD) Af Amer 23 L Est GFR (MDRD) Non-Af 19 L BUN/Creatinine Ratio 18.7 Glucose 174 H Lactic Acid Calcium 8.6 Phosphorus Magnesium Total Bilirubin 0.80 AST 25 ALT 29 Alkaline Phosphatase 70 Troponin I Total Protein 5.5 L Albumin 2.3 L Globulin 3.2 Albumin/Globulin Ratio 0.7 L POC Glucose 185 H 07/18/19 05:45 WBC RBC Hgb Hct MCV MCH MCHC RDW Std Deviation RDW Coeff of Nora Plt Count MPV Immature Gran % (Auto) Neut % (Auto) Lymph % (Auto) [place] % (Auto) Eos % (Auto) Baso % (Auto) Absolute Neuts (auto) Absolute Lymphs (auto) Nucleated RBC % Specimen Type ROBERTO Sample Site L Radial pH 7.36 Bicarbonate Actual 28.2 H POC Total CO2 30 Base Excess 3 H O2 Saturation 99 O2 % ABG pCO2 49.6 H ABG pO2 125 H Kiko Test NA Respiration Rate O2 Delivery Device Nasal Can Liter Flow 4.0 Minute Volume Vent Mode Tidal Volume POC PEEP Blood Gas Notified Whom HOSP MD Blood Gas Notified Time Sodium Potassium Chloride Carbon Dioxide Anion Gap BUN Creatinine Estim Creat Clear Calc Est GFR (MDRD) Af Amer Est GFR (MDRD) Non-Af BUN/Creatinine Ratio Glucose Lactic Acid Calcium Phosphorus Magnesium Total Bilirubin AST ALT Alkaline Phosphatase Troponin I Total Protein Albumin Globulin Albumin/Globulin Ratio POC Glucose Clinical Impression(s) from Imaging Studies Chest X-Ray 07/17/19 13:03 IMPRESSION: The tip of the endotracheal tube is at 4.6 cm proximal to the barbie. The tip of the orogastric tube is seen within the fundal portion of the stomach. Electronically Signed: Gabino Crenshaw, at 13:36 EST , Service support , Brain CT 07/17/19 14:16 IMPRESSION: Chronic involutional changes of the brain. Electronically Signed: Gabino Crenshaw, at 15:03 EST , Service support , Chest X-Ray 07/17/19 15:30 IMPRESSION: Central catheter on the right. No pneumothorax. Stable endotracheal tube and feeding tube and pacemaker. Left lower lung atelectasis or infiltrate and small effusion. Electronically Signed: Shaun Mccullough MD at 16:50 EST , Service support , Medical Necessity - Tobacco Use Smoking Status: Current every day smoker Tobacco Use: Non-smoker Assessment/Plan All Active Problems (Last Updated 07/18/19 @ 11:22 by Javier George MD) Cardiopulmonary arrest with successful resuscitation (Acute) Pericardial effusion (Resolved 01/26/18) Bilateral pleural effusion (Resolved 02/05/18) Pneumonia (Resolved) Sepsis (Resolved) Hyperkalemia (Resolved) DILLON (acute kidney injury) (Resolved) LV dysfunction (Resolved) Dyspnea on exertion (Resolved) Sinusitis, acute (Resolved) RECOMMENDATIONS: 1. EEG is pending. 2. Continue as needed Ativan and seizure precautions. 3. Load with Keppra 1 g. 4. Neurology consultation is pending. 5. Continue to withhold all sedating medications. 6. Okay to start tube feeds from my perspective. 7. Continue appropriate GI and DVT prophylaxis. IMPRESSIONS: 1. Acute combined respiratory failure/cardiac arrest The patient has a known history of a nonischemic cardiomyopathy with valvular heart disease and combined systolic/diastolic heart failure with a last known ejection fraction of 25%. He underwent monitored anesthesia care for placement of an AV fistula on 07/17. Unfortunately, the patient experienced an intraoperative cardiac arrest. The patient was notably hypotensive during the procedure. He required emergent intubation and ACLS. Return of spontaneous circulation was achieved. Following this, the patient was transferred to the medical intensive care unit. The patient's acid-base status was optimized on the ventilator. We will plan to continue to wean FiO2 as tolerated to maintain saturations at or above 90%. 2. Encephalopathy with new onset seizure activity The patient has subsequently developed new onset seizure activity. He remains comatose but does appear to have intact brainstem reflexes. We are going to continue seizure precautions and as needed Ativan. He will be loaded with 1 g of Keppra and EEG is going to be completed. Neurology consultation is pending. 3. History of nonischemic cardiomyopathy/chronic combined systolic and diastolic heart failure/valvular heart disease/secondary pulmonary hypertension At this time, continue to hold all baseline cardiac medications. 4. Chronic kidney disease Creatinine is stable at this time. Segal catheter is in place. Will monitor urine output accordingly. 5. Obesity/diabetes mellitus/hyperlipidemia/CODE STATUS Complicates care, management, recovery and prognosis. Start sliding scale insul in and Accu-Cheks. The patient remains a full CODE STATUS for the present time. UPDATE: I spoke with neurology following their evaluation of the patient this morning. Given the patient's clinical context along with witnessed seizure activity, they are concerned about the possibility of nonconvulsive status epilepticus. Although the patient's EEG did not show any epileptiform discharges, there is concerned that the Versed administered during his reintubation this morning may have impacted the EEG results. Therefore, they recommended transfer to a tertiary care facility, preferably with neuro ICU capabilities for continuous EEG monitoring. TIME: 45 minutes of critical care time, independent of procedures, was spent addressing the patient's acute combined respiratory failure, cardiac arrest, encephalopathy, new onset seizure activity, chronic combined systolic and diastolic heart failure, valvular heart disease, secondary pulmonary hypertension, chronic kidney disease, review of all data and collaboration with the care team. ([id number], [id number]) Code Visit 9xxxx: [id number] Critical care first hour
--- NOTE | 2019-07-18 06:27 | CPS ---
a line draw. results shown to Dr. Mccoy at bedside.
[2019-07-18 07:01] LABS: Bedside Glucose 180 mg/dL (70-110)
--- NOTE | 2019-07-18 07:08 | PN_ITS ---
Reason for Visit: Follow-up cardiopulmonary arrest, acute respiratory failure, seizure, Subjective: Patient is a 58-year-old gentleman with multiple comorbidities who went into cardiopulmonary arrest while undergoing an attempted right forearm radial to cephalic arteriovenous fistula creation. Patient was successfully resuscitated with ACLS with ROSC. Intubated and transferred to the intensive care unit Objective: GENERAL: On the vent HEENT: ET tube in place EYES; Anicteric, Normal Conjunctiva NECK; supple, normal thyroid, RESPIRATORY: Diminished to auscultation CARDIOVASCULAR: Regular S1 S2, GI: soft, normoactive bowel sounds, : No Renal angle tenderness; EXTREMITIES: edema, no clubbing, MUSCULOSKELETAL: no muscle waisting NEURO: On the vent SKIN: Tattoos on forearm Vitals/I&O's: Vital Signs Temp Pulse Resp BP Pulse Ox 99.5 F H 118 H 26 H 175/100 H 91 07/18/19 06:00 07/18/19 06:00 07/18/19 06:00 07/18/19 06:00 07/18/19 06:00 Oxygen Delivery Method Mechanical Ventilator Weight: 102 kg Body Mass Index (BMI) 35.2 Intake and Output for Last 24 Hours 07/16/19 07/17/19 07/18/19 23:59 23:59 23:59 Intake Total 380 / 380 235.5 / 235.5 Output Total 225 / 475 660 / 660 Balance 155 / -95 -424.5 / -424.5 Laboratory Results 07/17/19 09:21: POC Glucose 222 H 07/17/19 12:51: Specimen Type ROBERTO, pH 7.24 L, Bicarbonate Actual 25.5, POC Total CO2 27, Base Excess -2, O2 Saturation 100 H, ABG pCO2 59.7 H, ABG pO2 492 H*, O2 Delivery Device Vent, Blood Gas Notified Whom OTHER 07/17/19 13:30: Sodium 144, Potassium 4.0, Chloride 111 H, Carbon Dioxide 29.0, Anion Gap 4 L, BUN 56 H, Creatinine 2.84 H, Estim Creat Clear Calc 26.51, Est GFR (MDRD) Af Amer 30 L, Est GFR (MDRD) Non-Af 24 L, BUN/Creatinine Ratio 19.7, Glucose 228 H, Calcium 6.7 L, Total Bilirubin 0.70, AST 25, ALT 23, Alkaline Phosphatase 57, Troponin I 0.054 H, Total Protein 4.4 L, Albumin 1.9 L, Globulin 2.5, Albumin/Globulin Ratio 0.8 L 07/17/19 13:30: WBC 8.4, RBC 4.90, Hgb 13.6, Hct 44.9, MCV 91.6, MCH 27.8, MCHC 30.3 L, RDW Std Deviation 54.4 H, RDW Coeff of Nora 16.2 H, Plt Count 133 L, MPV 12.5 H, Immature Gran % (Auto) 0.700, Neut % (Auto) 87.2 H, Lymph % (Auto) 7.8 L , [place] % (Auto) 3.0, Eos % (Auto) 0.8, Baso % (Auto) 0.5, Absolute Neuts (auto) 7.3, Absolute Lymphs (auto) 0.65 L, Nucleated RBC % 0 07/17/19 13:30: Lactic Acid 1.6 07/17/19 14:05: Specimen Type ART, Sample Site L Radial, pH 7.38, Bicarbonate Actual 28.1 H, POC Total CO2 30, Base Excess 3 H, O2 Saturation 92 L, O2 % 30, ABG pCO2 47.9 H, ABG pO2 65 L, Kiko Test NA, Respiration Rate 14, O2 Delivery Device Vent, Minute Volume 9.00, Vent Mode A-C, Tidal Volume 500, POC PEEP 5, Blood Gas Notified Whom ICU , Blood Gas Notified Time 1400 07/17/19 17:36: POC Glucose 272 H 07/17/19 17:40: Magnesium 2.2, Troponin I 0.134 H 07/17/19 17:40: Phosphorus 4.5 07/17/19 22:02: POC Glucose 203 H 07/18/19 02:11: POC Glucose 185 H 07/18/19 04:40: WBC 16.8 H, RBC 5.14, Hgb 14.2, Hct 45.2, MCV 87.9, MCH 27.6, MCHC 31.4 L, RDW Std Deviation 51.9 H, RDW Coeff of Nora 16.1 H, Plt Count 141 L, MPV 11.8, Immature Gran % (Auto) 0.900, Neut % (Auto) 90.8 H, Lymph % (Auto) 4.4 L, [place] % (Auto) 3.7, Eos % (Auto) 0.0, Baso % (Auto) 0.2, Absolute Neuts (auto) 15.3 H, Absolute Lymphs (auto) 0.74 L, Nucleated RBC % 0 07/18/19 04:40: Sodium 143, Potassium 3.9, Chloride 107, Carbon Dioxide 31.0, Anion Gap 5, BUN 66 H, Creatinine 3.53 H, Estim Creat Clear Calc 20.58, Est GFR (MDRD) Af Amer 23 L, Est GFR (MDRD) Non-Af 19 L, BUN/Creatinine Ratio 18.7, Glucose 174 H, Calcium 8.6, Total Bilirubin 0.80, AST 25, ALT 29, Alkaline Phosphatase 70, Total Protein 5.5 L, Albumin 2.3 L, Globulin 3.2, Albumin/Globulin Ratio 0.7 L 07/18/19 05:45: Specimen Type ROBERTO, Sample Site L Radial, pH 7.36, Bicarbonate Actual 28.2 H, POC Total CO2 30, Base Excess 3 H, O2 Saturation 99, ABG pCO2 49.6 H, ABG pO2 125 H, Kiko Test NA, O2 Delivery Device Nasal Can, Liter Flow 4.0, Blood Gas Notified Whom HOSP 07/18/19 06:53: POC Glucose 180 H Current Medications Acetaminophen (Tylenol) 650 mg PO Q6H PRN PRN PRN Reason: Pain Score 1-10/10 Hydrocodone Bitart/Acetaminophen ([place] 5mg-325mg) 1 - 2 tablet PO Q4H PRN PRN PRN Reason: Pain Score 1-10/10 Chlorhexidine Gluconate () 15 ml PO BID [facility] Last Admin: 07/17/19 21:53 Dose: 15 ml Documented by: Famotidine (Pepcid) 20 mg GT DAILY [facility] Glucagon () 1 mg IM .X1 PRN PRN Reason: Hypoglycemia Sodium Chloride () 1,000 mls @ 30 mls/hr IV .[id number] [facility] Last Infusion: 07/18/19 06:00 Dose: 30 mls/hr Documented by: Dextrose (Dextrose 10%-Water) 250 mls @ 999 mls/hr IV .Q16M PRN; Protocol PRN Reason: HYPOGLYCEMIA Insulin Human Lispro (Humalog Kwmattipen (Bkc)) 0 unit SC Q4 [facility]; Protocol Last Admin: 07/18/19 06:53 Dose: 2 units Documented by: Labetalol HCl (Trandate) 20 mg IV Q4H PRN PRN PRN Reason: SBP GREATER THAN 170 Last Admin: 07/17/19 17:23 Dose: 20 mg Documented by: Lorazepam (Ativan) 2 mg IV Q4H PRN PRN PRN Reason: SEIZURES Last Admin: 07/18/19 02:20 Dose: 2 mg Documented by: Sodium Chloride () 10 - 40 ml IV UD PRN PRN Reason: Multilumen/Ledbetter Flush Last Admin: 07/18/19 04:28 Dose: 30 ml Documented by: Sodium Chloride (0.9% Nacl (Sterile) Posiflush) 10 - 40 ml IV UD PRN PRN Reason: Port access or dressing change Sodium Chloride () 10 - 40 ml IV UD PRN PRN Reason: SALINE FLUSH STROKE Vital Signs/Narrative: Vital Signs Temp Pulse Resp BP BP Pulse Ox 07/18/19 06:00 99.5 F H 118 H 26 H 171/100 H 175/100 H 91 07/18/19 05:10 111 H 16 97 07/18/19 05:00 99.4 F H 100 14 144/75 H 157/102 H 94 07/18/19 04:00 99.5 F H 100 14 134/71 H 150/97 H 92 Medical Necessity - Tobacco Use Smoking Status: Current every day smoker Tobacco Use: Non-smoker Assessment/Plan All Active Problems (Last Reviewed 06/22/19 @ 08:56 by Yessi Boucher) Pericardial effusion (Acute 01/26/18) Bilateral pleural effusion (Acute 02/05/18) Pneumonia (Acute) Sepsis (Acute) Hyperkalemia (Acute) DILLON (acute kidney injury) (Acute) LV dysfunction (Acute) Dyspnea on exertion (Acute) Sinusitis, acute (Acute) Patient is a 58-year-old gentleman with multiple comorbidities who went into cardiopulmonary arrest while undergoing an attempted right forearm radial to cephalic arteriovenous fistula creation. Patient was successfully resuscitated with ACLS with ROSC. Intubated and transferred to the intensive care unit 1. Cardiac arrest ?patient apparently became hypotensive with bradycardia and subsequently PEA successfully resuscitated with ACLS with return of ROSC 2. Acute respiratory failure ?Following patient cardiac arrest intubated admitted to the intensive care unit vent management deferred to pulmonary medicine 3. Acute encephalopathy?? Anoxic with seizure activity - Patient had an EEG performed this a.m., brain CT performed on 07/17/2019 demonstrated only chronic involutional changes of the brain. Consult has been placed to neurology. Patient did receive Ativan for the seizure will initiate Keppra pending neurology consultation 4. 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 Was undergoing an attempted right forearm radial to cephalic arteriovenous fistula creation and he experienced cardiac arrest. Consult has been placed to nephrology 5. Ischemic cardiomyopathy ?With an ejection fraction of 25% patient was managed with medical therapy only prior to this admission 6. Essential hypertension - patient antihypertensive medications on hold 7. Diabetes mellitus type II ?With complications including diabetic nephropathy. Patient currently on Accu- Cheks 4 hours with sliding scale coverage 8. Dyslipidemia ?Patient was on atorvastatin prior to his admission 9. DVT prophylaxis ?SC heparin 10. GI prophylaxis ?Patient is on famotidine Active Medications Acetaminophen (Tylenol) 650 mg PO Q6H PRN PRN PRN Reason: Pain Score 1-10/10 Hydrocodone Bitart/Acetaminophen ([place] 5mg-325mg) 1 - 2 tablet PO Q4H PRN PRN PRN Reason: Pain Score 1-10/10 Chlorhexidine Gluconate () 15 ml PO BID [facility] Last Admin: 07/17/19 21:53 Dose: 15 ml Documented by: Famotidine (Pepcid) 20 mg GT DAILY [facility] Glucagon () 1 mg IM .X1 PRN PRN Reason: Hypoglycemia Sodium Chloride () 1,000 mls @ 30 mls/hr IV .[id number] [facility] Last Infusion: 07/18/19 06:00 Dose: 30 mls/hr Documented by: Dextrose (Dextrose 10%-Water) 250 mls @ 999 mls/hr IV .Q16M PRN; Protocol PRN Reason: HYPOGLYCEMIA Insulin Human Lispro (Humalog Kwikpen (Bkc)) 0 unit SC Q4 [facility]; Protocol Last Admin: 07/18/19 06:53 Dose: 2 units Documented by: Labetalol HCl (Trandate) 20 mg IV Q4H PRN PRN PRN Reason: SBP GREATER THAN 170 Last Admin: 07/17/19 17:23 Dose: 20 mg Documented by: Lorazepam (Ativan) 2 mg IV Q4H PRN PRN PRN Reason: SEIZURES Last Admin: 07/18/19 02:20 Dose: 2 mg Documented by: Sodium Chloride () 10 - 40 ml IV UD PRN PRN Reason: Multilumen/Ledbetter Flush Last Admin: 07/18/19 04:28 Dose: 30 ml Documented by: Sodium Chloride (0.9% Nacl (Sterile) Posiflush) 10 - 40 ml IV UD PRN PRN Reason: Port access or dressing change Sodium Chloride () 10 - 40 ml IV UD PRN PRN Reason: SALINE FLUSH Code Visit Inpatient E&M: 36698 Subs Hosp L3
--- NOTE | 2019-07-18 09:18 | CASEMGMT ---
Addendum entered by Pavel Newell 07/18/19 09:29: Intro role of CM to patient's . Emotional support given. is currently calm, asking questions re: transfer. List reviewed with who is contacting family to discuss where they would like transfer. Original Note: [facility] Note: [facility] facilities using [employer] PPO designation on insurance card [facility], [facility], [facility], [facility], [facility]
[2019-07-18] MEDS: levETIRAcetam IV 1,000 MG/100 ML BAG 400 MG IV (09:25)
[2019-07-18] MEDS: 0.9 % NaCl (Sterile) Posiflush 10 mL IV (09:26)
[2019-07-18] MEDS: Famotidine 20 MG Tablet GT (09:31)
[2019-07-18] MEDS: Chlorhexidine 15 ML PO (09:36)
[2019-07-18 09:51] LABS: Bedside Glucose 186 mg/dL (70-110)
--- NOTE | 2019-07-18 10:59 | CASEMGMT ---
SW spoke w/pt's and [id number], support given to family. Pt is to be transferred to a tertiary facility. SW remains available for support to pt's family. ELIZ Jordan
--- NOTE | 2019-07-18 11:20 | PCM.DC ---
Discharge Activity: May Not Drive - for 2-3 days or while taking narcotic pain medications., May Shower, May Take a Tub Bath - in 5 days. Keep extremity elevated above heart level: - - Keep arm elevated above the heart level for 3 days. Additional Activity Instructions:: Exercise hand vigorously with a stress ball. Call your doctor if your incision/area has: Continuous Slow Oozing, Sudden Increased Bleeding - apply pressure and call your doctor., Increased Pain/ Swelling, Increased Redness, Foul Smelling Discharge Call your doctor if you observe: Fever of 101 or Higher Suture Line Care: Avoid Pulling/Pushing, Avoid Pinching/Bending Cleanse incision/area with: Keep Dressing Clean & Dry Additional Dressing/Incision Instructions:: Change or remove dressing in one day. May protect with a gauze bandaid. Allergies/Adverse Reactions: Allergies No Known Allergies Allergy (Verified 07/11/19 11:34) Medications to take at Discharge glimepiride 1 mg tablet 1 mg PO QAM 09/27/17 dulaglutide 1.5 mg/0.5 mL subcutaneous pen injector 1.5 mg SC QWEEK 11/24/18 Handicap [address] placard #1 ea 01/29/19 aspirin 81 mg chewable tablet 81 mg PO DAILY@0800 #90 tab 02/26/19 atorvastatin 20 mg tablet 20 mg PO QHS #90 tab 02/26/19 carvedilol 6.25 mg tablet 6.25 mg PO BID #180 tab 02/26/19 isosorbide mononitrate 30 mg tablet,extended release 24 hr 30 mg PO DAILY #90 tab 02/26/19 Cholecalciferol (VIT D3) [Vitamin D3] 1,000 unit PO DAILY 07/11/19 Furosemide [Lasix] 40 mg PO BIDLX 07/11/19 Patiromer Calcium Sorbitex [Veltassa] 8.4 gm PO DAILY 07/11/19 Hydrocodone Bitart/Apap 5-325 [[place] 5MG-325MG] 1 tab PO Q6H PRN PRN 2 Days #5 tab 07/17/19 The following prescriptions were given: Hydrocodone Bitart/Apap 5-325 [[place] 5MG-325MG] 1 tab PO Q6H PRN PRN 2 Days #5 tab PRN Reason: Pain Transmission Status: Received by [facility] Primary Care Physician: Erasmo Stoner DO [Primary Care Provider] - Test Results: Test results from this visit will be discussed in further detail at your follow-up appointment, if applicable. Please Follow Up With: Poncho Galan MD - [phone] When: Call to make an appointment for suture removal and follow up in 1 week. Proposed Discharge Date: 07/18/19
--- NOTE | 2019-07-18 11:47 | DS.PCM_ITS ---
Discharge Date and Diagnosis - Problem List Patient Problems: Active and Suspected Problems (Last Updated 07/18/19 @ 11:22 by Javier George MD) Cardiopulmonary arrest with successful resuscitation (Acute) Date of Admission: 12/28/18 Date of Discharge: 07/18/19 - Primary Discharge Diagnosis Active and Suspected Problems (Last Updated 07/18/19 @ 11:22 by Javier George MD) Cardiopulmonary arrest with successful resuscitation (Acute) - Secondary Discharge Diagnosis Chronic Problems (Last Updated 07/18/19 @ 11:22 by Javier George MD) Chronic renal failure, stage 4 (severe) (Chronic) Implantable cardioverter-defibrillator (ICD) in situ (Chronic) Cardiomyopathy (Chronic) EF 30% per echo 01/27/18 with severely hypokinetic areas of left venticle Secondary pulmonary hypertension (Chronic) RVSP 54mmhg per echo 01/27/18 Nonrheumatic tricuspid (valve) insufficiency (Chronic) mild (1+) per echo 01/27/2010 Nonrheumatic mitral (valve) insufficiency (Chronic) mild (1+) per echo 01/27/18 History of left heart catheterization (Chronic 01/27/18) Atherosclerotic heart disease of [place] coronary artery without angina pectoris (Chronic 01/27/18) Per [facility] 01/27/18, Dr. Dennis @ [facility]: 0.91 FFR (50% stenosis) of RCA, manage medically: all other coronaries normal. Diabetes mellitus (Chronic) HTN (hypertension) (Chronic) Hospital Course and Treatment Imaging Results: Clinical Impression(s) from Imaging Studies Chest X-Ray 07/17/19 13:03 IMPRESSION: The tip of the endotracheal tube is at 4.6 cm proximal to the barbie. The tip of the orogastric tube is seen within the fundal portion of the stomach. Electronically Signed: Gabino Crenshaw, at 13:36 EST , Service support , Brain CT 07/17/19 14:16 IMPRESSION: Chronic involutional changes of the brain. Electronically Signed: Gabino Crenshaw, at 15:03 EST , Service support , Chest X-Ray 07/17/19 15:30 IMPRESSION: Central catheter on the right. No pneumothorax. Stable endotracheal tube and feeding tube and pacemaker. Left lower lung atelectasis or infiltrate and small effusion. Electronically Signed: Shaun Mccullough MD at 16:50 EST , Service support , Chest X-Ray 07/18/19 06:13 IMPRESSION: Tubes are in adequate position. Cardiomegaly. Persistent bilateral basilar atelectasis, left greater than right. No evidence for acute cardiopulmonary pathology. Electronically Signed: Mick Anders MD at 7:15 EST , Service support , Operations: None Summary of Care Provided: Patient is a 58-year-old gentleman with multiple comorbidities who went into cardiopulmonary arrest while undergoing an attempted right forearm radial to cephalic arteriovenous fistula creation. Patient was successfully resuscitated with ACLS with ROSC. Intubated and transferred to the intensive care unit 1. Cardiac arrest ?patient apparently became hypotensive with bradycardia subsequently PEA during his procedure, successfully resuscitated with ACLS with return of ROSC 2. Acute respiratory failure ?Following patient cardiac arrest intubated admitted to the intensive care unit vent management deferred to pulmonary medicine 3. Acute encephalopathy?? Anoxic with seizure activity - Patient had an EEG performed this a.m., brain CT performed on 07/17/2019 demonstrated only chronic involutional changes of the brain. Consult has been placed to neurology. Patient did receive Ativan for the seizure will initiate Keppra pending neurology consultation ?Patient was evaluated in consultation by telemetry neurology was felt patient may be having nonepileptic seizures recommendation was for patient to be transferred to a tertiary care center with neuro ICU capabilities. Discussed with family they elected for [facility]. Call was placed patient was transferred for subsequent management. 4. 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 Was undergoing an attempted right forearm radial to cephalic arteriovenous fistula creation and he experienced cardiac arrest. Consult has been placed to nephrology 5. Ischemic cardiomyopathy ?With an ejection fraction of 25% patient was managed with medical therapy only prior to this admission 6. Essential hypertension - patient antihypertensive medications on hold 7. Diabetes mellitus type II ?With complications including diabetic nephropathy. Patient currently on Accu- Cheks 4 hours with sliding scale coverage 8. Dyslipidemia ?Patient was on atorvastatin prior to his admission 9. DVT prophylaxis ?SC heparin 10. GI prophylaxis ?Patient is on famotidine Patient Problems: Active and Suspected Problems (Last Updated 07/18/19 @ 11:22 by Javier George MD) Cardiopulmonary arrest with successful resuscitation (Acute) Objective: GENERAL: On the vent HEENT: ET tube in place EYES; Anicteric, Normal Conjunctiva NECK; supple, normal thyroid, RESPIRATORY: Diminished to auscultation CARDIOVASCULAR: Regular S1 S2, GI: soft, normoactive bowel sounds, : No Renal angle tenderness; EXTREMITIES: edema, no clubbing, MUSCULOSKELETAL: no muscle waisting NEURO: On the vent - Physical Exam Vitals/I&O's: Vital Signs Temp Pulse Resp BP Pulse Ox 99.2 F H 94 14 131/84 H 91 07/18/19 08:00 07/18/19 11:00 07/18/19 11:00 07/18/19 11:00 07/18/19 11:00 Oxygen Flow Rate (L/min) 4 Oxygen Delivery Method Mechanical Ventilator Weight: 99.7 kg Body Mass Index (BMI) 35.2 Intake and Output for Last 24 Hours 07/16/19 07/17/19 07/18/19 23:59 23:59 23:59 Intake Total 380 / 380 435.5 / 435.5 Output Total 225 / 475 660 / 660 Balance 155 / -95 -224.5 / -224.5 Laboratory Results 07/17/19 09:21: POC Glucose 222 H 07/17/19 12:51: Specimen Type ROBERTO, pH 7.24 L, Bicarbonate Actual 25.5, POC Total CO2 27, Base Excess -2, O2 Saturation 100 H, ABG pCO2 59.7 H, ABG pO2 492 H*, O2 Delivery Device Vent, Blood Gas Notified Whom OTHER 07/17/19 13:30: Sodium 144, Potassium 4.0, Chloride 111 H, Carbon Dioxide 29.0, Anion Gap 4 L, BUN 56 H, Creatinine 2.84 H, Estim Creat Clear Calc 26.51, Est GFR (MDRD) Af Amer 30 L, Est GFR (MDRD) Non-Af 24 L, BUN/Creatinine Ratio 19.7, Glucose 228 H, Calcium 6.7 L, Total Bilirubin 0.70, AST 25, ALT 23, Alkaline Phosphatase 57, Troponin I 0.054 H, Total Protein 4.4 L, Albumin 1.9 L, Globulin 2.5, Albumin/Globulin Ratio 0.8 L 07/17/19 13:30: WBC 8.4, RBC 4.90, Hgb 13.6, Hct 44.9, MCV 91.6, MCH 27.8, MCHC 30.3 L, RDW Std Deviation 54.4 H, RDW Coeff of Nora 16.2 H, Plt Count 133 L, MPV 12.5 H, Immature Gran % (Auto) 0.700, Neut % (Auto) 87.2 H, Lymph % (Auto) 7.8 L , Larue % (Auto) 3.0, Eos % (Auto) 0.8, Baso % (Auto) 0.5, Absolute Neuts (auto) 7.3, Absolute Lymphs (auto) 0.65 L, Nucleated RBC % 0 07/17/19 13:30: Lactic Acid 1.6 07/17/19 14:05: Specimen Type ART, Sample Site L Radial, pH 7.38, Bicarbonate Actual 28.1 H, POC Total CO2 30, Base Excess 3 H, O2 Saturation 92 L, O2 % 30, ABG pCO2 47.9 H, ABG pO2 65 L, Kiko Test NA, Respiration Rate 14, O2 Delivery Device Vent, Minute Volume 9.00, Vent Mode A-C, Tidal Volume 500, POC PEEP 5, Blood Gas Notified Whom ICU , Blood Gas Notified Time 1400 07/17/19 17:36: POC Glucose 272 H 07/17/19 17:40: Magnesium 2.2, Troponin I 0.134 H 07/17/19 17:40: Phosphorus 4.5 07/17/19 22:02: POC Glucose 203 H 07/18/19 02:11: POC Glucose 185 H 07/18/19 04:40: WBC 16.8 H, RBC 5.14, Hgb 14.2, Hct 45.2, MCV 87.9, MCH 27.6, MCHC 31.4 L, RDW Std Deviation 51.9 H, RDW Coeff of Nora 16.1 H, Plt Count 141 L, MPV 11.8, Immature Gran % (Auto) 0.900, Neut % (Auto) 90.8 H, Lymph % (Auto) 4.4 L, Larue % (Auto) 3.7, Eos % (Auto) 0.0, Baso % (Auto) 0.2, Absolute Neuts (auto) 15.3 H, Absolute Lymphs (auto) 0.74 L, Nucleated RBC % 0 07/18/19 04:40: Sodium 143, Potassium 3.9, Chloride 107, Carbon Dioxide 31.0, Anion Gap 5, BUN 66 H, Creatinine 3.53 H, Estim Creat Clear Calc 20.58, Est GFR (MDRD) Af Amer 23 L, Est GFR (MDRD) Non-Af 19 L, BUN/Creatinine Ratio 18.7, Glucose 174 H, Calcium 8.6, Total Bilirubin 0.80, AST 25, ALT 29, Alkaline Phosphatase 70, Total Protein 5.5 L, Albumin 2.3 L, Globulin 3.2, Albumin/Globulin Ratio 0.7 L 07/18/19 05:45: Specimen Type ROBERTO, Sample Site L Radial, pH 7.36, Bicarbonate Actual 28.2 H, POC Total CO2 30, Base Excess 3 H, O2 Saturation 99, ABG pCO2 49.6 H, ABG pO2 125 H, Kiko Test NA, O2 Delivery Device Nasal Can, Liter Flow 4.0, Blood Gas Notified Whom HOSP 07/18/19 06:53: POC Glucose 180 H 07/18/19 07:55: Ammonia 23.0 07/18/19 09:36: POC Glucose 186 H Current Medications Acetaminophen (Tylenol) 650 mg PO Q6H PRN PRN PRN Reason: Pain Score 1-10/10 Chlorhexidine Gluconate () 15 ml PO BID [facility] Last Admin: 07/18/19 09:36 Dose: 15 ml Documented by: Famotidine (Pepcid) 20 mg GT DAILY [facility] Last Admin: 07/18/19 09:31 Dose: 20 mg Documented by: Glucagon () 1 mg IM .X1 PRN PRN Reason: Hypoglycemia Heparin Sodium (Porcine) (Heparin Na) 5,000 unit SC Q8 [facility] Sodium Chloride () 1,000 mls @ 30 mls/hr IV .[id number] [facility] Last Infusion: 07/18/19 06:00 Dose: 30 mls/hr Documented by: Dextrose (Dextrose 10%-Water) 250 mls @ 999 mls/hr IV .Q16M PRN; Protocol PRN Reason: HYPOGLYCEMIA Levetiracetam 500 mg/ Sodium (Chloride) 105 mls @ 400 mls/hr IV Q12 JUAN Insulin Human Lispro (Humalog Kwikpen (Bkc)) 0 unit SC Q4 JUAN; Protocol Last Admin: 07/18/19 09:36 Dose: 2 units Documented by: Labetalol HCl (Trandate) 20 mg IV Q4H PRN PRN PRN Reason: SBP GREATER THAN 170 Last Admin: 07/17/19 17:23 Dose: 20 mg Documented by: Lorazepam (Ativan) 2 mg IV Q4H PRN PRN PRN Reason: SEIZURES Last Admin: 07/18/19 02:20 Dose: 2 mg Documented by: Sodium Chloride () 10 - 40 ml IV UD PRN PRN Reason: Multilumen/Ledbetter Flush Last Admin: 07/18/19 04:28 Dose: 30 ml Documented by: Sodium Chloride (0.9% Nacl (Sterile) Posiflush) 10 - 40 ml IV UD PRN PRN Reason: Port access or dressing change Last Admin: 07/18/19 09:26 Dose: 30 ml Documented by: Sodium Chloride () 10 - 40 ml IV UD PRN PRN Reason: SALINE FLUSH Discharge Diet: Renal Diet Discharge Activity: May Not Drive - for 2-3 days or while taking narcotic pain medications., May Shower, May Take a Tub Bath - in 5 days. Keep extremity elevated above heart level: - - Keep arm elevated above the heart level for 3 days. Additional Activity Instructions:: Exercise hand vigorously with a stress ball. Call your doctor if your incision/area has: Continuous Slow Oozing, Sudden Increased Bleeding - apply pressure and call your doctor., Increased Pain/ Swe lling, Increased Redness, Foul Smelling Discharge Call your doctor if you observe: Fever of 101 or Higher Suture Line Care: Avoid Pulling/Pushing, Avoid Pinching/Bending Cleanse incision/area with: Keep Dressing Clean & Dry Additional Dressing/Incision Instructions:: Change or remove dressing in one day. May protect with a gauze bandaid. Home Medications: Medications to take at Discharge glimepiride 1 mg tablet 1 mg PO QAM 09/27/17 dulaglutide 1.5 mg/0.5 mL subcutaneous pen injector 1.5 mg SC QWEEK 11/24/18 Handicap parking placdane #1 ea 01/29/19 aspirin 81 mg chewable tablet 81 mg PO DAILY@0800 #90 tab 02/26/19 atorvastatin 20 mg tablet 20 mg PO QHS #90 tab 02/26/19 carvedilol 6.25 mg tablet 6.25 mg PO BID #180 tab 02/26/19 isosorbide mononitrate 30 mg tablet,extended release 24 hr 30 mg PO DAILY #90 tab 02/26/19 Cholecalciferol (VIT D3) [Vitamin D3] 1,000 unit PO DAILY 07/11/19 Furosemide [Lasix] 40 mg PO BIDLX 07/11/19 Patiromer Calcium Sorbitex [Veltassa] 8.4 gm PO DAILY 07/11/19 Hydrocodone Bitart/Apap 5-325 [[place] 5MG-325MG] 1 tab PO Q6H PRN PRN 2 Days #5 tab 07/17/19 Following Prescrptions Were Given to Patient: Hydrocodone Bitart/Apap 5-325 [[place] 5MG-325MG] 1 tab PO Q6H PRN PRN 2 Days #5 tab PRN Reason: Pain Transmission Status: Received by [facility] Primary Care Physician: Erasmo Stoner DO [Primary Care Provider] - Please Follow Up With: Poncho Galan MD - [phone] When: Call to make an appointment for suture removal and follow up in 1 week. Disposition: Acute care Hospital - Patient was transferred to [facility] Minutes spent on discharge:: 55 Patient Condition:: Critical Medical Necessity - Tobacco Use Smoking Status: Current every day smoker Tobacco Use: Non-smoker Meaningful Use Info Meaningful Use Diagnoses (Choose all that apply): None applicable Code Visit Inpatient E&M: 18845 Disch Hosp
[2019-07-18] MEDS: Heparin Injection (Vial) 5,000 UNIT/ML VIAL 5000 UNIT SC (13:14)
[2019-07-18 13:16] LABS: Bedside Glucose 175 mg/dL (70-110)
== END 2019-07-18 14:37 | disposition short-term general hospital (02) | DRG 264 ==
LOC: SDC 07-18 10:01 → ICU 07-18 10:01
PROVIDERS: Internal Medicine; Internal Medicine Critical Care Medicine; Admitting Provider Internal Medicine; Family Provider Family Medicine; PCP Family Medicine; Referring Provider Surgery; Visit Provider Internal Medicine
PROC: 031B0ZF Bypass Right Radial Artery to Lower Arm Vein, Open Approach (ICD-10-PCS; principal; 2019-07-17 10:55)
DX: I46.9 Cardiac arrest, cause unspecified (principal); J96.00 Acute respiratory failure, unspecified whether with hypoxia or hypercapnia; I97.711 Intraoperative cardiac arrest during other surgery; I13.2 Hypertensive heart and chronic kidney disease with heart failure and with stage 5 chronic kidney disease, or end stage renal disease; N18.5 Chronic kidney disease, stage 5; I42.8 Other cardiomyopathies; I50.42 Chronic combined systolic (congestive) and diastolic (congestive) heart failure; E87.2 Acidosis; J98.11 Atelectasis; G93.40 Encephalopathy, unspecified; R00.1 Bradycardia, unspecified; Z53.09 Procedure and treatment not carried out because of other contraindication; I25.5 Ischemic cardiomyopathy; E78.5 Hyperlipidemia, unspecified; F17.210 Nicotine dependence, cigarettes, uncomplicated; Z87.01 Personal history of pneumonia (recurrent); G40.409 Other generalized epilepsy and epileptic syndromes, not intractable, without status epilepticus; I27.29 Other secondary pulmonary hypertension; I36.1 Nonrheumatic tricuspid (valve) insufficiency; I34.0 Nonrheumatic mitral (valve) insufficiency; I25.10 Atherosclerotic heart disease of native coronary artery without angina pectoris; E11.22 Type 2 diabetes mellitus with diabetic chronic kidney disease; Z95.810 Presence of automatic (implantable) cardiac defibrillator; Z79.82 Long term (current) use of aspirin; E66.9 Obesity, unspecified; Z68.35 Body mass index [BMI] 35.0-35.9, adult
CPT/HCPCS: 31720; 36415; 36600; 70450; 71045; 80048; 80053; 82140; 82803; 82962; 83605; 83735; 84100; 84484; 85025; 85027; 87040; 87070; 87077; 87086; 87205; 93005; 94002; 94003; 95819; A4216; C1751; J0330; J2405